=== PATIENT | female | born 1995 | race Caucasian/White ===

== ENCOUNTER 2017-10-02 23:40 | Emergency (ER) | payer MEDICAID, SELFPAY ==
[2017-10-02 23:41] VITALS: PULSE 136
[2017-10-02 23:42] VITALS: BP 158/107; PULSE 137; RESP 26; TEMP 36.8; O2SAT 94; BMI 54.6
--- NOTE | 2017-10-03 00:01 | EKG12_ITS ---
Test Reason : GENERAL ILLNESS Blood Pressure : / mmHG Vent. Rate : 114 BPM Atrial Rate : 114 BPM P-R Int : 144 ms QRS Dur : 086 ms QT Int : 322 ms P-R-T Axes : 035 073 017 degrees QTc Int : 443 ms Sinus tachycardia Otherwise normal ECG Confirmed by JINA SURESH, ÓSCAR ([id number]), scientific publications editor CHRISTINA HUGO ([id number] on 10/06/2017 3:26:05 PM Referred By: KIM Confirmed By:ÓSCAR MURO MD
[2017-10-03] MEDS: 0.9% Normal Saline 1,000 ML 1000 ML IV (00:21)
[2017-10-03 00:34] LABS: Absolute Lymphocyte Count 0.59 X10^3/ul (0.83-4.51); Absolute Neutrophil Count 7.9 X10^3/uL (2.0-7.7); Basophil# 0.02 X10^3/uL; Basophil% 0.2 % (0-1); Eosinophil# 0.15 X10^3/uL; Eosinophils% 1.6 % (0-5); Hemoglobin 14.6 g/dl (12.0-15.0); Lymphocyte # 0.59 X10^3/ul (4.0); Lymphocyte % 6.4 % (19-41); Mean Corpuscular Hgb 32.2 pg (27.0-32.0); Mean Corpuscular Volume 94.9 fL (81-99); Mean Platelet Vol. 9.1 fl (6.2-12.0); Monocyte# 0.61 X10^3/uL; Monocyte% 6.6 % (0-10); Neutrophil # 7.86 X10^3/uL (2.7-7.7); Platelet Count 261 K/mm3 (150-450); RBC Distribution Width SD 43.5 fl (35.1-43.9); Red Blood Count 4.53 M/mm3 (4.2-5.4); White Blood Count 9.3 K/mm3 (4.4-11.0)
[2017-10-03 00:36] LABS: Differential Indicated SCAN CRITERIA MET; POSITIVE COUNT NO; POSITIVE DIFFERENTIAL YES; POSITIVE MORPHOLOGY NO
[2017-10-03 00:42] LABS: Anion Gap 9 (5-15); BUN 10 mg/dL (7-18); BUN/Creat Ratio 11.6 RATIO (10-20); Calcium,Total 8.7 mg/dL (8.5-10.1); Chloride 104 mmol/L (98-107); Creatinine, Serum 0.86 mg/dL (0.55-1.02); EST Glomerular Filtration Rate 87 mL/min (>60); Est Glom Filt Rate - Afr Amer 105 mL/min (>60); Estimated Creatinine Clearance 77.43 ml/min; Glucose 129 mg/dL (70-110); Potassium 3.7 mmol/L (3.5-5.1); Sodium Level 139 mmol/L (136-145)
[2017-10-03 00:52] LABS: Differential Comment SCANNED
[2017-10-03 01:15] LABS: Pregnancy, Serum, hCG Quali. NEGATIVE Negative (0-9 Nonpreg)
[2017-10-03 01:33] VITALS: BP 155/94; PULSE 115; RESP 17; O2SAT 98
--- NOTE | 2017-10-03 01:37 | ED.DEP ---
ED Disposition - Plan for ED Patient: Chief Complaint: General Illness Instructions: ED Diarrhea Viral Referrals: Annamarie Tovar MD [Primary Care Provider] -
--- NOTE | 2017-10-03 01:38 | ED.DCSUM_ITS ---
- ER Visit Summary Date of Service: 10/03/17 Chief Complaint: Flu History of Present Illness: The patient is a 22 F with symptoms that started today. She reports chills, sweats, and diarrhea. She thought she might be developing the flu. She was also concerned because she has been weaning off of her psych meds. She has been taking invega but decreasing the dose under the care of her doctor. She was recently started on Prolixin. Physical Examination: Blood pressure 158/107. Heart rate 137. Respiratory rate 26. Afebrile. Pulse ox 94%. Patient appears uncomfortable but not toxic or in distress. Skin appears normal. Heart regular but tachycardic. Lungs clear. Abdomen soft and nontender. Test Results: EKG showed sinus rhythm at a rate of 114. No signs of ischemia or infarction. CBC normal. BMP normal except for glucose of 129. test negative. Influenza test negative. Emergency Department Course and Treatment: Patient received fluids and nausea medication. Her symptoms improved. Her blood pressure improved. Her symptoms may be from medication changes, or possibly an infectious etiology. She is nontoxic and in no acute distress. I believe she is appropriate for outpatient follow-up. She will continue to stay hydrated. Monitor for new or worsening symptoms. Return if worse. Treatment Plan: As above Disposition: Discharged Impression: 1. Diarrheal illness This note was generated with [employer] dictation software. It may contain incorrect words, spelling, and punctuation that were not noted in review of the chart prior to signing ED Disposition - Plan for ED Patient: Chief Complaint: General Illness Referrals: Annamarie Tovar MD [Primary Care Provider] -
--- NOTE | 2017-10-03 01:46 | ED.RN ---
IV DC'ED, CATHETER INTACT, SMALL GAUZE DRESSING PLACED. DISCHARGE INSTRUCTIONS GIVEN TO AND REVIEWED WITH PATIENT, PATIENT DENIES QUESTIONS OR CONCERNS AND VOICES UNDERSTANDING OF DISCHARGE INSTRUCTIONS. PT AMBULATES OUT OF ROOM WITHOUT DIFFICULTY.
== END 2017-10-03 01:47 | disposition home or self-care (01) ==
PROVIDERS: Emergency Provider Emergency Medicine; Family Provider Internal Medicine; PCP Internal Medicine
DX: R19.7 Diarrhea, unspecified (principal); R05 Cough; R51 Headache; R10.9 Unspecified abdominal pain; R11.0 Nausea; Z72.0 Tobacco use; F20.9 Schizophrenia, unspecified
CPT/HCPCS: 80048; 84703; 85025; 87804; 93005; 99285; J7030; A4216

== ENCOUNTER → 2017-10-06 13:53 | Outpatient (CLI) | payer MEDICARE, SELFPAY ==
[2017-10-06 13:06] VITALS: BP 155/94; BMI 54.6
[2017-10-06 15:49] LABS: Hemoglobin A1c 5.1 % (4.2-6.3)
[2017-10-06 15:56] LABS: T4 Free Direct 0.93 ng/dL (0.76-1.46)
== END ==
PROVIDERS: Family Provider Internal Medicine; PCP Internal Medicine; Visit Provider Internal Medicine
DX: R00.0 Tachycardia, unspecified (principal); R73.09 Other abnormal glucose
CPT/HCPCS: 36415; 83036; 84439; 84443

== ENCOUNTER → 2018-01-16 14:10 | Outpatient (CLI) | payer MEDICARE, SELFPAY ==
[2018-01-16 15:49] LABS: Hematocrit 40.9 % (37-47); Hemoglobin 13.6 g/dl (12.0-15.0); Mean Corp Hgb Conc 33.3 g/gl (32-36); Mean Corpuscular Hgb 32.2 pg (27.0-32.0); Mean Corpuscular Volume 96.7 fL (81-99); Mean Platelet Vol. 9.3 fl (6.2-12.0); Platelet Count 311 K/mm3 (150-450); RBC Distribution Width CV 13.7 % (11.6-14.6); RBC Distribution Width SD 47.2 fl (35.1-43.9); Red Blood Count 4.23 M/mm3 (4.2-5.4); White Blood Count 6.6 K/mm3 (4.4-11.0)
[2018-01-16 16:12] LABS: Hemoglobin A1c 5.3 % (4.2-6.3)
[2018-01-16 16:17] LABS: ALB/GLOB Ratio 1.1 RATIO (0.9-2.4); AST(SGOT) 17 U/L (15-37); Alanine Aminotransfer ALT/SGPT 28 U/L (13-56); Albumin, Serum 3.7 g/dL (3.2-5.0); Alkaline Phosphatase 158 U/L (45-117); Anion Gap 7 (5-15); BUN 11 mg/dL (7-18); BUN/Creat Ratio 12.6 RATIO (10-20); Calcium,Total 8.6 mg/dL (8.5-10.1); Chloride 106 mmol/L (98-107); Creatinine, Serum 0.87 mg/dL (0.55-1.02); EST Glomerular Filtration Rate 86 mL/min (>60); Est Glom Filt Rate - Afr Amer 104 mL/min (>60); Globulin 3.4 g/dL (2.2-4.2); Glucose 85 mg/dL (74-106); Potassium 4.1 mmol/L (3.5-5.1); Prolactin 98.7 ng/mL; Protein, Total 7.1 g/dL (6.4-8.2); Sodium Level 141 mmol/L (136-145); Thyroid Stim Hormone (TSH) 2.55 uIU/mL (0.358-3.74)
[2018-01-16 16:19] LABS: Scan Indicated on CBC? Y/N NO
== END ==
PROVIDERS: Family Provider Internal Medicine; PCP Internal Medicine; Visit Provider Psychiatry & Neurology Psychiatry
DX: Z79.899 Other long term (current) drug therapy (principal)
CPT/HCPCS: 36415; 80053; 83036; 84146; 84443; 85027

== ENCOUNTER 2018-04-23 01:51 | Emergency (ER) | payer MEDICARE, SELFPAY ==
[2018-04-23 01:53] VITALS: BP 171/98; PULSE 113; RESP 18; TEMP 36.6; O2SAT 97; BMI 59.3
[2018-04-23 02:25] LABS: Absolute Lymphocyte Count 1.81 X10^3/ul (0.83-4.51); Absolute Neutrophil Count 5.1 X10^3/uL (2.0-7.7); Basophil# 0.03 X10^3/uL; Basophil% 0.4 % (0-1); Eosinophil# 0.22 X10^3/uL; Eosinophils% 2.9 % (0-5); Hematocrit 45.9 % (37-47); Hemoglobin 15.3 g/dl (12.0-15.0); Lymphocyte # 1.81 X10^3/ul (4.0); Lymphocyte % 23.7 % (19-41); Mean Corp Hgb Conc 33.3 g/gl (32-36); Mean Corpuscular Hgb 31.2 pg (27.0-32.0); Mean Corpuscular Volume 93.7 fL (81-99); Monocyte# 0.45 X10^3/uL; Monocyte% 5.9 % (0-10); Neutrophil # 5.11 X10^3/uL (2.7-7.7); Neutrophil % 66.8 % (47-70); Platelet Count 328 K/mm3 (150-450); RBC Distribution Width CV 13.2 % (11.6-14.6); RBC Distribution Width SD 43.7 fl (35.1-43.9); White Blood Count 7.6 K/mm3 (4.4-11.0)
[2018-04-23 02:27] LABS: POSITIVE COUNT NO; POSITIVE DIFFERENTIAL NO; POSITIVE MORPHOLOGY NO
[2018-04-23 02:37] LABS: Anion Gap 9 (5-15); BUN 9 mg/dL (7-18); BUN/Creat Ratio 8.5 RATIO (10-20); Calcium,Total 8.9 mg/dL (8.5-10.1); Chloride 105 mmol/L (98-107); Creatinine, Serum 1.06 mg/dL (0.55-1.02); EST Glomerular Filtration Rate 68 mL/min (>60); Est Glom Filt Rate - Afr Amer 83 mL/min (>60); Estimated Creatinine Clearance 62.29 ml/min; Glucose 154 mg/dL (74-106); Potassium 3.5 mmol/L (3.5-5.1); Sodium Level 138 mmol/L (136-145)
[2018-04-23 02:51] LABS: Amphetamine Urine VISTA NEGATIVE (<1000 ng/mL); Barbiturate Urine VISTA NEGATIVE (< 200 ng/mL); Benzodiazepine Urine VISTA NEGATIVE (< 200 ng/mL); Cocaine Urine VISTA NEGATIVE (< 300 ng/mL); Ecstacy Urine VISTA NEGATIVE (< 500 ng/mL); Methadone Urine VISTA NEGATIVE (< 300 ng/mL); PCP Urine VISTA NEGATIVE (< 25 ng/mL); THC Urine VISTA NEGATIVE (< 50 ng/mL); Vista UDS pH Range 6
[2018-04-23 02:59] LABS: Pregnancy, Serum, hCG Quali. NEGATIVE Negative (0-9 Nonpreg)
--- NOTE | 2018-04-23 03:05 | ED.RN ---
CALLED [facility]. FORGEMAN HELPER STATED SHE WILL LET MARYAN KNOW PT NEEDS TO BE SEEN.
[2018-04-23 03:31] VITALS: BP 139/88; PULSE 111; RESP 20; O2SAT 96
--- NOTE | 2018-04-23 03:43 | ED.RN ---
[facility] FROM [facility] IS HERE TO SEE PT.
--- NOTE | 2018-04-23 04:59 | ED.VISSUMM ---
- ER Visit Summary Date of Service: 04/23/18 Chief Complaint: [Depression] History of Present Illness: The patient is a 23 F [presents to the emergency department with complaint of feeling depressed over the last 1-2 weeks. Patient states that she is having a hard time getting out of bed and really lacks any type of motivation. Patient feels useless. She has had decreased p.o. intake. Patient crying more. She denies feeling suicidal or homicidal. Patient does have a history of schizoaffective disorder. Patient scheduled to see a new psychiatrist next month. Patient denies any physical complaints. Patient has no intention of causing self-harm.] Physical Examination: [HEENT-PERRLA, EOMI. Cranial nerves II through XII grossly intact. TMs clear. Mucous membranes moist. No adenopathy. Cardiovascular-regular rate and rhythm without murmur or ectopy Lungs-clear to auscultation, chest wall stable without crepitus or subcu emphysema Abdomen-normoactive bowel sounds, soft, nontender, no rebound or rigidity, no peritoneal signs. Extremities-intact ?4, normal range of motion, normal pulses, atraumatic] Test Results: [CBC with differential obtained was normal. Chemistries were normal. HCG was negative. Toxicology screen was negative. Alcohol was negative.] Emergency Department Course and Treatment: [Patient was evaluated by crisis in the emergency department and at this time it is felt that patient can follow-up as an outpatient with intensive outpatient therapy. Patient is agreeable to this as well as her mother. Patient can contract for safety.] Treatment Plan: [Patient follow-up with counseling center and outpatient therapy Disposition: [Discharged home in stable condition] Impression: [Depression] This note was generated with [employer] software. It may contain incorrect words, spelling, and punctuation that were not noted in review of the chart prior to signing ED Disposition - Plan for ED Patient: Chief Complaint: Depression Referrals: Annamarie Tovar MD [Primary Care Provider] -
--- NOTE | 2018-04-23 05:01 | ED.DEP ---
ED Disposition - Plan for ED Patient: Chief Complaint: Depression Instructions: ED Depression Referrals: Annamarie Tovar MD [Primary Care Provider] - Additional Instructions: follow up with intensive outpatient therapy and your psychiatrist
[2018-04-23 05:08] VITALS: BP 157/93; PULSE 125; RESP 20; O2SAT 96
== END 2018-04-23 05:11 | disposition home or self-care (01) ==
PROVIDERS: Emergency Provider Emergency Medicine; Family Provider Internal Medicine; PCP Internal Medicine
DX: F32.9 Major depressive disorder, single episode, unspecified (principal); I10 Essential (primary) hypertension; K21.9 Gastro-esophageal reflux disease without esophagitis; Z72.0 Tobacco use; F25.9 Schizoaffective disorder, unspecified; Z79.899 Other long term (current) drug therapy
CPT/HCPCS: 36415; 80048; 80307; 80320; 84703; 85025; 99282; G0480

== ENCOUNTER 2018-05-19 09:00 | Outpatient (RCR) | payer MEDICARE, SELFPAY ==
--- NOTE | 2018-05-19 10:09 | BH.SGPN.GN ---
Behaviors/Verbalizations/Mental Status: [Client maintained good eye contact, casually dressed - appearance disheveled as client underwear clearly visible and clothing was ill fitting, motor activity restless - jittery, impatient - AEB shaking leg, fidgeting, difficulty remaining still, speech normal rate and tone - at times appearing hurried in speech due to increased anxiety, anxious, inquisitive, affect congruent, thoughts appearing linear and logical, no evidence of delusions or hallucinations.] Client Response/Progress/Benefit: [Client new to IOP treatment and was adjusting to group setting as this was her first day in the program. She did well to become increasingly engaged and talkative as she grew more comfortable. Client indicated connecting with the group topic of healthy boundaries boundaries and benefitted from hearing other participants discuss their own struggles and experiences associated with setting maintaining consistent healthy boundaries in order to best promote mental health wellness. Client did well to take in and understand information covered regarding different types of boundary setting. She indicated that telling others her emotions is really difficult and went on to explain that her biggest road block in maintaining appropriate boundaries is fear of upsetting others. CLient recommended continued IOP to prevent decompensation and further improoove insight regarding distorted thought patterns.] Narrative Note: []
--- NOTE | 2018-05-19 11:20 | BH.SGPN.GN ---
Behaviors/Verbalizations/Mental Status: [Client maintained consistent eye contact, casually dressed - appearance disheveled AEB client underwear showing, clothing ill-fitting, motor activity , speech normal rate and tone, motor activity restless, however more relaxed than previous session - fidgeting, difficulty remaining still, speech normal rate and tone, anxious, hopeful, affect congruent, thoughts appearing linear and logical, no evidence of delusions or hallucinations.] Client Response/Progress/Benefit: [Client again did well to respond to session and remained in the discussion throughout. Client was able to make connections between her own mental health symptoms and experiences and those discussed by other participants in the group, AEB client nodding and saying me too at various points in discussion. CLient described her current boundaries as being as if she is wearing a mask. She went on to explain feeling as though she has to remain rigid in her emotional boundaries and cant let others see how she really feels or what she is going through. Client benefitted from reflecting on how this has negatively impacted her mental health in the past and ways she would like to begin to improve current boundaries. CLient recommended continued IOP treatment to prevent decompensation and begin working on improving communication with healthy supports to improve client emotion regulation and decrease depressive symptoms.] Narrative Note: []
--- NOTE | 2018-05-19 11:30 | BH.MDN ---
Multi-Disciplinary Note - Note 30-min Individual Time Started:: 08:50 Date: 05/19/18 Purpose of session/treatment goals addressed:: Pt was scheduled to start IOP 12 days ago however did not show not return calls. She showed this AM unannounced requesting to start program. Used the session to discuss current symptoms and any changes in the past 12 days. Eye Contact:: Good Motor Activity:: Appropriate Appearance:: Disheveled Speech:: Appropriate Mood:: Anxious, Depressed Affect:: Congruent Thoughts:: Linear, Logical, No evidence of hallucinations/delusions noted Staff Interventions:: Asked appropriate questions to determine current symptoms and updated pre-admission which was completed 12 days prior. Client Response:: Pt showed up this AM to start IOP unannouced. She apologized for not showing up for scheduled start to IOP 12 days ago and for not calling. Reports that she thought she could cope with her depression herself. Reports that her symptoms continue to affect her daily functioning. Reports no energy, no motivation, increased sleep, crying spells, feelings of worthlessness, and decreased appetitie. States that she is sleeping more than 10 hours per day. Hx of self-harming however denies that she has harmed herself. She reports that she talked with her mother and they both decided this AM that she should follow through with IOP. Presented to [facility] ER on 04/23/18 for worsening depression and requested medication changes. After crisis assessment was referred to [facility]. Risks/Concerns:: Denies any active suicidal ideations, plan, or intent. Hx of previous attempts. Hx of self-harming behaviors (cutting/burning self) to cope with emotions. Last self-harm was 14 days ago. Verbally contracts for safety. Progress Toward Goals/Plan:: No progress noted as this is pt's first day in IOP. Plan is to admit to IOP to prevent decompensation, stabilize mood, and improve daily functioning. Time Stopped:: 09:10
--- NOTE | 2018-05-19 11:45 | BH.MDN_ITS ---
Multi-Disciplinary Note - Note 30-min Individual Time Started:: 08:50 Date: 05/19/18 Purpose of session/treatment goals addressed:: Pt was scheduled to start IOP 12 days ago however did not show not return calls. She showed this AM unannounced requesting to start program. Used the session to discuss current symptoms and any changes in the past 12 days. Eye Contact:: Good Motor Activity:: Appropriate Appearance:: Disheveled Speech:: Appropriate Mood:: Anxious, Depressed Affect:: Congruent Thoughts:: Linear, Logical, No evidence of hallucinations/delusions noted Staff Interventions:: Asked appropriate questions to determine current symptoms and updated pre-admission which was completed 12 days prior. Client Response:: Pt showed up this AM to start IOP unannouced. She apologized for not showing up for scheduled start to IOP 12 days ago and for not calling. Reports that she thought she could cope with her depression herself. Reports that her symptoms continue to affect her daily functioning. Reports no energy, no motivation, increased sleep, crying spells, feelings of worthlessness, and decreased appetitie. States that she is sleeping more than 10 hours per day. Hx of self-harming however denies that she has harmed herself. She reports that she talked with her mother and they both decided this AM that she should follow through with IOP. Presented to [facility] ER on 04/23/18 for worsening depression and requested medication changes. After crisis assessment was referred to [facility]. Risks/Concerns:: Denies any active suicidal ideations, plan, or intent. Hx of previous attempts. Hx of self-harming behaviors (cutting/burning self) to cope with emotions. Last self-harm was 14 days ago. Verbally contracts for safety. Progress Toward Goals/Plan:: No progress noted as this is pt's first day in IOP. Plan is to admit to IOP to prevent decompensation, stabilize mood, and improve daily functioning. Time Stopped:: 09:10
--- NOTE | 2018-05-20 10:03 | BH.SGPN.GN ---
Behaviors/Verbalizations/Mental Status: []Client alert and oriented, disheveled appearance. Eye contact good. Motor activity appropriate. Speech within normal limits. Affect flat, mood dysthymic. Thoughts linear, logical, no signs of hallucinations or delusions. Client Response/Progress/Benefit: []Client responded well to session, engaged throughout. Client discussed things in life that keep people stuck from obtaining mental wellness. Client listed things she would like to get rid of in her life that are keeping her stuck. Client identified self-doubt, not wanting change, unhealthy relationships, and ?not admitting I have a problem.? Client shared if she removed these things her anxiety and depression would lessen. Client participated in the activity that promoted emotional release of things holding client back. Client reported the activity gave client a way to express her emotions. Client appeared to benefit from identifying what she would like to remove from her life in order to obtain improved mental wellness.
--- NOTE | 2018-05-20 11:05 | BH.SGPN.GN ---
Behaviors/Verbalizations/Mental Status: []Client alert and oriented, disheveled. Eye contact good. Motor activity appropriate. Speech within normal limits. Affect constricted, mood anxious. Thoughts linear, logical, no signs of hallucinations or delusions. Client Response/Progress/Benefit: []Client responded well to session, active participant. Client created a 30-day plan to help client get rid of one of the stressors holding her back from improved mental wellness. Client?s 30-day plan was ?no more letting people walk all over me.? Client stated she picked this stressor because client feels anger and frustration when she feels taken advantage of and wants to change that. Client appeared to benefit from creating a 30-day action plan. Progress limited as client is new to IOP. Client to continue IOP to promote mood stability and reduce depression.
--- NOTE | 2018-05-22 09:05 | BH.SGPN.GN ---
Behaviors/Verbalizations/Mental Status: [] Pt eye contact fair, casually dressed, motor activity restless, speech normal rate and tone, mood anxious, congruent affect, thoughts linear and logical, no evidence of delusions or hallucinations. Reviewed client?s symptom tracker, no signs of suicidal ideation, plan, or intent as of today. Client Response/Progress/Benefit: [] Patient reported she recently became sick the last few days which has made her have lower energy. Pt shared one positive this week and is she will be celebrating her sister's birthday. Pt shared however 1 of her stressors is not getting along with her sister, however recognizes its good to spend time with her sister. Patient shared another positive is getting to spend time with her other family while at her sister's birthday republican. Patient reported she is a little nervous that she will be able to manage her emotions And she is not feeling well, but able to identify what she can do if starting to get agitated with others. Patient showing progress with increased awareness of her negative thought patterns and being proactive by identifying what she can do to manage her emotions if needed. Patient seemed to benefit from expressing thoughts and emotions as well as receiving support from peers. Patient to continue IOP level of care to stabilize moods, decrease distorted thought patterns, and prevent decompensation. Narrative Note: []
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
--- NOTE | 2018-05-22 12:52 | BH.DR.ITP ---
Initial Treatment Plan - Patient Information Visit Information: ADMISSION DATE: EXPECTED LOS: 4-6 weeks Diagnoses:: 2 affective disorder bipolar type. PTSD - Problems/Symptoms Problem #1:: Mood instability Symptom:: Depression, isolation, decreased motivation, self-harm thoughts Problem #2:: Anxiety Symptom:: Rumination, panic, intrusive traumatic memories
--- NOTE | 2018-05-22 16:27 | BH.MDN ---
Multi-Disciplinary Note - Note 45-min Individual Time Started:: 10:22 Date: 05/22/18 Purpose of session/treatment goals addressed:: The purpose of this session was to establish rapport with client and provide supportive feedback and encouragement as client discussed current stressors and mental health symptoms. Another purpose was to discuss treatment goals and expectations, as well as gather additional psychosocial history relevant to treatment. Eye Contact:: Good Motor Activity:: Appropriate, Restless - at times fidgetting in chair or looking towards door near end of session Appearance:: Casual, Other - client congested and eyes/nose red due to feeling ill Speech:: Appropriate Mood:: Anxious, Depressed Affect:: Congruent Thoughts:: Linear, Logical, No evidence of hallucinations/delusions noted - client denies any current or active auditory hallucinations. Staff Interventions:: Therapist utilized active listening and humor to build rapport and aid in client in easing anxiety regarding IOP program. Therapist asked open-ended questions to gather information regarding current symptoms, stressors, and treatment goals. Applied empathic responses as Client discussed mental health hx and ME techniques to encourage change behaviors and work with Client on establishment of treatment goals. Additionally, assessed for risk regarding self-harming behaviors and discussed healthy alternatives to self-harming. Client Response:: Client receptive of session and willing to meet with this therapist to review current symptoms, stressors, and goals for treatment. Client discussed feeling very accepted and comfortable in the group setting which has aided in her ability to adjust to the new environment. Client went on to share knowing she needed to seek professional help with managing her depression when she began to recognize changes in her mood and her behaviors. She went on to describe experiencing an increase in negative thoughts and feelings, indicating I could tell I was getting more depressed and I was isolating more. Client discussed that her increased anxiety and depressive symptoms ultimately resulted in client presenting to the ER for a crisis assessment and beig referred to the IOP program. Client shared wanting to find new ways of managing her depression and coping with her current stressors. Client disclosed feeling her current living situation is not good as CLient described that she and her mother are currently homeless and have been staying with her step-dad in his one room apartment. CLient discussed that this has been unhelpful for client mental health as her step-dad struggles with addiction and can become irritable or lash out verbally at times. She expressed plans to find alternative housing and is currently on the [facility] waiting list. Client attributes housing and other psychosocial stressors, such as finances and lack or transportation, as contributing factors to recent mental health decline. At time of session client is endorsing sx of: decreased motivation, anhedonia, rumination related to the anniversay of her father's , increased isolation, irritability, increased self-harming, worthlessness, and crying spells. CLient open to discussing related mental health hx and previous means for coping with sx and managing emotions. Client responded well to psychoeducation provided regarding self-harming and indicated a desire to identify and consistently utilize healthy alternatives as well as improve communication with supports when experiencing increased urges to self-harm. Therapist assessed for current risk and client denying any active self-harming thoughts or urges, as well as denied active plans or intent. CLient indicated connecting with the [employer] and reports plans to use such as a healthy reminder of her supports and how self-harming also hurts those who care about her. Risks/Concerns:: Client denies suicidal ideation, plan, and intent as of 05/22/18. Client reports a hx of self-injurious behaviors via cutting and buring with cigarettes; however, denies any active thoughts, plans, or intent. Client indicates plans to use the ?[employer]? as a technique to reduce urges to self-harm. She is future oriented and reports plans to begin going on regular walks with her mother and new puppy. Progress Toward Goals/Plan:: Progress limited as it is client's second day in IOP and is still adjusting to tx environment. Client reports feeling hopeful and excited to be working more actively on better managing her mental health sx. She discussed feeling comfortable and supported in the group environment and believes that being with others who are dealing with similar experiences will be helpful to her tx progress. Client is currently endorsing anxiety, depressed mood with isolative behavior, no motivation, increase self-harming urges, and difficulty concentrating. Client reports a hx of self-harming behaviors via cutting and burning. Last self-harming reported as being earlier this month. Denies current urges, plan, or intent. Client to continue IOP to increase mood stability, improve use of healthy means for coping, and increase client communication with supports. Time Stopped:: 11:11
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
--- NOTE | 2018-05-26 09:46 | BH.MTP_ITS ---
[facility] Treatment Plan - Patient Information Program Physician:: Cee Reid Primary Therapist:: MILLIE Caro - Psychiatric Diagnoses Psychiatric Diagnoses:: Schitzoaffective Disorder-bipolar type, PTSD, Unspecified Anxiety Diagnosis Code(s):: F 25.0 - Estimated LOS Estimated LOS (in weeks):: 6 Problem/Goal #1 - Problem/Goal #1 Stated Goal:: Client will improve mood management and reduce sx of depression, self harm urges, feelings of hopelessness through Intensive Outpatient Program. Description of Barriers: Client has a significant trauma hx and reports intrusive traumatic thoughts causing increased anxiety and rumination. Client additionally struggles in managing her emotions and reports a significant hx of self-harming and unhealthy means for coping which may impact ability to make progress. Client reports auditory and command hallucinations which may further exacerbate Client distorted or negative thinking; however, client indicates maintaining medication compliance and denies current difficulties with managing hallucinations. Client has a small support system that she describes as ?toxic? at times and multiple psychosocial stressors including financial, occupational, and family stress. Functional Impact: Client reports that recent increases in negative thoughts and intrusive thoughts ruminations related to past trauma have led client to experience increased anxiety and isolation that impact her on a daily basis. Client reports that her increased depression has also led to an influx in thoughts of self-harming and last engaged in self-harming behavior at the beginning of the month. Client noted that her depression and anxiety cause increased isolation, lack of appetite, difficulty completing dx tasks, anhedonia, and irritability. Client reports poor concentration and increased rumination impacting her ability to function at baseline. Goal Relevant Strengths/Supports: Client is receptive of receiving mental health treatment and is open to trying new and different strategies for managing mental health symptoms. Client has a positive support through her mother. She is connected to outpatient mental health services via her corrections caseworker and psychiatrist. Client has a healthy coping base and identifies areas in which she would do well to improve. She is positive and motivated to work towards tx goals - Objectives Objective #1 Stated Objective: Client will identify 2-3 warning signs and triggers for increased depression, negative thinking, and self harming urges. Client will additionally identify and implement 2-3 healthy coping skills to replace self- injurious behaviors and better manage emotions during times of increased dysregulation. Interventions: Therapist will help client develop insight into mental health triggers and warning signs for depression and self-harming urges. Therapist will help client find internal solutions to mental health struggles and aid client in connecting triggers with coping strategies that will help stabilize mood. Therapist will also help client be more articulate and expressive so can communicate with family and friends when decompensating. Discharge Criteria: Client will have achieved this objective when able to identify 2-3 warning signs and triggers contributing to depression and self- harming urges, as well as verbalize and utilize at least 2 coping strategies to help stabilize mood. Target Date: 06/30/18 Review Date: 06/16/18 Objective #2 Stated Objective: Work with client to develop a ?self-harming safety plan? to utilize in times of increased urges to self harm. This plan will include which includes emergency telephone numbers, 3-4 thought stopping strategies for negative thinking, 3-4 healthy alternatives to self harming, lists of supports, positive aspects of life, and motivations. Work with client to identify 3-4 sources or triggers to self-harming ideations to increase insight. Interventions: Therapist will provide list of crisis resources and phone numbers. Therapist will work with client to identify common negative thought patterns and triggers causing increased self-harming urges. Provide psychoeducation on cognitive distortions and common effective alternatives to self-harming, as well as assit client in identifying effective coping strategies and steps to take in times of mental health crisis or increased urges to self harm. Discharge Criteria: Client will have achieved this goal once she completes her safety plan, is able to utilize the coping and thought replacement strategies identified, and reports reduced urges to engage in self-harming behavior. Target Date: 06/30/18 Review Date: 06/16/18 Problem/Goal #2 - Problem/Goal #2 Stated Goal:: Client will stabilize anxiety level while increasing ability to function and decreasing ruminative thoughts on a daily basis through Intensive Outpatient Program. Description of Barriers: Client has a significant trauma hx and reports intrusive traumatic thoughts causing increased anxiety and rumination. Client additionally struggles in managing her emotions and reports a significant hx of self-harming and unhealthy means for coping which may impact ability to make progress. Client reports auditory and command hallucinations which may further exacerbate Client distorted or negative thinking; however, client indicates maintaining medication compliance and denies current difficulties with managing hallucinations. Client has a small support system that she describes as ?toxic? at times and multiple psychosocial stressors including financial, occupational, and family stress. Functional Impact: Client reports that recent increases in negative thoughts and intrusive thoughts ruminations related to past trauma have led client to experience increased anxiety and isolation that impact her on a daily basis. Client reports that her increased depression has also led to an influx in thoughts of self-harming and last engaged in self-harming behavior at the beginning of the month. Client noted that her depression and anxiety cause increased isolation, lack of appetite, difficulty completing dx tasks, anhedonia, and irritability. Client reports poor concentration and increased rumination impacting her ability to function at baseline. Goal Relevant Strengths/Supports: Client is receptive of receiving mental health treatment and is open to trying new and different strategies for managing mental health symptoms. Client has a positive support through her mother. She is connected to outpatient mental health services via her corrections caseworker and psychiatrist. Client has a healthy coping base and identifies areas in which she would do well to improve. She is positive and motivated to work towards tx goals - Objectives Objective #1 Stated Objective: Identify at least 2-3 distorted thinking patterns often creating increased rumination and anxiety and learn 2-3 strategies to challenge and replace distorted thought patterns with positive messages. Interventions: Therapist will provide psychoeducation regarding cognitive distortions and aid client in exploring and identifying specific distorted thinking patterns that increase rumination and anxiety. Therapist will implement techniques of DBT and CBT therapies to improve client's ability to identify and reframe unhealthy thoughts and unrealistic expectations of self. Therapist will additionally work with client on improving her ability to remain comfortable when in an unstructured environment by utilizing concepts of CBT and radical acceptance. Discharge Criteria: Client will have achieved this objective when able to successfully identify and challenge or replace at least 2-3 distorted thinking patterns. Target Date: 06/30/18 Review Date: 06/16/18
--- NOTE | 2018-05-26 11:14 | BH.MDN_ITS ---
Multi-Disciplinary Note - Note 45-min Individual Time Started:: 10:22 Date: 05/22/18 Purpose of session/treatment goals addressed:: The purpose of this session was to establish rapport with client and provide supportive feedback and encouragement as client discussed current stressors and mental health symptoms. Another purpose was to discuss treatment goals and expectations, as well as gather additional psychosocial history relevant to treatment. Eye Contact:: Good Motor Activity:: Appropriate, Restless - at times fidgetting in chair or looking towards door near end of session Appearance:: Casual, Other - client congested and eyes/nose red due to feeling ill Speech:: Appropriate Mood:: Anxious, Depressed Affect:: Congruent Thoughts:: Linear, Logical, No evidence of hallucinations/delusions noted - client denies any current or active auditory hallucinations. Staff Interventions:: Therapist utilized active listening and humor to build rapport and aid in client in easing anxiety regarding IOP program. Therapist asked open-ended questions to gather information regarding current symptoms, stressors, and treatment goals. Applied empathic responses as Client discussed mental health hx and MT techniques to encourage change behaviors and work with Client on establishment of treatment goals. Additionally, assessed for risk regarding self-harming behaviors and discussed healthy alternatives to self- harming. Client Response:: Client receptive of session and willing to meet with this therapist to review current symptoms, stressors, and goals for treatment. Client discussed feeling very accepted and comfortable in the group setting which has aided in her ability to adjust to the new environment. Client went on to share knowing she needed to seek professional help with managing her depression when she began to recognize changes in her mood and her behaviors. She went on to describe experiencing an increase in negative thoughts and feelings, indicating I could tell I was getting more depressed and I was isolating more. Client discussed that her increased anxiety and depressive symptoms ultimately resulted in client presenting to the ER for a crisis assessment and beig referred to the IOP program. Client shared wanting to find new ways of managing her depression and coping with her current stressors. Client disclosed feeling her current living situation is not good as CLient described that she and her mother are currently homeless and have been staying with her step-dad in his one room apartment. CLient discussed that this has been unhelpful for client mental health as her step-dad struggles with addiction and can become irritable or lash out verbally at times. She expressed plans to find alternative housing and is currently on the [facility] waiting list. Client attributes housing and other psychosocial stressors, such as finances and lack or transportation, as contributing factors to recent mental health decline. At time of session client is endorsing sx of: decreased motivation, anhedonia, rumination related to the anniversay of her father's , increased isolation, irritability, increased self-harming, worthlessness, and crying spells. CLient open to discussing related mental health hx and previous means for coping with sx and managing emotions. Client responded well to psychoeducation provided regarding self- harming and indicated a desire to identify and consistently utilize healthy alternatives as well as improve communication with supports when experiencing increased urges to self-harm. Therapist assessed for current risk and client denying any active self-harming thoughts or urges, as well as denied active plans or intent. CLient indicated connecting with the [employer] and reports plans to use such as a healthy reminder of her supports and how self- harming also hurts those who care about her. Risks/Concerns:: Client denies suicidal ideation, plan, and intent as of 05/22/18. Client reports a hx of self-injurious behaviors via cutting and buring with cigarettes; however, denies any active thoughts, plans, or intent. Client indicates plans to use the ?[employer]? as a technique to reduce urges to self-harm. She is future oriented and reports plans to begin going on regular walks with her mother and new puppy. Progress Toward Goals/Plan:: Progress limited as it is client's second day in IOP and is still adjusting to tx environment. Client reports feeling hopeful and excited to be working more actively on better managing her mental health sx. She discussed feeling comfortable and supported in the group environment and believes that being with others who are dealing with similar experiences will be helpful to her tx progress. Client is currently endorsing anxiety, depressed m ood with isolative behavior, no motivation, increase self-harming urges, and difficulty concentrating. Client reports a hx of self-harming behaviors via cutting and burning. Last self-harming reported as being earlier this month. Denies current urges, plan, or intent. Client to continue IOP to increase mood stability, improve use of healthy means for coping, and increase client communication with supports. Time Stopped:: 11:11
--- NOTE | 2018-05-27 16:25 | BH.COMM ---
Communication Note - Communication with Client Communication Note: Client canceled group on this date due to being ill and indicated not wanting to get others in the program sick. Client plans to return to group on next scheduled date 05/29/18
--- NOTE | 2018-05-29 10:49 | BH.COMM ---
Communication Note - Communication with Client Communication Note: Client unable to attend scheduled group date as client in the hospital due to illness. CLient will follow-up to schedule for next week when feeling better.
--- NOTE | 2018-06-02 10:54 | BH.COMM_ITS ---
Communication Note - Communication with Client Communication Note: Therapist again attempted to contact Client and schedule next session date however client unavailable. Therapist again left a voicemail encouraging client to follow-up. Therapist contacted client case-med spa manager for coordination of care purposes and to encourage client to reach out should she want to continue in the IOP program.
== END 2018-05-31 23:59 ==
LOC: BHIOP 09:00
PROVIDERS: Family Provider Internal Medicine; PCP Internal Medicine; Visit Provider Psychiatry & Neurology Psychiatry
DX: F25.0 Schizoaffective disorder, bipolar type (principal); F41.9 Anxiety disorder, unspecified; F43.10 Post-traumatic stress disorder, unspecified; F17.210 Nicotine dependence, cigarettes, uncomplicated; F12.90 Cannabis use, unspecified, uncomplicated; J45.909 Unspecified asthma, uncomplicated
CPT/HCPCS: H0035; 90832; 90834; 90853

== ENCOUNTER 2018-05-29 01:52 | Emergency (ER) | payer MEDICARE, SELFPAY ==
[2018-05-29 01:53] VITALS: BP 108/68; PULSE 108; RESP 20; TEMP 36.7; O2SAT 93; BMI 50.7
[2018-05-29 02:44] VITALS: PULSE 110; RESP 20
[2018-05-29] MEDS: Ipratropium/Albuterol Sulfate 3 ML AMPUL.NEB INHALATION (02:44)
--- NOTE | 2018-05-29 02:55 | RAD_ITS ---
STUDY: X-RAY CHEST REASON FOR EXAM: Female, 23 years old. Cough, shortness of breath and wheezing. TECHNIQUE: PA and lateral views of the chest. COMPARISON: June 17, 2014. FINDINGS: The lungs are expanded. There are mild prominence of the bronchovascular markings in the lung bases. There is some peribronchial cuffing. There is no demonstrated pleural abnormality. Normal size heart. Normal mediastinum and james. There is prominence of the pulmonary hilar arteries without peripheral pulmonary vascular congestion. Normal visualized aortic arch and descending thoracic aorta. Normal visualized thoracic spine. Normal visualized ribs, clavicles, and shoulders. There is no demonstrated abnormality of the visualized soft tissue structures of the upper abdomen. RAD/Chest PA and Lateral IMPRESSION: Pulmonary congestion. Differential considerations include acute exacerbation of reactive airway disease, viral infection or mycoplasma pneumonitis. Electronically Signed: Charu Mcgraw MD at 3:09 EDT , Service support ,
--- NOTE | 2018-05-29 03:32 | ED.DCSUM_ITS ---
- ER Visit Summary Date of Service: 05/29/18 Chief Complaint: Cough and congestion History of Present Illness: The patient is a 23 F who presents with cough and congestion. She has been ill for about 1 week. She complains of congestion rhinorrhea posttussive emesis sputum. She was treated with doxycycline prednisone and albuterol. She denies chest pain shortness of breath fevers. She states that she is just not getting better. Physical Examination: Afebrile slightly tachycardic with a heart rate of 108 pulse ox 93% on room air Patient is clinically well-appearing in no distress Heart is regular rhythm slightly tachycardic Respiratory rate is normal at the time of my exam she has some scattered expiratory wheezing but is in no distress able speak in full sentences Abdomen soft Test Results: Chest x-ray shows some pulmonary congestion suggestive of reactive airway disease versus viral infection versus atypical pneumonia Emergency Department Course and Treatment: Patient is clinically well-appearing. Her chest x-ray is suggestive of viral infection versus atypical pneumonia. She was already treated with doxycycline which would cover for atypical pneumonia. I do not believe she needs additional antibiotics at this time. She was advised to continue supportive care. She was discharged. She does understand return for new or worsening symptoms and was instructed on specific signs and symptoms to monitor for. Treatment Plan: [] Disposition: Discharge Impression: Bronchitis This note was generated with [employer] dictation software. It may contain incorrect words, spelling, and punctuation that were not noted in review of the chart prior to signing ED Disposition - Plan for ED Patient: Chief Complaint: Shortness of Breath Referrals: Annamarie Tovar MD [Primary Care Provider] -
--- NOTE | 2018-05-29 03:32 | ED.DEP ---
ED Disposition - Plan for ED Patient: Chief Complaint: Shortness of Breath Instructions: Acute Bronchitis Referrals: Annamarie Tovar MD [Primary Care Provider] -
[2018-05-29 03:38] VITALS: BP 145/82; PULSE 110; RESP 20; O2SAT 94
== END 2018-05-29 03:39 | disposition home or self-care (01) ==
PROVIDERS: Emergency Provider Emergency Medicine; Family Provider Internal Medicine; PCP Internal Medicine
DX: J40 Bronchitis, not specified as acute or chronic (principal); Z72.0 Tobacco use
CPT/HCPCS: 71046; 94640; 99282

== ENCOUNTER 2018-06-03 09:00 | Outpatient (RCR) | payer MEDICARE, SELFPAY ==
--- NOTE | 2018-06-01 09:36 | BH.COMM ---
Communication Note - Communication with Client Communication Note: Client did not sign-up on group schedule for this week and this therapist attempted to contact client to schedule group sessions for the week. CLient unavaialable and therapist left a discrete voicemail encouraging her to call back.
--- NOTE | 2018-06-04 11:00 | BH.COMM ---
Communication Note - Communication with Client Communication Note: Client indicated she would not be able to stay after group for an individual session on this date and would like to meet with this therapist on 06/05/18 for individual therapy. Therapist will follow-up.
--- NOTE | 2018-06-08 09:05 | BH.SGPN.GN ---
Behaviors/Verbalizations/Mental Status: [Client maintained good eye contact and was willing to engage in the discussion - provided supportive feedback throughout. She was casually dressed, appropriate grooming/hygiene. Client speech was a normal rate and tone, Motor activity restless - AEB Client getting up to leave room and come back, shifting in seat, mood appearing anxious but euthymic, affect congruent with mood, thoughts linear and logical, no evidence of delusions or hallucinations.Therapist reviewed client?s symptom tracker to assess for intensity of mental health symptoms and identify risk for suicide. No signs of suicidal ideation, plan, or intent to date.] Client Response/Progress/Benefit: [Client responded well to session and willing to engage in processing portion of session, however left the room at one point while others shared. Client indicated feeling positive but somewhat anxious today as she has experienced several big changes in her life in the last few days. Client discussed adjusting to her new living conditions as she and her mother had recently moved into a hotel in order to remove themselves from the toxic environment they had been in. Client expressed feeling happy about this transition and proud of her mother for being able to set this boundary with her ex-. Client benefitted from the support of the group and suggestions fellow participants provided regarding ways to reduce anxiety as client indicated increased rumination and panic since moving. Client displaying progress in her ability to recognize triggers contributing to increased anxiety and insight regarding use of isolation as a means of coping. Recommended continued IOP tx to prevent decompensation and further improve use of healthy coping mechanisms.] Narrative Note: []
--- NOTE | 2018-06-08 10:30 | BH.SGPN.GN ---
Behaviors/Verbalizations/Mental Status: []Client alert and oriented, casual dress, hygiene fair. Eye contact fair. Motor activity appropriate. Speech within normal limits. Affect constricted, mood anxious, dysthymic. Thoughts linear, logical, no signs of hallucinations or delusions. Client Response/Progress/Benefit: []Client responded well to session, quiet, but participating when prompted. Client reported one can have external conflict and internal conflict. Client identified barriers to resolving conflict such as cognitive distortions, self-doubt, and avoidance. Client helped the group discuss the four different conflict resolution styles including when it is helpful and not helpful to use each style. Client shared she most often uses the avoidant style as client does not like conflict and has often lets others make decisions. Client recognizes her self-esteem is negatively impacted by how client manages conflict as client does not get her needs met. Client appeared to benefit from gaining awareness of how her current conflict resolution style impacts her mental health and relationships. Client to continue IOP as she continues to report mood instability and depression.
--- NOTE | 2018-06-08 11:17 | BH.MDN_ITS ---
Multi-Disciplinary Note - Note 30-min Individual Time Started:: 11:18 Date: 06/08/18 Purpose of session/treatment goals addressed:: Purpose of session is to address treatment goals #1 and #2, as well as assess progress in IOP. Eye Contact:: Good Motor Activity:: Appropriate Appearance:: Casual Speech:: Appropriate Mood:: Depressed Affect:: Congruent Thoughts:: Linear, Logical, No evidence of hallucinations/delusions noted Staff Interventions:: thought challenging, motivational interviewing, CBT techniques, taught coping skills - alternatives to self-harm, positive affirmations Client Response:: Pt receptive of session, actively engaged throughout. Reports ongoing difficulties with management of depressive sx and self-harming urges. Pt shared she has not engaged iin self-harming but continues to have urges to do so when feeling overwhelmed or depressed. Continues to endorse negative self- talk and feelings of hopelessness regarding current living situation. Spoke at length about concerns regarding her step-father's use of substances to cope, noting that this often leaves him numbed or disconnected from reality. Pt receptive of reviewing coping skills she can use as alternative to self-harming, as well as begin identifying positive affirmations and things to focus on when experiencing negative thoughts causing negative self-talk. Pt wrote down several affirmations to refer back to when struggling. Reports plans to begin spending more time drawing and coloring when feeling down as well, which she believes will help with reducing self-harming urges. Risks/Concerns:: Denies active SI, plan, or intent. Reports self-harming urges but denies any plan or intent to engage in self-harm behaviors. Progress Toward Goals/Plan:: Limited progress. Pt continues to struggle with depression and negative self-talk which further escalates feelings of self- deprecation and urges to self-harm. Struggles to complete homework provided or implement healthy skills for improving sx management. Continues to report isolation and limited support. Struggles with insight regarding how current coping behaviors reinforce depressive sx. Recommended continued IOP tx to reduce depression, promote healthy emotion regulation and coping skill use, and well as prevent decompensation. Time Stopped:: 11:45
--- NOTE | 2018-06-15 16:25 | BH.COMM ---
Communication Note - Communication with Client Communication Note: Client called and canceled group for this date with administrative receptionist she indicated not being able to secure a ride to IOP program. This therapist return clients call and discuss with client the importance of attending IOP program on a consistent basis in order to best benefit from materials learned and make most progress towards treatment goals of improving overall mental health and wellness. Client indicated understanding and expressed plans to attend IOP program Friday and Friday of this week. She shared knowing that regular attendance would be most beneficial in improving overall symptoms of anxiety and depression. Client offered transportation services however denied wanting hospital transportation to be set up for her at this time and indicated being able to find her own transportation.
--- NOTE | 2018-06-17 16:28 | BH.COMM_ITS ---
Communication Note - Communication with Client Communication Note: Client called and canceled group for this date with re ceptionist she indicated not being able to secure a ride to IOP program. This therapist return clients call and discuss with client the importance of attending IOP program on a consistent basis in order to best benefit from materials learned and make most progress towards treatment goals of improving overall mental health and wellness. Client indicated understanding and expressed plans to attend IOP program Friday and Friday of this week. She shared knowing that regular attendance would be most beneficial in improving overall symptoms of anxiety and depression. Client offered transportation services however denied wanting hospital transportation to be set up for her at this time and indicated being able to find her own transportation.
--- NOTE | 2018-06-17 16:28 | BH.COMM ---
Communication Note - Communication with Client Communication Note: Client called and left a message canceling group on this date. She indicated she has been feeling down and is dealing with several stressors in her own life causing increased depressive sx. Client further indicated wanting to spend the day resting and plans to attend IOP program on Friday. This therapist attempted to return client call to discuss strategies for improving depressive symptoms and prevent isolation, as well as encourage regular attendance in IOP program in order to best support mental health improvement. Client unavailable at this time and a discrete message was left encouraging client to return therapist phone call as well as encouraging client to attend program for the remainder of the week in order to meet IOP program attendance requirements.
--- NOTE | 2018-06-18 14:31 | BH.COMM ---
Communication Note - Communication with Client Communication Note: Client did not show for group on this date and did not call to cancel. Therapist reached out to client to discuss discharge from IOP program given ongoing attendance issues. However, CLient indicated that she had not been in attendance the past week due to increased depression resulting in isolation and sleeping as avoidance. Client shared she had not checked therapist previous voicemails encouraging client to attend as she has not felt motivated to do do anything besides sleep. CLient indicates i know i need to be there and expressed understanding the potentially harmful effects continuing to isolate and sleep all day may have on exacerbating depressive sx. Client additionally noted understanding that not calling and not showing up for IOP is a safety concern and can prevent client from making progress in tx. CLient apologized for several missed appointments. SHe discussed that her desire not to be discharged from the program is the motivation and accountability she needs to ensure she returns to consistant attendance. CLient and therapist discussed an attendance plan moving forward and client is in agreement that she is to attend IOP group tomorrow as well as three days next week so that she may be able to best work towards improving mood stability and decreasing depressive sx. CLient is agreeable to the plan that if she is not in attendance tomorrow or has another no call/no show appointment she will be discharged from IOP tx program.
--- NOTE | 2018-06-19 15:43 | BH.DS ---
Discharge Summary - Demographics Date of Admission:: 05/19/18 Discharge Date: 06/18/18 Presenting Problems at Admission:: Client is a 23-year-old female with history of anxiety and depression and multiple previous psychiatric hospitalizations. Client reports mental health sx have since increased due to stressors of financial issues, family strife, and housing concerns which have exacerbated mental health symptoms. Client endorses sad mood with anhedonia, difficulty concentrating, decreased energy, ruminating thoughts, panic, lack of motivation, increased isolation, avoidance, and irritability. Discharge Diagnoses:: Schizoaffective disorder bipolar type. Anxiety. PTSD. Nicotine use disorder. Cannabis use disorder. Cluster B traits Reason for Discharge:: Client has failed to consistently continue IOP program and has no call/no showed multiple times during the remaining weeks of treatment. Therapist reached out to client multiple times to encourage client to re-engage in treatment as well as to schedule follow up and discharge planning, but client failed to show each time. Client to be discharge due to inconsistent attendance, lack of follow-through, and low motivation to implement healthy skills identified as helpful with reaching her goals. - Treatment Progress During Treatment & Response: Limited progress noted. Client was successful in increasing some levels of awareness regarding current negative coping strategies and thinking patterns as well as how these impact her mental health. Client is able to identify that she would benefit from continued engagement in IOP program and identifying coping skills that are beneficial for managing anxiety and depression; however struggled significantly with motivation to begin replacing unhealthy behaviors of isolation and avoidance with healthier means for coping. Due to inconsistent attendance and failure to implement healthy strategies discussed or homework provided, Client has made limited progress in regards to increasing levels of awareness of triggers for anxiety and depression and implement coping strategies to managing feelings of being overwhelmed or depressed. Client has failed to attend program consistently and has called of numerous times for various reasons. She reports knowing her isolative behaviors are self-destructive however expressed not having a desire to change her behaviors or make strides towards better mental health sx management. Issues Still to be Addressed:: Client is encouraged to follow-up with outpatient counseling on a regular basis in order to continue working on addressing her ongoing mental health sx as well as promote healthy change behaviors and improve motivation. CLient would benefit from specifically focusing on increasing her ability to implement coping strategies in daily life and identifying triggers/warning signs for anxiety and depression. Client often struggles with negative self-talk and isolation, ultimately leading to decreased self-esteem and reduced motivation to implement self-care behaviors or utilize healthier means for coping. Client would do well to increase awareness of boundaries and implementing them as she often becomes involved in her mother?s personal issues rather than prioratizing her own needs. Client would also benefit from improving distress tolerance and emotion regulation skills. CLient would benefit from abstainance from substance use. Discharge Recommendations/Instructions:: Client failed to attend session to complete discharge or aftercare planning and there for was not able to discuss recommendations for ongoing care. Client connected with outpatient psychiatrist, Dr. Arteaga, and individual rn case manager at [facility]. CLient is recommended to begin receiving individual counseling services at [facility] as well. Discharge Handout: Complete Discharge Handout with client on aftercare options and continuity of care.
--- NOTE | 2018-06-21 15:34 | BH.DS_ITS ---
Discharge Summary - Demographics Date of Admission:: 05/19/18 Discharge Date: 06/18/18 Presenting Problems at Admission:: Client is a 23-year-old female with history of anxiety and depression and multiple previous psychiatric hospitalizations. Client reports mental health sx have since increased due to stressors of financial issues, family strife, and housing concerns which have exacerbated mental health symptoms. Client endorses sad mood with anhedonia, difficulty c oncentrating, decreased energy, ruminating thoughts, panic, lack of motivation, increased isolation, avoidance, and irritability. Discharge Diagnoses:: Schizoaffective disorder bipolar type. Anxiety. PTSD. Nicotine use disorder. Cannabis use disorder. Cluster B traits Reason for Discharge:: Client has failed to consistently continue IOP program and has no call/no showed multiple times during the remaining weeks of treatment. Therapist reached out to client multiple times to encourage client to re-engage in treatment as well as to schedule follow up and discharge planning, but client failed to show each time. Client to be discharge due to inconsistent attendance, lack of follow-through, and low motivation to implement healthy skills identified as helpful with reaching her goals. - Treatment Progress During Treatment & Response: Limited progress noted. Client was successful in increasing some levels of awareness regarding current negative coping strategies and thinking patterns as well as how these impact her mental health. Client is able to identify that she would benefit from continued enga gement in IOP program and identifying coping skills that are beneficial for managing anxiety and depression; however struggled significantly with motivation to begin replacing unhealthy behaviors of isolation and avoidance with healthier means for coping. Due to inconsistent attendance and failure to implement healthy strategies discussed or homework provided, Client has made limited progress in regards to increasing levels of awareness of triggers for anxiety and depression and implement coping strategies to managing feelings of being overwhelmed or depressed. Client has failed to attend program consistently and has called of numerous times for various reasons. She reports knowing her isolative behaviors are self-destructive however expressed not having a desire to change her behaviors or make strides towards better mental health sx management. Issues Still to be Addressed:: Client is encouraged to follow-up with outpatient counseling on a regular basis in order to continue working on addressing her ongoing mental health sx as well as promote healthy change behaviors and improve motivation. CLient would benefit from specifically focusing on increasing her ability to implement coping strategies in daily life and identifying triggers/warning signs for anxiety and depression. Client often struggles with negative self-talk and isolation, ultimately leading to decreased self-esteem and reduced motivation to implement self-care behaviors or utilize healthier means for coping. Client would do well to increase awareness of boundaries and implementing them as she often becomes involved in her mother?s personal issues rather than prioratizing her own needs. Client would also benefit from improving distress tolerance and emotion regulation skills. CLient would benefit from abstainance from substance use. Discharge Recommendations/Instructions:: Client failed to attend session to complete discharge or aftercare planning and there for was not able to discuss recommendations for ongoing care. Client connected with outpatient psychiatrist, Dr. Arteaga, and individual case maker at [facility]. CLient is recommended to begin receiving individual counseling services at [facility] as well. Discharge Handout: Complete Discharge Handout with client on aftercare options and continuity of care.
== END 2018-07-01 23:59 ==
LOC: BHIOP 09:00
PROVIDERS: Family Provider Internal Medicine; PCP Internal Medicine; Visit Provider Psychiatry & Neurology Psychiatry
DX: F25.0 Schizoaffective disorder, bipolar type (principal); F41.9 Anxiety disorder, unspecified; F43.10 Post-traumatic stress disorder, unspecified; Z72.0 Tobacco use; F12.90 Cannabis use, unspecified, uncomplicated
CPT/HCPCS: H0035; 90832; 90853

== ENCOUNTER → 2018-07-30 10:59 | Outpatient (CLI) | payer MEDICARE, SELFPAY ==
[2018-07-28 15:02] VITALS: BMI 54.6
[2018-07-30 12:00] LABS: Absolute Lymphocyte Count 1.97 X10^3/ul (0.83-4.51); Absolute Neutrophil Count 5.2 X10^3/uL (2.0-7.7); Basophil# 0.02 X10^3/uL; Basophil% 0.3 % (0-1); Eosinophil# 0.23 X10^3/uL; Hematocrit 42.8 % (37-47); Hemoglobin 13.9 g/dl (12.0-15.0); Lymphocyte # 1.97 X10^3/ul (4.0); Lymphocyte % 25.3 % (19-41); Mean Corp Hgb Conc 32.5 g/gl (32-36); Mean Corpuscular Hgb 30.9 pg (27.0-32.0); Mean Corpuscular Volume 95.1 fL (81-99); Mean Platelet Vol. 9.5 fl (6.2-12.0); Monocyte# 0.32 X10^3/uL; Monocyte% 4.1 % (0-10); Neutrophil # 5.21 X10^3/uL (2.7-7.7); Neutrophil % 66.9 % (47-70); Platelet Count 335 K/mm3 (150-450); RBC Distribution Width CV 13.7 % (11.6-14.6); RBC Distribution Width SD 46.1 fl (35.1-43.9); White Blood Count 7.8 K/mm3 (4.4-11.0)
[2018-07-30 12:01] LABS: POSITIVE COUNT NO; POSITIVE DIFFERENTIAL NO; POSITIVE MORPHOLOGY NO
[2018-07-30 12:30] LABS: ALB/GLOB Ratio 0.8 RATIO (0.9-2.4); AST(SGOT) 12 U/L (15-37); Alanine Aminotransfer ALT/SGPT 24 U/L (13-56); Albumin, Serum 3.4 g/dL (3.2-5.0); Alkaline Phosphatase 133 U/L (45-117); Anion Gap 7 (5-15); BUN 13 mg/dL (7-18); BUN/Creat Ratio 15.3 RATIO (10-20); Calcium,Total 8.7 mg/dL (8.5-10.1); Chloride 107 mmol/L (98-107); Creatinine, Serum 0.85 mg/dL (0.55-1.02); EST Glomerular Filtration Rate 88 mL/min (>60); Est Glom Filt Rate - Afr Amer 106 mL/min (>60); Glucose 135 mg/dL (74-106); Potassium 3.7 mmol/L (3.5-5.1); Protein, Total 7.4 g/dL (6.4-8.2); Sodium Level 141 mmol/L (136-145)
== END ==
PROVIDERS: Family Provider Internal Medicine; PCP Internal Medicine; Referring Provider Internal Medicine; Visit Provider Internal Medicine
DX: N93.8 Other specified abnormal uterine and vaginal bleeding (principal)
CPT/HCPCS: 36415; 80053; 85025

== ENCOUNTER → 2018-08-12 16:48 | Outpatient (CLI) | payer MEDICARE, SELFPAY ==
[2018-08-12 12:56] VITALS: BMI 54.6
[2018-08-12 22:19] LABS: Chlamydia Trachomatis by PCR Negative (Negative); Neisserai gonorrhoeae by PCR Negative (Negative); Probe Check PASS; Sample Adequacy Control PASS; Specimen Processing Control PASS
--- OUTSIDE RECORDS SUMMARY | 2018-09-28 22:04 | XMS RPT_ITS ---
:1995 Author Organization OHIP Support Name Relationship Address Phone D Unavailable Unavailable Unavailable DESHAWN NATHANIEL Unavailable [address] + [place] [address] D Unavailable Unavailable Unavailable DESHAWN NATHANIEL Unavailable [address] + [place] [address] D Unavailable Unavailable Unavailable HOWHUGO NATHANIEL Unavailable [address] + [place] [address] D Unavailable Unavailable Unavailable DESHAWN NATHANIEL Unavailable [address] + [address] [place] [address] D Unavailable Unavailable Unavailable DESHAWN NATHANIEL Unavailable [address] + [address] [place] [address] D Unavailable Unavailable Unavailable DESHAWN, NATHANIEL Unavailable [address] + [address] [place] [address] D Unavailable Unavailable Unavailable DESHAWN, NATHANIEL Unavailable [address] + [address] [place] [address] D Unavailable Unavailable Unavailable HOWHUGO, NATHANIEL Unavailable [address] + [address] [place] [address] D Unavailable Unavailable Unavailable DESHAWN NATHANIEL Unavailable [address] + [address] [place] [address] D Unavailable Unavailable Unavailable HOWHUGO, NATHANIEL Unavailable [address] + [address] [place] [address] D Unavailable Unavailable Unavailable DESHAWN NATHANIEL Unavailable [address] + [address] [place] [address] D Unavailable Unavailable Unavailable HOWILER, NATHANIEL Unavailable [address] + [address] [place] [address] D Unavailable Unavailable Unavailable HOWILER, NATHANIEL Unavailable [address] + [address] [place] [address] D Unavailable Unavailable Unavailable HOWILER, NATHANIEL Unavailable [address] + [address] [place] [address] D Unavailable Unavailable Unavailable HOWILER, NATHANIEL Unavailable [address] + [address] [place] [address] D Unavailable Unavailable Unavailable HOWILER, NATHANIEL Unavailable [address] + [address] [place] [address] D Unavailable Unavailable Unavailable HOWILER, NATHANIEL Unavailable [address] + [address] [place] [address] D Unavailable Unavailable Unavailable HOWILER, NATHANIEL Unavailable [address] + [address] [place] [address] Care Team Providers Name Role Phone Argneis Plummer Attending Unavailable Oleghe, Efewongbe Referring Unavailable Kavitha, Argenis Attending Unavailable Kavitha Argenis Referring Unavailable Oleghe, Efewongbe Primary Care Unavailable BrusselsMabely Attending Unavailable Brussels, Argenis Referring Unavailable Oleghe, Efewongbe Primary Care Unavailable Brussels Argenis Attending Unavailable Oleghe, Efewongbe Referring Unavailable Kavitha, Argenis Attending Unavailable Kavitha, Argenis Referring Unavailable Oleghe, Efewongbe Primary Care Unavailable Oleghe, Efewongbe Primary Care Unavailable Erick San Attending Unavailable Oleghe, Efewongbe Attending Unavailable Oleghe, Efewongbe Referring Unavailable Oleghe, Efewongbe Primary Care Unavailable Oleghe, Efewongbe Attending Unavailable Oleghe, Efewongbe Referring Unavailable Oleghe, Efewongbe Primary Care Unavailable Oleghe, Efewongbe Attending Unavailable Oleghe, Efewongbe Referring Unavailable Arreola, Norman Attending Unavailable Arreola, Norman Referring Unavailable Oleghe, Efewongbe Primary Care Unavailable Oleghe, Efewongbe Attending Unavailable Oleghe, Efewongbe Referring Unavailable Oleghe, Efewongbe Primary Care Unavailable Oleghe, Efewongbe Primary Care Unavailable Jess aV Attending Unavailable CIANCONE, VALERIE Attending Unavailable Oleghe, Efewongbe Primary Care Unavailable Oleghe, Efewongbe Primary Care Unavailable Ranjeet Bain Attending Unavailable CIANCONE, VALERIE Attending Unavailable Oleghe, Efewongbe Primary Care Unavailable CIANCONE, VALERIE Attending Unavailable Oleghe, Efewongbe Primary Care Unavailable Oleghe, Efewongbe Attending Unavailable Oleghe, Efewongbe Referring Unavailable Oleghe, Efewongbe Attending Unavailable Oleghe, Efewongbe Referring Unavailable Oleghe, Efewongbe Primary Care Unavailable PROBLEMS PROBLEMS DATE TYPE CONDITION / CODE ATTENDING STATUS SOURCE 08/12/2018 Unknown Z11.3 - Encounter Argenis Plummer Active [facility] for screening for Community infections with a Hospital predominantly Repository sexual mode of transmission / Z11.3(ICD-10) 08/12/2018 Unknown N93.8 - Other Argenis Plummer Active [facility] specified abnormal Community uterine and vaginal Hospital bleeding / Repository N93.8(ICD-10) 01/16/2018 Unknown Z79.899 - Other Arreola Norman Active [facility] 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 hypertension / Hospital I10(ICD-10) Repository 10/06/2017 Unknown R73.09 - Other Oleghe, Active [place] abnormal glucose / Efewongbe [facility] R73.09(ICD-10) Hospital Repository 10/06/2017 Unknown Z23 - Encounter for Oleghe, Active [facility] immunization [facility] Z23(ICD-10) Hospital Repository PROCEDURES PROCEDURES No Procedure Records FoundRESULTS RESULTS LEGAL CONTRACTS SPECIALIST OFFICE VISIT Observed: 09/08/2018 Status: F Source: ETOILE REPORT 3:16 PM [facility] REPOSITORY [facility] [address] [place] [address] OFFICE VISIT Date of Service: 09/08/18 MR#: [id number] Acct: [id number] Name: EDGARDO HENRY Rep #: [id number] : 1995 Provider: ARELIS Plummer Age/Sex: 23/F Location[place] [facility] [place] Status: Signed Intake Vital Signs09/08/18 Height 5 ft 1 in 09/08/18 Weight: 304 lb 6 oz 09/08/18 Body Mass Index (BMI) 57.4 09/08/18 Blood Pressure 144/88 H Intake Visit Reasons: Vaginal bleeding per SM Reject Opener And Filler Required: No Is patient in pain?: No Allergies amoxicillin trihydrate [From Augmentin] Allergy (Verified 09/08/18 14:49) Hives Penicillins Allergy (Verified 09/08/18 14:49) Hives potassium clavulanate [From Augmentin] Allergy (Verified 09/08/18 14:49) Hives Sulfa (Sulfonamide Antibiotics) Allergy (Verified 09/08/18 14:49) Hives Medications Lamotrigine [Lamictal] 200 mg PO QHS 09/28/16 [History Confirmed 09/08/18] escitalopram 20 mg tablet 10 mg PO QDAY 03/31/18 [History Confirmed 09/08/18] haloperidol 10 mg tablet 10 mg PO QDAY tab 03/31/18 [History Confirmed 09/08/18] metoprolol tartrate 25 mg tablet 12.5 mg PO BID #60 tab 04/16/18 [Rx Confirmed 09/08/18] Albuterol Sulfate [Ventolin Hfa] 05/29/18 [History Confirmed 09/08/18] Albuterol Sulfate [Ventolin Hfa] 2 puff BID 05/29/18 [History Confirmed 09/08/18] Benzonatate [Tessalon Perle] 200 mg PO TID PRN PRN #20 cap 05/29/18 [Rx Confirmed 09/08/18] megestrol 40 mg tablet 40 mg PO BID 21 Days #42 tab 08/31/18 [Rx Confirmed 09/08/18] Post menopausal: No Patient : No : No PFSH PFSH Medical History Amenorrhea (Acute) Chronic bronchitis (Chronic) Schizoaffective disorder (Chronic) Seasonal allergies (Chronic) GERD (gastroesophageal reflux disease) (Chronic) Surgical History History of cholecystectomy (Acute) History of tonsillectomy (Acute) Family History Grandfather Alcoholism Depression CVA (cerebral vascular accident) Mother Anxiety Father Psychiatric care Grandmother Thyroid disorder Social History Smoking Status: Current every day smoker alcohol intake: never substance use type: does not use what type of physical activity do you participate in: walking frequency: 3-4 times per week HPI Vaginal bleeding per SM: Details: EDGARDO HENRY is a 23 year old who presents for endometrial biopsy. Has had bleeding off and on X 2 months. Failed attempt of control with provera and now with megace. She is not currently sexually active. Current medical history and medications reviewed and up to date Office Procedures Endometrial Biopsy Endometrial Biopsy Test: Yes declined Consent Signed: Yes Time out checklist: patient, procedure, site marked/identified, positioning of patient, supplies available, allergies confirmed, team agrees on procedure Time out time: 15:01 tenaculum used: Yes dilator used: No Details: Cervix prepped with betadine and pipelle with syringe inserted into uterus 7 cm without complication. Specimen obtained and sent to lab for analysis. All instruments removed from vagina without complications. Excellent hemostasis noted. Patient tolerated well Assessment AND Plan Problems 1. Dysfunctional uterine bleeding N93.8 Plan Bleeding is less with megace and will continue this I will call her with EMB results and decide further intervention. Orders Orders: Coding Level of Care Code No Charge Diagnoses Dysfunctional uterine bleeding N93.8 Additional Codes Endometrial Biopsy (18868) 09/08/18 1516 <Electronically signed by Argenis HINOJOSA> Date Argenis Kavitha SHEET IRONWORKER-C Cosigner Signature: Date (if applicable) CC: ENDOMETRIAL BX/CURETTINGS Observed: 09/08/2018 Status: F Source: PHAN 12:00 AM [facility] REPOSITORY Patient: EDGARDO HENRY : 1995 () Acct Num: [id number] Phys: Argenis Plummer NP Unit Num: [id number] Loc: LABSPEC Specimen: [id number] Received: 09/08/181642 Spec Type: ENDOM BX/C TISSUES 1 TISSUES: Endometrium, NOS COMMENT Case has been reviewed in consultation with Dr. Osorio who concurs with the above diagnosis. IDC:BENJIE GROSS DESCRIPTION Received is one container labeled with the patient's name and not further designated. The specimen consists of multiple irregular fragments of pink soft tissue that in aggregate measure 2.5 x 2.5 x 0.2 cm. The specimen is totally submitted in one cassette. / SJ:comfort 09/09/18 TC:5 CPT: 96140 HEADER OPERATION: Endometrial biopsy PRE-OP DIAGNOSIS: Dysfunctional uterine bleeding TISSUE SUBMITTED: Endometrial biopsy MICROSCOPIC DESCRIPTION Slides are reviewed. MICROSCOPIC DIAGNOSIS Endometrium, biopsy: Secretory endometrium with benign stromal hyperplasia consistent with hormonal effect. Focal stromal breakdown. No evidence of malignancy. AM:comfort 09/10/18 Signed Erik Tian, 09/10/18 <signature on file> Performed By: #### PEMB #### [facility] [address] [place], [place], [id number] PELVIC (NON ) Observed: 08/28/2018 Status: F Source: [place] 12:27 PM [facility] REPOSITORY [facility] Imaging Services [address] [place] [address] Pelvic (Non ) MR#: [id number] Acct: [id number] Name: EDGARDO HENRY Rep #: [id number] : 1995 F 23 From: Joe Persaud MD PCP: Annamarie Tovar MD Status: REG CLI Study: Pelvic (Non ) Date of Exam: 08/28/18 Exam# [id number] Ordering Dr: Argenis Plummer STUDY: ULTRASOUND TRANSVAGINAL CLINICAL: Female, 23 years old. Menorrhagia for 2 months TECHNIQUE: Transvaginal COMPARISON: None. FINDINGS: Normal uterine size measuring 8.6 x 5.1 x 3.6 cm in maximal craniocaudal dimension. There are no myometrial masses. The uterus is anteverted. Uterine fundus is incompletely imaged due to positioning. Normal endometrial thickness measuring 16.6 mm. There are no endometrial masses, and there is mild fluid in the endometrial cavity. Normal uterine cervix. Neither ovary identified. There is no free fluid in the pelvis. Polycystic ovary disease: No. US/Pelvic (Non ) IMPRESSION: 1. Mild endometrial thickening with fluid distention. Electronically Signed: Joe Persaud MD at 19:15 EST , Service support , CC: ARELIS Plummer; Annamarie Tovar MD Cna Per Diem: Signed TRANSVAGINAL Observed: 08/28/2018 Status: F Source: PH[place] NON- 12:27 PM [facility] REPOSITORY [facility] Imaging Services [address] [place] [address] Transvaginal Non- MR#: [id number] Acct: [id number] Name: EDGARDO HENRY Rep #: [id number] : 1995 F 23 From: Joe Persaud MD PCP: Annamarie Tovar MD Status: REG CLI Study: Transvaginal Non- Date of Exam: 08/28/18 Exam# [id number] Ordering Dr: Argenis Plummer STUDY: ULTRASOUND TRANSVAGINAL CLINICAL: Female, 23 years old. Menorrhagia for 2 months TECHNIQUE: Transvaginal COMPARISON: None. FINDINGS: Normal uterine size measuring 8.6 x 5.1 x 3.6 cm in maximal craniocaudal dimension. There are no myometrial masses. The uterus is anteverted. Uterine fundus is incompletely imaged due to positioning. Normal endometrial thickness measuring 16.6 mm. There are no endometrial masses, and there is mild fluid in the endometrial cavity. Normal uterine cervix. Neither ovary identified. There is no free fluid in the pelvis. Polycystic ovary disease: No. US/Transvaginal Non- IMPRESSION: 1. Mild endometrial thickening with fluid distention. Electronically Signed: Joe Persaud MD at 19:15 EST , Service support , CC: ARELIS Plummer; Annamarie Tovar MD Cna Per Diem: Signed LEGAL CONTRACTS SPECIALIST OFFICE VISIT Observed: 08/12/2018 Status: F Source: ETOILE REPORT 1:26 PM [facility] REPOSITORY [facility] [address] [place] [address]. [address] [place] [address] OFFICE VISIT Date of Service: 08/12/18 MR#: [id number] Acct: [id number] Name: CARLJAELYNEDGARDO E Rep #: [id number] : 1995 Provider: ARELIS Plummer Age/Sex: 23/F Location: [facility] [place] Status: Signed Intake Vital Signs08/12/18 Body Mass Index (BMI) 54.6 08/12/18 Height 5 ft 1 in 08/12/18 Weight: 307 lb 8 oz 08/12/18 Body Mass Index (BMI) 58.1 08/12/18 Blood Pressure 122/78 H Intake Visit Reasons: Dysfunctional uterine bleeding Reject Opener And Filler Required: No Accompanied by: Mother Is patient in pain?: No Allergies amoxicillin trihydrate [From Augmentin] Allergy (Verified 08/12/18 12:54) Hives Penicillins Allergy (Verified 08/12/18 12:54) Hives potassium clavulanate [From Augmentin] Allergy (Verified 08/12/18 12:54) Hives Sulfa (Sulfonamide Antibiotics) Allergy (Verified 08/12/18 12:54) Hives Medications Lamotrigine [Lamictal] 200 mg PO QHS 09/28/16 [History Confirmed 08/12/18] escitalopram 20 mg tablet 10 mg PO QDAY 03/31/18 [History Confirmed 08/12/18] haloperidol 10 mg tablet 10 mg PO QDAY tab 03/31/18 [History Confirmed 08/12/18] metoprolol tartrate 25 mg tablet 12.5 mg PO BID #60 tab 04/16/18 [Rx Confirmed 08/12/18] Albuterol Sulfate [Ventolin Hfa] 05/29/18 [History Confirmed 08/12/18] Albuterol Sulfate [Ventolin Hfa] 2 puff BID 05/29/18 [History Confirmed 08/12/18] Benzonatate [Tessalon Perle] 200 mg PO TID PRN PRN #20 cap 05/29/18 [Rx Confirmed 08/12/18] medroxyprogesterone 10 mg tablet 10 mg PO .COMPLEX #45 tab 08/12/18 [Rx Confirmed 08/12/18] Is last menstrual period known: Yes Post menopausal: No Patient : No : No Nurse's Note: Pt. states she has been bleeding for a few months. It lightens up, but doesn't stop completely. Pt also states she has a lot of clots [facility] Medical History Amenorrhea (Acute) Chronic bronchitis (Chronic) Schizoaffective disorder (Chronic) Seasonal allergies (Chronic) GERD (gastroesophageal reflux disease) (Chronic) Surgical History History of cholecystectomy (Acute) History of tonsillectomy (Acute) Family History Grandfather Alcoholism Depression CVA (cerebral vascular accident) Mother Anxiety Father Psychiatric care Grandmother Thyroid disorder Social History Smoking Status: Current every day smoker alcohol intake: never substance use type: does not use what type of physical activity do you participate in: walking frequency: 3-4 times per week HPI Dysfunctional uterine bleeding: Details: EDGARDO HENRY is a 23 year old who presents for abnormal uterine bleeding. Was seen by me in May 2017 and given provera. States had normal menses. Saw PCP Dr. Tovar a few months later and repeated provera with success. She then did not have a menses until about 2 months ago and then start bleeding and has light to heavy menses every day since. She has not been sexually active 3-4 months. Has had male and female partners. Female Reproductive History Questions: Metorrhagia: Yes, Sexually active: No, Dyspareunia: No, PCB: No ROS Const Constitutional: Reports system reviewed and no additional complaints, except as docu GI GI: Denies abdominal pain or change in bowel habits Exam Const General: cooperative, no acute distress Nutritional Appearance: obese morbidy General: bladder normal to palpation External Female Exam: normal external appearance, normal appearance of the urethra Urethra: normal appearance of the urethra Speculum Exam - Vagina: normal appearance of the vagina, normal vaginal discharge, nontender, no lesions Speculum Exam - Cervix: normal appearance of the cervix (full menses. GCC collected. Pap deferred), other (smooth, nonfriable) Bimanual Exam- Vagina AND Uterus: bladder normal to palpation, normal bimanual exam, uterine size normal, uterine shape normal, uterine mobility normal, uterus non-tender Bimanual Exam- Adnexa, other: normal adnexae, no adnexal masses, adnexae non-tender Assessment AND Plan Problems 1. Dysfunctional uterine bleeding N93.8 2. Screen for STD (sexually transmitted disease) Z11.3 Plan Call only with positive GCC result Ultrasound-discussed management with OCP vs progesterone. She declines OCP and would be concerning with weight. May consider mirena IUD. Rx provera Call with US results to discuss further care Orders Orders: Medications New: medroxyprogesterone (Provera) 10 mg PO tid until bleeding stops X 24 hour the bid to finis h Rx; 45 tabs 0RF Coding Level of Care Code Off vis,est,level 3 Diagnoses Dysfunctional uterine bleeding N93.8 Screen for STD (sexually transmitted disease) Z11.3 08/12/18 1326 <Electronically signed by Argenis HINOJOSA> Date Argenis HINOJOSA Cosigner Signature: Date (if applicable) CC: CT/NG [facility] BY PCR Collected: 08/12/2018 Status: F Source: ETOILE 12:00 AM [facility] REPOSITORY TYPE CODE TESTS RESULT OUT OF RANGE REFERENCE UNITS LAB L8200.2100 Negative Normal Chlam Negative Trac PCR LAB L8200.2200 Negative Normal NG by Negative PCR Performed By: #### L8200.2000 #### [facility] [address] [place], [address] INTERNAL MEDICINE Observed: 07/30/2018 Status: F Source: PHAN OFFICE VISIT 6:54 PM [facility] REPOSITORY [facility] [address] [place] [address] [place] [address] OFFICE VISIT Date of Service: 07/28/18 MR#: [id number] Acct: [id number] Name: EDGARDO HENRY Rep #: [id number] : 1995 Provider: Annamarie Tovar MD Age/Sex: 23/F Location: [facility] [place] Status: Signed Intake Vital Signs07/28/18 Body Mass Index (BMI) 54.6 07/28/18 Height 5 ft 1 in 07/28/18 Weight: 310 lb Intake Visit Reasons: Prolonged uterine bleeding Chief Complaint: Prolonged uterine bleeding. Accompanied by: Mother Is patient in pain?: No Allergies amoxicillin trihydrate [From Augmentin] Allergy (Verified 07/28/18 15:00) Hives Penicillins Allergy (Verified 07/28/18 15:00) Hives potassium clavulanate [From Augmentin] Allergy (Verified 07/28/18 15:00) Hives Sulfa (Sulfonamide Antibiotics) Allergy (Verified 07/28/18 15:00) Hives Medications Lamotrigine [Lamictal] 200 mg PO QHS 09/28/16 [History Confirmed 05/29/18] escitalopram 20 mg tablet 10 mg PO QDAY 03/31/18 [History Confirmed 05/29/18] haloperidol 10 mg tablet 10 mg PO QDAY tab 03/31/18 [History Confirmed 05/29/18] metoprolol tartrate 25 mg tablet 12.5 mg PO BID #60 tab 04/16/18 [Rx Confirmed 05/29/18] Albuterol Sulfate [Ventolin Hfa] 05/29/18 [History] Albuterol Sulfate [Ventolin Hfa] 2 puff BID 05/29/18 [History Confirmed 05/29/18] Benzonatate [Tessalon Perle] 200 mg PO TID PRN PRN #20 cap 05/29/18 [Rx] Is last menstrual period known: Yes Nurse's Note: Pt presents today for a well women exam. Pt states she has been on her menstrual cycle since 05/19. PFS Medical History Amenorrhea (Acute) Chronic bronchitis (Chronic) Schizoaffective disorder (Chronic) Seasonal allergies (Chronic) GERD (gastroesophageal reflux disease) (Chronic) Surgical History History of cholecystectomy (Acute) History of tonsillectomy (Acute) Family History Grandfather Alcoholism Depression CVA (cerebral vascular accident) Mother Anxiety Father Psychiatric care Grandmother Thyroid disorder Social History Smoking Status: Current every day smoker alcohol intake: never substance use type: does not use what type of physical activity do you participate in: walking frequency: 3-4 times per week HPI HPI Chief Complaint: Prolonged uterine bleeding. Details: EDGARDO HENRY, is a 23 F who presents to the office today with concerns about prolonged bleeding. She states that she has been having vagina bleeds for well over 2 months. Prior to onset of bleeding, she has had no menstrual flow for almost a year. She states that she changes her pads about twice daily and denies chest pain, shortness of breath, easy fatigability or lightheadedness. She feels well otherwise. She has been in several antipsychotic medications and does have a history of hyperprolactinemia. ROS Const Constitutional: No anorexia, body ache, chills, fever(s), decreased energy, malaise, night sweats, weight change, sleep problems, other, snoring, abnormal sleep pattern, change in appetite, weakness, frequent falls, headache(s), excessive sweating or fatigue Eyes Eyes: No blurry vision, change in vision, double vision, discharge, dry eyes, bulging eyes, floaters, eye pain, light sensitivity, spots in vision, tunnel vision, other or visual disturbances ENT ENT: No ear pain, ear discharge, ear pressure, hearing loss, tinnitus, dizziness/vertigo, balance problems, nosebleed/epistaxis, nasal congestion, nasal obstruction, nose pain, sinus pressure, sinus pain, nasal discharge, post nasal drip, facial pain, dental pain, dry mouth, bad breath, hoarseness, mouth lesions, mouth pain, sore throat, difficulty swallowing, neck pain, abnormal hearing, headache(s), other, lip swelling, throat swelling or tongue swelling Resp Respiratory: No cough, change in phlegm color, chest congestion, excessive phlegm production, hemoptysis, pain on inspiration, shortness of breath, pain with cough, snoring, stridor, other or wheezing Cardio Cardiology: No chest pain at rest, chest pain with exertion, leg pain with exertion, shortness of breath, dyspnea on exertion, generalized swelling, irregular heart rhythm, lightheadedness, orthopnea, radiating jaw, neck or arm pain, fast heart rate, slow heart rate, palpitations, other or excessive sweating Gastro GI: No abdominal pain, belching, bloating, change in bowel habits, change in stool character, coffee ground emesis, constipation, cramping, diarrhea, heartburn, difficulty swallowing, feeling full early, excessive flatus, incontinent of stools, Vomiting blood/hematemesis, blood in stool, loose stools, Black,tarry stools, nausea/dyspepsia, pain with swallowing, vomiting or other Genitourinary-Female: No difficulty urinating, burning urination, painful urination, urinary incontinence, urinary frequency, urinary urgency, urinary hesitancy, urinary retention, blood in urine, Frequent nighttime urination/ nocturia, post void dribbling, suprapubic fullness, side pain, sexual problems, genital lesions, genital itching, hot flashes, abnormal periods, abnormal vaginal bleeding, absent period, painful periods, light periods, heavy periods, difficulty getting , painful intercourse, pelvic pain, vaginal dryness, vaginal odor, Vaginal Itching or other Musc Musculoskeletal: No joint pain, back pain, deformity, joint swelling, limited range of motion, loss of height, muscle cramps, decreased muscle mass, body aches, neck pain, radiating pain into limb, stiffness, other, abnormal walking, numbness or tingling Skin Skin: No acne, hair loss, change in hair, nail changes, boil, change in skin color, dry skin, redness, excessive hair growth, yellowing of the skin, lesions, rash, skin pain, skin ulcer, sores, skin swelling, wounds, other or itching Breast Breast: No change in breast shape, breast lump, breast pain, breast skin changes, breast swelling, nipple discharge or other Neuro Neurology: No abnormal walking, abnormal hearing, abnormal movements, abnormal speech, behavioral changes, confusion, unsteady gait/balance, dizziness, weakness, frequent falls, headache(s), lack of coordination, loss of vision, memory loss, numbness, tingling, visual disturbances, restless legs, fainting, tremor(s) or other Psych Psychiatric: No abnormal sleep pattern, No lack of enjoyment, No anxiety, No change in appetite, No depression, No difficulty concentrating, No hopelessness, No irritability, No mood swings, No panic attacks, No paranoia, No Thoughts of harming yourself/Others, No hallucinations, No other, No behavioral changes, No confusion, No memory loss Endo Endocrine: No change in body appearance, cold intolerance, excessive sweating, fatigue, flushing, heat intolerance, increased thirst/drinking, increased hunger, increased urination or other Aller/Imm Allergy/Immunologic: No food intolerance, itchy eyes, lip swelling, seasonal allergy symptoms, throat swelling, tongue swelling, hives, wheezing or other Ty/Lymp Hematologic/Lymphatic: No easy bleeding, easy bruising, enlarged lymph nodes or other Exam Const General: cooperative, no acute distress Nutritional Appearance: obese Orientation: alert, awake, oriented x3 HENMT Head: atraumatic, normocephalic Ears: hearing grossly normal bilaterally Resp Effort AND Inspection: normal respiratory effort, able to speak in complete sentences Auscultation: Bilateral: Clear to Auscultation Cardio Rate: regular rate Rhythm: regular rhythm Heart Sounds: S1 normal, S2 normal GI Inspection: obesity Palpation: soft, no hepatosplenomegaly Skin Other: Left eyelid and lateral proximal leg redness. Circumferential. No tenderness over differential warmth. No discharge appreciated. No redness of her eyes or eye discharge appreciated Neuro General: alert, awake, oriented x3, moves all extremities, CN's II-XI intact bilaterally Extrem General: no pedal edema Psych Appearance: grossly normal Assessment AND Plan 1. Dysfunctional uterine bleeding N93.8 Plan Has had prolonged bleeding after a prolonged period of amenorrhea. This is most likely due to dysfunctional uterine bleed secondary to hyperprolactinemia from use of antipsychotics. Had been seen by Gynecology. Advised to follow-up with gynecology. Also advised to call with any questions or concerns. CBC and CMP ordered. Orders Orders: 2. Hypertension I10 Plan Good control. Continue current medication and lifestyle/dietary modifications. This note was generated with [email or web address] dictation software. It may contain incorrect words, spelling, and punctuation that were not noted in checking the note before signing. Coding Level of Care Code Off vis,est,level 3 Diagnoses Dysfunctional uterine bleeding N93.8 Hypertension I10 07/30/18 6722 <Electronically signed by Annamarie Tovar MD> Date Annamarie Tovar MD Cosigner Signature: Date (if applicable) CC: CBC W/DIFF, AUTOMATED Collected: 07/30/2018 Status: F Source: PHAN 11:15 AM [facility] REPOSITORY TYPE CODE TESTS RESULT OUT OF RANGE REFERENCE UNITS LAB L100.1000 4.4-11.0 K/mm3 Normal WBC 7.8 LAB L100.1200 4.2-5.4 M/mm3 Normal RBC 4.50 LAB L100.1300 12.0-15.0 g/dl Normal HGB 13.9 LAB L100.1400 37-47 % Normal HCT 42.8 LAB L100.1500 81-99 fL Normal MCV 95.1 LAB L100.1600 27.0-32.0 pg Normal MCH 30.9 LAB L100.1700 32-36 g/gl Normal MCHC 32.5 LAB L100.1810 11.6-14.6 % Normal RDW CV 13.7 LAB L100.1820 35.1-43.9 fl High RDW SD 46.1 LAB L100.1900 150-450 K/mm3 Normal PLT 335 LAB L100.2000 6.2-12.0 fl Normal MPV 9.5 LAB L100.2100 47-70 % Normal NEUT% 66.9 LAB L100.2200 19-41 % Normal LY% 25.3 LAB L100.2300 0-10 % Normal MONO% 4.1 LAB L100.2400 0-5 % Normal EO% 3.0 LAB L100.2500 0-1 % Normal BASO% 0.3 LAB L100.2550 0.0-0.9 % Normal IM GRAN % 0.400 Result Comment: IG% - Immature Granulocytes (promyelocytes, myelocytes and metamyelocytes) > 1% indicates that a LEFT SHIFT is Present. LAB L100.2620 2.0-7.7 X10 3/uL Normal Absolute Neut 5.2 LAB L100.2720 0.83-4.51 X10 3/ul Normal Absolute Lymph 1.97 Performed By: #### L100.0100 #### [facility] [address] [place], [place], [address] COMPREHENSIVE METABOLIC Collected: 07/30/2018 Status: F [facility] REPOSITORY TYPE CODE TESTS RESULT OUT OF RANGE REFERENCE UNITS LAB L501.0100 74-106 mg/dL High GLU 135 Result Comment: Fasting Glucose result greater than or equal to 126 mg/dL suggests DIABETES MELLITUS per A.D.A. criteria. Please note revised GLUCOSE reference range effective 2017. LAB L501.1000 7-18 mg/dL Normal BUN 13 LAB L501.1100 0.55-1.02 mg/dL Normal CREAT,SERUM 0.85 Result Comment: The validity of the calculated GFR AND GFRAA in patients over 70 years has not been determined. Clinical correlation is essential. LAB L501.1110 >60 mL/min Normal EST GFR 88 Result Comment: Non- GFR Calc LAB L501.1115 >60 mL/min Normal EST GFR - AA 106 Result Comment: GFR Calc LAB L501.1300 10-20 RATIO Normal BUN/CRE 15.3 LAB L501.1500 6.4-8.2 g/dL T Normal PROT 7.4 LAB L501.1800 3.2-5.0 g/dL Normal ALB 3.4 LAB L501.1950 2.2-4.2 g/dL Normal GLOB 4.0 LAB L501.2000 0.9-2.4 RATIO Low A/G 0.8 LAB L501.2200 8.5-10.1 mg/dL CA Normal 8.7 LAB L501.4100 15-37 U/L Low AST 12 LAB L501.4305 45-117 U/L High ALK P 133 LAB L501.4405 13-56 U/L Normal ALT 24 LAB L501.4600 0.20-1.00 mg/dL T Normal BILI 0.40 LAB L501.5300 136-145 mmol/L NA Normal 141 LAB L501.5600 3.5-5.1 mmol/L K Normal 3.7 LAB L501.5900 98-107 mmol/L CL Normal 107 LAB L501.6100 21.0-32.0 mmol/L Normal CO2 27.0 LAB L501.6200 5-15 Normal GAP 7 Performed By: #### L500.4050 #### [facility] [address] [place], [address] EMERGENCY DEPARTMENT Observed: 05/29/2018 Status: F Source: ETOILE SUMMARY 3:32 AM [facility] REPOSITORY [facility] Medical Records Department [address] [place] [address] Emergency Department Summary 05/29/18 0330 MR#: [id number] Acct: [id number] Name: EDGARDO HENRY Rep #: [id number] : 1995 23 From: Ranjeet Bain MD PCP: Annamarie Tovar MD Status: REG ER - ER Visit Summary Date of Service: 05/29/18 Chief Complaint: Cough and congestion History of Present Illness: The patient is a 23 F who presents with cough and congestion. She has been ill for about 1 week. She complains of congestion rhinorrhea posttussive emesis sputum. She was treated with doxycycline prednisone and albuterol. She denies chest pain shortness of breath fevers. She states that she is just not getting better. Physical Examination: Afebrile slightly tachycardic with a heart rate of 108 pulse ox 93% on room air Patient is clinically well-appearing in no distress Heart is regular rhythm slightly tachycardic Respiratory rate is normal at the time of my exam she has some scattered expiratory wheezing but is in no distress able speak in full sentences Abdomen soft Test Results: Chest x-ray shows some pulmonary congestion suggestive of reactive airway disease versus viral infection versus atypical pneumonia Emergency Department Course and Treatment: Patient is clinically well-appearing. Her chest x-ray is suggestive of viral infection versus atypical pneumonia. She was already treated with doxycycline which would cover for atypical pneumonia. I do not believe she needs additional antibiotics at this time. She was advised to continue supportive care. She was discharged. She does understand return for new or worsening symptoms and was instructed on specific signs and symptoms to monitor for. Treatment Plan: [] Disposition: Discharge Impression: Bronchitis This note was generated with [email or web address] dictation software. It may contain incorrect words, spelling, and punctuation that were not noted in review of the chart prior to signing ED Disposition - Plan for ED Patient: Chief Complaint: Shortness of Breath Referrals: Annamarie Tovar MD [Primary Care Provider] - What to do if you have Problems For any increased pain, shortness of breath, bleeding, nausea or vomiting, chest pain, or any unexpected problems, contact your Primary Care Provider. Call [employer] [facility] ([phone]) or report to the closest Emergency Room. Call 911 if necessary. 05/29/18 0332 <Electronically signed by Ranjeet Bain MD> Date Ranjeet Bain MD Cosigner Signature (If Indicated): Date CC: Annamarie Tovar MD DISCHARGE INSTRUCTION Observed: 05/29/2018 Status: F Source: PHAN 3:32 AM [facility] REPOSITORY [facility] Medical Records Department [address] [place] [address] Discharge Instruction 05/29/18331 MR#: [id number] Acct: [id number] Name: EDGARDO HENRY Rep #: [id number] : 1995 23 From: Ranjeet Bain MD PCP: Annamarie Tovar MD Status: REG ER ED Disposition - Plan for ED Patient: Chief Complaint: Shortness of Breath Instructions: Acute Bronchitis Referrals: Annamarie Tovar MD [Primary Care Provider] - What to do if you have Problems For any increased pain, shortness of breath, bleeding, nausea or vomiting, chest pain, or any unexpected problems, contact your Primary Care Provider. Call [facility] ([phone]) or report to the closest Emergency Room. Call 911 if necessary. 05/29/18331 <Electronically signed by Ranjeet Bain MD> Date Ranjeet Bain MD Cosigner Signature (If Indicated): Date CC: Annamarie Tovar MD CHEST PA AND LATERAL Observed: 05/29/2018 Status: F Source: PHAN 2:38 AM [facility] Imaging Services [address] [place] [address] Chest PA and Lateral MR#: [id number] Acct: [id number] Name: EDGARDO HENRY Rep #: [id number] : 1995 F 23 From: Charu Mcgraw MD PCP: Annamarie Tovar MD Status: REG ER Study: Chest PA and Lateral Date of Exam: 05/29/18 Exam# [id number] Ordering Dr: Ranjeet Bain MD STUDY: X-RAY CHEST REASON FOR EXAM: Female, 23 years old. Cough, shortness of breath and wheezing. TECHNIQUE: PA and lateral views of the chest. COMPARISON: June 17, 2014. FINDINGS: The lungs are expanded. There are mild prominence of the bronchovascular markings in the lung bases. There is some peribronchial cuffing. There is no demonstrated pleural abnormality. Normal size heart. Normal mediastinum and james. There is prominence of the pulmonary hilar arteries without peripheral pulmonary vascular congestion. Normal visualized aortic arch and descending thoracic aorta. Normal visualized thoracic spine. Normal visualized ribs, clavicles, and shoulders. There is no demonstrated abnormality of the visualized soft tissue structures of the upper abdomen. RAD/Chest PA and Lateral IMPRESSION: Pulmonary congestion. Differential considerations include acute exacerbation of reactive airway disease, viral infection or mycoplasma pneumonitis. Electronically Signed: Charu Mcgraw MD at 3:09 EDT , Service support , CC: Annamarie Tovar MD; Ranjeet Bain MD Cna Per Diem: Signed DISCHARGE INSTRUCTION Observed: 04/23/2018 Status: F Source: ETOILE 5:02 AM [facility] REPOSITORY [facility] Medical Records Department [address] [place] [address] Discharge Instruction 04/23/18 0501 MR#: [id number] Acct: [id number] Name: EDGARDO HENRY Rep #: [id number] : 1995 From: Eliazar Mercado DO PCP: Annamarie Tovar MD Status: REG ER ED Disposition - Plan for ED Patient: Chief Complaint: Depression Instructions: ED Depression Referrals: Annamarie Tovar MD [Primary Care Provider] - Additional Instructions: follow up with intensive outpatient therapy and your psychiatrist What to do if you have Problems For any increased pain, shortness of breath, bleeding, nausea or vomiting, chest pain, or any unexpected problems, contact your Primary Care Provider. Call [facility] ([phone]) or report to the closest Emergency Room. Call 911 if necessary. 04/23/18 0502 <Electronically signed by Eliazar Mercado DO> Date Eliazar Mercado DO Cosigner Signature (If Indicated): Date CC: Annamarie Tovar MD EMERGENCY DEPARTMENT Observed: 04/23/2018 Status: F Source: ETOILE SUMMARY 5:01 AM [facility] Medical Records Department [address] [place] [address] Emergency Department Summary 04/23/18 0459 MR#: [id number] Acct: [id number] Name: EDGARDO HENRY Rep #: [id number] : 1995 From: Eliazar Mercado DO PCP: Annamarie Tovar MD Status: REG ER - ER Visit Summary Date of Service: 04/23/18 Chief Complaint: [Depression] History of Present Illness: The patient is a 23 F [presents to the emergency department with complaint of feeling depressed over the last 1-2 weeks. Patient states that she is having a hard time getting out of bed and really lacks any type of motivation. Patient feels useless. She has had decreased p.o. intake. Patient crying more. She denies feeling suicidal or homicidal. Patient does have a history of schizoaffective disorder. Patient scheduled to see a new psychiatrist next month. Patient denies any physical complaints. Patient has no intention of causing self-harm.] Physical Examination: [HEENT-PERRLA, EOMI. Cranial nerves II through XII grossly intact. TMs clear. Mucous membranes moist. No adenopathy. Cardiovascular-regular rate and rhythm without murmur or ectopy Lungs-clear to auscultation, chest wall stable without crepitus or subcu emphysema Abdomen-normoactive bowel sounds, soft, nontender, no rebound or rigidity, no peritoneal signs. Extremities-intact 4, normal range of motion, normal pulses, atraumatic] Test Results: [CBC with differential obtained was normal. Chemistries were normal. HCG was negative. Toxicology screen was negative. Alcohol was negative.] Emergency Department Course and Treatment: [Patient was evaluated by crisis in the emergency department and at this time it is felt that patient can follow- up as an outpatient with intensive outpatient therapy. Patient is agreeable to this as well as her mother. Patient can contract for safety.] Treatment Plan: [Patient follow-up with counseling center and outpatient therapy Disposition: [Discharged home in stable condition] Impression: [Depression] This note was generated with [email or web address] dictation software. It may contain incorrect words, spelling, and punctuation that were not noted in review of the chart prior to signing ED Disposition - Plan for ED Patient: Chief Complaint: Depression Referrals: Annamarie Tovar MD [Primary Care Provider] - What to do if you have Problems For any increased pain, shortness of breath, bleeding, nausea or vomiting, chest pain, or any unexpected problems, contact your Primary Care Provider. Call [facility] ([phone]) or report to the closest Emergency Room. Call 911 if necessary. 04/23/18 0501 <Electronically signed by Eliazar Mercado DO> Date Eliazar Mercado DO Cosigner Signature (If Indicated): Date CC: Annamarie Tovar MD URINE DRUG SCREEN Collected: 04/23/2018 Status: F Source: PHAN (MERCED) 2:23 AM [facility] REPOSITORY TYPE CODE TESTS RESULT OUT OF RANGE REFERENCE UNITS LAB L505.0075 TO BE Normal CONFIRMED Result Comment: CONFIRMATORY TESTING FOR ALL POSITIVE URINE DRUG SCREEN RESULTS WILL ONLY BE SENT OUT UPON PHYSICIAN ORDER. VISTA Urine Drug Screen methods provide only preliminary analytical test results. A more specific alternate chemical method must be used in order to obtain a confirmed analytical result. Gas chromatography/mass spectrometery (GC/MS) is the preferred confirmatory method. Clinical consideration and professional judgement should be applied to any drug of abuse test result, particularly when preliminary positive results are used. URINE TCA TESTING MUST BE ORDERED SEPARATELY. USE TEST MNEMONIC: [facility] LAB L505.5005 VISTA UDS PH 6 Normal LAB L505.5015 <1000 ng/mL AMPHETAMINES Normal NEGATIVE LAB L505.5025 < 200 ng/mL BARBITIURATES Normal NEGATIVE LAB L505.5035 < 200 ng/mL BENZODIAZIPINE Normal NEGATIVE LAB L505.5045 < 300 ng/mL COCAINE Normal NEGATIVE LAB L505.5055 < 500 ng/mL ECSTACY Normal NEGATIVE LAB L505.5065 < 300 ng/mL METHADONE Normal NEGATIVE LAB L505.5075 < 300 ng/mL OPIATES Normal NEGATIVE LAB L505.5085 < 25 ng/mL PCP Normal NEGATIVE LAB L505.5095 < 50 ng/mL THC Normal NEGATIVE Performed By: #### L505.5000 #### [facility] [address] [place], [address] CBC W/DIFF, AUTOMATED Collected: 04/23/2018 Status: F Source: PHAN 2:19 AM [facility] REPOSITORY TYPE CODE TESTS RESULT OUT OF RANGE REFERENCE UNITS LAB L100.1000 4.4-11.0 K/mm3 Normal WBC 7.6 LAB L100.1200 4.2-5.4 M/mm3 Normal RBC 4.90 LAB L100.1300 12.0-15.0 g/dl High HGB 15.3 LAB L100.1400 37-47 % Normal HCT 45.9 LAB L100.1500 81-99 fL Normal MCV 93.7 LAB L100.1600 27.0-32.0 pg Normal MCH 31.2 LAB L100.1700 32-36 g/gl Normal MCHC 33.3 LAB L100.1810 11.6-14.6 % Normal RDW CV 13.2 LAB L100.1820 35.1-43.9 fl Normal RDW SD 43.7 LAB L100.1900 150-450 K/mm3 Normal PLT 328 LAB L100.2000 6.2-12.0 fl Normal MPV 9.0 LAB L100.2100 47-70 % Normal NEUT% 66.8 LAB L100.2200 19-41 % Normal LY% 23.7 LAB L100.2300 0-10 % Normal MONO% 5.9 LAB L100.2400 0-5 % Normal EO% 2.9 LAB L100.2500 0-1 % Normal BASO% 0.4 LAB L100.2550 0.0-0.9 % Normal IM GRAN % 0.300 Result Comment: IG% - Immature Granulocytes (promyelocytes, myelocytes and metamyelocytes) > 1% indicates that a LEFT SHIFT is Present. LAB L100.2620 2.0-7.7 X10 3/uL Normal Absolute Neut 5.1 LAB L100.2720 0.83-4.51 X10 3/ul Normal Absolute Lymph 1.81 Performed By: #### L100.0100 #### [facility] [address] [facility]. [place], [place], [address] BASIC METABOLIC Collected: 04/23/2018 Status: F Source: ETOILE PROFILE (BMP) 2:19 AM [facility] REPOSITORY TYPE CODE TESTS RESULT OUT OF RANGE REFERENCE UNITS LAB L501.0100 74-106 mg/dL High GLU 154 Result Comment: Fasting Glucose result greater than or equal to 126 mg/dL suggests DIABETES MELLITUS per A.D.A. criteria. Please note revised GLUCOSE reference range effective 2017. LAB L501.1000 7-18 mg/dL Normal BUN 9 LAB L501.1100 0.55-1.02 mg/dL High CREAT,SERUM 1.06 Result Comment: The validity of the calculated GFR AND GFRAA in patients over 70 years has not been determined. Clinical correlation is essential. LAB L501.1110 >60 mL/min Normal EST GFR 68 Result Comment: Non- GFR Calc LAB L501.1115 >60 mL/min Normal EST GFR - AA 83 Result Comment: GFR Calc LAB L501.1255 ml/min Normal Estimated CRCL 62.29 LAB L501.1300 10-20 RATIO Low BUN/CRE 8.5 LAB L501.2200 8.5-10 mg/dL Normal .1 CA 8.9 LAB L501.5300 136-14 mmol/L Normal 5 NA 138 LAB L501.5600 3.5-5. mmol/L Normal 1 K 3.5 LAB L501.5900 98-107 mmol/L Normal CL 105 LAB L501.6100 21.0-3 mmol/L Normal 2.0 CO2 24.0 LAB L501.6200 5-15 Normal GAP 9 Performed By: #### L500.2500 #### [facility] [address] [place], [place], [address] ALCOHOL, BLOOD Collected: 04/23/2018 Status: F Source: ETOILE (MEDICAL)-SERUM 2:19 AM [facility] REPOSITORY TYPE CODE TESTS RESULT OUT OF RANGE REFERENCE UNITS LAB L501.9100 mg/dL Normal SERUM 5.0 ETOH Result Comment: The serum:whole blood ethanol ratio is approximately 1.14 and varies slightly with hematocrit. Medical Alcohol reference interval and critical value in non-tolerant individuals; 50 - 100 Impairment 100 Intoxication 100 - 250 Severe Poisoning 250 - 400 Deep/possible fatal coma Performed By: #### L501.9100 #### [facility] [address] [place], [place], [address] ,SERUM,HCG QUALI. Collected: Status: F Source: ETOILE 04/23/2018 2:19 AM [facility] REPOSITORY TYPE CODE TESTS RESULT OUT OF REFERENCE UNITS RANGE LAB L700.7000 0-9 Nonpreg Negative Normal HCGSQUAL NEGATIVE LAB L700.6700 =>Qualitative mIU/mL Normal HCG Qual < 1 triggr Performed By: #### L700.6800 #### [facility] [address] [place], [address] INTERNAL MEDICINE Observed: 2018 Status: F Source: PHAN OFFICE VISIT 1:32 PM [facility] [address] [place] [address] OFFICE VISIT Date of Service: 03/31/18 MR#: [id number] Acct: [id number] Name: EDGARDO HENRY Rep #: [id number] : 1995 Provider: Annamarie Tovar MD Age/Sex: 22/F Location: [facility] Status: Signed Intake Vital Signs03/31/18 Height 5 ft 1 in 03/31/18 Weight: 312 lb 03/31/18 Body Mass Index (BMI) 58.9 03/31/18 Blood Pressure 106/78 Intake Visit Reasons: BEE STING, SWELLING Chief Complaint: Bee Sting on face AND swollen area Left leg Is patient in pain?: No Allergies amoxicillin trihydrate [From Augmentin] Allergy (Verified 03/31/18 10:34) Hives Penicillins Allergy (Verified 03/31/18 10:34) Hives potassium clavulanate [From Augmentin] Allergy (Verified 03/31/18 10:34) Hives Sulfa (Sulfonamide Antibiotics) Allergy (Verified 03/31/18 10:34) Hives Medications Lamotrigine [Lamictal] 200 mg PO QHS 09/28/16 [History Confirmed 03/31/18] metoprolol tartrate 25 mg tablet 12.5 mg PO BID #30 tab 11/07/17 [Rx Confirmed 03/31/18] doxepin 50 mg capsule 50 mg PO QHS PRN 03/31/18 [History Confirmed 03/31/18] escitalopram 20 mg tablet 20 mg PO QDAY 03/31/18 [History Confirmed 03/31/18] haloperidol 10 mg tablet 10 mg PO QDAY tab 03/31/18 [History Confirmed 03/31/18] prednisone 20 mg tablet 40 mg PO QDAY #10 tab 03/31/18 [Rx Confirmed 03/31/18] PFSH Medical History Amenorrhea (Acute) Chronic bronchitis (Chronic) Schizoaffective disorder (Chronic) Seasonal allergies (Chronic) GERD (gastroesophageal reflux disease) (Chronic) Surgical History History of cholecystectomy (Acute) History of tonsillectomy (Acute) Family History Grandfather Alcoholism Depression CVA (cerebral vascular accident) Mother Anxiety Father Psychiatric care Grandmother Thyroid disorder Social History Smoking Status: Current every day smoker alcohol intake: never substance use type: does not use what type of physical activity do you participate in: walking frequency: 3-4 times per week HPI HPI Chief Complaint: Bee Sting on face AND swollen area Left leg Details: EDGARDO HENRY, is a 22yo F who presents to the office today due to concerns about right-sided facial swelling and left leg swelling. Said swelling was said to have occurred after a fall in the [place] area. She believes she was stung. Thinks it to be but did not actually see the insect. She describes this area is itchy. She however denies pain or worsening swelling. She has tried OTC Benadryl with very modest improvement. ROS Const Constitutional: No chills, fatigue, fever(s), frequent falls, malaise, weakness, sleep problems or change in appetite Eyes Eyes: No blurry vision, change in vision, double vision, discharge or visual disturbances ENT ENT: No abnormal hearing, ear pain, ear pressure, tinnitus or dizziness/vertigo Resp Respiratory: No cough, shortness of breath or wheezing Cardio Cardiology: No chest pain at rest, chest pain with exertion, shortness of breath, dyspnea on exertion, generalized swelling, irregular heart rhythm, lightheadedness, orthopnea, fast heart rate or palpitations Gastro GI: No abdominal pain, change in bowel habits, constipation, diarrhea, nausea/dyspepsia or vomiting Genitourinary-Female: No difficulty urinating, burning urination, painful urination, urinary incontinence, urinary frequency, urinary urgency, urinary hesitancy, urinary retention, Frequent nighttime urination/ nocturia, sexual problems, genital lesions, abnormal vaginal bleeding, pelvic pain, vaginal dryness, vaginal odor or Vaginal Itching Musc Musculoskeletal: No joint pain, back pain, joint swelling, limited range of motion, numbness or tingling Skin Skin: Positive for redness (Left leg) and skin swelling (Left eyelid.); no change in skin color, itching, rash or wounds Breast Breast: No breast lump or breast pain Neuro Neurology: No frequent falls, weakness, abnormal hearing, numbness, tingling, unsteady gait/balance, dizziness, loss of vision, memory loss or visual disturbances Psych Psychiatric: No memory loss, No anxiety, No change in appetite, No depression, No Thoughts of harming yourself/Others Endo Endocrine: No fatigue, heat intolerance, increased thirst/drinking, increased hunger or increased urination Aller/Imm Allergy/Immunologic: No wheezing, itchy eyes or seasonal allergy symptoms Ty/Lymp Hematologic/Lymphatic: No easy bleeding, easy bruising or enlarged lymph nodes Exam Const General: cooperative, no acute distress Nutritional Appearance: obese Orientation: alert, awake, oriented x3 HENMT Head: atraumatic, normocephalic Ears: hearing grossly normal bilaterally Resp Effort AND Inspection: normal respiratory effort, able to speak in complete sentences Auscultation: Bilateral: Clear to Auscultation Cardio Rate: tachycardic Rhythm: regular rhythm Heart Sounds: S1 normal, S2 normal GI Palpation: soft, no hepatosplenomegaly Skin Other: Left eyelid and lateral proximal leg redness. Circumferential. No tenderness over differential warmth. No discharge appreciated. No redness of her eyes or eye discharge appreciated Neuro General: alert, awake, oriented x3, moves all extremities, CN's II-XI intact bilaterally Extrem General: no pedal edema Psych Appearance: grossly normal Assessment AND Plan 1. Insect bite W57.XXXA Plan She believes she was stung by an insect however, is not sure of what exactly she was stung by. Mild improvement with Benadryl however, still significantly itchy. No pain, differential warmth or suppuration. No problems with her vision. Prednisone 40 mg daily 5 days. Advised to call with any worsening or signs of Suppuration. 2. Tachycardia R00.0 Plan Improved on beta-dieter. Currently on 12.5 twice daily however has been taking 25 mg at night because it appears to help better with the tachycardia. Advised to monitor BP over the next couple of days with blood pressure holds on that dose will continue 25 mg twice daily. This note was generated with [employer] software. It may contain incorrect words, spelling, and punctuation that were not noted in checking the note before signing. Plan Detail Other Medications New: Discontinued: medroxyprogesterone Please start after a negative ltpearcs73 mg PO QDAY Ruth Damico y test. Discontinued Reason: Pt no longer taking Coding Level of Care Code Off vis,est,level 3 Diagnoses Insect bite W57.XXXA Tachycardia R00.0 04/03/18 1332 <Electronically signed by Annamarie Tovar MD> Date Annamarie Tovar MD Cosigner Signature: Date (if applicable) CC: HEMOGLOBIN A1C Collected: 01/16/2018 Status: F Source: ETOILE 2:15 PM [facility] REPOSITORY TYPE CODE TESTS RESULT OUT OF RANGE REFERENCE UNITS LAB L501.9985 4.2-6.3 % Normal HGB A1C 5.3 Performed By: #### L501.9985 #### [facility] [place], [address] COMPREHENSIVE METABOLIC Collected: 01/16/2018 Status: F Source: [facility] 2:15 PM [facility] REPOSITORY TYPE CODE TESTS RESULT OUT OF RANGE REFERENCE UNITS LAB L501.0100 74-106 mg/dL Normal GLU 85 Result Comment: Please note revised GLUCOSE reference range effective 2017. LAB L501.1000 7-18 mg/dL Normal BUN 11 LAB L501.1100 0.55-1.02 mg/dL Normal CREAT,SERUM 0.87 Result Comment: The validity of the calculated GFR AND GFRAA in patients over 70 years has not been determined. Clinical correlation is essential. LAB L501.1110 >60 mL/min Normal EST GFR 86 Result Comment: Non- GFR Calc LAB L501.1115 >60 mL/min Normal EST GFR - AA 104 Result Comment: GFR Calc LAB L501.1300 10-20 RATIO Normal BUN/CRE 12.6 LAB L501.1500 6.4-8.2 g/dL T Normal PROT 7.1 LAB L501.1800 3.2-5.0 g/dL Normal ALB 3.7 LAB L501.1950 2.2-4.2 g/dL Normal GLOB 3.4 LAB L501.2000 0.9-2.4 RATIO Normal A/G 1.1 LAB L501.2200 8.5-10.1 mg/dL CA Normal 8.6 LAB L501.4100 15-37 U/L Normal AST 17 LAB L501.4305 45-117 U/L High ALK P 158 LAB L501.4405 13-56 U/L Normal ALT 28 LAB L501.4600 0.20-1.00 mg/dL T Normal BILI 0.70 LAB L501.5300 136-145 mmol/L NA Normal 141 LAB L501.5600 3.5-5.1 mmol/L K Normal 4.1 LAB L501.5900 98-107 mmol/L CL Normal 106 LAB L501.6100 21.0-32.0 mmol/L Normal CO2 28.0 LAB L501.6200 5-15 Normal GAP 7 Performed By: #### L500.4050, L501.9520, L3100.5420 #### [facility] [address] [place], [address] THYROID STIM HORMONE Collected: 01/16/2018 Status: F Source: [facility] (TSH) 2:15 PM [facility] REPOSITORY TYPE CODE TESTS RESULT OUT OF RANGE REFERENCE UNITS LAB L501.9520 0.358-3.74 uIU/mL Normal TSH 2.55 Performed By: #### L500.4050, L501.9520, L3100.5420 #### [facility] [address] [place], [address] PROLACTIN Collected: 01/16/2018 Status: F Source: [place] 2:15 PM [facility] REPOSITORY TYPE CODE TESTS RESULT OUT OF RANGE REFERENCE UNITS LAB L3100.5420 ng/mL Normal PROLACTIN 98.7 Result Comment: NORMAL REFERENCE RANGES FEMALE NON- 2.2 - 30.3 ng/mL 8.1 - 347.6 ng/mL POST-MENOPAUSAL 0.7 - 31.5 ng/mL MALE 2.5 - 17.4 ng/mL NEW TEST METHOD AND REFERENCE RANGES JANUARY 20, 2012 Performed By: #### L500.4050, L501.9520, L3100.5420 #### [facility] [address] [place], [address] CBC-COMPLETE BLOOD CNT Collected: 01/16/2018 Status: F Source: [place] NO DIFF 2:15 PM [facility] REPOSITORY TYPE CODE TESTS RESULT OUT OF RANGE REFERENCE UNITS LAB L100.1000 4.4-11.0 K/mm3 Normal WBC 6.6 LAB L100.1200 4.2-5.4 M/mm3 Normal RBC 4.23 LAB L100.1300 12.0-15.0 g/dl Normal HGB 13.6 LAB L100.1400 37-47 % Normal HCT 40.9 LAB L100.1500 81-99 fL Normal MCV 96.7 LAB L100.1600 27.0-32.0 pg High MCH 32.2 LAB L100.1700 32-36 g/gl Normal MCHC 33.3 LAB L100.1810 11.6-14.6 % Normal RDW CV 13.7 LAB L100.1820 35.1-43.9 fl High RDW SD 47.2 LAB L100.1900 150-450 K/mm3 Normal PLT 311 LAB L100.2000 6.2-12.0 fl Normal MPV 9.3 Performed By: #### L100.0500 #### [facility] [address] [place], [address] INTERNAL MEDICINE Observed: 11/21/2017 Status: F Source: E[place] OFFICE VISIT 11:11 AM [facility] REPOSITORY [facility] [address] [place] [address] [place] [address] OFFICE VISIT Date of Service: 11/19/17 MR#: [id number] Acct: [id number] Name: EDGARDO HENRY Rep #: [id number] : 1995 Provider: Annamarie Tovar MD Age/Sex: 22/F Location: [facility] Status: Signed Intake Vital Signs11/19/17 Height 5 ft 1 in 11/19/17 Weight: 300 lb 2 oz 11/19/17 Body Mass Index (BMI) 56.7 11/19/17 Blood Pressure 124/74 Intake Visit Reasons: F/U Chief Complaint: follow-up visit Accompanied by: Sister Is patient in pain?: No Allergies amoxicillin trihydrate [From Augmentin] Allergy (Verified 10/02/17 23:45) Hives Penicillins Allergy (Verified 10/02/17 23:45) Hives potassium clavulanate [From Augmentin] Allergy (Verified 10/02/17 23:45) Hives Sulfa (Sulfonamide Antibiotics) Allergy (Verified 10/02/17 23:45) Hives Medications Lamotrigine [Lamictal] 200 mg PO QHS 09/28/16 [History Confirmed 10/02/17] Doxepin HCl 50 mg PO QHS 10/02/17 [History Confirmed 10/02/17] Escitalopram Oxalate [Lexapro] 10 mg PO DAILY 10/02/17 [History Confirmed 10/02/17] metoprolol tartrate 25 mg tablet 12.5 mg PO BID #30 tab 11/07/17 [Rx] haloperidol 5 mg tablet 5 mg PO BID 11/19/17 [History Confirmed 11/19/17] PFSH Medical History Amenorrhea (Acute) Chronic bronchitis (Chronic) Schizoaffective disorder (Chronic) Seasonal allergies (Chronic) GERD (gastroesophageal reflux disease) (Chronic) Surgical History History of cholecystectomy (Acute) History of tonsillectomy (Acute) Family History Grandfather Alcoholism Depression CVA (cerebral vascular accident) Mother Anxiety Father Psychiatric care Grandmother Thyroid disorder Social History Smoking Status: Current every day smoker alcohol intake: never substance use type: does not use what type of physical activity do you participate in: walking frequency: 3-4 times per week HPI HPI Chief Complaint: follow-up visit Details: EDGARDO HENRY, is a 22yo F who presents to the office today for follow up. Blood pressure is better controlled today. She denies any further episodes of palpitations. She however is concerned about increased burning and regurgitation which has been on going for about 2 weeks. She denies any blood in stool or significant abdominal pain ROS Const Constitutional: No body ache, chills, headache(s), weakness or fever(s) Eyes Eyes: No blurry vision, change in vision, eye pain or discharge ENT ENT: No headache(s), abnormal hearing, ear pain, ear pressure, tinnitus, dizziness/vertigo or balance problems Resp Respiratory: No cough, shortness of breath or wheezing Cardio Cardiology: No chest pain at rest, shortness of breath, dyspnea on exertion or palpitations Gastro GI: Positive for heartburn; no abdominal pain or bloating Neuro Neurology: No headache(s), weakness or abnormal hearing Aller/Imm Allergy/Immunologic: No wheezing Exam Const General: cooperative, no acute distress Nutritional Appearance: obese Orientation: alert, awake, oriented x3 HENMT Head: atraumatic, normocephalic Ears: hearing grossly normal bilaterally Resp Effort AND Inspection: normal respiratory effort, able to speak in complete sentences Auscultation: Bilateral: Clear to Auscultation Cardio Rate: tachycardic Rhythm: regular rhythm Heart Sounds: S1 normal, S2 normal GI Palpation: soft, no hepatosplenomegaly Neuro General: alert, awake, oriented x3, moves all extremities, CN's II-XI intact bilaterally Extrem General: no pedal edema Psych Appearance: grossly normal Assessment AND Plan 1. Tachycardia R00.0 Plan Stable. medication induced. Doing well on metoprolol. Continue current management. 2. GERD (gastroesophageal reflux disease) K21.9 Plan Life style modifications discussed including smoking cessation, weight loss, limiting alcohol use and dietary modifications. Start Omeprazole 20mg daily. Ok to increase to 40mg daily after 2 weeks if no symptom improvement. Follow up in 2 months. 3. Hypertension I10 Plan Better controlled. Continue current medications. Continue life style modifications. This note was generated with [email or web address] dictation software. It may contain incorrect words, spelling, and punctuation that were not noted in checking the note before signing. Plan Detail Follow Up 2 Months Coding Level of Care Code Off vis,est,level 3 Diagnoses Tachycardia R00.0 GERD (gastroesophageal reflux disease) K21.9 Hypertension I10 11/21/17 1111 <Electronically signed by Annamarie Tovar MD> Date Annamarie Tovar MD Cosigner Signature: Date (if applicable) CC: INTERNAL MEDICINE Observed: 10/10/2017 Status: F Source: [facility] OFFICE VISIT 2:14 PM [facility] [address] [place] [address] OFFICE VISIT Date of Service: 10/06/17 MR#: [id number] Acct: [id number] Name: EDGARDO HENRY Rep #: [id number] : 1995 Provider: Annamarie Tovar MD Age/Sex: 22/F Location: [facility] [place] Status: Signed Intake Vital Signs10/06/17 Body Mass Index (BMI) 54.6 10/06/17 Blood Pressure 155/94 10/06/17 Height 5 ft 1 in 10/06/17 Weight: 288 lb 4 oz Intake Visit Reasons: ER FU Reject Opener And Filler Required: No Accompanied by: Mother Is patient in pain?: No Allergies amoxicillin trihydrate [From Augmentin] Allergy (Verified 10/02/17 23:45) Hives Penicillins Allergy (Verified 10/02/17 23:45) Hives potassium clavulanate [From Augmentin] Allergy (Verified 10/02/17 23:45) Hives Sulfa (Sulfonamide Antibiotics) Allergy (Verified 10/02/17 23:45) Hives Medications Lamotrigine [Lamictal] 200 mg PO QHS 09/28/16 [History Confirmed 10/02/17] Doxepin HCl 50 mg PO QHS 10/02/17 [History Confirmed 10/02/17] Escitalopram Oxalate [Lexapro] 10 mg PO DAILY 10/02/17 [History Confirmed 10/02/17] Fluphenazine HCl [Prolixin] 10 mg PO BID 10/02/17 [History Confirmed 10/02/17] metoprolol tartrate 25 mg tablet 12.5 mg PO BID #30 tab 10/06/17 [Rx Confirmed 10/06/17] PFSH Medical History Amenorrhea (Acute) Chronic bronchitis (Chronic) Schizoaffective disorder (Chronic) Seasonal allergies (Chronic) GERD (gastroesophageal reflux disease) (Chronic) Surgical History History of cholecystectomy (Acute) History of tonsillectomy (Acute) Family History Grandfather Alcoholism Depression CVA (cerebral vascular accident) Mother Anxiety Father Psychiatric care Grandmother Thyroid disorder Social History Smoking Status: Current every day smoker alcohol intake: never substance use type: does not use what type of physical activity do you participate in: walking frequency: 3-4 times per week HPI HPI Details: EDGARDO HENRY, is a 22yo F who presents to the office today as an ER follow-up. She was seen in the ER due to worsening tachycardia and feeling of unwell. Symptoms at that visit was thought to be due to recent medications she started. She follows up with psychiatry due to her history of schizophrenia and was recently started on fluphenazine 10 mg twice daily. After visit to the ER of fluphenazine was adjusted to 5 mg twice daily. During her ER visit her blood pressure was significantly elevated at 180/108 mmHg and heart rate said to be in the 130s. Blood pressure in office today is still elevated however, much better compared to her ER visit. Blood pressure is 134/85 and a heart rate of 115. She feels well otherwise, denies any change in her bowel habits. She has not been screened for thyroid disease in the past. She denies chest pain, shortness of breath or leg swelling. ROS Const Constitutional: No body ache, chills, fever(s), frequent falls, headache(s), weight change, sleep problems, change in appetite, snoring, excessive sweating or weakness Eyes Eyes: No blurry vision, change in vision, eye pain or light sensitivity ENT ENT: No headache(s), abnormal hearing, ear pain, tinnitus, sore throat or neck pain Resp Respiratory: No snoring, cough, shortness of breath or wheezing Cardio Cardiology: Positive for palpitations; no excessive sweating, chest pain at rest, chest pain with exertion, shortness of breath, dyspnea on exertion, orthopnea or lightheadedness Gastro GI: No abdominal pain, change in bowel habits, constipation, vomiting, nausea/dyspepsia or cramping Genitourinary-Female: No difficulty urinating, burning urination, painful urination, urinary frequency, urinary urgency, urinary incontinence, blood in urine, urinary retention or urinary hesitancy Musc Musculoskeletal: No neck pain, abnormal walking, joint pain, back pain, limited range of motion, numbness or tingling Skin Skin: No redness, dry skin, lesions, wounds or rash Neuro Neurology: No frequent falls, headache(s), weakness, abnormal hearing, abnormal walking, numbness, tingling, abnormal speech, dizziness or memory loss Psych Psychiatric: No change in appetite, No memory loss, No anxiety, No depression, No Thoughts of harming yourself/Others Endo Endocrine: No excessive sweating, cold intolerance, increased thirst/drinking, heat intolerance, increased hunger or flushing Aller/Imm Allergy/Immunologic: No wheezing, seasonal allergy symptoms or hives Ty/Lymp Hematologic/Lymphatic: No easy bleeding, easy bruising or enlarged lymph nodes Exam Const General: cooperative, no acute distress Nutritional Appearance: obese Orientation: alert, awake, oriented x3 HENNV Head: atraumatic, normocephalic Ears: hearing grossly normal bilaterally Resp Effort AND Inspection: normal respiratory effort, able to speak in complete sentences Auscultation: Bilateral: Clear to Auscultation Cardio Rate: tachycardic Rhythm: regular rhythm Heart Sounds: S1 normal, S2 normal GI Palpation: soft, no hepatosplenomegaly Neuro General: alert, awake, oriented x3, moves all extremities, CN's II-XI intact bilaterally Extrem General: no pedal edema Psych Appearance: grossly normal Assessment AND Plan 1. Tachycardia R00.0 Plan Ongoing since starting fluphenazine. Better controlled since adjusting medication dose. EKG done in the ER without any significant abnormality. No thyroid function done, now ordered. Will start metoprolol 12.5 mg twice daily. Continue monitoring at home and if heart rate still elevated over 130's, increase to 25 mg twice daily. Orders Orders: 2. Elevated blood pressure reading without diagnosis of hypertension R03.0 Plan Blood pressure during ER visit was said to be as high as 180/108 mmHg. Blood pressure in office today is 134/85 mmHg. Possibly medication induced. I did bereavement counselor patient on lifestyle modification including salt restriction, exercise, weight loss and diet rich in fruits and veggies. Follow-up at next visit. 3. Morbid obesity E66.01 Plan Symptoms have worsened since starting antipsychotics. Also history of abnormal blood sugar. We will get an A1c. Possible referral to the [facility] weight program. Follow-up at next visit. This note was generated with [email or web address] dictation software. It may contain incorrect words, spelling, and punctuation that were not noted in checking the note before signing. Plan Detail Other Orders Orders: Other Medications New: Flucel flu vacc qs 2017(4 yr up)(PF)60 mcg(15 mcgx4)/0.5 m60 mcg (0.5 mL) IM ONCE Z23 L IM syringe Follow Up 2 Weeks Coding Level of Care Code Off vis,est,level 3 Diagnoses Tachycardia R00.0 Elevated blood pressure reading without diagnosis of hypertension R03.0 Morbid obesity E66.01 10/10/17 1414 <Electronically signed by Annamarie Tovar MD> Date Annamarie Tovar MD Cosigner Signature: Date (if applicable) CC: 12 LEAD ELECTROCARDIOGRAM Observed: 10/06/2017 Status: F Source: [place] 3:26 PM [facility] REPOSITORY [facility] Cardiovascular Services [address] [place] [id number] 12 Lead EKG 10/03/17 0012 MR#: [id number] Acct: [id number] Name: EDGARDO HENRY Rep #: [id number] : 1995 22 From: Scot Parker MD Attending Dr: Status: DEP ER Ordering Dr: Erick San MD Date: 10/03/17 Location: ED Sex: F C Admitted: Test Reason : GENERAL ILLNESS Blood Pressure : / mmHG Vent. Rate : 114 BPM Atrial Rate : 114 BPM P-R Int : 144 ms QRS Dur : 086 ms QT Int : 322 ms P-R-T Axes : 035 073 017 degrees QTc Int : 443 ms Sinus tachycardia Otherwise normal ECG Confirmed by JINA SURESH, SCOT ([id number]), manuscript editor CHRISTINA MCGRAW ([id number]) on 10/06/2017 3:26:05 PM Referred By: KIM Confirmed By:SCOT PARKER MD 10/06/17 1526 Date Scot Parker MD CC: Annamarie Tovar MD Signed HEMOGLOBIN A1C Collected: 10/06/2017 Status: F Source: [facility] 1:59 PM [facility] REPOSITORY TYPE CODE TESTS RESULT OUT OF RANGE REFERENCE UNITS LAB L501.9985 4.2-6.3 % Normal HGB A1C 5.1 Performed By: #### L501.9985 #### [facility] [place], [address] THYROID STIM HORMONE Collected: 10/06/2017 Status: F Source: [facility] (TSH) 1:59 PM [facility] REPOSITORY TYPE CODE TESTS RESULT OUT OF RANGE REFERENCE UNITS LAB L501.9520 0.358-3.74 uIU/mL Normal TSH 3.50 Performed By: #### L501.9520, L506.0400 #### [facility] [place], [address] T4 FREE DIRECT Collected: 10/06/2017 Status: F Source: [facility] 1:59 PM [facility] REPOSITORY TYPE CODE TESTS RESULT OUT OF RANGE REFERENCE UNITS LAB L506.0400 0.76-1.46 ng/dL Normal T4 FREE 0.93 DIRECT Performed By: #### L501.9520, L506.0400 #### [facility] [place], [address] EMERGENCY DEPARTMENT Observed: 10/03/2017 Status: F Source: [facility] SUMMARY 5:01 AM [facility] REPOSITORY [facility] Medical Records Department [address] [place] [address] [place] [address] Emergency Department Summary 10/03/17 0134 MR#: [id number] Acct: [id number] Name: EDGARDO HENRY Rep #: [id number] : 1995 22 From: Erick San MD PCP: Annamarie Tovar MD Status: DEP ER - ER Visit Summary Date of Service: 10/03/17 Chief Complaint: Flu History of Present Illness: The patient is a 22 F with symptoms that started today. She reports chills, sweats, and diarrhea. She thought she might be developing the flu. She was also concerned because she has been weaning off of her psych meds. She has been taking invega but decreasing the dose under the care of her doctor. She was recently started on Prolixin. Physical Examination: Blood pressure 158/107. Heart rate 137. Respiratory rate 26. Afebrile. Pulse ox 94%. Patient appears uncomfortable but not toxic or in distress. Skin appears normal. Heart regular but tachycardic. Lungs clear. Abdomen soft and nontender. Test Results: EKG showed sinus rhythm at a rate of 114. No signs of ischemia or infarction. CBC normal. BMP normal except for glucose of 129. test negative. Influenza test negative. Emergency Department Course and Treatment: Patient received fluids and nausea medication. Her symptoms improved. Her blood pressure improved. Her symptoms may be from medication changes, or possibly an infectious etiology. She is nontoxic and in no acute distress. I believe she is appropriate for outpatient follow-up. She will continue to stay hydrated. Monitor for new or worsening symptoms. Return if worse. Treatment Plan: As above Disposition: Discharged Impression: 1. Diarrheal illness This note was generated with [email or web address] dictation software. It may contain incorrect words, spelling, and punctuation that were not noted in review of the chart prior to signing ED Disposition - Plan for ED Patient: Chief Complaint: General Illness Referrals: Annamarie Tovar MD [Primary Care Provider] - What to do if you have Problems For any increased pain, shortness of breath, bleeding, nausea or vomiting, chest pain, or any unexpected problems, contact your Primary Care Provider. Call [employer] [facility] ([phone]) or report to the closest Emergency Room. Call 911 if necessary. 10/03/17 050 <Electronically signed by Erick San MD> Date Erick San MD Cosigner Signature (If Indicated): Date CC: Annamarie Tovar MD DISCHARGE INSTRUCTION Observed: 10/03/2017 Status: F Source: [facility] 5:01 AM [facility] REPOSITORY [facility] Medical Records Department [address] [place] [address] Discharge Instruction 10/03/17 0137 MR#: [id number] Acct: [id number] Name: EDGARDO HENRY Rep #: [id number] : 1995 22 From: Erick San MD PCP: Annamarie Tovar MD Status: DEP ER ED Disposition - Plan for ED Patient: Chief Complaint: General Illness Instructions: ED Diarrhea Viral Referrals: Annamarie Tovar MD [Primary Care Provider] - What to do if you have Problems For any increased pain, shortness of breath, bleeding, nausea or vomiting, chest pain, or any unexpected problems, contact your Primary Care Provider. Call [facility] ([phone]) or report to the closest Emergency Room. Call 911 if necessary. 10/03/17 0501 <Electronically signed by Erick San MD> Date Erick San MD Cosigner Signature (If Indicated): Date CC: Annamarie Tovar MD CBC W/DIFF, AUTOMATED Collected: 10/03/2017 Status: F Source: [facility] 12:15 AM [facility] REPOSITORY TYPE CODE TESTS RESULT OUT OF RANGE REFERENCE UNITS LAB L100.1000 4.4-11.0 K/mm3 Normal WBC 9.3 LAB L100.1200 4.2-5.4 M/mm3 Normal RBC 4.53 LAB L100.1300 12.0-15.0 g/dl Normal HGB 14.6 LAB L100.1400 37-47 % Normal HCT 43.0 LAB L100.1500 81-99 fL Normal MCV 94.9 LAB L100.1600 27.0-32.0 pg High MCH 32.2 LAB L100.1700 32-36 g/gl Normal MCHC 34.0 LAB L100.1810 11.6-14.6 % Normal RDW CV 13.0 LAB L100.1820 35.1-43.9 fl Normal RDW SD 43.5 LAB L100.1900 150-450 K/mm3 Normal PLT 261 LAB L100.2000 6.2-12.0 fl Normal MPV 9.1 LAB L100.2100 47-70 % High NEUT% 85.0 LAB L100.2200 19-41 % Low LY% 6.4 LAB L100.2300 0-10 % Normal MONO% 6.6 LAB L100.2400 0-5 % Normal EO% 1.6 LAB L100.2500 0-1 % Normal BASO% 0.2 LAB L100.2550 0.0-0.9 % Normal IM GRAN % 0.200 Result Comment: IG% - Immature Granulocytes (promyelocytes, myelocytes and metamyelocytes) > 1% indicates that a LEFT SHIFT is Present. LAB L100.2620 2.0-7.7 X10 3/uL High Absolute Neut 7.9 LAB L100.2720 0.83-4.51 X10 3/ul Low Absolute Lymph 0.59 LAB L100.4500 Normal SMEAR COMMENT SCANNED Result Comment: LYMPHOPENIA NOTED Performed By: #### L100.0100 #### [facility] [address] [place], [place], [address] BASIC METABOLIC Collected: 10/03/2017 Status: F Source: [facility] PROFILE (BMP) 12:15 AM [facility] REPOSITORY TYPE CODE TESTS RESULT OUT OF RANGE REFERENCE UNITS LAB L501.0100 70-110 mg/dL High GLU 129 Result Comment: Fasting Glucose result greater than or equal to 126 mg/dL suggests DIABETES MELLITUS per A.D.A. criteria. LAB L501.1000 7-18 mg/dL Normal BUN 10 LAB L501.1100 0.55-1.02 mg/dL Normal CREAT,SERUM 0.86 Result Comment: The validity of the calculated GFR AND GFRAA in patients over 70 years has not been determined. Clinical correlation is essential. LAB L501.1110 >60 mL/min Normal EST GFR 87 Result Comment: Non- GFR Calc LAB L501.1115 >60 mL/min Normal EST GFR - AA 105 Result Comment: GFR Calc LAB L501.1255 ml/min Normal Estimated CRCL 77.43 LAB L501.1300 10-20 RATIO Normal BUN/CRE 11.6 LAB L501.2200 8.5-10 mg/dL Normal .1 CA 8.7 LAB L501.5300 136-14 mmol/L Normal 5 NA 139 LAB L501.5600 3.5-5. mmol/L Normal 1 K 3.7 LAB L501.5900 98-107 mmol/L Normal CL 104 LAB L501.6100 21.0-3 mmol/L Normal 2.0 CO2 26.0 LAB L501.6200 5-15 Normal GAP 9 Performed By: #### L500.2500 #### [facility] [address] [facility]. [place], [place], [id number] ,SERUM,HCG QUALI. Collected: Status: F Source: PHAN 10/03/2017 12:15 AM [facility] REPOSITORY TYPE CODE TESTS RESULT OUT OF REFERENCE UNITS RANGE LAB L700.7000 0-9 Nonpreg Negative Normal HCGSQUAL NEGATIVE LAB L700.6700 =>Qualitative mIU/mL Normal HCG Qual < 1 triggr Performed By: #### L700.6800 #### [facility] [address] [facility] [facility] [place], [place], [address] Observed: 10/03/2017 Status: F Source: PHAN INFLUENZA A+B (RAPID 12:05 AM [facility] JEIMY) REPOSITORY Order Date: 10/03/17 FLU A/B Rapid Negative test results should be confirmed by culture. Order Rapid Viral Culture for Influenzae A+B ([id number]) if clinically indicated. Influenza Ag, Direct Presumptive NEGATIVE for Influenza A/B Antigen (See Note) Performed By: #### M101.0101 #### [facility] [place], [address] ALLERGIES ALLERGIES DATE TYPE / CODE NAME / CODE REACTION SEVERITY SOURCE 09/08/2018 Drug amoxicillin Hives Unknown Phan Allergy/416 trihydrate/[id number] Community 790292([facility] 707([facility] ED CT) Repository 09/08/2018 Drug potassium Hives Unknown Phan Allergy/416 clavulanate/A32979 Community 757521([facility] 2809([facility] ED CT) Repository 09/08/2018 Drug Penicillins/E77619 Hives Unknown [place] Allergy/416 0476(RXNORM) [facility] 575480([facility] ED CT) Repository 09/08/2018 Drug Sulfa (Sulfonamide Hives Unknown [place] Allergy/416 Antibiotics)/F0010 [facility] 456326([facility] 21563([facility] ED CT) Repository ENCOUNTERS ENCOUNTERS ADMIT/DISCHARGE ACCOUNT ADMITTING ENCOUNTER LOCATION SOURCE NUMBER CLASS 09/08/2018 [id number] Ambulatory Phan Phan 5 [facility] ing:LABSPEC Repository 09/08/2018/ [id number] Ambulatory BMSBuilding:B [place] 9 8 [facility] Repository 08/28/2018 [id number] Ambulatory Phan [place] 0 [facility] ing:US Repository 08/12/2018 [id number] Ambulatory Phan Phan 6 [facility] ing:LABSPEC Repository 08/12/2018/ [id number] Ambulatory BMSBuilding:B [place] 8 2 [facility] Repository 07/30/2018 [id number] Ambulatory [place] Phan 1 [facility] ing:MTLAB Repository 07/28/2018/ [id number] Ambulatory BMSBuilding:B [place] 8 2 [facility] Repository 07/12/2018 [id number] Ambulatory [place] Phan 4 [facility] ing:BHIOP Repository 06/03/2018/ [id number] Ambulatory Phan Phan 8 0 [facility] ing:BHIOP Repository 05/29/2018/ [id number] Emergency [place] 8 1 [facility] ing:ED Repository 05/19/2018/ [id number] Ambulatory [place] 8 9 [facility] ing:BHIOP Repository 04/23/2018/ [id number] Emergency [place] 8 1 [facility] ing:ED Repository 03/31/2018/ [id number] Ambulatory BMSBuilding:B Phan 8 9 [facility] Repository 01/16/2018 [id number] Ambulatory Phan Phan 7 [facility] ing:MTLAB Repository 11/19/2017/ [id number] Ambulatory BMSBuilding:B [place] 8 6 [facility] Repository 10/06/2017 [id number] Ambulatory Phan [place] 0 [facility] ing:MTLAB Repository 10/06/2017/ [id number] Ambulatory BMSBuilding:B [place] 8 2 [facility] Repository 10/02/2017/ [id number] Emergency [place] Phan 8 9 [facility] ing:ED Repository PAYERS PAYERS ENCOUNTER GUARANTOR PAYER SUBSCRIBER SOURCE 09/08/2018 EDGARDO Vides Primary EDGARDO E Phan [id number] POINT Insurance:MYCARE CRSC DAVISDOB: Community [address] *IN [facility] [id number] Repository [id number]: [phone] [id number] [phone] () Date:8984-80-14TGNM CLAIMS [address] [place] [address]HU: 09/08/2018 Secondary NOT GIVENUNK Phan Insurance:SELF PAY [facility] Number: Effective Repository Date:2018-09-08 09/08/2018 EDGARDO E Primary EDGARDO E [place] [id number] POINT Insurance:MYCARE CRSC DAVISDOB: Community [address] *IN [facility] [id number] Number: Repository [id number]: 330 [id number] [phone] (HP) Date:1718-72-61TBOA CLAIMS [address]PTPO [address] [place] [address]TM: 09/08/2018 Secondary NOT GIVENUNK [place] Insurance:SELF PAY [facility] Number: Effective Repository Date:2018-09-08 08/28/2018 EDGARDO E Primary EDGARDO E [place] [id number] POINT Insurance:MYCARE CRSC DAVISDOB: Community [address] *IN [facility] [id number] Number: Repository [address]Mqd: 330 [id number] [phone] (HP) Date:2005-00-32SNDE CLAIMS [address]PO [address] [place] [address]II: 08/28/2018 Secondary NOT GIVENUNK Phan Insurance:SELF PAY [facility] Number: Effective Repository Date:2018-08-12 08/12/2018 EDGARDO E Primary EDGARDO E Phan [id number] Insurance:MYCARE CRSC DAVISDOB: Community [address] *IN [facility] [id number] Number: Repository [id number]: 330 [id number] [phone] (HP) Date:9481-46-29RMZZ CLAIMS [address]PTPO [address] [place] [address]AQ: 08/12/2018 Secondary NOT GIVENUNK [place] Insurance:SELF PAY [facility] Number: Effective Repository Date:2018-08-12 08/12/2018 EDGARDO E Primary EDGARDO E [place] [id number] Insurance:MYCARE CRSC DAVISDOB: Community [address] *IN [facility] [id number] Number: Repository 24[address]Rju: 330 [id number] [phone] (HP) Date:9003-22-81DZFM CLAIMS [address]PTPO [address] [place] [address]IC: 08/12/2018 Secondary NOT GIVENUNK [place] Insurance:SELF PAY [facility] Number: Effective Repository Date:2018-08-12 07/30/2018 EDGARDO E Primary EDGARDO E [place] [id number] Insurance:MYCARE CRSC DAVISDOB: Community [address] *IN [facility] [id number] Number: Repository [id number]: [phone] [id number] [phone] () Date:5473-91-81HUKP CLAIMS DEPTPO [address] [place] [address]QS: 07/30/2018 Secondary NOT GIVENUNK [place] Insurance:SELF PAY [facility] Number: Effective Repository Date:2018-07-30 07/28/2018 EDGARDO E Primary EDGARDO E Phan [id number] Insurance:MYCARE CRSC DAVISDOB: Community [address] *IN [facility] [id number] Number: Repository [address]Ctr: [phone] [id number] [phone] () Date:3047-91-97HSEJ CLAIMS [address]PTPO [address] [place] [address]LC: 07/28/2018 Secondary NOT GIVENUNK [place] Insurance:SELF PAY [facility] Number: Effective Repository Date:2018-07-20 07/12/2018 EDGARDO E Primary EDGARDO E Phan [id number] Insurance:MYCARE CRSC DAVISDOB: Community [address] *IN [facility] [id number] Number: Repository [address]Qbr: [phone] [id number] [phone] () Date:7729-16-74VBQT CLAIMS [address]PTPO [address] [place] [address]AN: 07/12/2018 Secondary NOT GIVENUNK [place] Insurance:SELF PAY [facility] Number: Effective Repository Date:2018-07-02 06/03/2018 EDGARDO E Primary EDGARDO E Phan [id number] Insurance:MYCARE CRSC DAVISDOB: Community [address] *IN [facility] [id number] Number: Repository [address]Dne: [phone] [id number] [phone] (HP) Date:6710-65-87KMTW CLAIMS DEPTPO [address] [place] [address]GB: 06/03/2018 Secondary NOT GIVENUNK [place] Insurance:SELF PAY [facility] Number: Effective Repository Date:2018-06-01 05/29/2018 EDGARDO E Primary EDGARDO E Phan [id number] Insurance:MYCARE CRSC DAVISDOB: Community [address] *IN [facility] [id number] Number: Repository [id number]: [phone] [id number] [phone]) Date:0509-09-04JOTD [facility]S [facility] [address] [place] [address]KR: 05/29/2018 Secondary NOT GIVENUNK [place] Insurance:SELF PAY [facility] Number: Effective Repository Date:2018-05-29 05/19/2018 EDGARDO E Primary EDGARDO E [place] [id number] Insurance:MYCARE CRSC DAVISDOB: Community [address] *IN [facility] [id number] Number: Repository 67[address]Kxi: [phone] [id number] [phone] (HP) Date:0085-64-93HBMK CLAIMS DEPTPO [address] [place] [address]SC: 05/19/2018 Secondary NOT GIVENUNK Phan Insurance:SELF PAY [facility] Number: Effective Repository Date:2018-05-07 04/23/2018 EDGARDO E Primary EDGARDO E [place] [id number] Insurance:MYCARE CRSC DAVISDOB: Community [address] *IN [facility] [id number] Number: Repository [address]Egc: [phone] [id number] [phone] (HP) Date:3061-21-09ZBII [place]S [address] [address]SX: 04/23/2018 Secondary NOT GIVENUNK Phan Insurance:SELF PAY [facility] Number: Effective Repository Date:2018-04-23 03/31/2018 EDGARDO E Primary EDGARDO E Phan [id number] Insurance:MYCARE CRSC DAVISDOB: Community [address] *IN [facility] [id number] Number: Repository [address]Dpx: [phone] [id number] [phone] (HP) Date:4874-25-60LRWG CLAIMS [address], [place] [address]PZ: 03/31/2018 Secondary NOT GIVENUNK [place] Insurance:SELF PAY [facility] Number: Effective Repository Date:2018-03-31 01/16/2018 EDGARDO E Primary EDGARDO E [place] [id number] Insurance:MYCARE CRSC DAVISDOB: Community [address] *IN [facility] [id number] Number: Repository [id number]: [phone] [id number] [phone] (HP) Date:2762-53-05GPNA CLAIMS [address], [place] [address]ZR: 01/16/2018 Secondary NOT GIVENUNK Phan Insurance:SELF PAY [facility] Number: Effective Repository Date:2018-01-16 11/19/2017 EDGARDO E Primary EDGARDO E Phan [id number] Insurance:MYCARE CRSC DAVISDOB: Community [address] *IN [facility] [id number] Number: Repository [address]Zxf: [phone] [id number] [phone] (HP) Date:3203-40-08YMKJ [place]S [address] [address]UE: 11/19/2017 Secondary NOT GIVENUNK Phan Insurance:SELF PAY [facility] Number: Effective Repository Date:2017-11-19 10/06/2017 EDGARDO E Primary EDGARDO E Phan [id number] Insurance:MYCARE CRSC DAVISDOB: Community [address] *IN [employer] [id number] Number: Repository [address]Bzf: [phone] [id number] [phone] (HP) Date:3366-69-03UWTW CLAIMS [address], [place] [address]FB: 10/06/2017 Secondary NOT GIVENUNK Phan Insurance:SELF PAY [facility] Number: Effective Repository Date:2017-10-06 10/06/2017 EDGARDO E Primary EDGARDO E Phan [id number] Insurance:CARESOURCEP DAVISDOB: Community FARHAT KLEIN olicy Number: [id number] [id number] Repository [address]Vty: (234) Date:2017-10-03P O [phone] (HP) [address]ATTN: [place] [address]ZI: 10/06/2017 Secondary NOT GIVENUNK [place] Insurance:SELF PAY [facility] Number: Effective Repository Date:2017-10-03 10/02/2017 EDGARDO E Primary EDGARDO E [place] [id number] Insurance:CARESOURCEP DAVISDOB: Community FARHAT KLEIN olicy Number: [id number] [id number] Repository [address]Yly: ([phone]) Date:2017-10-02P O [phone] () [address]: [place] [address]AY: 10/02/2017 Secondary NOT GIVENUNK Phan Insurance:SELF PAY [facility] Number: Effective Repository Date:2017-10-02
== END ==
PROVIDERS: Family Provider Internal Medicine; PCP Internal Medicine; Referring Provider Nurse Practitioner Women's Health; Visit Provider Nurse Practitioner Women's Health
DX: Z11.3 Encounter for screening for infections with a predominantly sexual mode of transmission (principal)
CPT/HCPCS: 87491; 87591

== ENCOUNTER → 2018-08-28 12:26 | Outpatient (CLI) | payer MEDICARE, SELFPAY ==
[2018-08-12 12:56] VITALS: BMI 54.6
--- NOTE | 2018-08-28 12:27 | US_ITS ---
STUDY: ULTRASOUND TRANSVAGINAL CLINICAL: Female, 23 years old. Menorrhagia for 2 months TECHNIQUE: Transvaginal COMPARISON: None. FINDINGS: Normal uterine size measuring 8.6 x 5.1 x 3.6 cm in maximal craniocaudal dimension. There are no myometrial masses. The uterus is anteverted. Uterine fundus is incompletely imaged due to positioning. Normal endometrial thickness measuring 16.6 mm. There are no endometrial masses, and there is mild fluid in the endometrial cavity. Normal uterine cervix. Neither ovary identified. There is no free fluid in the pelvis. Polycystic ovary disease: No. US/Transvaginal Non- IMPRESSION: 1. Mild endometrial thickening with fluid distention. Electronically Signed: Joe Persaud MD at 19:15 EST , Service support ,
--- NOTE | 2018-08-28 12:27 | US_ITS ---
STUDY: ULTRASOUND TRANSVAGINAL CLINICAL: Female, 23 years old. Menorrhagia for 2 months TECHNIQUE: Transvaginal COMPARISON: None. FINDINGS: Normal uterine size measuring 8.6 x 5.1 x 3.6 cm in maximal craniocaudal dimension. There are no myometrial masses. The uterus is anteverted. Uterine fundus is incompletely imaged due to positioning. Normal endometrial thickness measuring 16.6 mm. There are no endometrial masses, and there is mild fluid in the endometrial cavity. Normal uterine cervix. Neither ovary identified. There is no free fluid in the pelvis. Polycystic ovary disease: No. US/Pelvic (Non ) IMPRESSION: 1. Mild endometrial thickening with fluid distention. Electronically Signed: Joe Persaud MD at 19:15 EST , Service support ,
== END ==
PROVIDERS: Family Provider Internal Medicine; PCP Internal Medicine; Referring Provider Nurse Practitioner Women's Health; Visit Provider Nurse Practitioner Women's Health
DX: N93.8 Other specified abnormal uterine and vaginal bleeding (principal)
CPT/HCPCS: 76830; 76856

== ENCOUNTER → 2018-09-08 16:43 | Outpatient (CLI) | payer MEDICARE, SELFPAY ==
--- NOTE | 2018-09-08 | EMB_PTH ---
PATIENT: EDGARDO HENRY LOC: [facility] U#:[id number] AGE/SX: 30/F ROOM: RE09/08/[address]: MICAELA Espinoza : 1995 BED: DIS: SPEC #: [id number] RECD: 09/08/18 16:43 STATUS: FEMI MEGA #: [id number] LILLIANA: 09/08/18 00:[address]: Argenis Plummer NP DEPT: SURGICAL PATHOLOGY RECD BY: Timmy Ball ENTERED: 09/09/18 10:04 SP TYPE: ENDOM BX/C CANDI DR: Dr. Annamarie Tovar MD Tissues: Endometrium, NOS Procedures: Surgery Specimen Level IV HEADER OPERATION: Endometrial biopsy PRE-OP DIAGNOSIS: Dysfunctional uterine bleeding TISSUE SUBMITTED: Endometrial biopsy MICROSCOPIC DIAGNOSIS Endometrium, biopsy: Secretory endometrium with benign stromal hyperplasia consistent with hormonal effect. Focal stromal breakdown. No evidence of malignancy. AM:comfort 09/10/18 COMMENT Case has been reviewed in consultation with Dr. Osorio who concurs with the above diagnosis. IDC:BENJIE MICROSCOPIC DESCRIPTION Slides are reviewed. GROSS DESCRIPTION Received is one container labeled with the patient's name and not further designated. The specimen consists of multiple irregular fragments of pink soft tissue that in aggregate measure 2.5 x 2.5 x 0.2 cm. The specimen is totally submitted in one cassette. / BENJIE:comfort 09/09/18 TC:5 CPT: 54112
[2018-09-08 14:49] VITALS: BMI 57.4
== END ==
PROVIDERS: Family Provider Internal Medicine; PCP Internal Medicine; Referring Provider Nurse Practitioner Women's Health; Visit Provider Nurse Practitioner Women's Health
DX: N93.8 Other specified abnormal uterine and vaginal bleeding (principal)
CPT/HCPCS: 88305

== ENCOUNTER 2018-10-22 13:22 | Day surgery (SDC) | payer MEDICARE, SELFPAY ==
[2018-09-08 14:49] VITALS: BMI 57.4
[2018-10-16 12:34] VITALS: BMI 57.4
--- NOTE | 2018-10-22 00:19 | HP.PCM_ITS ---
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 Is patient in pain?: No Allergies amoxicillin trihydrate [From Augmentin] Allergy (Verified 10/16/18 13:23) Hives Penicillins Allergy (Verified 10/16/18 13:23) Hives potassium clavulanate [From Augmentin] Allergy (Verified 10/16/18 13:23) Hives Sulfa (Sulfonamide Antibiotics) Allergy (Verified 10/16/18 13:23) Hives Medications Lamotrigine [Lamictal] 200 mg PO QHS 09/28/16 [History Confirmed 10/16/18] escitalopram 20 mg tablet 10 mg PO QHS 03/31/18 [History Confirmed 10/16/18] haloperidol 10 mg tablet 10 mg PO QHS tab 03/31/18 [History Confirmed 10/16/18] Metoprolol Tartrate 25 mg PO QHS 10/16/18 [History Confirmed 10/16/18] Is last menstrual period known: No Post menopausal: No Patient : No : No [facility] Medical History Amenorrhea (Acute) Chronic bronchitis (Chronic) Schizoaffective disorder (Chronic) Seasonal allergies (Chronic) GERD (gastroesophageal reflux disease) (Chronic) Surgical History History of cholecystectomy (Acute) History of tonsillectomy (Acute) Family History Grandfather Alcoholism Depression CVA (cerebral vascular accident) Mother Anxiety Father Psychiatric care Grandmother Thyroid disorder Social History Smoking Status: Current every day smoker alcohol intake: never substance use type: does not use what type of physical activity do you participate in: walking frequency: 3-4 times per week HPI pre op D&C: Details: EDGARDO HENRY is a 23 year old who presents for preop appointment. she has had severe irregular persistent heavy bleeding not controlled with hormones. Female Reproductive History Questions: Metorrhagia: Yes, Sexually active: Yes (homosexual) Menopausal Symptoms: No night sweats ROS Const Constitutional: Denies fatigue, night sweats, weight gain or weight loss ENT ENT: Reports system reviewed and no additional complaints, except as docu Cardio Card: Denies chest pain Resp Resp: Denies cough or dyspnea GI GI: Reports as per HPI; denies abdominal pain, constipation, nausea or vomiting : Denies nipple discharge, urinary frequency, urinary incontinence, urinary hesitancy, urinary urgency, vaginal discharge, vaginal dryness, vaginal odor or vaginal itching Musc Musc: Denies joint pain, back pain or muscle weakness Skin Skin/Breast: Denies hair loss, change in hair, dry skin, breast lump, breast pain, breast skin changes or nipple discharge Neuro Neuro: Reports system reviewed and no additional complaints, except as docu Psych Psych: Reports system reviewed and no additional complaints, except as docu Endo Endo: Denies cold intolerance, excessive sweating, heat intolerance or increased thirst Ty/Lymph Hematologic/Lymphatic: Denies easy bleeding, Denies easy bruising, Denies enlarged lymph nodes Exam Const General: cooperative, healthy appearing, comfortable, no acute distress, well developed Orientation: alert [facility] Head: normal to inspection, normocephalic Ears: hearing grossly normal bilaterally, external ears normal Nose: external nose normal, nares normal Face and sinus: normal facial exam Neck Neck: normal visual inspection, no lymphadenopathy Thyroid: thyroid normal Chest Chest palpation & inspection: normal inspection of the chest Resp Effort & Inspection: normal respiratory effort Auscultation: clear to auscultation bilaterally Cardio Rate: regular rate Rhythm: regular rhythm Heart Sounds: S1 normal, S2 normal GI Inspection: normal to inspection, non-distended Palpation: soft, no hepatosplenomegaly Musc Other: gross motor intact no deficits, full bilateral strength Skin General: no rashes or lesions noted Neuro General: alert, awake, moves all extremities, no focal motor deficits Motor: muscle tone normal throughout Extrem General: normal to inspection, no pedal edema Psych Appearance: grossly normal Mental Status: mental status grossly normal Affect: normal affect Speech and Movement: speech and movement normal Assessment & Plan Problems 1. Dysfunctional uterine bleeding N93.8 d and c and then iud insertion Plan discussed surgery plan d and c hysteroscopy and iud insertion. discussed surgical risks including risks of anesthesia, infection, bleeding, injury to bowel, bladder or blood vessels, and patient wishes to proceed with surgery. Medications Discontinued: metoprolol tartrate Discontinued Reason: Order edited - Discontinuing original order 12.5 mg (1/2 x 25 mg) PO BID 60 tabs 3RF UPDATE- I have seen the patient and performed any clinically relevant updates to the history and physical exam. Violet Davison MD
[2018-10-22 13:41] VITALS: BP 150/76; PULSE 100; RESP 20; TEMP 36.8; O2SAT 99; BMI 58.0
[2018-10-22 13:48] LABS: Internal QC Validated? YES +Cl - CLEAR BKGD; Pregnancy, Urine Negative Negative
[2018-10-22 14:07] LABS: Hematocrit 41.3 % (37-47); Hemoglobin 13.1 g/dl (12.0-15.0); Mean Corp Hgb Conc 31.7 g/gl (32-36); Mean Corpuscular Hgb 29.8 pg (27.0-32.0); Mean Corpuscular Volume 93.9 fL (81-99); Mean Platelet Vol. 9.2 fl (6.2-12.0); Platelet Count 348 K/mm3 (150-450); RBC Distribution Width CV 14.2 % (11.6-14.6); RBC Distribution Width SD 46.3 fl (35.1-43.9)
[2018-10-22 14:10] LABS: Scan Indicated on CBC? Y/N NO
--- NOTE | 2018-10-22 14:55 | EMB_PTH ---
PATIENT: EDGARDO HENRY LOC: [facility] U#:[id number] AGE/SX: 23/F ROOM: RE10/22/[address]: Dr. Violet Davison MD : 1995 BED: DIS: 10/22/2018 SPEC #: [id number] RECD: 10/23/18 07:04 STATUS: FEMI MEGA #: [id number] LILLIANA: 10/22/18 14:[address]: Violet Davison DEPT: SURGICAL PATHOLOGY RECD BY: Gin Joseph ENTERED: 10/23/18 09:30 SP TYPE: ENDOM BX/C CANDI DR: Dr. Annamarie Tovar MD Tissues: Endometrium, NOS Procedures: Surgery Specimen Level IV HEADER OPERATION: Hysteroscopy, dilation and curettage PRE-OP DIAGNOSIS: Dysfunctional uterine bleeding TISSUE SUBMITTED: Endometrial curettings MICROSCOPIC DIAGNOSIS Endometrial curettings: Fragments of inactive and weakly secretory endometrium with focal glandular and stromal breakdown. Fragments of benign endocervical epithelium. Fragments of myometrium. BENJIE:comfort 10/26/18 COMMENT Please make reference to previous specimen ([id number]) endometrium, biopsy with diagnosis of secretory endometrium with benign stromal hyperplasia consistent with hormonal effect. MICROSCOPIC DESCRIPTION Slides are reviewed. GROSS DESCRIPTION Received in fixative is one container labeled with the patient's name and designated endometrial curettings. The specimen consists of multiple irregular fragments of dark torres soft tissue that in aggregate measure 2.5 x 1.5 x 0.1 cm. The specimen is totally submitted in one cassette. / AM:comfort 10/23/18 TC:5 CPT: 64758
[2018-10-22 15:25] VITALS: BP 128/81; BP 150/76; PULSE 83; RESP 16; TEMP 36.2; O2SAT 95
[2018-10-22 15:30] VITALS: BP 125/80; BP 150/76; PULSE 82; RESP 16; O2SAT 100
[2018-10-22 15:35] VITALS: BP 128/89; BP 150/76; PULSE 79; RESP 16; O2SAT 100
[2018-10-22 15:40] VITALS: BP 122/76; BP 150/76; PULSE 84; RESP 16; TEMP 36.1; O2SAT 98
--- NOTE | 2018-10-22 16:19 | DCINST_ITS ---
Discharge Diet: No Restrictions Discharge Activity: Return to Normal Activity, May Shower, May Take a Tub Bath Allergies/Adverse Reactions: Allergies amoxicillin trihydrate [From Augmentin] Allergy (Verified 10/16/18 13:23) Hives Penicillins Allergy (Verified 10/16/18 13:23) Hives potassium clavulanate [From Augmentin] Allergy (Verified 10/16/18 13:23) Hives Sulfa (Sulfonamide Antibiotics) Allergy (Verified 10/16/18 13:23) Hives Medications to take at Discharge Lamotrigine [Lamictal] 200 mg PO QHS 09/28/16 escitalopram 20 mg tablet 10 mg PO QHS 03/31/18 haloperidol 10 mg tablet 10 mg PO QHS tab 03/31/18 Metoprolol Tartrate 25 mg PO QHS 10/16/18 Primary Care Physician: Annamarie Tovar MD [Primary Care Provider] - Test Results: Test results from this visit will be discussed in further detail at your follow- up appointment, if applicable. Please Follow Up With: Violet Davison MD - [phone]
--- NOTE | 2018-10-22 16:19 | PCM.OPRPT ---
Problem List (1) GERD (gastroesophageal reflux disease) Status: Acute (2) Dysfunctional uterine bleeding Status: Chronic Comment: d and c and then iud insertion (3) Schizoaffective disorder Status: Chronic (4) Seasonal allergies Status: Chronic (5) Tachycardia Status: Chronic Report of Operation Date of Procedure: 10/22/18 Pre-Operative Diagnosis: aub Post-Operative Diagnosis: same Surgery/Procedure Performed:: d and c hysteroscopy Description of Surgical Findings:: normal lining Type of Anesthesia:: Local MAC Specimen's removed: emc Estimated Blood Loss (mL): 50 Fluids Replaced: crystalloid Description of Procedure: Patient was prepped and draped in a normal sterile fashion under MAC anesthesia. A weighted speculum was placed in the vagina and the anterior lip of the cervix was grasped with a single-tooth tenaculum. A paracervical block was placed with 1% lidocaine. Cervix was progressively dilated to allow passage of a 5 mm hysteroscope. The lining was fully visualized and noted to have no significant abnormalities. Uterine sounded to 8 cm. Curettage was performed and moderate amount obtained , sent to pathology. All instruments were removed from the vagina and excellent hemostasis was noted. Patient was awoken and taken to recovery in stable condition. - Complications none
[2018-10-22 16:26] VITALS: BP 150/76
== END 2018-10-22 16:27 | disposition home or self-care (01) ==
LOC: SDC 13:23 → AC 13:24
PROVIDERS: Family Provider Internal Medicine; PCP Internal Medicine; Referring Provider Obstetrics & Gynecology; Visit Provider Obstetrics & Gynecology
PROC: 0UDB8ZZ Extraction of Endometrium, Via Natural or Artificial Opening Endoscopic (ICD-10-PCS; CPT 58558; principal; 2018-10-22 14:45)
DX: N93.8 Other specified abnormal uterine and vaginal bleeding (principal); K21.9 Gastro-esophageal reflux disease without esophagitis; F25.9 Schizoaffective disorder, unspecified; J42 Unspecified chronic bronchitis; Z90.49 Acquired absence of other specified parts of digestive tract; F17.200 Nicotine dependence, unspecified, uncomplicated
CPT/HCPCS: 58558; 81025; 85027; 86850; 86900; 88305; J7120

== ENCOUNTER 2019-01-05 04:31 | Emergency (ER) | payer MEDICARE, SELFPAY ==
[2018-11-05 14:51] VITALS: BMI 58.0
[2019-01-05 04:31] VITALS: BP 152/78; PULSE 90; RESP 18; TEMP 36.4; O2SAT 96; BMI 59.9
--- NOTE | 2019-01-05 04:51 | ED.VISSUMM ---
- ER Visit Summary Date of Service: 01/05/19 Chief Complaint: Left ear pain History of Present Illness: The patient is a 23 F who presents with left ear pain. This is been present for 2 days. She was seen at an urgent care diagnosed with an ear infection and started on Ceftin. She is not getting better and complains of worsening pain despite ibuprofen. Physical Examination: Afebrile vitals unremarkable Patient has obvious left otitis externa with erythema and swelling of the left external auditory canal. The visualized portion of the tympanic membrane appears normal Heart regular rate and rhythm Lungs clear Test Results: Not indicated Emergency Department Course and Treatment: Patient has otitis externa without clear evidence of otitis media. Estrella ear wick was placed and patient was given Cortisporin. She was instructed on its use. She understands to return for new or worsening symptoms and was discharged. Treatment Plan: [] Disposition: Discharge Impression: Otitis externa This note was generated with [employer] dictation software. It may contain incorrect words, spelling, and punctuation that were not noted in review of the chart prior to signing ED Disposition - Plan for ED Patient: Referrals: Annamarie Tovar MD [Primary Care Provider] -
--- NOTE | 2019-01-05 04:52 | ED.DEP ---
ED Disposition - Plan for ED Patient: Instructions: ED Otitis Externa Referrals: Annamarie Tovar MD [Primary Care Provider] -
[2019-01-05] MEDS: Ibuprofen 200 MG Tablet 400 MG PO (04:56)
[2019-01-05] MEDS: Neomycin Sulfate/Polymyxin/Hc Susp 10 ML Bottle 4 DRP OTIC (04:56)
== END 2019-01-05 04:57 | disposition home or self-care (01) ==
PROVIDERS: Emergency Provider Emergency Medicine; Family Provider Internal Medicine; PCP Internal Medicine
DX: H60.92 Unspecified otitis externa, left ear (principal); F25.9 Schizoaffective disorder, unspecified; Z72.0 Tobacco use
CPT/HCPCS: 99283

== ENCOUNTER → 2019-05-10 08:25 | Outpatient (CLI) | payer MEDICARE, SELFPAY ==
[2019-05-10 08:09] VITALS: BMI 58.6
[2019-05-10 12:27] LABS: Absolute Lymphocyte Count 2.72 X10^3/uL (0.83-4.51); Absolute Neutrophil Count 5.3 X10^3/uL (2.0-7.7); Basophil# 0.04 X10^3/uL; Basophil% 0.4 % (0-1); Eosinophil# 0.35 X10^3/uL; Eosinophils% 3.9 % (0-5); Hematocrit 44.4 % (37-47); Hemoglobin 13.8 g/dL (12.0-15.0); Lymphocyte # 2.72 X10^3/ul (4.0); Mean Corp Hgb Conc 31.1 g/dL (32-36); Mean Corpuscular Hgb 29.6 pg (27.0-32.0); Mean Corpuscular Volume 95.1 fL (81-99); Mean Platelet Vol. 9.8 fl (6.2-12.0); Monocyte# 0.57 X10^3/uL; Monocyte% 6.3 % (0-10); NRBC Flagged by Analyzer 0 % (0-5); Neutrophil # 5.34 X10^3/uL (2.7-7.7); Platelet Count 322 K/mm3 (150-450); RBC Distribution Width CV 14.7 % (11.6-14.6); RBC Distribution Width SD 51.5 fl (35.1-43.9); Red Blood Count 4.67 M/mm3 (4.2-5.4); White Blood Count 9.1 K/mm3 (4.4-11.0)
[2019-05-10 13:04] LABS: ALB/GLOB Ratio 0.8 RATIO (0.9-2.4); AST(SGOT) 22 U/L (15-37); Alanine Aminotransfer ALT/SGPT 43 U/L (13-56); Albumin, Serum 3.3 g/dL (3.2-5.0); Alkaline Phosphatase 139 U/L (45-117); Anion Gap 8 (5-15); BUN 7 mg/dL (7-18); BUN/Creat Ratio 7.9 RATIO (10-20); Calcium,Total 8.5 mg/dL (8.5-10.1); Chloride 107 mmol/L (98-107); Cholesterol 182 mg/dL (200); Creatinine, Serum 0.89 mg/dL (0.55-1.02); EST Glomerular Filtration Rate 83 mL/min (>60); Est Glom Filt Rate - Afr Amer 100 mL/min (>60); Globulin 4.1 g/dL (2.2-4.2); Glucose 92 mg/dL (74-106); High Density Lipoprotein 32 mg/dL; Protein, Total 7.4 g/dL (6.4-8.2); Sodium Level 140 mmol/L (136-145); Triglycerides 117 mg/dL; Very Low Density Lipoprotein 23 mg/dL (5-40)
== END ==
PROVIDERS: Family Provider Internal Medicine; PCP Internal Medicine; Visit Provider Internal Medicine
DX: I10 Essential (primary) hypertension (principal)
CPT/HCPCS: 36415; 80053; 80061; 85025

== ENCOUNTER → 2019-05-14 13:20 | Outpatient (CLI) | payer MEDICARE, SELFPAY ==
[2019-05-10 08:09] VITALS: BMI 58.6
--- NOTE | 2019-05-14 13:24 | EKG12_ITS ---
Test Reason : HTN Blood Pressure : / mmHG Vent. Rate : 085 BPM Atrial Rate : 085 BPM P-R Int : 160 ms QRS Dur : 082 ms QT Int : 376 ms P-R-T Axes : 039 058 025 degrees QTc Int : 447 ms Normal sinus rhythm Normal ECG Confirmed by PATRICIA SURESH, LUANA ([id number]), editorial cartoonist CHRISTINA HUGO ([id number]) on 05/17/2019 3:42:29 PM Referred By: Annamarie Tovar Confirmed By:KATHI GOMEZ MD
== END ==
PROVIDERS: Family Provider Internal Medicine; PCP Internal Medicine; Referring Provider Internal Medicine; Visit Provider Internal Medicine
DX: I10 Essential (primary) hypertension (principal)
CPT/HCPCS: 93005

== ENCOUNTER 2020-02-05 20:23 | Emergency (ER) | payer MEDICARE, MEDICAID, SELFPAY ==
[2020-01-31 13:58] VITALS: BMI 58.6
[2020-02-05 20:25] VITALS: BP 152/50; PULSE 96; RESP 16; TEMP 37; O2SAT 97; BMI 56.7
--- NOTE | 2020-02-05 20:52 | ED.RN ---
REPORTS N/T STARTED 3D AGO HOURS AFTER SHE STARTED TAKING AN INCREASE DOSE OF HALDOL. N/T HAS NOT CHANGED SINCE INITIATED.
--- NOTE | 2020-02-05 20:52 | ED.VIS.GEN ---
History of Present Illness Chief Complaint: Numb/Ting Informant: Patient, Family Onset: Days Current Severity: Mild Maximum Severity: Mild Narrative: The patient presents with the mother they both complain that she is having a circular numbness sensation to the lateral right thigh that began a few days ago. Indicates that she was on 25 mg of Haldol at bedtime she had persistent audiovisual hallucinations with people touching her so her psychiatrist increased the Haldol to 30 mg a day, since that time she has had this numbness sensation restricted to the right lateral thigh the increase in the Haldol did not help the hallucinations she has been unable to sleep Due to COVID-19 issues at the counseling center they are unable to see a physician except during scheduled visits they report She has no fever no cough no trauma no numbness weakness paresthesias it is unclear why the numbness sensation we restricted to the right lateral thigh in a circular pattern she has no back pain no abdominal pain no trauma she is had no injections to that leg Past Medical History - Allergies and Home Meds Allergies/Adverse Reactions: Allergies amoxicillin trihydrate [From Augmentin] Allergy (Verified 02/05/20 20:25) Hives Penicillins Allergy (Verified 02/05/20 20:25) Hives potassium clavulanate [From Augmentin] Allergy (Verified 02/05/20 20:25) Hives Sulfa (Sulfonamide Antibiotics) Allergy (Verified 02/05/20 20:25) Hives Primary Care Physician: Annamarie Tovar MD [Primary Care Provider] - Past Medical History: - Smoking Status: Current every day smoker Review of Systems ROS: - Gets of hernia General: Denies: Chills, Fever, Sweats Eyes: Denies: Visual changes - bilaterally, Diplopia ENT: Denies: Rhinorrhea, Sore throat Cardiovascular: Denies: Chest pain, Palpitations Respiratory: Denies: Dyspnea, Cough, Dyspnea on exertion Gastrointestinal: Denies: Abdominal pain, Nausea, Vomiting, Diarrhea, Melena, Hematochezia Genitourinary: Denies: Dysuria, Hematuria, Frequency Musculoskeletal: Reports: - - Is having no leg pain she takes her hand to the right lateral thigh more proximal she draws a quechan 4 cm complaining of numbness to this area this area is completely unremarkable on exam. Denies: Back pain, Extremity Pain Skin: Denies: Rash, Wounds Neurological: Denies: Headache, Weakness, Numbness Physical Exam Vital Signs/Narrative: Vital Signs Temp Pulse Resp BP Pulse Ox 02/05/20 20:25 98.6 F 96 16 152/50 H 97 General: Well nourished, Well developed, No Acute Distress Head: Normocephalic, Atraumatic Eyes: Perrl, EOMI ENT: Moist mucous membranes, No rhinorrhea Neck: Supple, Nontender Cardiovascular: Regular rate, Regular rhythm, No murmurs Respiratory: No distress, CTA bilaterally, Chest nontender Abdomen: Soft, Nontender, Nondistended, Normal bowel sounds Back: Nontender, Normal Inspection Extremities: Nontender, No edema, - - General medical exam is unremarkable the extremity exam is unremarkable this area as above to the right thigh is unremarkable the thigh is soft there is no warmth swelling or redness there is no areas of pain I cannot reproduce any symptomatology she has full range of motion of the right hip knee ankle and foot she is able to stand and walk the backs unremarkable the skin is unremarkable the rest of the exam upper lower extremities torso abdominal exam everything is unremarkable her psychiatric status is stable per the mother Skin: Normal color, No rash Neurological: Alert, Oriented x3, Cranial nerves II-XII grossly intact, Normal Strength, Normal Sensation Psychological: Normal affect, Normal Mood Diagnostic/Tx/Re-eval - Medical Decision Making I had a long conversation with the patient and the mother they both believe the increase in the Haldol dose is causing the numbness there is no signs of myositis infection trauma this is to the lateral thigh, I explained that if the Haldol increased dose did not improve the hallucinations they should go back to using 25 mg a day the patient is also complaining of trouble sleeping she will be given Ativan 1 mg tablets #2 at bedtime x2 days and they will follow-up with the counseling center on Friday they are comfortable with this plan there is no history or concern related to harm to self or others Home stable Impression is nonspecific sense of numbness to the right lateral thigh etiology unclear history of schizophrenia ED Disposition - Plan for ED Patient: Diagnosis: Schizophrenia Prescriptions: Lorazepam [Ativan] 1 mg PO QHS #2 tab Prescription Printed Referrals: Annamarie Tovar MD [Primary Care Provider] -
--- NOTE | 2020-02-05 21:12 | ED.RN ---
PT'S MOTHER EXPRESSES CONCERN THAT MEDICATION INCREASE COULD BE CAUSING TOXICITY. ASKS THIS RN TO DISCUSS W/MD. MD STATES TAT RISK OF TOXICITY IS LOW. RELAYED INFORMATION TO MOTHER WHO EXPRESSES NO ADDITIONAL QUESTIONS OR CONCERNS.
--- OUTSIDE RECORDS SUMMARY | 2020-06-18 09:08 | XMS RPT_ITS | CCD ---
:1995 External Reference #:[id number] Author Organization [facility] Team Providers Name Role Phone Farooq Tovar MD Unavailable Kavitha APPAREL MANAGER, S Unavailable Farooq Tovar MD Unavailable Elliot Clifford Unavailable Unavailable Elliot Clifford Unavailable Unavailable Farooq Tovar MD Unavailable Tiny Rios Unavailable Unavailable Kavitha APPAREL MANAGER, S Unavailable Allergies Reported Allergen Reaction(s) Severity Date of Onset Location amoxicillin / hives Critical, 03-18-2017 - [place] In ternal clavulanate Critical Medicine (96549 ) penicillin Hives Critical, 03-18-2017 - [place] Int ernal Critical Medicine (96892 ) Sulfonamides Hives Moderate, 03-18-2017 - [place] Int ernal (Antibiotic) Moderate Medicine (73000 ) Medications Medication Name Sig Date Prescriber Location clonazePAM CLONAZEPAM 0.5 MG TABS One 05-12-2017 [facility] tablet by mouth twice (05896 ) daily as needed CLONAZEPAM [id number] Roma Clifford diphenhydrAMINE BENADRYL ALLERGY CAPS 1 hs 03-18-2017 [place] Internal DIPHENHYDRAMINE M edicine (32800) HCL CAPS [id number] Annamarie Tovar MD BENADRYL ALLERGY CAPS 1 hs 03-18-2017 [place] [facility] DIPHENHYDRAMINE HCL CAPS [id number] ([id number]) Annamarie Tovar MD BENADRYL ALLERGY CAPS 1 hs 03-18-2017 [place] [facility] DIPHENHYDRAMINE HCL CAPS [id number] (54173) Annamarie Tovar MD BENADRYL ALLERGY CAPS 1 hs 03-18-2017 [place] [facility] DIPHENHYDRAMINE HCL CAPS [id number] (02083) Annamarie Tovar MD BENADRYL ALLERGY CAPS 1 hs 03-18-2017 [place] [facility] DIPHENHYDRAMINE HCL CAPS [id number] (05539) Annamarie Tovar MD BENADRYL ALLERGY CAPS 1 hs 03-18-2017 [place] [facility] DIPHENHYDRAMINE HCL CAPS [id number] (82132) Annamarie Tovar MD BENADRYL ALLERGY CAPS 1 hs 03-18-2017 [place] [facility] DIPHENHYDRAMINE HCL CAPS [id number] (82892) Annamarie Tovar MD BENADRYL ALLERGY CAPS 1 hs 03-18-2017 [place] [facility] DIPHENHYDRAMINE HCL CAPS [id number] ([id number]) Annamarie Tovar MD BENADRYL ALLERGY CAPS 1 hs 03-18-2017 [place] [facility] DIPHENHYDRAMINE HCL CAPS [id number] (52670) Annamarie Tovar MD BENADRYL ALLERGY CAPS 1 hs 03-18-2017 [place] [facility] DIPHENHYDRAMINE HCL CAPS [id number] (59384) Annamarie Tovar MD BENADRYL ALLERGY CAPS 1 hs 03-18-2017 [place] [facility] DIPHENHYDRAMINE HCL CAPS [id number] (46176) Annamarie Tovar MD FLUoxetine PROZAC 20 MG CAPS 1 hs 03-18-2017 [facility] Internal Medicine FLUOXETINE HCL (4 4691) [id number] Annamarie Tovar MD PROZAC 20 MG CAPS 1 hs 03-18-2017 [place] [facility] Medicine FLUOXETINE HCL [id number] Annamarie (79553) Farooq Tovar MD fluticasone FLOVENT DISKUS 250 03-18-2017 Annamarie [place] Internal MCG/BLIST AEPB 1 puff MD Medici ne (30714) BID FLUTICASONE PROPIONATE (INHAL) [id number] Annamarie Tovar MD FLOVENT DISKUS 250 03-18-2017 Annamarie [place] Internal MCG/BLIST AEPB 1 puff BID Medici ne (59065) FLUTICASONE PROPIONATE (INHAL) [id number] Annamarie Tovar MD FLOVENT DISKUS 250 03-18-2017 Annamarie Tovar [place] Internal MCG/BLIST AEPB 1 puff BID Medici ne (73965) FLUTICASONE PROPIONATE (INHAL) [id number] Annamarie Tovar MD FLOVENT DISKUS 250 03-18-2017 Annamarie [place] Internal MCG/BLIST AEPB 1 puff BID Medici ne (80147) FLUTICASONE PROPIONATE (INHAL) [id number] Annamarie Tovar MD FLOVENT DISKUS 250 03-18-2017 Annamarie [place] Internal MCG/BLIST AEPB 1 puff BID Medici ne (22738) FLUTICASONE PROPIONATE (INHAL) [id number] Annamarie Tovar MD FLOVENT DISKUS 250 03-18-2017 Annamarie [place] Internal MCG/BLIST AEPB 1 puff BID Medici ne (17948) FLUTICASONE PROPIONATE (INHAL) [id number] Annamarie Tovar MD FLOVENT DISKUS 250 03-18-2017 Annamarie [place] Internal MCG/BLIST AEPB 1 puff BID Medici ne (33146) FLUTICASONE PROPIONATE (INHAL) [id number] Annamarie Tovar MD FLOVENT DISKUS 250 03-18-2017 Annamarie [place] Internal MCG/BLIST AEPB 1 puff BID Medici ne (58589) FLUTICASONE PROPIONATE (INHAL) [id number] Annamarie Tovar MD FLOVENT DISKUS 250 03-18-2017 Annam[place] Internal MCG/BLIST AEPB 1 puff BID Medici ne (66712) FLUTICASONE PROPIONATE (INHAL) [id number] Annamarie Tovar MD FLOVENT DISKUS 250 03-18-2017 Annamarie [place] Internal MCG/BLIST AEPB 1 puff BID Medici ne (21542) FLUTICASONE PROPIONATE (INHAL) [id number] Annamarie Tovar MD lamoTRIgine LAMICTAL 200 MG TABS 1 03-18-2017 [place] [facility] Internal LAMOTRIGINE [id number] Medi cine Annamarie Tovar MD (37891 ) medroxyPROGESTERone MEDROXYPROGESTERONE 05-27-2017 [place] ACETATE 10 MG TABS One Kavitha APPAREL MANAGER [facility] tablet by mouth daily (14583 ) MEDROXYPROGESTERONE ACETATE [id number] Argenis Plummer APPAREL MANAGER methylPREDNISolone MEDROL 4 MG TBPK As 03-18-2017 - [place] directed 05-12-2017 Internal Medicine METHYLPREDNISOLONE (00970) [id number] Roma Clifford MEDROL 4 MG TBPK As directed 03-18-2017 Annamarie Tovar [place] Internal Medicine (38969) METHYLPREDNISOLONE [id number] Annamarie Tovar MD MEDROL 4 MG TBPK As directed 03-18-2017 Annamarie Tovar [place] [facility] Medicine (49246) METHYLPREDNISOLONE [id number] Annamarie Tovar MD MEDROL 4 MG TBPK As directed 03-18-2017 - [facility] Internal 05-12-2017 Medicine ( 47249) METHYLPREDNISOLONE [id number] Roma J Marthey MEDROL 4 MG TBPK As directed 03-18-2017 Annamarie Tovar [place] Internal MD Medicine (16564) METHYLPREDNISOLONE [id number] Annamarie Tovar MD MEDROL 4 MG TBPK As directed 03-18-2017 - [facility] Internal 2016 05-12-2017 Medicine ( 92423) METHYLPREDNISOLONE [id number] Roma J Marthey MEDROL 4 MG TBPK As directed 03-18-2017 Annamarie Tovar [place] Internal Medicine (68815) METHYLPREDNISOLONE [id number] Annamarie Tovar MD MEDROL 4 MG TBPK As directed 03-18-2017 - [facility] Internal 05-12-2017 Medicine ( 56831) METHYLPREDNISOLONE [id number] Roma J Marthey MEDROL 4 MG TBPK As directed 03-18-2017 - [facility] Internal 05-12-2017 Medicine ( 26350) METHYLPREDNISOLONE [id number] Roma J Marthey MEDROL 4 MG TBPK As directed 03-18-2017 Annamarie Tovar [place] Internal Medicine (96215) METHYLPREDNISOLONE [id number] Annamarie Tovar MD MEDROL 4 MG TBPK As directed 03-18-2017 - [facility] Internal 05-12-2017 Medicine ( 86094) METHYLPREDNISOLONE [id number] Roma J Marthey MEDROL 4 MG TBPK As directed 03-18-2017 Annamarie Tovar [place] Internal Medicine (12544) METHYLPREDNISOLONE [id number] Annamarie Tovar MD MEDROL 4 MG TBPK As directed 03-18-2017 - Annamarie Tovar [place] Internal 05-12-2017 MD Medicine (72268) METHYLPREDNISOLONE [id number] Annamarie Tovar MD MEDROL 4 MG TBPK As directed 03-18-2017 Annamarie Tovar [place] [facility] Medicine (82378) METHYLPREDNISOLONE [id number] Annamarie Tovar MD MEDROL 4 MG TBPK As directed 03-18-2017 Annamarie Tovar [place] [facility] Medicine (62508) METHYLPREDNISOLONE [id number] Annamarie Tovar MD paliperidone INVEGA SUSTENNA 234 MG/1.5ML 03-18-2017 [place] [facility] Medicine SUSP 1x every 3 weeks (97822 ) PALIPERIDONE PALMITATE [id number] Annamarie Tovar MD INVEGA SUSTENNA 234 MG/1.5ML SUSP 1x 03-18-2017 [place] [facility] Medicine every 3 weeks PALIPERIDONE (28966) PALMITATE [id number] Annamarie Tovar MD INVEGA SUSTENNA 234 MG/1.5ML SUSP 1x 03-18-2017 [place] Internal Medicine every 3 weeks PALIPERIDONE (22645) PALMITATE [id number] Annamarie Tovar MD INVEGA SUSTENNA 234 MG/1.5ML SUSP 1x 03-18-2017 [place] [facility] Medicine every 3 weeks PALIPERIDONE (01870) PALMITATE [id number] Annamarie Tovar MD INVEGA SUSTENNA 234 MG/1.5ML SUSP 1x 03-18-2017 [place] [facility] Medicine every 3 weeks PALIPERIDONE (31758) PALMITATE [id number] Annamarie Tovar MD INVEGA SUSTENNA 234 MG/1.5ML SUSP 1x 03-18-2017 [place] [facility] Medicine every 3 weeks PALIPERIDONE (31976) PALMITATE [id number] Annamarie Tovar MD INVEGA SUSTENNA 234 MG/1.5ML SUSP 1x 03-18-2017 [place] [facility] Medicine every 3 weeks PALIPERIDONE (99278) PALMITATE [id number] Annamarie Tovar MD INVEGA SUSTENNA 234 MG/1.5ML SUSP 1x 03-18-2017 [place] [facility] Medicine every 3 weeks PALIPERIDONE (92538) PALMITATE [id number] Annamarie Tovar MD INVEGA SUSTENNA 234 MG/1.5ML SUSP 1x 03-18-2017 [place] [facility] Medicine every 3 weeks PALIPERIDONE (95021) PALMITATE [id number] Annamarie Tovar MD INVEGA SUSTENNA 234 MG/1.5ML SUSP 1x 03-18-2017 [place] [facility] Medicine every 3 weeks PALIPERIDONE (48086) PALMITATE [id number] Annamarie Tovar MD pantoprazole PANTOPRAZOLE SODIUM 40 05-12-2017 Annamarie Tovar [facility] TBEC 1 tablet daily MD Group (48200) 30 minutes before breakfast PANTOPRAZOLE SODIUM [id number] Annamarie Tovar MD Problems Active Problems Category Problem Name Status Date Location Allergic reactions Atopic dermatitis Active 03-18-2017 - [facility] Internal Medic[place] (95838) Asthma Asthma Active 03-18-2017 - [place] Internal Medici [place] (51031) Esophageal disorders Gastroesophageal reflux Active - [facility] disease (49273) Gastroduodenal ulcer Gastric ulcer Active 05-12-2017 - [facility] (70138) Menstrual disorders Secondary physiologic Active 05-12-2017 - [facility] amenorrhea (23008) Other nutritional; Body mass index (BMI) Active 03-18-2017 - [place] endocrine; and 45.0-49.9, adult Internal Medicine metabolic disorders (37180) Other nutritional; [facility] Medi cine metabolic disorders (04144) Schizophrenia and other Schizoaffective disorder Active 03-18 - [place] psychotic disorders Internal Medicine (58520) Unclassified Venereal disease Active 05-27-2017 - [place] Women[facility] screening Care (06034) Unclassified Long-term drug therapy Active 03-18-2017 - [facility] Internal Medici ne (65445) Past or Other Problems Category Problem Name Status Date Location Conduction disorders Prolonged QT interval Completed 03-18-2017 - [place] Internal Medicine (82647 ) Nonmalignant breast Galactorrhea not Completed 05-27-2017 - [facility] Women's conditions associated with Care (87235) childbirth Other aftercare 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 Completed 03-18-2017 - [place] Internal (current) drug Medicine (586 97) therapy Residual codes; Family history of Completed [place] Internal unclassified alcoholism Medicine (61866 ) Urinary tract Urinary tract Completed 05-12-2017 - [facility] infections infectious disease - 05-27-2017 (25141) - Results Result Name Value Range Unit Interpretation Flag Date Location lab report: rapid plasmin reagin (rpr) on 2017-06-06 Reagin Ab NONREACTIVE NONREACTIVE Invalid 06-06-2017 - [facility] VDRL Qn (S) Interpretation Code 06-06-20 17 [facility] (32278) replaced document: (p) hsv 1 and 2 igg on 2017-06-04 HSV 2 IgG 3.55 index 0.00-0.90 High 06-04-2017 - 2016 [facility] (41684) replaced document: (p) hepatitis c antib odies on 2017-06-04 HCV Ab IB <0.1 0.0-0.9 Invalid Interpretation 017 - [place] Women's Ql (S) Code 06-04-2017 Care (441 69) lab report: ct/ng wch by pcr on 2017-06-02 C. trachomatis DNA Negative Negative Invalid 06-02-2017 - [place] RISHAHB+probe Ql (U) Interpretation 06-02-20 17 [facility] Code (15155) Chlamydia Negative Negative Invalid [facility]-02[facility] Interpretation [facility] [Presence] in Code (54384 ) Urine by Probe and target amplification method Neisseria Negative Negative Invalid 06-02-2017 [facility] gonorrhoeae Interpretation 06-02-2017 [facility] presence Code (70172) microbiology: culture, genital comprehen sive on 2017-05-31 CUV Neisseria or Invalid 05-31-2017 - [place] beta-hemolytic Interpretation Code 05-31 [facility] Streptococcus (74157 ) isolated. microbiology: (p) culture, genital compr ehensive on 2017-05-28 CUV . 05-28-2016 - 05-28-2 017 [facility] (07330) lab report: ct/ng wch by pcr on 2017-05-28 C. trachomatis DNA Negative Negative 05-28-2017 - [place] RISHABH+probe Ql (U) 05-28-2017 [facility] (37018) Chlamydia Negative Negative Invalid 05-28-2017 - [place] trachomatis DNA Interpretation 7 Women's Care [Presence] in Code (31370 ) Urine by Probe and target amplification method Neisseria Negative Negative Invalid 05-28-2017 - [place] gonorrhoeae Interpretation 05-28-2017 [facility] presence Code (29345) office visit on 03-09-26 Dietary yes Invalid 05-27-2017 - [place] management Interpretation Code 7 Women's Care education, (24704) guidance, and counseling (procedure) Tobacco smoking Never smoker Invalid 05-27-2017 - [place] status NMIS Interpretation Code 05-27-20 17 [facility] (74000) Tobacco smoking Never Invalid 05-27-2017 - [facility] status NMIS Interpretation Code 05-27-20 17 Women's Care (13682) Tobacco use CP Never smoker Invalid 05-27-2017 - [place] Interpretation Code 05-27-2017 Women's Care (48155) replaced document: (p) urinalysis, compl ete on 2017-05-12 Mucus Ql (Urine 0 SEEN <or=2+ 05-12-2017 - [place] sed) 05-12-2017 Women's C are (02385) Urine, bacteria 0 SEEN None Seen Invalid 05-12-2017 - [facility] sediment /hpf Interpretation 05-12-2017 Gr oup (75053) Code Urine, epithelial 0 SEEN 5-10 Invalid 05-12-2017 - [facility] cells in sediment Interpretation 017 Group (36624) Code Urine, 0 SEEN 0-5 Invalid 05-12-2017 - [facility] erythrocytes in Interpretation 7 Group (51754) sediment by Code volume Urine, mucus 0 SEEN <or=2+ Invalid 05-12-2017 [facility] presence in Interpretation 05-12-2017 Gr oup (47522) sediment Code WBC 0 SEEN 0-5 Invalid 05-12-2017 - [place] Interpretation 05-12-2017 [facility] Care Code (07505) WBC #/vol (Bld) 0 SEEN 0-5 05-12-2017 - [place] 05-12-2017 Women's C are (07837) WBC (Leukocytes) 0 SEEN 0-5 Invalid 05-12-2017 - [facility] Interpretation 05-12-2017 Grou p (97148) Code replaced document: (p) ,urine on 2017-05-12 HCG.beta subunit Negative Invalid 05-12-2017 - [place] ( test) Interpretation Code Women's Care Ql (U) (69964) Urine, Negative Invalid 05-12-2017 - [place] test Interpretation Code 05-12-2017 Internal Medicine (choriogonadotrop (4 1491) in presence) office visit: follow up on 2017-05-12 Documentation of Done Invalid 05-12-2017 - [place] current medications Interpretation Code 05-12-2017 Internal (procedure) Medicine (41476) Fall risk No Invalid 05-12-2017 - [facility] g[place] assessment Interpretation Code 7 Internal Medicine ( 49397) Protein mass conc Done Invalid 05-12-2017 - [place] Interpretation Code 05-12-2017 Women's Care (87899) Protein mass conc yes Invalid 05-12-2017 - [place] Interpretation Code 05-12-2017 Women's Care (62264) Smoking cessation yes Invalid 05-12-2017 - [place] education Interpretation Code 05-12-2017 Internal (procedure) Medicine (00893) Tobacco use CPHS Current Invalid 05-12-2017 - [place] every day Interpretation Code 05-12-2017 Internal smoker Medicine ( 37379) lab report: urinalysis, complete on 2017-05-12 Albumin Ql (U) Negative Negative Invalid 05-12-2017 - [place] Interpretation 05-12-2017 W[facility]'s [facility] Code (41568) Bilirubin Ql (U) Negative Negative Invalid 05-12-2017 - [place] Interpretation 05-12-2017 [facility] Code (37622) Ketones mass Negative Negative Invalid 05-12-2017 - [place] conc (U) Interpretation 05-12-2017 [facility] Code (11767) NITRITE UR Negative Negative Invalid 05-12-2017 - [place] Interpretation 05-12-2017 [facility] Code (77256) Nitrite Urine Negative Negative Invalid 05-12-2017 - [facility] Interpretation 05-12-2017 Grou p (47344) Code Occult Blood, Negative Negative Invalid 05-12-2017 - [facility] urine Interpretation 05-12-2017 Grou p (13171) Code OCCULT BLOOD-UR Negative Negative Invalid 05-12-2017 - [place] Interpretation 05-12-2017 [facility]'s Care Code (99413) pH (U) 6.0 5.0 - 8.0 [pH 05-12-2017 - [facility] ] 05-12-2017 Women's C are (37587) Specific gravity 1.010 1.002-1.030 Invalid 05-12-2017 - [place] Refractometry Interpretation 05-12-2017 Women's Care Relative Density Code (44 691) (U) specific 1.010 1.002-1.030 Invalid 05-12-2017 - [facility] gravity, urine Interpretation 05-12-2017 Group (17857) Code Urine, bilirubin Negative Negative Invalid 05-12-2017 - [facility] presence Interpretation 05-12-2017 Grou p (86312) Code Urine, clarity Sl. Cloudy Clear Invalid 05-12-2017 - [facility] Interpretation 05-12-2017 Grou p (76271) Code Urine, color Yellow Yellow Invalid 05-12-[address] [facility] Interpretation 05-12-2017 Grou p (55658) Code Urine, glucose Normal Normal Invalid 05-12-2017 - [facility] presence mg/dl Interpretation 05-12-2017 Grou p (83267) Code Urine, ketones Negative Negative Invalid 05-12-2017 - [facility] presence Interpretation 05-12-2017 Grou p (45913) Code Urine, leukocyte Negative Negative Invalid 05-12-2017 - [facility] esterase Interpretation 05-12-2017 Grou p (47348) presence Code Urine, pH 6.0 5.0 - 8.0 [pH Invalid 05-12-2017 - [facility] ] Interpretation 05-12-2017 Grou p (32822) Code Urine, protein Negative Negative mg/ Invalid 05-12-2017 - [facility] dL Interpretation 05-12-2017 Grou p (10472) Code UROBILI Normal Normal Invalid 05-12-2017 - [place] mg/dl Interpretation 05-12-2017 [facility] Code (64465) urobilinogen, Normal Normal Invalid 05-12-2017 - [facility] urine, by mg/dl Interpretation 05-12-2017 Grou p (12136) dipstick Code lab report: thyroid stim hormone (tsh) on 2017-04-15 Thyroid 1.36 0.358-3.74 u[iU]/mL Invalid [facility]-15-2017 [facility] stimulating Interpretation 04-15-2017 In ternal hormone (TSH) [place] (28318) lab report: t4 free direct on 2017-04-15 Thyroxine (T4) 0.91 0.76-1.46 ng/dL Invalid 04-15-2017 - [place] free Interpretation Code 04-15-2017 Internal Medicine ( 58976) lab report: lipid profile on 2017-04-15 Cholesterol 201 200 mg/dL High 04-15-2017 - [place] 04-15-2017 Internal Medicine ( 71553) HDL Cholesterol 42 mg/dL Invalid 04-15-2017 - [place] Interpretation Code 04-15-2017 Internal Medicine ( 43643) LDL Cholesterol 135 0-130 mg/dL High [facility]-15-2017 [facility] ( 35273) Lipoprotein.pre-be 24 5-40 mg/dL Invalid 04-15-2017 - [place] ta mass conc Interpretation Code 017 Women's Care (20251) Triglyceride 120 mg/dL Invalid 04-15-2017 - [place] Interpretation Code 04-15-2017 Internal Medicine ( 70793) very low density 24 5-40 mg/dL Invalid 04-15-2017 - [place] lipoproteins Interpretation Code 017 Internal Medicine ( 76400) lab report: hemoglobin a1c on 2017-04-15 HbA1c 5.1 4.2-6.3 % Invalid Interpretation 017 - [place] Internal Code 04-15-2017 Medicine (14623) lab report: comprehensive metabolic prof il on 2017-04-15 Alanine 21 12-78 U/L Invalid [facility]-15-2017 [facility] aminotransferase Interpretation 04-15-20 17 Internal (ALT) Code Medicine (12693) Albumin 3.9 3.4-5.0 g/dL Invalid 04-15-2017 - [place] Interpretation 04-15-2017 Inte rnal Code Medicine (75927) Albumin/Globulin 1.0 0.9-2.4 {ratio Invalid 04-15-2017 - [place] Ratio RATIO } Interpretation 04-15-2017 Inte rnal Code Medicine (83243) Alkaline 118 45-117 U/L High 04-15-2017 - [place] phosphatase (ALP) 04-15-2017 I nternal Medicine (75625) ALP enzyme act/vol 118 45-117 U/L High 04-15-2017 - [place] (Bld) 04-15-2017 Women's C are (06867) Anion gap 5 5-15 mmol/L Invalid 04-15-2017 - [place] Interpretation 04-15-2017 Inte rnal Code Medicine (43182) Anion gap 4 molar 5 5-15 Invalid 04-15-2017 - [place] conc Interpretation 04-15-2017 Wome [facility]'s Care Code (53871) Anion gap molar 5 5-15 mmol/L 04-15-2017 - [place] conc 04-15-2017 Women's C are (87071) Aspartate 9 15-37 U/L Low 04-15-2017 - [place] aminotransferase 04-15-2017 In ternal (AST) Medicine (94829) Bilirubin (total) 0.60 0.20-1.0 mg/dL Invalid 04-15-2017 - [place] 0 Interpretation 04-15-2017 Inte rnal Code Medicine (09171) BUN/Creatinine 14.6 10-20 Invalid 04-15-2017 - [place] Ratio RATIO Interpretation 04-15-2017 Inte rnal Code Medicine (24556) Calcium 8.6 8.5-10.1 mg/dL Invalid 04-15-2017 - [place] Interpretation 04-15-2017 Inte rnal Code Medicine (13128) Chloride 104 98-107 mmol/L Invalid 04-15-2017 - [place] Interpretation 04-15-2017 Inte rnal Code Medicine (62581) CO2 26.0 21.0-32. mmol/L Invalid 04-15-2017 - [place] 0 Interpretation 04-15-2017 Inte rnal Code Medicine (11408) CO2 ppres (BldV) 26.0 21.0-32. mmol/L Invalid 04-15-2017 - [place] 0 Interpretation 04-15-2017 [facility] Care Code (36420) Creatinine 0.82 0.55-1.0 mg/dL Invalid 04-15-2017 - [place] 2 Interpretation 04-15-2017 Inte rnal Code Medicine (13694) eGFR (non-black) 112 >60 mL/min Invalid 04-15-2017 - [place] Interpretation 04-15-2017 Inte rnal Code Medicine (94055) eGFR (non-black) 92 >60 mL/min Invalid 04-15-2017 - [place] Interpretation 04-15-2017 Inte rnal Code Medicine (22822) EST GFR - AA 112 >60 mL/min Invalid 04-15-2017 - [place] Interpretation 04-15-2017 [facility]'s Care Code (46093) Globulin 4.1 2.3-3.5 g/dL High 04-15-2017 - [place] 04-15-2017 Internal Medicine (17378) Globulin mass conc 4.1 2.3-3.5 g/dL High 04-15-2017 - [place] (S) 04-15-2017 Women's C are (50508) Glucose 77 70-110 mg/dL Invalid 04-15-2017 - [place] Interpretation 04-15-2017 Inte rnal Code Medicine (58041) Glucose mass conc 77 70-110 mg/dL Invalid 04-15-2017 - [place] Interpretation 04-15-2017 W[facility]'s Care Code (27846) Potassium 3.9 3.5-5.1 mmol/L Invalid 04-15-2017 - [place] Interpretation 04-15-2017 Inte rnal Code Medicine (09358) Protein 8.0 6.4-8.2 g/dL Invalid 04-15-2017 - [place] Interpretation 04-15-2017 Inte rnal Code Medicine (53722) Sodium 135 136-145 mmol/L Low 04-15-2017 - [place] 04-15-2017 Internal Medicine (26638) Urea nitrogen 12 7-18 mg/dL Invalid 04-15-2017 - [place] Interpretation 04-15-2017 Inte rnal Code Medicine (29972) office visit: new pt. visit on 2017-03-18 Documentation of Done Invalid 03-18-2017 - [place] current medications Interpretation Code 03-18-2017 Internal (procedure) Medicine (79351) Fall risk No Invalid 03-18-2017 [facility] Interpretation Code 7 Internal Medicine ( 65919) Protein mass conc Done 03-18-2017 - [place] 03-18-2017 Internal Medicine ( 59960) Protein mass conc yes 03-18-2017 - [place] 03-18-2017 Internal Medicine ( 27878) Smoking cessation yes Invalid 03-18-2017 [facility] education Interpretation Code 03-18-2017 Internal (procedure) Medicine (72456) Tobacco smoking Current 03-18-2017 - [facility] status NHIS every day 03-18-2017 Interna l smoker Medicine ( 20171) Tobacco use CPHS Current Invalid 03-18-2017 - [place] every day Interpretation Code 03-18-2017 Internal smoker Medicine ( 54944) Vital Signs Vital Sign Description Value / Unit Date Location The following section is limited to 5 en tries per type and includes entries from the following time range: [id number] - [id number] 6. BMI (Body Mass Index) 42.9 kg/m2 05-27-2017 - 05-27-2017 [facility]'s Care (69494) BMI (Body Mass Index) 48.44 kg/m2 05-12-2017 - 05-12-[address] [facility] [place] [facility] ([id number]) BMI (Body Mass Index) 46.48 kg/m2 03-18-2017 - 03-18-[address] [facility] [facility] ([id number]) Body Temperature 96 [degF] 05-27-2017 - 05-27-2017 [facility] ([id number]) Body Temperature 97.5 [degF] 05-12-2017 - 05-12-2017 [facility] ([id number]) BP Diastolic 81 mm[Hg] 05-27-2017 - 05-27-2017 [facility] ([id number]) BP Diastolic 81 mm[Hg] 05-12-2017 - 05-12-2017 [facility] ([id number]) BP Diastolic 72 mm[Hg] 03-18-2017 - 03-18-2017 [facility] ([id number]) BP Systolic 123 mm[Hg] 05-27-2017 - 05-27-2017 [facility] ([id number]) BP Systolic 124 mm[Hg] 05-12-2017 - 05-12-2017 [facility] ([id number]) BP Systolic 122 mm[Hg] 03-18-2017 - 03-18-2017 [facility] ([id number]) Height 165.1 cm 05-27-2017 - 05-27-2017 [facility] ([id number]) Height 154.94 cm 05-12-2017 - 05-12-2017 [facility] ([id number]) Height 154.94 cm 03-18-2017 - 03-18-2017 [facility] ([id number]) Pulse (Heart Rate) 106 /min 05-27-2017 - 05-27-2017 [facility] ([id number]) Pulse (Heart Rate) 102 /min 05-12-2017 - 05-12-2017 [facility] ([id number]) Pulse (Heart Rate) 70 /min 03-18-2017 - 03-18-2017 [facility] ([id number]) Respiratory Rate 20 /min 05-12-2017 - 05-12-2017 [facility] ([id number]) Weight 116.94 kg 05-27-2017 - 05-27-2017 [facility] ([id number]) Weight 116.3 kg 05-12-2017 - 05-12-2017 [facility] ([id number]) Weight 111.59 kg 03-18-2017 - 03-18-2017 [facility] ([id number]) Procedures Procedure Name Date Provider Location Dietary management 05-27-2017 - [place] [facility]ila's education, guidance, and 05-27-2017 Care ([phone]) counseling *HECAB Hepatitis C Antibody 05-27-2017 - Argenis Plummer NP [facility] 06-05-2017 Care ([id number]) *HIV antibody 05-27-2017 - Argenis Plummer NP [facility] 06-05-2017 Care ([id number]) Herpes simplex virus 1+2 IgG 05-27-2017 - Argenis S Ravenna [employer] [place] [facility] [Units/volume] in Serum 06-05-2017 Care ([id number]) Reagin Ab [Presence] in 05-27-2017 - Argenis S Kavitha [employer] [facility] Serum by [facility] 06-10-2017 Care ([id number]) Us pelvic nonobstetric 05-27-2017 - Argenis S Kavitha [employer] [facility] Women's real-time image complete 05-28-2017 Care ([phone]) Us transvaginal 05-27-2017 - Argenis S Kavitha [employer] [facility] [place] 05-28-2017 Care ([id number]) Venereal disease screening 05-27-2017 [facility] Care ([id number]) *HECAB Hepatitis C Antibody 05-27-2017 - Argenis S Ravenna [employer] [place] [facility] 05-28-2017 Care ([id number]) *HIV antibody 05-27-2017 - Argenis S Kavitha [employer] [place] [facility] 05-28-2017 Care ([id number]) Herpes simplex virus 1+2 IgG 05-27-2017 - Argenis S Kavitha [employer] [place] [facility] [Units/volume] in Serum 05-28-2017 Care ([id number]) Reagin antibody presence 05-27-2017 - Argenis S Ravenna [employer] MA[employer] [facility] 05-28-2017 Care ([id number]) Transvaginal us, non-ob 05-27-2017 - Argenis S Kavitha [employer] [facility] [facility] 05-28-2017 Care ([id number]) Us exam, pelvic, complete 05-27-2017 - Argenis S Ravenna [employer] [place] [facility] 05-28-2017 Care ([id number]) Venereal disease screening 05-27-2017 [facility] Care ([id number]) Urinalysis 05-12-2017 - [place] [facility] 05-12-2017 Care ([id number]) Follow Up Appt 6 weeks 05-12-2017 - Annamarie Denney [facility] 05-14-2017 Care ([id number]) Gonadotropin chorionic 05-12-2017 - Annamarie Ivymj [place] [facility] quantitative 05-14-2017 Care ([id number]) Hemoglobin.gastrointestinal 05-12-2017 - Chayjoann Trivedi Bij[facility] [Presence] in Stool by 05-14-2017 Care ([id number]) Immunologic method Urinalysis complete panel - 05-12-2017 - Annamarie Ivymj [facility] Urine 05-13-2017 Care ([id number]) Chorionic gonadotropin test 05-12-2017 - Annamarie Ivyyulychase Farooq [facility] Internal 05-14-2017 Medicine ([id number]) Follow Up Appt 6 weeks 05-12-2017 - Annamarie Baireschase [place] Internal 05-14-2017 Medicine ([id number]) Hemoglobin by Imm presence 05-12-2017 - Annamarie Tovar [facility] in stool 05-14-2017 Medicine ([id number]) Urinalysis complete panel - 05-12-2017 - Annamarie [facility] Urine 05-13-2017 ([id number]) *CMP Complete Metabolic 03-18-2017 - Annamarie Ivymj [place] [facility] Panel 04-15-2017 MD Castillo ([id number]) Electrocardiogram 03-18-2017 - Annamarie Tovar [place] [facility] 05-14-2017 MD Castillo ([id number]) Follow Up Appt 3 months 03-18-2017 - Annamarie Tovar Luz[place] [facility] Women[facility] 03-18-2017 Care ([id number]) Hemoglobin 03-18-2017 - Annamarie Tovar [place] [facility] A1c/Hemoglobin.total in 04-15-2017 Care ([id number]) Blood Lipid 1996 panel - Serum or 03-18-2017 - Annamarie Tovar Farooq [facility] Women[facility] Plasma 04-15-2017 Care ([id number]) Thyrotropin [Units/volume] 03-18-2017 - Annamarie Marcelino [place] Women[facility] in Serum or Plasma 04-15-2017 Care ([id number]) Thyroxine (T4) free 03-18-2017 - Annamarie Nevarez on Women's [Mass/volume] in Serum or 04-15-2017 MD Care ( [id number]) Plasma *CMP Complete Metabolic 03-18-2017 - Annamarie Segal [facility] Internal Panel 04-15-2017 MD Medicine ([id number]) Electrocardiogram 03-18-2017 - Annamarie Trivedi Bijumj [place] [facility] 05-14-2017 MD Medicine ([id number]) Follow Up Appt 3 months 03-18-2017 - Annamarie Segal [facility] Internal 03-18-2017 MD Medicine ([id number]) HbA1c 03-18-2017 - Chayzainabbashirhal Trivedi Bijumj [place] I nternal 04-15-2017 MD Medicine ([id number]) Lipid panel [AGGREGATE] 03-18-2017 - Chayjoann Trivedi Bijumj Segal [facility] Internal 04-15-2017 MD Medicine ([id number]) Thyroid stimulating hormone 03-18-2017 - Khoahal Trivedi Bijumj Trivedi [facility] Internal (TSH) 04-15-2017 MD Medicine ([id number]) Thyroxine (T4) free 03-18-2017 - Annamarie Nevarez on Internal 04-15-2017 MD Medicine ([id number]) Plan of Treatment Plan Description Date Location Appointment Appointment 06-23-2017 - [facility] 06-23-2017 ([id number]) Appointment Appointment 06-17-2017 - [place] [facility] 06-17-2017 Medicine ([id number]) Appointment Appointment 05-27-2017 - [facility] 05-27-2017 Care ([id number]) *GC/Chlamydia *GC/Chlamydia 05-27-2017 - [place] [facility] 05-28-2017 Care ([id number]) *HECAB Hepatitis C *HECAB Hepatitis C 05-27-2017 - [facility] Women[facility] Antibody Antibody 05-28-2017 Care ([id number]) *HIV antibody *HIV antibody 05-27-2017 - [facility] 05-28-2017 Care ([id number]) *CUV - Culture, VAG/CX *CUV - Culture, VAG/CX 05-27-2017 - [facility] Comprehensive 05-28-2017 Care ([id number]) *HS12G Herpes Simplex *HS12G Herpes Simplex 05-27-2017 - [place] [facility] Antibody Antibody 05-28-2017 Care ([id number]) *RPR *RPR 05-27-2017 - [place] [facility] 05-28-2017 Care ([id number]) US Pelvis US Pelvis 05-27-2017 - [place] [facility] 05-28-2017 Care ([id number]) US Transvaginal US Transvaginal 05-27-2017 - [place] [facility] 05-28-2017 Care ([id number]) *GC/Chlamydia *GC/Chlamydia 05-27-2017 - [place] [facility] 05-28-2017 Care ([id number]) *HECAB Hepatitis C *HECAB Hepatitis C 05-27-2017 - [facility] Women[facility] Antibody Antibody 05-28-2017 Care ([id number]) *HIV antibody *HIV antibody 05-27-2017 - [place] [facility] 05-28-2017 Care ([id number]) *CUV - Culture, VAG/CX *CUV - Culture, VAG/CX 05-27-2017 [place] [facility] [place] [facility] 05-28-2017 Care ([id number]) *HS12G Herpes Simplex *HS12G Herpes Simplex 05-27-2017 - [place] [facility] Antibody Antibody 05-28-2017 Care ([id number]) *RPR *RPR 05-27-2017 - [place] [facility] 05-28-2017 Care ([id number]) US Transvaginal US Transvaginal 05-27-2017 - [place] [facility] 05-28-2017 Care ([id number]) US Pelvis US Pelvis 05-27-2017 - [place] [facility] 05-28-2017 Care ([id number]) Appointment Appointment 05-23-2017 - [place] [facility] 05-23-2017 Medicine ([id number]) Gynecology & Obstetrics Gynecology & Obstetrics 05-13-2017 - [facility] Violet Gauthier, 05-14-2017 Care ([phone]) [facility], [address], Care, [address], [address], [place], [place], [address], [place], [id number] Gynecology & Obstetrics Gynecology & Obstetrics 05-13-2017 - [place] [facility] Violet Davison, Violet Davison, 05-14-2017 Medicine ([id number]) [facility], [address], Care, [address], [address], [place], [place], [address], [place], [id number] Follow Up Appt 6 weeks Follow Up Appt 6 weeks 05-12-2017 - [facility] 05-14-[facility] ([id number]) BhCG; quantitative BhCG; quantitative 05-12-2017 - [place] [facility] 05-14-2017 Care ([id number]) *Occult Blood, Stool *Occult Blood, Stool 05-12-2017 - [facility]ens 05-14-2017 Care ([id number]) *UAC- Urinalysis, *UAC- Urinalysis, 05-12-2017 - [facility] Complete w/ Micro Complete w/ Micro 05-13-2017 Care ([id number]) BhCG; quantitative BhCG; quantitative 05-12-2017 - [facility] 05-14-2017 ([id number]) Follow Up Appt 6 weeks Follow Up Appt 6 weeks 05-12-2017 - [facility] 05-14-2017 ([id number]) *Occult Blood, Stool *Occult Blood, Stool 05-12-2017 - [facility] 05-14-2017 ([id number]) *UAC- Urinalysis, *UAC- Urinalysis, 05-12-2017 - [place] [facility] Complete w/ Micro Complete w/ Micro 05-13-2017 ([id number]) *CMP Complete Metabolic *CMP Complete Metabolic 03-18-2017 - [place] [facility] Panel Panel 04-15-2017 Care ([id number]) *EKG (Done in Hospital) *EKG (Done in Hospital) 03-18-2017 - [facility] 05-14-2017 Care ([id number]) Appointment Appointment 03-18-2017 - [place] [facility] 03-18-2017 Medicine ([id number]) Follow Up Appt 3 months Follow Up Appt 3 months 03-18-2017 - [place] [facility] 03-18-2017 Care ([id number]) *HgA1C *HgA1C 03-18-2017 - [place] [facility] 04-15-2017 Care ([id number]) *Lipid Profile *Lipid Profile 03-18-2017 - [place] [facility] 04-15-2017 Care ([id number]) *TSH *TSH 03-18-2017 - [place] [facility] 04-15-2017 Care ([id number]) *T4 free *T4 free 03-18-2017 - [place] [facility] 04-15-2017 Care ([id number]) *CMP Complete Metabolic *CMP Complete Metabolic 03-18-2017 - [place] [facility] Panel Panel 04-15-2017 Medicine ([id number]) *EKG (Done in Hospital) *EKG (Done in Hospital) 03-18-2017 - [place] [facility] 05-14-2017 Medicine ([id number]) Follow Up Appt 3 months Follow Up Appt 3 months 03-18-2017 - [place] [facility] 03-18-2017 Medicine ([id number]) *HgA1C *HgA1C 03-18-2017 - [place] [facility] 04-15-2017 Medicine ([id number]) *Lipid Profile *Lipid Profile 03-18-2017 - [place] [facility] 04-15-2017 Medicine ([id number]) *TSH *TSH 03-18-2017 - [place] [facility] 04-15-2017 Medicine ([id number]) *T4 free *T4 free 03-18-2017 - [place] [facility] 04-15-2017 Medicine ([id number]) Additional Source Comments FOR RECORDS PERTAINING TO PATIENTS WHO ARE OR HAVE BEEN ENROLLED IN A CHEMICAL DEPENDENCY/SUBSTANCE ABUSE PROGRAM, SOME INFORMATION MAY BE OMITTED. This clinical summary was aggregated from multiple sources. Caution should be exercised in using it in the provision of clinical care. This summary normalizes information from multiple sources, and as a consequence, information in this document may materially changethe coding, format and clinical context of patient data. In addition, data may be omittedin some cases. CLINICAL DECISIONS SHOULD BE BASED ON THE PRIMARY CLINICAL RECORDS. [facility] provides no warranty or guarantee of the accuracy or completeness of information in this document.
--- OUTSIDE RECORDS SUMMARY | 2020-06-18 09:09 | XMS RPT_ITS | CCD ---
:1995 External Reference #:[id number] Author Organization [facility] Care Team Providers Name Role Phone Farooq Tovar MD Unavailable Kavitha AREA SECRETARY, S Unavailable Farooq Tovar MD Unavailable Elliot Clifford Unavailable Unavailable Elliot Clifford Unavailable Unavailable Farooq Tovar MD Unavailable Tiny Rios Unavailable Unavailable Kavitha AREA SECRETARY, S Unavailable Allergies Reported Allergen Reaction(s) Severity Date of Onset Location amoxicillin / hives Critical, 03-18-2017 - [place] In ternal clavulanate Critical Medicine (88160 ) penicillin Hives Critical, 03-18-2017 - [place] Int ernal Critical Medicine (75242 ) Sulfonamides Hives Moderate, 03-18-2017 - [place] Int ernal (Antibiotic) Moderate Medicine (60701 ) Medications Medication Name Sig Date Prescriber Location clonazePAM CLONAZEPAM 0.5 MG TABS One 05-12-2017 [facility] tablet by mouth twice (65161 ) daily as needed CLONAZEPAM [id number] Roma Clifford diphenhydrAMINE BENADRYL ALLERGY CAPS 1 hs 03-18-2017 [place] Internal DIPHENHYDRAMINE M edicine (02782) HCL CAPS [id number] Annamarie Tovar MD BENADRYL ALLERGY CAPS 1 hs 03-18-2017 [place] [facility] DIPHENHYDRAMINE HCL CAPS [phone] ([id number]) Annamarie Tovar MD BENADRYL ALLERGY CAPS 1 hs 03-18-2017 [place] [facility] DIPHENHYDRAMINE HCL CAPS [phone] ([id number]) Annamarie Tovar MD BENADRYL ALLERGY CAPS 1 hs 03-18-2017 [place] [facility] DIPHENHYDRAMINE HCL CAPS [id number] ([id number]) Annamarie Tovar MD BENADRYL ALLERGY CAPS 1 hs 03-18-2017 [place] [facility] DIPHENHYDRAMINE HCL CAPS [id number] ([id number]) Annamarie Tovar MD BENADRYL ALLERGY CAPS 1 hs 03-18-2017 [place] [facility] DIPHENHYDRAMINE HCL CAPS [phone] ([id number]) Annamarie Tovar MD BENADRYL ALLERGY CAPS 1 hs 03-18-2017 [place] [facility] DIPHENHYDRAMINE HCL CAPS [phone] ([id number]) Annamarie Tovar MD BENADRYL ALLERGY CAPS 1 hs 03-18-2017 [place] [facility] DIPHENHYDRAMINE HCL CAPS [phone] ([id number]) Annamarie Tovar MD BENADRYL ALLERGY CAPS 1 hs 03-18-2017 [place] [facility] DIPHENHYDRAMINE HCL CAPS [phone] ([id number]) Annamarie Tovar MD BENADRYL ALLERGY CAPS 1 hs 03-18-2017 [place] [facility] DIPHENHYDRAMINE HCL CAPS [id number] ([id number]) Annamarie Tovar MD BENADRYL ALLERGY CAPS 1 hs 03-18-2017 [place] [facility] DIPHENHYDRAMINE HCL CAPS [phone] ([id number]) Annamarie Tovar MD FLUoxetine PROZAC 20 MG CAPS 1 hs 03-18-2017 [facility] Internal Medicine FLUOXETINE HCL (4 [id number]) [id number] Annamarie Tovar MD PROZAC 20 MG CAPS 1 hs 03-18-2017 [place] [facility] FLUOXETINE HCL [id number] Annamarie ([id number]) Farooq Tovar MD fluticasone FLOVENT DISKUS 250 03-18-2017 Annamarie [place] Internal MCG/BLIST AEPB 1 [place] (30047) BID FLUTICASONE PROPIONATE (INHAL) [id number] Annamarie Tovar MD FLOVENT DISKUS 250 03-18-2017 Annamarie [place] Internal MCG/BLIST AEPB 1 puff BID Medici ne (54110) FLUTICASONE PROPIONATE (INHAL) [id number] Annamarie Tovar MD FLOVENT DISKUS 250 03-18-2017 Annamarie Tovar [place] Internal MCG/BLIST AEPB 1 puff BID Medici ne (30695) FLUTICASONE PROPIONATE (INHAL) [id number] Annamarie Tovar MD FLOVENT DISKUS 250 03-18-2017 Annamarie [place] Internal MCG/BLIST AEPB 1 puff BID Medici ne (21759) FLUTICASONE PROPIONATE (INHAL) [id number] Annamarie Tovar MD FLOVENT DISKUS 250 03-18-2017 Annamarie [place] Internal MCG/BLIST AEPB 1 puff BID Medici ne (38505) FLUTICASONE PROPIONATE (INHAL) [id number] Annamarie Tovar MD FLOVENT DISKUS 250 03-18-2017 Annamarie [place] Internal MCG/BLIST AEPB 1 puff BID Medici ne (84576) FLUTICASONE PROPIONATE (INHAL) [id number] Annamarie Tovar MD FLOVENT DISKUS 250 03-18-2017 Annamarie [place] Internal MCG/BLIST AEPB 1 puff BID Medici ne (13459) FLUTICASONE PROPIONATE (INHAL) [id number] Annamarie Tovar MD FLOVENT DISKUS 250 03-18-2017 Annamarie [place] Internal MCG/BLIST AEPB 1 puff BID Medici ne (31406) FLUTICASONE PROPIONATE (INHAL) [id number] Annamarie Tovar MD FLOVENT DISKUS 250 03-18-2017 Annam[place] Internal MCG/BLIST AEPB 1 puff BID Medici ne (60801) FLUTICASONE PROPIONATE (INHAL) [id number] Annamarie Tovar MD FLOVENT DISKUS 250 03-18-2017 Annamarie [place] Internal MCG/BLIST AEPB 1 puff BID Medici ne (41142) FLUTICASONE PROPIONATE (INHAL) [id number] Annamarie Tovar MD lamoTRIgine LAMICTAL 200 MG TABS 1 03-18-2017 [place] [facility] Internal LAMOTRIGINE [id number] Medi cine Annamarie Tovar MD ([id number] ) medroxyPROGESTERone MEDROXYPROGESTERONE 05-27-2017 [place] ACETATE 10 MG TABS One Kavitha AREA SECRETARY [facility] tablet by mouth daily (23203 ) MEDROXYPROGESTERONE ACETATE [id number] Argenis Plummer AREA SECRETARY methylPREDNISolone MEDROL 4 MG TBPK As 03-18-2017 - [place] directed 05-12-2017 Internal Medicine METHYLPREDNISOLONE (85828) [id number] Roma Clifford MEDROL 4 MG TBPK As directed 03-18-2017 Annamarie Tovar [place] [facility] Medicine (25781) METHYLPREDNISOLONE [id number] Annamarie Tovar MD MEDROL 4 MG TBPK As directed 03-18-2017 Annamarie Tovar [place] [facility] Medicine (69955) METHYLPREDNISOLONE [id number] Annamarie Tovar MD MEDROL 4 MG TBPK As directed 03-18-2017 - [facility] Internal 05-12-2017 Medicine ( 56504) METHYLPREDNISOLONE [id number] Roma J Marthey MEDROL 4 MG TBPK As directed 03-18-2017 Annamarie Tovar [place] [facility] MD Medicine (45029) METHYLPREDNISOLONE [id number] Annamarie Tovar MD MEDROL 4 MG TBPK As directed 03-18-2017 - [facility] Internal 2016 05-12-2017 Medicine ( 95662) METHYLPREDNISOLONE [id number] Roma J Marthey MEDROL 4 MG TBPK As directed 03-18-2017 Annamarie Tovar [place] [facility] Medicine (15898) METHYLPREDNISOLONE [id number] Annamarie Tovar MD MEDROL 4 MG TBPK As directed 03-18-2017 - [facility] Internal 05-12-2017 Medicine ( 33833) METHYLPREDNISOLONE [id number] Roma J Marthey MEDROL 4 MG TBPK As directed 03-18-2017 - [facility] Internal 05-12-2017 Medicine ( 93802) METHYLPREDNISOLONE [id number] Roma J Marthey MEDROL 4 MG TBPK As directed 03-18-2017 Annamarie Tovar [place] [facility] Medicine (66132) METHYLPREDNISOLONE [id number] Annamarie Tovar MD MEDROL 4 MG TBPK As directed 03-18-2017 - [facility] Internal 05-12-2017 Medicine ( 43695) METHYLPREDNISOLONE [id number] Roma J Marthey MEDROL 4 MG TBPK As directed 03-18-2017 Annamarie Tovar [place] [facility] Medicine (03923) METHYLPREDNISOLONE [id number] Annamarie Tovar MD MEDROL 4 MG TBPK As directed 03-18-2017 - Annamarie Tovar [place] Internal 05-12-2017 MD Medicine (20760) METHYLPREDNISOLONE [id number] Annamarie Tovar MD MEDROL 4 MG TBPK As directed 03-18-2017 Annamarie Tovar [place] [facility] Medicine (57433) METHYLPREDNISOLONE [id number] Annamarie Tovar MD MEDROL 4 MG TBPK As directed 03-18-2017 Annamarie Tovar [place] [facility] Medicine (87529) METHYLPREDNISOLONE [id number] Annamarie Tovar MD paliperidone INVEGA SUSTENNA 234 MG/1.5ML 03-18-2017 [place] [facility] SUSP 1x every 3 weeks (23141 ) PALIPERIDONE PALMITATE [id number] Annamarie Tovar MD INVEGA SUSTENNA 234 MG/1.5ML SUSP 1x 03-18-2017 [place] [facility] every 3 weeks PALIPERIDONE (52370) PALMITATE [id number] Annamarie Tovar MD INVEGA SUSTENNA 234 MG/1.5ML SUSP 1x 03-18-2017 [place] [facility] every 3 weeks PALIPERIDONE (76096) PALMITATE [id number] Annamarie Tovar MD INVEGA SUSTENNA 234 MG/1.5ML SUSP 1x 03-18-2017 [place] [facility] every 3 weeks PALIPERIDONE (59110) PALMITATE [id number] Annamarie Tovar MD INVEGA SUSTENNA 234 MG/1.5ML SUSP 1x 03-18-2017 [place] [facility] every 3 weeks PALIPERIDONE (54611) PALMITATE [id number] Annamarie Tovar MD INVEGA SUSTENNA 234 MG/1.5ML SUSP 1x 03-18-2017 [place] [facility] every 3 weeks PALIPERIDONE (59882) PALMITATE [id number] Annamarie Tovar MD INVEGA SUSTENNA 234 MG/1.5ML SUSP 1x 03-18-2017 [place] [facility] every 3 weeks PALIPERIDONE (60634) PALMITATE [id number] Annamarie Tovar MD INVEGA SUSTENNA 234 MG/1.5ML SUSP 1x 03-18-2017 [place] [facility] every 3 weeks PALIPERIDONE (98790) PALMITATE [id number] Annamarie Tovar MD INVEGA SUSTENNA 234 MG/1.5ML SUSP 1x 03-18-2017 [place] [facility] every 3 weeks PALIPERIDONE (31317) PALMITATE [id number] Annamarie Tovar MD INVEGA SUSTENNA 234 MG/1.5ML SUSP 1x 03-18-2017 [place] [facility] every 3 weeks PALIPERIDONE (08261) PALMITATE [id number] Annamarie Tovar MD pantoprazole PANTOPRAZOLE SODIUM 40 05-12-2017 Annamarie Tovar [facility] TBEC 1 tablet daily MD Group (92680) 30 minutes before breakfast PANTOPRAZOLE SODIUM [id number] Annamarie Tovar MD Problems Active Problems Category Problem Name Status Date Location Allergic reactions Atopic dermatitis Active 03-18-2017 - [facility] [place] (09052) Asthma Asthma Active 03-18-2017 - [place] [facility] [place] (03760) Esophageal disorders Gastroesophageal reflux Active - [facility] disease (57803) Gastroduodenal ulcer Gastric ulcer Active 05-12-2017 - [facility] (59884) Menstrual disorders Secondary physiologic Active 05-12-2017 - [facility] amenorrhea (72839) Other nutritional; Body mass index (BMI) Active 03-18-2017 - [place] endocrine; and 45.0-49.9, adult Internal Medicine metabolic disorders (22809) Other nutritional; [facility] Medi cine metabolic disorders (58063) Schizophrenia and other Schizoaffective disorder Active 03-18 - [place] psychotic disorders Internal Medicine (05504) Unclassified Venereal disease Active 05-27-2017 - [place] [facility] (93215) Unclassified Long-term drug therapy Active 03-18-2017 - [facility] Internal Medici ne (93284) Past or Other Problems Category Problem Name Status Date Location Conduction disorders Prolonged QT interval Completed 03-18-2017 - [place] Internal Medicine (47615 ) Nonmalignant breast Galactorrhea not Completed 05-27-2017 - [facility] Women's conditions associated with Care (89131) childbirth Other aftercare 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 Completed 03-18-2017 - [place] [facility] Internal (current) drug Medicine (256 19) therapy Residual codes; Family history of Completed [place] Internal unclassified alcoholism Medicine (13232 ) Urinary tract Urinary tract Completed 05-12-2017 - [facility] infections infectious disease - 05-27-2017 (36820) - Results Result Name Value Range Unit Interpretation Flag Date Location lab report: rapid plasmin reagin (rpr) on 2017-06-06 Reagin Ab NONREACTIVE NONREACTIVE Invalid 06-06-2017 - [facility] VDRL Qn (S) Interpretation Code 06-06-20 17 [facility] (61040) replaced document: (p) hsv 1 and 2 igg on 2017-06-04 HSV 2 IgG 3.55 index 0.00-0.90 High 06-04-2017 - [facility] (01785) replaced document: (p) hepatitis c antib odies on 2017-06-04 HCV Ab IB <0.1 0.0-0.9 Invalid Interpretation 017 - [place] Women's Ql (S) Code 06-04-2017 Care (449 83) lab report: ct/ng wch by pcr on 2017-06-02 C. trachomatis DNA Negative Negative Invalid 06-02-2017 - [place] RISHABH+probe Ql (U) Interpretation 06-02-20 17 [facility] Code (64242) Chlamydia Negative Negative [facility] [Presence] in Code (92232 ) Urine by Probe and target amplification method Neisseria Negative Negative Invalid [facility]-02-[facility] gon[facility]ae Interpretation 06-02-2017 men's [facility] presence Code (28464) microbiology: culture, genital comprehen sive on 2017-05-31 CUV Neisseria or Invalid 05-31-2017 - [place] beta-hemolytic Interpretation Code 05-31 [facility] Streptococcus (45156 ) isolated. microbiology: (p) culture, genital compr ehensive on 2017-05-28 CUV . 05-28-2016 - 05-28-2 017 [facility] (31412) lab report: ct/ng wch by pcr on 2017-05-28 C. trachomatis DNA Negative Negative 05-28-2017 - [place] RISHABH+probe Ql (U) 05-28-2017 [facility] (46659) Chlamydia Negative Negative Invalid 05-28-2017 - [place] trachomatis DNA Interpretation 7 [facility] [Presence] in Code (88969 ) Urine by Probe and target amplification method Neisseria Negative Negative Invalid 05-28-2017 - [place] gonorrhoeae Interpretation 05-28-2017 [facility] presence Code (91669) office visit on 03-09-26 Dietary yes Invalid 05-27-2017 - [place] management Interpretation Code 7 [facility] education, (73774) guidance, and counseling (procedure) Tobacco smoking Never smoker Invalid 05-27-2017 - [place] status ALIS Interpretation Code 05-27-20 17 [facility] (16465) Tobacco smoking Never Invalid 05-27-2017 - [facility] status ALIS Interpretation Code 05-27-20 17 [facility] (56538) Tobacco use CP Never smoker Invalid 05-27-2017 - [place] Interpretation Code 05-27-2017 [facility] (49001) replaced document: (p) urinalysis, compl ete on 2017-05-12 Mucus Ql (Urine 0 SEEN <or=2+ 05-12-2017 - [place] sed) 05-12-2017 Women[facility] C are (18407) Urine, bacteria 0 SEEN None Seen Invalid 05-12-2017 - [facility] sediment /hpf Interpretation 05-12-2017 Gr oup (19828) Code Urine, epithelial 0 SEEN 5-10 Invalid 05-12-2017 - [facility] cells in sediment Interpretation 017 Group (56075) Code Urine, 0 SEEN 0-5 Invalid 05-12-2017 - [facility] erythrocytes in Interpretation 7 Group (68735) sediment by Code volume Urine, mucus 0 SEEN <or=2+ Invalid 05-12-2017 - [facility] presence in Interpretation 05-12-2017 Gr oup (92853) sediment Code WBC 0 SEEN 0-5 Invalid 05-12-2017 - [place] Interpretation 05-12-2017 [facility] Code (20012) WBC #/vol (Bld) 0 SEEN 0-5 05-12-2017 - [place] 05-12-2017 Women[facility] C are (27851) WBC (Leukocytes) 0 SEEN 0-5 Invalid 05-12-2017 - [facility] Interpretation 05-12-2017 Grou p (72683) Code replaced document: (p) ,urine on 2017-05-12 HCG.beta subunit Negative Invalid 05-12-2017 - [place] ( test) Interpretation Code [facility] Ql (U) (91718) Urine, Negative Invalid 05-12-2017 - [place] test Interpretation Code 05-12-2017 Internal Medicine (choriogonadotrop (4 3291) in presence) office visit: follow up on 2017-05-12 Documentation of Done Invalid 05-12-2017 - [place] current medications Interpretation Code 05-12-2017 Internal (procedure) Medicine (01093) Fall risk No Invalid 05-12-2017 - [facility] assessment Interpretation Code 7 Internal Medicine ( 71801) Protein mass conc Done Invalid 05-12-2017 - [place] Interpretation Code 05-12-2017 Women[facility] Care (90800) Protein mass conc yes Invalid 05-12-2017 - [place] Interpretation Code 05-12-2017 Women[facility] Care (80807) Smoking cessation yes Invalid 05-12-2017 - [place] education Interpretation Code 05-12-2017 Internal (procedure) Medicine (86182) Tobacco use CPHS Current Invalid 05-12-2017 - [place] every day Interpretation Code 05-12-2017 Internal smoker Medicine ( 55204) lab report: urinalysis, complete on 2017-05-12 Albumin Ql (U) Negative Negative Invalid 05-12-2017 - [place] Interpretation 05-12-2017 [facility] Code (03233) Bilirubin Ql (U) Negative Negative Invalid 05-12-2017 - [place] Interpretation 05-12-2017 [facility] Code (09419) Ketones mass Negative Negative Invalid 05-12-2017 - [place] conc (U) Interpretation 05-12-2017 [facility] Code (14872) NITRITE UR Negative Negative Invalid 05-12-2017 - [place] Interpretation 05-12-2017 [facility] Code (78563) Nitrite Urine Negative Negative Invalid 05-12-2017 - [facility] Interpretation 05-12-2017 Grou p (90831) Code Occult Blood, Negative Negative Invalid 05-12-2017 - [facility] urine Interpretation 05-12-2017 Grou p (44342) Code OCCULT BLOOD-UR Negative Negative Invalid 05-12-2017 - [place] Interpretation 05-12-2017 [facility] Code (96687) pH (U) 6.0 5.0 - 8.0 [pH 05-12-2017 - [facility] ] 05-12-2017 Women's C are (24968) Specific gravity 1.010 1.002-1.030 Invalid 05-12-2017 - [place] Refractometry Interpretation 05-12-2017 [facility] Relative Density Code (44 691) (U) specific 1.010 1.002-1.030 Invalid 05-12-2017 - [facility] gravity, urine Interpretation 05-12-2017 Group (47506) Code Urine, bilirubin Negative Negative Invalid 05-12-2017 - [facility] presence Interpretation 05-12-2017 Grou p (56224) Code Urine, clarity Sl. Cloudy Clear Invalid 05-12-2017 - [facility] Interpretation 05-12-2017 Grou p (06806) Code Urine, color Yellow Yellow Invalid 05-12-[address] [facility] Interpretation 05-12-2017 Grou p (21362) Code Urine, glucose Normal Normal Invalid 05-12-2017 - [facility] presence mg/dl Interpretation 05-12-2017 Grou p (28344) Code Urine, ketones Negative Negative Invalid 05-12-2017 - [facility] presence Interpretation 05-12-2017 Grou p (42409) Code Urine, leukocyte Negative Negative Invalid 05-12-2017 - [facility] esterase Interpretation 05-12-2017 Grou p (27803) presence Code Urine, pH 6.0 5.0 - 8.0 [pH Invalid 05-12-2017 - [facility] ] Interpretation 05-12-2017 Grou p (31185) Code Urine, protein Negative Negative mg/ Invalid 05-12-2017 - [facility] dL Interpretation 05-12-2017 Grou p (47080) Code UROBILI Normal Normal Invalid 05-12-2017 - [place] mg/dl Interpretation 05-12-2017 [facility] Code (72451) urobilinogen, Normal Normal Invalid 05-12-2017 - [facility] urine, by mg/dl Interpretation 05-12-2017 Grou p (09328) dipstick Code lab report: thyroid stim hormone (tsh) on 2017-04-15 Thyroid 1.36 0.358-3.74 u[iU]/mL Invalid [facility]-15-[facility] stimulating Interpretation 04-15-2017 In ternal hormone (TSH) [place] Medici ne (40655) lab report: t4 free direct on 2017-04-15 Thyroxine (T4) 0.91 0.76-1.46 ng/dL Invalid 04-15-2017 - [place] free Interpretation Code 04-15-2017 Internal Medicine ( 89502) lab report: lipid profile on 2017-04-15 Cholesterol 201 200 mg/dL High 04-15-2017 - [place] 04-15-2017 Internal Medicine ( 12865) HDL Cholesterol 42 mg/dL Invalid 04-15-2017 - [place] Interpretation Code 04-15-2017 Internal Medicine ( 39785) LDL Cholesterol 135 0-130 mg/dL High [facility] ( 46325) Lipoprotein.pre-be 24 5-40 mg/dL Invalid 04-15-2017 - [place] ta mass conc Interpretation Code 017 Women[facility] Care (05575) Triglyceride 120 mg/dL Invalid 04-15-2017 - [place] Interpretation Code 04-15-2017 Internal Medicine ( 88706) very low density 24 5-40 mg/dL Invalid 04-15-2017 - [place] lipoproteins Interpretation Code 017 Internal Medicine ( 11712) lab report: hemoglobin a1c on 2017-04-15 HbA1c 5.1 4.2-6.3 % Invalid Interpretation 017 - [place] Internal Code 04-15-2017 Medicine (52581) lab report: comprehensive metabolic prof il on 2017-04-15 Alanine 21 12-78 U/L Invalid [facility] aminotransferase Interpretation 04-15-20 17 Internal (ALT) Code Medicine (07820) Albumin 3.9 3.4-5.0 g/dL Invalid 04-15-2017 - [place] Interpretation 04-15-2017 Inte rnal Code Medicine (59160) Albumin/Globulin 1.0 0.9-2.4 {ratio Invalid 04-15-2017 - [place] Ratio RATIO } Interpretation 04-15-2017 Inte rnal Code Medicine (79188) Alkaline 118 45-117 U/L High 04-15-2017 - [place] phosphatase (ALP) 04-15-2017 I nternal Medicine (27474) ALP enzyme act/vol 118 45-117 U/L High 04-15-2017 - [place] (Bld) 04-15-2017 Women's C are (24823) Anion gap 5 5-15 mmol/L Invalid 04-15-2017 - [place] Interpretation 04-15-2017 Inte rnal Code Medicine (85321) Anion gap 4 molar 5 5-15 Invalid 04-15-2017 - [place] conc Interpretation 04-15-2017 [facility]'s Care Code (97129) Anion gap molar 5 5-15 mmol/L 04-15-2017 - [place] conc 04-15-2017 Women's C are (48506) Aspartate 9 15-37 U/L Low 04-15-2017 - [place] aminotransferase 04-15-2017 In ternal (AST) Medicine (64372) Bilirubin (total) 0.60 0.20-1.0 mg/dL Invalid 04-15-2017 - [place] 0 Interpretation 04-15-2017 Inte rnal Code Medicine (31385) BUN/Creatinine 14.6 10-20 Invalid 04-15-2017 - [place] Ratio RATIO Interpretation 04-15-2017 Inte rnal Code Medicine (67170) Calcium 8.6 8.5-10.1 mg/dL Invalid 04-15-2017 - [place] Interpretation 04-15-2017 Inte rnal Code Medicine (30826) Chloride 104 98-107 mmol/L Invalid 04-15-2017 - [place] Interpretation 04-15-2017 Inte rnal Code Medicine (86243) CO2 26.0 21.0-32. mmol/L Invalid 04-15-2017 - [place] 0 Interpretation 04-15-2017 Inte rnal Code Medicine (80256) CO2 ppres (BldV) 26.0 21.0-32. mmol/L Invalid 04-15-2017 - [place] 0 Interpretation 04-15-2017 [facility] Care Code (48357) Creatinine 0.82 0.55-1.0 mg/dL Invalid 04-15-2017 - [place] 2 Interpretation 04-15-2017 Inte rnal Code Medicine (96592) eGFR (non-black) 112 >60 mL/min Invalid 04-15-2017 - [place] Interpretation 04-15-2017 Inte rnal Code Medicine (65971) eGFR (non-black) 92 >60 mL/min Invalid 04-15-2017 - [place] Interpretation 04-15-2017 Inte rnal Code Medicine (08619) EST GFR - AA 112 >60 mL/min Invalid 04-15-2017 - [place] Interpretation 04-15-2017 [facility] Code (36161) Globulin 4.1 2.3-3.5 g/dL High 04-15-2017 - [place] 04-15-2017 Internal Medicine (05588) Globulin mass conc 4.1 2.3-3.5 g/dL High 04-15-2017 - [place] (S) 04-15-2017 Women's C are (46929) Glucose 77 70-110 mg/dL Invalid 04-15-2017 - [place] Interpretation 04-15-2017 Inte rnal Code Medicine (58607) Glucose mass conc 77 70-110 mg/dL Invalid 04-15-2017 - [place] Interpretation 04-15-2017 [facility] Care Code (60615) Potassium 3.9 3.5-5.1 mmol/L Invalid 04-15-2017 - [place] Interpretation 04-15-2017 Inte rnal Code Medicine (15340) Protein 8.0 6.4-8.2 g/dL Invalid 04-15-2017 - [place] Interpretation 04-15-2017 Inte rnal Code Medicine (08863) Sodium 135 136-145 mmol/L Low 04-15-2017 - [place] 04-15-2017 Internal Medicine (95196) Urea nitrogen 12 7-18 mg/dL Invalid 04-15-2017 - [place] Interpretation 04-15-2017 Inte rnal Code Medicine (57781) office visit: new pt. visit on 2017-03-18 Documentation of Done Invalid 03-18-2017 - [place] current medications Interpretation Code 03-18-2017 Internal (procedure) Medicine (19177) Fall risk No Invalid [facility]-18-[facility] Interpretation Code 7 Internal Medicine ( 57403) Protein mass conc Done 03-18-2017 - [place] 03-18-2017 Internal Medicine ( 88087) Protein mass conc yes 03-18-2017 - [place] 03-18-2017 Internal Medicine ( 53629) Smoking cessation yes Invalid 03-18-2017 [facility] education Interpretation Code 03-18-2017 Internal (procedure) Medicine (67581) Tobacco smoking Current 03-18-2017 - [facility] status NHIS every day 03-18-2017 Interna l smoker Medicine ( 93986) Tobacco use CPHS Current Invalid 03-18-2017 - [place] every day Interpretation Code 03-18-2017 Internal smoker Medicine ( 45192) Vital Signs Vital Sign Description Value / Unit Date Location The following section is limited to 5 en tries per type and includes entries from the following time range: [id number] - [id number] 6. BMI (Body Mass Index) 42.9 kg/m2 05-27-2017 - 05-27-2017 [facility]'s Care (24921) BMI (Body Mass Index) 48.44 kg/m2 05-12-2017 - 05-12-2017 [facility] Internal Medicine (10889) BMI (Body Mass Index) 46.48 kg/m2 03-18-2017 - 03-18-2017 [facility] Internal Medicine ([id number]) Body Temperature 96 [degF] 05-27-2017 - 05-27-2017 [facility] ([id number]) Body Temperature 97.5 [degF] 05-12-2017 - 05-12-2017 [facility] ([id number]) BP Diastolic 81 mm[Hg] 05-27-2017 - 05-27-2017 [facility] ([id number]) BP Diastolic 81 mm[Hg] 05-12-2017 - 05-12-2017 [facility] Internal Medicine ([id number]) BP Diastolic 72 mm[Hg] 03-18-2017 - 03-18-2017 [facility] Internal Medicine ([id number]) BP Systolic 123 mm[Hg] 05-27-2017 - 05-27-2017 [facility] ([id number]) BP Systolic 124 mm[Hg] 05-12-2017 - 05-12-2017 [facility] Internal Medicine ([id number]) BP Systolic 122 mm[Hg] 03-18-2017 - 03-18-2017 [facility] Internal Medicine ([id number]) Height 165.1 cm 05-27-2017 - 05-27-2017 [facility] ([id number]) Height 154.94 cm 05-12-2017 - 05-12-2017 [facility] Internal Medicine ([id number]) Height 154.94 cm 03-18-2017 - 03-18-2017 [facility] Internal Medicine ([id number]) Pulse (Heart Rate) 106 /min 05-27-2017 - 05-27-2017 [facility] ([id number]) Pulse (Heart Rate) 102 /min 05-12-2017 - 05-12-2017 [facility] ([id number]) Pulse (Heart Rate) 70 /min 03-18-2017 - 03-18-2017 [facility] ([id number]) Respiratory Rate 20 /min 05-12-2017 - 05-12-2017 [facility] ([id number]) Weight 116.94 kg 05-27-2017 - 05-27-2017 [facility] ([id number]) Weight 116.3 kg 05-12-2017 - 05-12-2017 [facility] Internal Medicine ([id number]) Weight 111.59 kg 03-18-2017 - 03-18-2017 [facility] Internal [facility] ([id number]) Procedures Procedure Name Date Provider Location Dietary management 05-27-2017 - [place] [facility] education, guidance, and 05-27-2017 Care ([id number]) counseling *HECAB Hepatitis C Antibody 05-27-2017 - Argenis Plummer NP [facility] 06-05-2017 Care ([id number]) *HIV antibody 05-27-2017 - Argenis Plummer NP [facility] 06-05-2017 Care ([id number]) Herpes simplex virus 1+2 IgG 05-27-2017 - Argenis S [place] AREA SECRETARY [place] [facility] [Units/volume] in Serum 06-05-2017 Care ([id number]) Reagin Ab [Presence] in 05-27-2017 - Argenis S [place] AREA SECRETARY [facility] Serum by RPR 06-10-2017 Care ([id number]) Us pelvic nonobstetric 05-27-2017 - Argenis S [place] AREA SECRETARY [facility] Women's real-time image complete 05-28-2017 Care ([id number]) Us transvaginal 05-27-2017 - Argenis S [place] AREA SECRETARY [facility]'s 05-28-2017 Care ([id number]) Venereal disease screening 05-27-2017 [facility] Care ([id number]) *HECAB Hepatitis C Antibody 05-27-2017 - Argenis S [place] AREA SECRETARY [place] [facility] 05-28-2017 Care ([id number]) *HIV antibody 05-27-2017 - Argenis S [place] AREA SECRETARY [place] [facility] 05-28-2017 Care ([id number]) Herpes simplex virus 1+2 IgG 05-27-2017 - Argenis S [place] AREA SECRETARY [place] [facility] [Units/volume] in Serum 05-28-2017 Care ([id number]) Reagin antibody presence 05-27-2017 - Argenis S [place] AREA SECRETARY [facility] 05-28-2017 Care ([id number]) Transvaginal us, non-ob 05-27-2017 - Argenis S [place] AREA SECRETARY [facility] 05-28-2017 Care ([id number]) Us exam, pelvic, complete 05-27-2017 - Argenis S [place] AREA SECRETARY [facility] 05-28-2017 Care ([id number]) Venereal disease screening 05-27-2017 [facility] Care ([id number]) Urinalysis 05-12-2017 - [place] [facility] 05-12-2017 Care ([id number]) Follow Up Appt 6 weeks 05-12-2017 - Annamarie Denney [facility] Women's 05-14-2017 Care ([id number]) Gonadotropin chorionic 05-12-2017 - Annamarie Ivymj [place] Women[facility] quantitative 05-14-2017 Care ([id number]) Hemoglobin.gastrointestinal 05-12-2017 - Chayjoann Trivedi [facility] [Presence] in Stool by 05-14-2017 Care ([id number]) Immunologic method Urinalysis complete panel - 05-12-2017 - Annamarie Ivymj [facility] Urine 05-13-2017 Care ([id number]) Chorionic gonadotropin test 05-12-2017 - Annamarie Ivyyulychase [facility] Internal 05-14-2017 Medicine ([id number]) Follow Up Appt 6 weeks 05-12-2017 - Annamarie Baireschase [place] Internal 05-14-2017 Medicine ([id number]) Hemoglobin by Imm presence 05-12-2017 - Annamarie Tovar [facility] in stool 05-14-2017 Medicine ([id number]) Urinalysis complete panel - 05-12-2017 - Annamarie [facility] Urine 05-13-2017 ([id number]) *CMP Complete Metabolic 03-18-2017 - Annamarie Ivymj [place] [facility] Panel 04-15-2017 MD Castillo ([id number]) Electrocardiogram 03-18-2017 - Annamarie Tovar [place] [facility] 05-14-2017 MD Castillo ([id number]) Follow Up Appt 3 months 03-18-2017 - Annamarie Tovar [place] [facility] 03-18-2017 Care ([id number]) Hemoglobin 03-18-2017 - Annamarie Tovar [place] [facility] A1c/Hemoglobin.total in 04-15-2017 Care ([id number]) Blood Lipid 1996 panel - Serum or 03-18-2017 - Annamarie Tovar [facility] Plasma 04-15-2017 Care ([id number]) Thyrotropin [Units/volume] 03-18-2017 - Annamarie Marcelino [facility] Women[facility] in Serum or Plasma 04-15-2017 Care ([id number]) Thyroxine (T4) free 03-18-2017 - Annamarie Nevarez on Women's [Mass/volume] in Serum or 04-15-2017 MD Care ( [id number]) Plasma *CMP Complete Metabolic 03-18-2017 - Annamarie Segal [facility] Internal Panel 04-15-2017 MD Medicine ([id number]) Electrocardiogram 03-18-2017 - Annamarie Trivedi Bijumj [place] [facility] 05-14-2017 MD Medicine ([id number]) Follow Up Appt 3 months 03-18-2017 - Annamarie Segal [facility] Internal 03-18-2017 MD Medicine ([id number]) HbA1c 03-18-2017 - Chayzainabbashirhal Trivedi Bijumj [place] I nternal 04-15-2017 MD Medicine ([id number]) Lipid panel [AGGREGATE] 03-18-2017 - Chayjoann Trivedi Bijumj Segal [facility] Internal 04-15-2017 MD Medicine ([id number]) Thyroid stimulating hormone 03-18-2017 - Khoahal Trivedi Bijumj Trivedi [facility] Internal (TSH) 04-15-2017 MD Medicine ([id number]) Thyroxine (T4) free 03-18-2017 - Annamarie Nevarez on Internal 04-15-2017 MD Medicine ([id number]) Plan of Treatment Plan Description Date Location Appointment Appointment 06-23-2017 - [facility] 06-23-2017 ([id number]) Appointment Appointment 06-17-2017 - [place] [facility] 06-17-2017 Medicine ([id number]) Appointment Appointment 05-27-2017 - [facility] n's 05-27-2017 Care ([id number]) *GC/Chlamydia *GC/Chlamydia 05-27-2017 - [place] [facility] 05-28-2017 Care ([id number]) *HECAB Hepatitis C *HECAB Hepatitis C 05-27-2017 - [facility] Women[facility] Antibody Antibody 05-28-2017 Care ([id number]) *HIV antibody *HIV antibody 05-27-2017 - [facility] n's 05-28-2017 Care ([id number]) *CUV - Culture, VAG/CX *CUV - Culture, VAG/CX 05-27-2017 - [facility] Comprehensive 05-28-2017 Care ([id number]) *HS12G Herpes Simplex *HS12G Herpes Simplex 05-27-2017 - [facility] Antibody Antibody 05-28-2017 Care ([id number]) *RPR *RPR 05-27-2017 - [place] [facility] 05-28-2017 Care ([id number]) US Pelvis US Pelvis 05-27-2017 - [place] [facility] 05-28-2017 Care ([id number]) US Transvaginal US Transvaginal 05-27-2017 - [place] [facility] 05-28-2017 Care ([id number]) *GC/Chlamydia *GC/Chlamydia 05-27-2017 - [place] [facility] 05-28-2017 Care ([id number]) *HECAB Hepatitis C *HECAB Hepatitis C 05-27-2017 - [facility] Women[facility] Antibody Antibody 05-28-2017 Care ([id number]) *HIV antibody *HIV antibody 05-27-2017 - [place] [facility] 05-28-2017 Care ([id number]) *CUV - Culture, VAG/CX *CUV - Culture, VAG/CX 05-27-2017 - [facility] Women's [facility] Comprehensive 05-28-2017 Care ([id number]) *HS12G Herpes Simplex *HS12G Herpes Simplex 05-27-2017 - [place] [facility] Antibody Antibody 05-28-2017 Care ([id number]) *RPR *RPR 05-27-2017 - [place] [facility] 05-28-2017 Care ([id number]) US Transvaginal US Transvaginal 05-27-2017 - [place] [facility] 05-28-2017 Care ([id number]) US Pelvis US Pelvis 05-27-2017 - [place] [facility] 05-28-2017 Care ([id number]) Appointment Appointment 05-23-2017 - [place] [facility] 05-23-2017 Medicine ([id number]) Gynecology & Obstetrics Gynecology & Obstetrics 05-13-2017 - [facility] Violet Gauthier, 05-14-2017 Care ([id number]) [facility], [address], Care, [address], [address], [place], [place], [address], [place], [id number] Gynecology & Obstetrics Gynecology & Obstetrics 05-13-2017 - [place] [facility] Violet Davison, Violet Davison, 05-14-2017 Medicine ([id number]) [facility], [address], Care, [address], [address], [place], [place], [address], [place], [address] Follow Up Appt 6 weeks Follow Up Appt 6 weeks 05-12-2017 - [facility] 05-14-[facility] Care ([id number]) BhCG; quantitative BhCG; quantitative 05-12-2017 - [place] [facility] 05-14-2017 Care ([id number]) *Occult Blood, Stool *Occult Blood, Stool 05-12-2017 - Jumana [facility] Womens 05-14-2017 Care ([id number]) *UAC- Urinalysis, *UAC- Urinalysis, 05-12-2017 - [facility] Complete w/ Micro Complete w/ Micro 05-13-2017 Care ([id number]) BhCG; quantitative BhCG; quantitative 05-12-2017 - [facility] 05-14-2017 ([id number]) Follow Up Appt 6 weeks Follow Up Appt 6 weeks 05-12-2017 - [facility] 05-14-2017 ([id number]) *Occult Blood, Stool *Occult Blood, Stool 05-12-2017 - [facility] 05-14-2017 ([id number]) *UAC- Urinalysis, *UAC- Urinalysis, 05-12-2017 - [place] [facility] Complete w/ Micro Complete w/ Micro 05-13-2017 ([id number]) *CMP Complete Metabolic *CMP Complete Metabolic 03-18-2017 - [place] [facility] Panel Panel 04-15-2017 Care ([id number]) *EKG (Done in Hospital) *EKG (Done in Hospital) 03-18-2017 - [facility] 05-14-2017 Care ([id number]) Appointment Appointment 03-18-2017 - [place] [facility] 03-18-2017 Medicine ([id number]) Follow Up Appt 3 months Follow Up Appt 3 months 03-18-2017 - [place] [facility] 03-18-2017 Care ([id number]) *HgA1C *HgA1C 03-18-2017 - [place] [facility] 04-15-2017 Care ([id number]) *Lipid Profile *Lipid Profile 03-18-2017 - [place] [facility] 04-15-2017 Care ([id number]) *TSH *TSH 03-18-2017 - [place] [facility] 04-15-2017 Care ([id number]) *T4 free *T4 free 03-18-2017 - [place] [facility] 04-15-2017 Care ([id number]) *CMP Complete Metabolic *CMP Complete Metabolic 03-18-2017 - [place] [facility] Panel Panel 04-15-2017 Medicine ([id number]) *EKG (Done in Hospital) *EKG (Done in Hospital) 03-18-2017 - [place] [facility] 05-14-2017 Medicine ([id number]) Follow Up Appt 3 months Follow Up Appt 3 months 03-18-2017 - [place] [facility] 03-18-2017 Medicine ([id number]) *HgA1C *HgA1C 03-18-2017 - [place] [facility] 04-15-2017 Medicine ([id number]) *Lipid Profile *Lipid Profile 03-18-2017 - [place] [facility] 04-15-2017 Medicine ([id number]) *TSH *TSH 03-18-2017 - [place] [facility] 04-15-2017 Medicine ([id number]) *T4 free *T4 free 03-18-2017 - [place] [facility] 04-15-2017 Medicine ([id number]) Additional Source Comments FOR RECORDS PERTAINING TO [...] BE BASED ON THE PRIMARY CLINICAL RECORDS. [facility] provides no warranty or guarantee of the accuracy or completeness of information in this document.
== END 2020-02-05 21:26 | disposition home or self-care (01) ==
LOC: ED 21:15
PROVIDERS: Emergency Provider Emergency Medicine; PCP Internal Medicine
DX: F20.9 Schizophrenia, unspecified (principal); R20.0 Anesthesia of skin; F17.200 Nicotine dependence, unspecified, uncomplicated; Z79.899 Other long term (current) drug therapy
CPT/HCPCS: 99281; 99282

== ENCOUNTER 2020-02-18 23:39 | Emergency (ER) | payer MEDICARE, MEDICAID, SELFPAY ==
[2020-02-18 15:04] VITALS: BMI 56.7
[2020-02-18 23:41] VITALS: BP 158/87; PULSE 150; RESP 16; TEMP 37.1; O2SAT 100; BMI 58.3
--- NOTE | 2020-02-19 00:19 | ED.VIS.GEN ---
History of Present Illness Chief Complaint: Abscess Informant: Patient Onset: Days Context: Gradual Onset Current Severity: Moderate Maximum Severity: Moderate Narrative: Patient presents with a painful swollen area to the right proximal thigh. She states is been growing in size for the last several days. She was seen by her PCP yesterday morning. There was concern for possible abscess so she was started on clindamycin. She was also ordered an outpatient ultrasound of her leg which has not yet been performed. Patient presents tonight stating that the area is getting larger and radiating down her leg. She has not had fever or chills. She does not otherwise feel ill. She denies any injury to the area. - Past Medical History (1) GERD (gastroesophageal reflux disease) Status: Chronic (2) Schizoaffective disorder Status: Chronic Past Medical History - Allergies and Home Meds Allergies/Adverse Reactions: Allergies amoxicillin trihydrate [From Augmentin] Allergy (Verified 02/18/20 23:41) Hives Penicillins Allergy (Verified 02/18/20 23:41) Hives potassium clavulanate [From Augmentin] Allergy (Verified 02/18/20 23:41) Hives Sulfa (Sulfonamide Antibiotics) Allergy (Verified 02/18/20 23:41) Hives Primary Care Physician: Annamarie Tovar MD [Primary Care Provider] - Prior records reviewed: Yes Smoking Status: Current every day smoker Review of Systems General: Denies: Chills, Fever Eyes: Denies: Visual changes - bilaterally ENT: Denies: Bilateral ear pain Cardiovascular: Denies: Chest pain Respiratory: Denies: Dyspnea, Cough Gastrointestinal: Denies: Abdominal pain, Nausea, Vomiting, Diarrhea Genitourinary: Denies: Dysuria Musculoskeletal: Reports: Swelling, Extremity Pain Skin: Denies: Rash Neurological: Denies: Headache Hematologic: Denies: Easy bruising, Easy bleeding Allergy: Denies: Uticaria Physical Exam Vital Signs/Narrative: Vital Signs Temp Pulse Resp BP Pulse Ox 02/18/20 23:41 98.7 F 150 H 16 158/87 H 100 Inital Vital Signs reviewed: Yes General: Well nourished, Well developed Head: Normocephalic ENT: Moist mucous membranes Neck: Supple Cardiovascular: Regular rate, Tachycardia - Heart rate equals 113 in the time of my exam. Respiratory: No distress, CTA bilaterally Abdomen: Soft, Nontender Extremities: - - Proximally 6 x 8 cm area of mild edema to the right proximal anterolateral thigh. No overlying skin changes. Skin: Normal color Neurological: Alert, Oriented x3, Normal Strength, Normal Sensation Psychological: Normal affect Diagnostic/Tx/Re-eval Impressions Lower Extremity CT 02/19/20 23:56 IMPRESSION: No acute findings. Individualized dose optimization techniques were used for this CT. at 0129 Reported and signed by: Perri Hernández MD Electronically Signed: Perri Hernández MD at 1:29 EDT Tel , Service support , 02/19/20 23:56 Extremity Lower WITH Contrast [CT] Stat Laboratory Results 02/19/20 02/19/20 02/19/20 00:10 00:10 00:10 WBC 10.9 RBC 4.51 Hgb 13.6 Hct 41.9 MCV 92.9 MCH 30.2 MCHC 32.5 RDW Std Deviation 47.9 H RDW Coeff of Gonzalo 14.1 Plt Count 347 MPV 9.4 Immature Gran % (Auto) 0.300 Neut % (Auto) 64.1 Lymph % (Auto) 25.2 [place] % (Auto) 5.9 Eos % (Auto) 4.1 Baso % (Auto) 0.4 Absolute Neuts (auto) 7.0 Absolute Lymphs (auto) 2.74 Nucleated RBC % 0 Sodium 139 Potassium 3.6 Chloride 111 H Carbon Dioxide 24.0 Anion Gap 4 L BUN 11 Creatinine 0.92 Estim Creat Clear Calc 71.15 Est GFR (MDRD) Af Amer 96 Est GFR (MDRD) Non-Af 79 BUN/Creatinine Ratio 12.0 Glucose 143 H Calcium 8.6 Serum , Qual NEGATIVE - Medical Decision Making Test results are discussed with patient and family at bedside. At this time there is no evidence of a mass or abscess. I advised her she did not need to take the clindamycin. [place] wrap is applied to the area. I educated her on feet elevation tonight to help with any swelling. ED Disposition - Plan for ED Patient: Disposition: Home or Assisted Living Diagnosis: Edema Instructions: ED Peripheral Edema, Unilateral Referrals: Annamarie Tovar MD [Primary Care Provider] - 1 Week if not improving
[2020-02-19 00:30] LABS: Absolute Lymphocyte Count 2.74 X10^3/uL (0.83-4.51); Basophil# 0.04 X10^3/uL; Basophil% 0.4 % (0-1); Eosinophil# 0.44 X10^3/uL; Eosinophils% 4.1 % (0-5); Hematocrit 41.9 % (37-47); Hemoglobin 13.6 g/dL (12.0-15.0); Lymphocyte # 2.74 X10^3/ul (4.0); Lymphocyte % 25.2 % (19-41); Mean Corp Hgb Conc 32.5 g/dL (32-36); Mean Corpuscular Hgb 30.2 pg (27.0-32.0); Mean Corpuscular Volume 92.9 fL (81-99); Mean Platelet Vol. 9.4 fl (6.2-12.0); Monocyte# 0.64 X10^3/uL; Monocyte% 5.9 % (0-10); NRBC Flagged by Analyzer 0 % (0-5); Neutrophil # 6.97 X10^3/uL (2.7-7.7); Neutrophil % 64.1 % (47-70); Platelet Count 347 K/mm3 (150-450); RBC Distribution Width CV 14.1 % (11.6-14.6); RBC Distribution Width SD 47.9 fl (35.1-43.9); Red Blood Count 4.51 M/mm3 (4.2-5.4); White Blood Count 10.9 K/mm3 (4.4-11.0)
[2020-02-19 00:31] LABS: Internal QC Validated? YES +Cl - CLEAR BKGD; Pregnancy, Serum, hCG Quali. NEGATIVE Negative
[2020-02-19 00:36] LABS: Anion Gap 4 (5-15); BUN 11 mg/dL (7-18); Calcium,Total 8.6 mg/dL (8.5-10.1); Chloride 111 mmol/L (98-107); Creatinine, Serum 0.92 mg/dL (0.55-1.02); EST Glomerular Filtration Rate 79 mL/min (>60); Est Glom Filt Rate - Afr Amer 96 mL/min (>60); Estimated Creatinine Clearance 71.15 ml/min; Glucose 143 mg/dL (74-106); Potassium 3.6 mmol/L (3.5-5.1); Sodium Level 139 mmol/L (136-145)
[2020-02-19 01:48] VITALS: RESP 14
--- NOTE | 2020-02-19 23:56 | CT_ITS ---
HISTORY: MASS RIGHT THIGH THAT IS PAINFUL, STARTED ATB TODAY FROM PCP, AREA OF CONCERN PER PATIENT IS PROXIMAL LATERAL THIGH RIGHT SIDE, I DO NOT VISUALIZE ANYTHING TECHNIQUE: CT of the right lower extremity was performed with 100 mL Isovue-370 contrast, imaging from above the crest through the distal femoral diaphysis. 2D reformats were performed by the technologist. Number of images including paperwork: [id number]. A radiation dose optimization technique was used for this scan. COMPARISON: None FINDINGS: BONES: No acute fracture. JOINTS: No subluxation. SOFT TISSUES: Unremarkable. No distinct mass detected. FOREIGN BODY: No radiopaque foreign body. CT/Extremity Lower WITH Contrast IMPRESSION: No acute findings. Individualized dose optimization techniques were used for this CT. at 0129 Reported and signed by: Perri Hernández MD Electronically Signed: Perri Hernández MD at 1:29 EDT Tel , Service support ,
== END 2020-02-19 01:49 | disposition home or self-care (01) ==
PROVIDERS: Emergency Provider Emergency Medicine; PCP Internal Medicine
DX: R60.0 Localized edema (principal); K21.9 Gastro-esophageal reflux disease without esophagitis; F25.9 Schizoaffective disorder, unspecified; F17.200 Nicotine dependence, unspecified, uncomplicated; Z79.2 Long term (current) use of antibiotics; Z79.899 Other long term (current) drug therapy; R94.31 Abnormal electrocardiogram [ECG] [EKG]
CPT/HCPCS: 73701; 80048; 84703; 85025; 93005; 99283; Q9967; A4216

== ENCOUNTER → 2020-02-18 | Outpatient (CLI) | payer MEDICARE, MEDICAID, SELFPAY ==
[2020-02-05 20:25] VITALS: BMI 56.7
--- NOTE | 2020-02-18 14:21 | EKG12_ITS ---
Test Reason : MED EVALUATION Blood Pressure : / mmHG Vent. Rate : 088 BPM Atrial Rate : 088 BPM P-R Int : 164 ms QRS Dur : 082 ms QT Int : 368 ms P-R-T Axes : 043 065 042 degrees QTc Int : 445 ms Normal sinus rhythm Normal ECG Confirmed by PATRICIA SURESH, LUANA ([id number]), supervising editor trailer TORIE HARTLEY ([id number]) on 02/21/2020 9:50:55 AM Referred By: Annamarie Tovar Confirmed By:KATHI GOMEZ MD
== END | disposition home or self-care (01) ==
LOC: CVS 14:21
PROVIDERS: PCP Internal Medicine; Referring Provider Internal Medicine; Visit Provider Internal Medicine
DX: R94.31 Abnormal electrocardiogram [ECG] [EKG] (principal)
CPT/HCPCS: 93005

== ENCOUNTER → 2020-03-06 | Outpatient (CLI) | payer MEDICARE, MEDICAID, SELFPAY ==
[2020-02-18 23:41] VITALS: BMI 58.3
[2020-03-06 16:06] LABS: Hemoglobin 13.8 g/dL (12.0-15.0); Mean Corp Hgb Conc 31.4 g/dL (32-36); Mean Corpuscular Hgb 29.9 pg (27.0-32.0); Mean Corpuscular Volume 95.2 fL (81-99); Mean Platelet Vol. 9.5 fl (6.2-12.0); Platelet Count 352 K/mm3 (150-450); RBC Distribution Width CV 14.6 % (11.6-14.6); RBC Distribution Width SD 50.5 fl (35.1-43.9); Red Blood Count 4.62 M/mm3 (4.2-5.4); White Blood Count 9.2 K/mm3 (4.4-11.0)
[2020-03-06 16:19] LABS: Vitamin B12 430 pg/mL (211-911)
[2020-03-06 16:22] LABS: Hemoglobin A1c 5.6 % (3.8-5.6)
[2020-03-06 16:27] LABS: ALB/GLOB Ratio 0.8 RATIO (0.9-2.4); AST(SGOT) 13 U/L (15-37); Alanine Aminotransfer ALT/SGPT 26 U/L (13-56); Albumin, Serum 3.4 g/dL (3.2-5.0); Alkaline Phosphatase 119 U/L (45-117); Anion Gap 5 (5-15); BUN 15 mg/dL (7-18); BUN/Creat Ratio 17.9 RATIO (10-20); Calcium,Total 8.3 mg/dL (8.5-10.1); Chloride 109 mmol/L (98-107); Cholesterol 196 mg/dL (200); Creatinine, Serum 0.84 mg/dL (0.55-1.02); EST Glomerular Filtration Rate 88 mL/min (>60); Est Glom Filt Rate - Afr Amer 107 mL/min (>60); Glucose 93 mg/dL (74-106); High Density Lipoprotein 30 mg/dL; Potassium 4.3 mmol/L (3.5-5.1); Prolactin 21.2 ng/mL; Protein, Total 7.4 g/dL (6.4-8.2); Sodium Level 139 mmol/L (136-145); Thyroid Stim Hormone (TSH) 4.87 uIU/mL (0.358-3.74); Triglycerides 152 mg/dL; Very Low Density Lipoprotein 30 mg/dL (5-40)
== END | disposition home or self-care (01) ==
PROVIDERS: PCP Internal Medicine; Referring Provider Psychiatry & Neurology Psychiatry; Visit Provider Psychiatry & Neurology Psychiatry
DX: F19.10 Other psychoactive substance abuse, uncomplicated (principal); R53.83 Other fatigue; Z79.899 Other long term (current) drug therapy; Z87.898 Personal history of other specified conditions
CPT/HCPCS: 36415; 80053; 80061; 82140; 82306; 82607; 83036; 84146; 84443; 85027

== ENCOUNTER → 2020-08-07 14:35 | Outpatient (CLI) | payer MEDICARE, MEDICAID, SELFPAY ==
[2020-07-31 10:32] VITALS: BMI 58.3
[2020-08-07 15:06] LABS: Absolute Lymphocyte Count 1.87 X10^3/uL (0.83-4.51); Absolute Neutrophil Count 5.6 X10^3/uL (2.0-7.7); Basophil# 0.04 X10^3/uL; Basophil% 0.5 % (0-1); Eosinophil# 0.27 X10^3/uL; Eosinophils% 3.3 % (0-5); Hematocrit 35.9 % (37-47); Hemoglobin 11.4 g/dL (12.0-15.0); Lymphocyte # 1.87 X10^3/ul (4.0); Lymphocyte % 22.7 % (19-41); Mean Corp Hgb Conc 31.8 g/dL (32-36); Mean Corpuscular Hgb 30.7 pg (27.0-32.0); Mean Corpuscular Volume 96.8 fL (81-99); Mean Platelet Vol. 9.8 fl (6.2-12.0); Monocyte# 0.47 X10^3/uL; Monocyte% 5.7 % (0-10); NRBC Flagged by Analyzer 0 % (0-5); Neutrophil # 5.55 X10^3/uL (2.7-7.7); Neutrophil % 67.3 % (47-70); Platelet Count 304 K/mm3 (150-450); RBC Distribution Width CV 14.1 % (11.6-14.6); RBC Distribution Width SD 49.8 fl (35.1-43.9); Red Blood Count 3.71 M/mm3 (4.2-5.4); White Blood Count 8.2 K/mm3 (4.4-11.0)
[2020-08-07 15:33] LABS: T4 Free Direct 0.83 ng/dL (0.76-1.46); Thyroid Stim Hormone (TSH) 2.33 uIU/mL (0.358-3.74)
[2020-08-09 11:50] LABS: Ferritin 20 ng/mL (8-252); Iron 34 ug/dL (50-170); Iron Binding Capacity,Total 344 ug/dL (250-450)
== END ==
PROVIDERS: PCP Internal Medicine; Visit Provider Internal Medicine
DX: N93.8 Other specified abnormal uterine and vaginal bleeding (principal); D50.9 Iron deficiency anemia, unspecified; R00.0 Tachycardia, unspecified; R79.89 Other specified abnormal findings of blood chemistry
CPT/HCPCS: 36415; 82728; 83540; 83550; 84439; 84443; 85025

== ENCOUNTER → 2021-02-20 16:03 | Outpatient (CLI) | payer MEDICARE, MEDICAID, SELFPAY ==
[2021-02-20 15:40] VITALS: BMI 58.3
[2021-02-20 16:46] LABS: Absolute Neutrophil Count 6.4 X10^3/uL (2.0-7.7); Basophil# 0.04 X10^3/uL; Basophil% 0.4 % (0-1); Eosinophil# 0.26 X10^3/uL; Eosinophils% 2.9 % (0-5); Hematocrit 40.5 % (37-47); Lymphocyte % 18.8 % (19-41); Mean Corp Hgb Conc 32.1 g/dL (32-36); Mean Corpuscular Hgb 30.8 pg (27.0-32.0); Mean Platelet Vol. 9.5 fl (6.2-12.0); Monocyte# 0.59 X10^3/uL; Monocyte% 6.5 % (0-10); NRBC Flagged by Analyzer 0 % (0-5); Neutrophil # 6.43 X10^3/uL (2.7-7.7); Neutrophil % 71.1 % (47-70); Platelet Count 370 K/mm3 (150-450); RBC Distribution Width CV 14.4 % (11.6-14.6); RBC Distribution Width SD 50.1 fl (35.1-43.9); Red Blood Count 4.22 M/mm3 (4.2-5.4); White Blood Count 9.1 K/mm3 (4.4-11.0)
[2021-02-20 17:47] LABS: ALB/GLOB Ratio 0.9 RATIO (0.9-2.4); AST(SGOT) 14 U/L (15-37); Alanine Aminotransfer ALT/SGPT 30 U/L (13-56); Albumin, Serum 3.5 g/dL (3.2-5.0); Alkaline Phosphatase 101 U/L (45-117); Anion Gap 6 (5-15); BUN 12 mg/dL (7-18); BUN/Creat Ratio 13.7 RATIO (10-20); Calcium,Total 8.7 mg/dL (8.5-10.1); Chloride 107 mmol/L (98-107); Cholesterol 187 mg/dL (200); Creatinine, Serum 0.87 mg/dL (0.55-1.02); EST Glomerular Filtration Rate 83 mL/min (>60); Est Glom Filt Rate - Afr Amer 101 mL/min (>60); Glucose 98 mg/dL (74-106); High Density Lipoprotein 28 mg/dL; Potassium 3.9 mmol/L (3.5-5.1); Protein, Total 7.5 g/dL (6.4-8.2); Sodium Level 139 mmol/L (136-145); Thyroid Stim Hormone (TSH) 1.98 uIU/mL (0.358-3.74); Triglycerides 179 mg/dL; Very Low Density Lipoprotein 36 mg/dL (5-40)
== END ==
PROVIDERS: PCP Internal Medicine; Referring Provider Nurse Practitioner Family; Visit Provider Nurse Practitioner Family
DX: E78.5 Hyperlipidemia, unspecified (principal); R00.0 Tachycardia, unspecified; R21 Rash and other nonspecific skin eruption; N91.2 Amenorrhea, unspecified; E66.01 Morbid (severe) obesity due to excess calories; Z68.43 Body mass index [BMI] 50.0-59.9, adult; F25.9 Schizoaffective disorder, unspecified; K21.9 Gastro-esophageal reflux disease without esophagitis
CPT/HCPCS: 36415; 80053; 80061; 84443; 85025

== ENCOUNTER → 2021-04-10 16:53 | Outpatient (CLI) | payer MEDICARE, MEDICAID, SELFPAY ==
[2021-03-19 13:37] VITALS: BMI 60.7
--- NOTE | 2021-04-10 16:54 | MRI_ITS ---
STUDY: MRI RIGHT HIP REASON FOR EXAM: Female, 26 years old. injury, pain right hip TECHNIQUE: Standardized fat and water weighted pulse sequences were obtained in all 3 orthogonal planes. Images of the entire bony pelvis and left hip are included on several sequences. COMPARISON: Right hip/pelvic x-ray dated March 19, 2021 FINDINGS: Small bilateral hip joint effusions are present, slightly more prominent on the right compared to the left. The hip joint spaces are also mildly narrowed bilaterally. No visualized marrow edema or fracture. No demonstrated avascular necrosis. Normal hip joint without articular joint space narrowing. Normal acetabulum. Normal labrum. Normal femoral head. Normal femoral neck and intratrochanteric region. Normal gluteus minimus, medius and iliopsoas tendons and distal insertions. There is no trochanteric, iliopsoas or iliopectineal bursitis. Normal superior and inferior pubic rami. Normal pubic symphysis. Normal ischial tuberosity. Normal origin of the hamstring tendons. Normal visualized iliac wing, sacroiliac joint, and sacral ala. Normal visualized soft tissue structures of the pelvis. MRI/Lower Ext Joint Only (Routine) IMPRESSION: 1. Small bilateral hip joint effusions are present, slightly more prominent on the right compared to the left. The hip joint spaces are also mildly narrowed bilaterally. 2. No visualized marrow edema or fracture. No demonstrated avascular necrosis Electronically Signed: Zuhair Vasquez MD at 23:40 EDT , Service support ,
== END ==
PROVIDERS: PCP Internal Medicine; Referring Provider Orthopaedic Surgery; Visit Provider Orthopaedic Surgery
DX: M25.551 Pain in right hip (principal)
CPT/HCPCS: 73721

== ENCOUNTER 2021-04-23 14:52 | Outpatient (RCR) | payer MEDICARE, MEDICAID, SELFPAY ==
[2021-04-16 13:51] VITALS: BMI 60.7
--- NOTE | 2021-04-23 15:39 | HP.PTEVAL ---
Patient's Visit Information EDGARDO HENRY is a 26 year old F referred to Physical Therapy by THERESA Smith with a diagnosis of R anterior thigh pain.. Date of Evaluation: 04/23/21 Physical Therapist: Koby Wayne DPT, OCS, CSCS - Visit Plan Frequency: 2-3x /Week Duration: 2-4 Weeks Plan: 2-3x/week for 2-4 weeks for. 1. rollout and STM to R lateral proximal quad. 2. strengthenin R quad, hip flexion and hip stabs. 3. MH if needed and progress to HEP. - Subjective I did something to my hip a couple months ago R hip. Fell and it was down hill from there. Landed on knees. Tripped on dog bone at the time. Pain is anteriorly laterally and is worse walking to kitchen or bathroom. Getting up from sitting long time is usually more painful. Sleep is OK but hard to rol maryann bed. Not employed. 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 Hobbies are reading adn writing whcih she can still do. Basic ADLs are getting done at home but they can hurt. Hot water may help. - Pain R hip Pain Intensity (Out of 10): 0 Pain Intensity Range: 0, 7 Comment: usually when on it. - Objective Walks slowly with wide DERREK but good balancs I back to therapy has some antalgia in R in her gait. Trasnfers I with UE. Steps are reciprocally up without railing but antalgic on R. Descending tends to use only L due to pain. Tender to palpation in lateral upper quad R moderately. AROM B hips WFL, ext end range painful R. SLR flexion painful R. Knees and ankle aROM B WFL. stretching R quad gives pain near end range adn limits active knee flexion in prone. Hip AROM WFL except ext to 5 degrees against gravity. Rotations do not cause pain at the hips today passively or actively. - R hip scour. reflexes 0/3 patella and achilles. Sensation LE WNL to gross light touch. Strength hip flexion R 3 L 4, abd 4- B, ext 3+ B only pain with flexion. knee flex 4 B and painfree. knee ext pain R 4- and L no pain and 4+. No pain at ankles and 4/5 - Goals Goal 1:: Walk without antalgia R leg Goal Time Frame: 2-4 Weeks Goal 2:: Patient to resume walking at stores without increased pain. Goal Time Frame: 2-4 Weeks Goal 3:: I managemnt of condition Goal Time Frame: 2-4 Weeks Goal 4:: Score 55/80 on LEFS. Goal Time Frame: 2-4 Weeks Goal 5:: Steps reciprocally without rail up and down without antalgia. - Rehabilitation Potential Physical Therapy Diagnosis: R anterior thigh pain, likely quad limiting walking. Rehabilitation Potential: Fair - Anticipated Interventions Patient/Client Instruction: Educate patient on: Condition, Plan of Care For the Purpose of:: To decrease pain, To improve muscle performance and motor function, To increase tolerance to activity/condition/position, To improve gait and locomotor functions, To improve health of tissue Therapeutic Exercise to Include: Strength training, Flexibilty training, Gait and locomotor training, Passive ROM, Active ROM For the Purpose of:: To decrease pain, To increase ROM, To improve muscle performance and motor function, To increase tolerance to activity/condition/position, To improve ability of physical actions for home/community/work/leisure, To improve gait and locomotor functions Manual Therapy Techniques to Include: Passive ROM, Soft tissue mobilization For the Purpose of:: To decrease pain, To increase ROM Thank you for the opportunity to evaluate your patient. For Medicare and Medicare HMO plans, please review the plan of care and approve it. It will need to be FAXED BACK to us at [phone] for Medicare purposes. For Medicare only, by signing this I certify the plan of care. Please let me know if there are questions or concerns regarding this plan of care. Physician Signature: Date:
--- NOTE | 2021-05-30 06:52 | HP.PT.NRP ---
EDGARDO HENRY was seen in my office for initial evaluation on 04/23/21. The following Plan of Care was established for this patient: Initial Frequency: 2-3x /Week Initial Duration: 2-4 Weeks Patient/Client Instruction: Educate patient on: Condition, Plan of Care For the Purpose of:: To decrease pain, To improve muscle performance and motor function, To increase tolerance to activity/condition/position, To improve gait and locomotor functions, To improve health of tissue Therapeutic Exercise to Include: Strength training, Flexibilty training, Gait and locomotor training, Passive ROM, Active ROM For the Purpose of:: To decrease pain, To increase ROM, To improve muscle performance and motor function, To increase tolerance to activity/condition/position, To improve ability of physical actions for home/community/work/leisure, To improve gait and locomotor functions Manual Therapy Techniques to Include: Passive ROM, Soft tissue mobilization For the Purpose of:: To decrease pain, To increase ROM This patient was last seen in our office 04/23/21. Pertinent comments regarding their Physical therapy will appear below: Pt was seen for initial evaluation and POC was established. Patient cancelled the next visit and no showed for the following 3. At this point, it has been over a month and I will discontinue due to nonattendance. At this point I will be discontinuing this patient from physical therapy. I would be happy to see this patient again in the future if found appropriate by the physician. Thank you! Koby Wayne, DPT, OCS, CSCS Balance/Gait/Functional tests - Balance/Special Test Scores Lower Extremity Functional Score: 28
== END 2021-04-23 19:00 | disposition home or self-care (01) ==
LOC: PT 14:52
PROVIDERS: PCP Internal Medicine; Referring Provider Physician Assistant; Visit Provider Physician Assistant
DX: M25.551 Pain in right hip (principal); M79.651 Pain in right thigh
CPT/HCPCS: 97161

== ENCOUNTER → 2021-04-30 | Outpatient (CLI) | payer MEDICARE, MEDICAID, SELFPAY ==
[2021-05-03 03:07] LABS: Chlamydia By Nucleic Acid AMP Negative (Negative)
[2021-05-03 07:43] LABS: Gonococcus By Nucleic Acid AMP Negative (Negative)
[2021-05-03 17:29] LABS: HPV Reflexed? NOT INDICATED
== END | disposition home or self-care (01) ==
LOC: LABSPEC 16:42
PROVIDERS: PCP Internal Medicine; Referring Provider Nurse Practitioner Women's Health; Visit Provider Nurse Practitioner Women's Health
DX: N76.0 Acute vaginitis (principal); Z12.4 Encounter for screening for malignant neoplasm of cervix
CPT/HCPCS: 87070; 87077; 87186; 87205; 87491; 87591; 88175; G0145

== ENCOUNTER → 2021-05-01 14:10 | Outpatient (CLI) | payer MEDICARE, MEDICAID, SELFPAY ==
[2021-05-01 15:11] LABS: Absolute Lymphocyte Count 1.79 X10^3/uL (0.83-4.51); Absolute Neutrophil Count 6.2 X10^3/uL (2.0-7.7); Basophil# 0.03 X10^3/uL; Basophil% 0.3 % (0-1); Eosinophil# 0.26 X10^3/uL; Eosinophils% 2.9 % (0-5); Hematocrit 38.9 % (37-47); Hemoglobin 12.5 g/dL (12.0-15.0); Lymphocyte # 1.79 X10^3/ul (0.83-4.51); Mean Corp Hgb Conc 32.1 g/dL (32-36); Mean Corpuscular Volume 93.3 fL (81-99); Mean Platelet Vol. 9.5 fl (6.2-12.0); Monocyte# 0.61 X10^3/uL; Monocyte% 6.8 % (0-10); NRBC Flagged by Analyzer 0 % (0-5); Neutrophil # 6.24 X10^3/uL (2.7-7.7); Neutrophil % 69.6 % (47-70); Platelet Count 338 K/mm3 (150-450); RBC Distribution Width CV 14.7 % (11.6-14.6); RBC Distribution Width SD 49.8 fl (35.1-43.9); Red Blood Count 4.17 M/mm3 (4.2-5.4)
[2021-05-01 15:42] LABS: Thyroid Stim Hormone (TSH) 2.95 uIU/mL (0.358-3.74)
== END ==
PROVIDERS: PCP Internal Medicine; Referring Provider Nurse Practitioner Women's Health; Visit Provider Nurse Practitioner Women's Health
DX: N91.2 Amenorrhea, unspecified (principal); N93.8 Other specified abnormal uterine and vaginal bleeding; R21 Rash and other nonspecific skin eruption; Z13.29 Encounter for screening for other suspected endocrine disorder
CPT/HCPCS: 36415; 84146; 84443; 85025

== ENCOUNTER → 2021-05-21 14:03 | Outpatient (CLI) | payer MEDICARE, MEDICAID, SELFPAY ==
--- NOTE | 2021-05-21 14:05 | US_ITS ---
STUDY: ULTRASOUND OF THE FEMALE PELVIS - COMPLETE REASON FOR EXAM: Female, 26 years old. aub TECHNIQUE: Transabdominal COMPARISON: None. FINDINGS: The uterus is anteverted and is in a midline position. The uterus measures 9.2x 5cm. Normal uterine cervix. The endometrium measures 14 mm in thickness, and is hyperechoic. There is no demonstrated endometrial mass. There is no demonstrated myometrial mass. I.U.D. - The patient does not have an I.U.D. The right ovary is visualized. The right ovary measures 2.8x1.5 cm. There is no right ovarian cyst or ovarian mass. There is no visualized right adnexal mass or complex lesion. There is normal arterial and normal venous vascularity. There is nonvisualization of the left ovary due to overlying bowel gas. Urinary bladder volume of 203 cc. There is no fluid in the cul-de-sac. US/Transvaginal Non- IMPRESSION: Prominent endometrial stripe is likely related to the patient''s menstrual cycle. Electronically Signed: Moises Boyer MD at 15:08 EDT , Service support ,
--- NOTE | 2021-05-21 14:05 | US_ITS ---
STUDY: ULTRASOUND OF THE FEMALE PELVIS - COMPLETE REASON FOR EXAM: Female, 26 years old. aub TECHNIQUE: Transabdominal COMPARISON: None. FINDINGS: The uterus is anteverted and is in a midline position. The uterus measures 9.2x 5cm. Normal uterine cervix. The endometrium measures 14 mm in thickness, and is hyperechoic. There is no demonstrated endometrial mass. There is no demonstrated myometrial mass. I.U.D. - The patient does not have an I.U.D. The right ovary is visualized. The right ovary measures 2.8x1.5 cm. There is no right ovarian cyst or ovarian mass. There is no visualized right adnexal mass or complex lesion. There is normal arterial and normal venous vascularity. There is nonvisualization of the left ovary due to overlying bowel gas. Urinary bladder volume of 203 cc. There is no fluid in the cul-de-sac. US/Pelvic (Non ) IMPRESSION: Prominent endometrial stripe is likely related to the patient''s menstrual cycle. Electronically Signed: Moises Boyer MD at 15:08 EDT , Service support ,
== END ==
PROVIDERS: PCP Internal Medicine; Referring Provider Nurse Practitioner Women's Health; Visit Provider Nurse Practitioner Women's Health
DX: N93.8 Other specified abnormal uterine and vaginal bleeding (principal)
CPT/HCPCS: 76830; 76856

== ENCOUNTER 2021-07-03 01:45 | Inpatient (IN) | payer MEDICARE, MEDICAID, SELFPAY ==
[2021-07-03] VITALS (26 sets, daily range): BP systolic 99–160; BP diastolic 64–95; PULSE 90–116; RESP 21–42; TEMP 35.8–37.1; O2SAT 81–96; BMI 59.5; BMI 59.4
--- NOTE | 2021-07-03 01:57 | RAD_ITS ---
STUDY: X-RAY CHEST REASON FOR EXAM: Female, 26 years old. Dyspnea TECHNIQUE: Single AP portable view of the chest. COMPARISON: 05/29/2018 FINDINGS: Patchy nodular airspace opacities within bilateral perihilar and bibasilar regions. No pleural effusion or pneumothorax. Normal size heart. Normal mediastinum and james. Normal visualized pulmonary arteries. Normal visualized aortic arch and descending thoracic aorta. Normal visualized thoracic spine. Normal visualized ribs, clavicles, and shoulders. There is no demonstrated abnormality of the visualized soft tissue structures of the upper abdomen. RAD/Chest 1 View (Portable) IMPRESSION: Bilateral pneumonia Electronically Signed: Timmy Clifton MD at 2:38 EDT Tel , Service support ,
[2021-07-03] MEDS: Ketorolac 30 MG/ML Syringe IV (02:22)
[2021-07-03 02:23] LABS: Absolute Lymphocyte Count 1.11 X10^3/uL (0.83-4.51); Absolute Neutrophil Count 4.3 X10^3/uL (2.0-7.7); Basophil# 0.01 X10^3/uL; Basophil% 0.2 % (0-1); Hemoglobin 12.1 g/dL (12.0-15.0); Lymphocyte # 1.11 X10^3/ul (0.83-4.51); Lymphocyte % 19.3 % (19-41); Mean Corp Hgb Conc 31.8 g/dL (32-36); Mean Corpuscular Hgb 29.2 pg (27.0-32.0); Mean Corpuscular Volume 91.6 fL (81-99); Mean Platelet Vol. 9.6 fl (6.2-12.0); Monocyte# 0.32 X10^3/uL; Monocyte% 5.6 % (0-10); NRBC Flagged by Analyzer 0 % (0-5); Neutrophil # 4.29 X10^3/uL (2.7-7.7); Neutrophil % 74.7 % (47-70); Platelet Count 225 K/mm3 (150-450); RBC Distribution Width CV 15.5 % (11.6-14.6); RBC Distribution Width SD 51.8 fl (35.1-43.9); Red Blood Count 4.15 M/mm3 (4.2-5.4); White Blood Count 5.7 K/mm3 (4.4-11.0)
--- NOTE | 2021-07-03 02:29 | EX.ED.DYSGE1 ---
HPI History of Present Illness Chief Complaint: Weakness Informant: patient Narrative Narrative: 26-year-old female presents the emergency department shortness of breath. Patient states that she fell ill about 9 days ago. She notes fever cough body aches headache shortness of breath diarrhea. She believes she has Covid. She is not vaccinated against Covid. Patient states she just cannot take being sick anymore. [facility] Medical History Chronic bronchitis GERD (gastroesophageal reflux disease) Right hip pain Schizoaffective disorder Seasonal allergies Tachycardia Home Medications lamotrigine 200 mg PO DAILY 09/28/16 [History Last Taken Unknown] metoprolol tartrate 25 mg tablet 25 mg PO QHS #90 tab 02/20/21 [Rx Last Taken Unknown] escitalopram oxalate 20 mg tablet 20 mg PO DAILY tab 03/19/21 [History Last Taken Unknown] olanzapine 20 mg tablet 20 mg PO DAILY 03/19/21 [History Last Taken Unknown] clotrimazole-betamethasone 1 %-0.05 % topical cream 1 applic TOPICAL BID 14 Days #45 g 04/30/21 [Rx Last Taken Unknown] olanzapine 5 mg tablet 10 mg PO DAILY tab 04/30/21 [History Last Taken Unknown] Allergy/AdvReac Type Severity Reaction Status Date / Time amoxicillin trihydrate Allergy Hives Verified 07/03/21 01:46 [From Augmentin] Penicillins Allergy Hives Verified 07/03/21 01:46 potassium clavulanate Allergy Hives Verified 07/03/21 01:46 [From Augmentin] Sulfa (Sulfonamide Allergy Hives Verified 07/03/21 01:46 Antibiotics) Family History Grandfather Alcoholism Depression CVA (cerebral vascular accident) Hypertension Mother Anxiety Hypertension Father Psychiatric care Grandmother Thyroid disorder Graves disease Surgical History H/O dilation and curettage History of cholecystectomy History of tonsillectomy Social History household members: other details: Hyacinth, and her mother housing: house current occupational status: disabled Smoking Status: Current every day smoker tobacco type: cigarettes alcohol intake: never substance use type: does not use what type of physical activity do you participate in: none do you feel safe at home: Yes ROS ROS ED Constitutional Constitutional ED: Reports chills, fever(s) and sweats; Denies weight loss Eyes Eyes: Denies change in vision or diplopia ENT ENT ED: Reports rhinorrhea; Denies ear pain or sore throat Cardiovascular Cardiovascular: Denies chest pain, orthopnea, palpitations or racing heartbeat Respiratory/Chest Respiratory/Chest: Reports cough and dyspnea; Denies orthopnea Gastrointestinal Gastrointestinal: Reports diarrhea and nausea; Denies abdominal pain or vomiting Genitourinary Genitourinary ED: Denies dysuria, hematuria or urinary frequency Musculoskeletal Musculoskeletal: Reports myalgias; Denies arthralgias Integumentary Denies abscess or rash Neurologic Neurologic: Reports headache(s); Denies weakness Psychiatric Psychiatric: Denies anxiety, depression, suicidal ideation or suicidal thoughts Endocrine Endocrinology: Denies polydipsia, polyphagia or polyuria Allergic/Immunologic Allergic/Immunologic ED: Denies mouth swelling, tongue swelling or urticaria EXAM Physical Exam Const Vital Signs: 07/03/21 01:47 07/03/21 02:13 07/03/21 03:14 Temperature 98.7 F Temperature Source Temporal Pulse Rate 113 H 106 H Respiratory Rate 26 H 27 H Respiratory Effort Short of Breath Labored Respiratory Pattern Tachypnea Blood Pressure 160/68 H Blood Pressure Mean 98 Pulse Ox 88 94 Oxygen Delivery Method Room Air Nasal Cannula Oxygen Flow Rate (L/min) 2 07/03/21 04:40 07/03/21 04:46 Temperature Temperature Source Pulse Rate 101 H 116 H Respiratory Rate 34 H 42 H Respiratory Effort Respiratory Pattern Blood Pressure 99/64 Blood Pressure Mean 75 Pulse Ox 92 81 Oxygen Delivery Method Room Air Room Air Oxygen Flow Rate (L/min) Positive well nourished, well developed and obese General Appearance ED: well developed Nutritional Appearance: obese HEENT Reports normocephalic, head/scalp atraumatic, TM's clear and moist mucous membranes Negative for trauma Tympanic Membrane ED: Yes TM's clear Eyes PERRL and EOMs intact bilaterally Neck no lymphadenopathy, supple and no JVD Resp clear to auscultation bilaterally Resp Narrative: Patient is tachypneic at rest Cardio regular rate and no murmurs Rate: tachycardic GI normal to inspection, nondistended, normoactive bowel sounds and non-tender Palpation: soft Back/Spine no CVA tenderness and normal ROM Extremity normal to inspection General Extremety ED: Negative for edema General Extremity: Negative for edema Neuro oriented x3 and CN's II-XII intact bilaterally Sensorium / Orientation: alert Motor Exam: strength 5/5 throughout Psych mental status grossly normal Mood & Affect: Negative for depressed or tearful Skin no rashes or lesions noted and no wounds MDM MDM MDM Narrative Medical decision making narrative: White count 5.7. Platelet count of 225. CMP showed a creatinine 1.16. AST of 44 glucose 116. D-dimer elevated 0.6 high-sensitivity troponin is 35. My impression of the chest x-ray is multifocal areas of infiltrates. CTA of the chest was obtained which is negative for pulmonary embolism but does show diffuse pneumonitis consistent with her COVID-19 diagnosis. Patient remains tachypneic especially with exertion and she is requiring 2 L nasal cannula. On room air ambulating she goes from 92% at rest to 81 with a respiratory rate greater than 40. She received a dose of Decadron. I will speak with the hospitalist regarding admission Lab Data Attestation: I reviewed the patient's lab results. Labs: Laboratory Results - last 24 hr 07/03/21 07/03/21 07/03/21 02:10 02:10 02:10 WBC 5.7 RBC 4.15 L Hgb 12.1 Hct 38.0 MCV 91.6 MCH 29.2 MCHC 31.8 L RDW Std Deviation 51.8 H RDW Coeff of Gonzalo 15.5 H Plt Count 225 MPV 9.6 Immature Gran % (Auto) 0.200 Neut % (Auto) 74.7 H Lymph % (Auto) 19.3 [place] % (Auto) 5.6 Eos % (Auto) 0.0 Baso % (Auto) 0.2 Absolute Neuts (auto) 4.3 Absolute Lymphs (auto) 1.11 Nucleated RBC % 0 D-Dimer Quant (PE/DVT) 0.60 H* Sodium 134 L Potassium 3.5 Chloride 104 Carbon Dioxide 23.0 Anion Gap 7 BUN 13 Creatinine 1.19 H Estim Creat Clear Calc 56.66 Est GFR (MDRD) Af Amer 70 Est GFR (MDRD) Non-Af 58 L BUN/Creatinine Ratio 10.9 Glucose 116 H Calcium 8.1 L Total Bilirubin 0.40 AST 44 H ALT 41 Alkaline Phosphatase 76 Troponin I High Sens 35 Total Protein 7.7 Albumin 3.5 Globulin 4.2 Albumin/Globulin Ratio 0.8 L Radiography Diagnostic Testing: Clinical Impression(s) from Imaging Studies Chest X-Ray 07/03/21 01:57 IMPRESSION: Bilateral pneumonia Electronically Signed: Timmy Clifton MD at 2:38 EDT Tel , Service support , Chest CTA 07/03/21 02:56 IMPRESSION: 1. No definitive evidence of acute pulmonary embolism with visualization of the subsegmental branches being limited due to timing of the contrast bolus. 2. Patchy nodular groundglass infiltrates throughout both lungs, consistent with an atypical pneumonia, likely representing a Covid pattern. 3. Reactive mediastinal and hilar lymph nodes. Electronically Signed: Timmy Clifton MD at 4:06 EDT Tel , Service support , Discharge Plan Dx/Rx/DC Orders Clinical Impression: Acute hypoxemic respiratory failure due to COVID-19, COVID-19 Disposition Disposition: [facility]
[2021-07-03 02:46] LABS: ALB/GLOB Ratio 0.8 RATIO (0.9-2.4); AST(SGOT) 44 U/L (15-37); Alanine Aminotransfer ALT/SGPT 41 U/L (13-56); Albumin, Serum 3.5 g/dL (3.2-5.0); Alkaline Phosphatase 76 U/L (45-117); Anion Gap 7 (5-15); BUN 13 mg/dL (7-18); BUN/Creat Ratio 10.9 RATIO (10-20); Calcium,Total 8.1 mg/dL (8.5-10.1); Chloride 104 mmol/L (98-107); Creatinine, Serum 1.19 mg/dL (0.55-1.02); EST Glomerular Filtration Rate 58 mL/min (>60); Est Glom Filt Rate - Afr Amer 70 mL/min (>60); Estimated Creatinine Clearance 56.66 ml/min; Globulin 4.2 g/dL (2.2-4.2); Glucose 116 mg/dL (74-106); Potassium 3.5 mmol/L (3.5-5.1); Protein, Total 7.7 g/dL (6.4-8.2); Sodium Level 134 mmol/L (136-145); Troponin-I HS 35 pg/mL (3.0-54.0)
--- NOTE | 2021-07-03 02:56 | CT_ITS ---
STUDY: CTA CHEST REASON FOR EXAM: Female, 26 years old. Covid 19. Rule out pulmonary embolism. RADIATION DOSAGE (If Supplied By Facility): CTDIvol = ( 15.57 ) mGy, DLP = ( 480.88 ) mGycm TECHNIQUE: The examination was performed with the intravenous administration of IV 100mL Isovue-370. Post-processing of the angiographic images was performed, with multiplanar reformation and 3D reconstruction. Individualized dose optimization techniques were used for this CT. COMPARISON: None. FINDINGS: Evaluation of the pulmonary arterial vasculature is somewhat limited due to timing of the contrast bolus. There is no definitive central, lobar or segmental pulmonary embolism. The subsegmental branches are not well opacified. Thoracic aorta demonstrates no aneurysmal dilatation or dissection. Normal heart and pericardium. Shotty mediastinal and hilar lymph nodes. No axillary lymphadenopathy. Normal visualized trachea and bronchi. Patchy nodular groundglass infiltrates throughout both lungs. No pleural effusion or pneumothorax. Normal osseous structures. Normal visualized upper abdomen. CT/CTA Chest W/WO Contrast IMPRESSION: 1. No definitive evidence of acute pulmonary embolism with visualization of the subsegmental branches being limited due to timing of the contrast bolus. 2. Patchy nodular groundglass infiltrates throughout both lungs, consistent with an atypical pneumonia, likely representing a Covid pattern. 3. Reactive mediastinal and hilar lymph nodes. Electronically Signed: Timmy Clifton MD at 4:06 EDT Tel , Service support ,
[2021-07-03] MEDS: dexAMETHasone 4 MG Tablet 6 MG PO (04:38)
--- NOTE | 2021-07-03 04:46 | NURSING ---
pt walked in [place] on ra. po drop to 81% and resp in 40s. dr fernandez notified
--- NOTE | 2021-07-03 05:54 | PCM.HP.STD ---
HPI - General General Date of Admission: 07/03/21 Date of Service: 07/03/21 Chief Complaint: shortness of breath HPI Narrative EDGARDO HENRY, is a 26 F who presents with 8 days of general malaise and illness. Patient contracted COVID-19 and has been progressively getting worse. She presented to the emergency room and was noted to be hypoxic 8080% on room air. Patient was placed on oxygen and her numbers did improve. Patient was tachypneic when taken off of oxygen into the 40s and dropping her sats into the 80s as well. Patient is unvaccinated for COVID-19. In the emergency room, patient received dexamethasone, Toradol. [facility] Medical History Chronic bronchitis GERD (gastroesophageal reflux disease) Right hip pain Schizoaffective disorder Seasonal allergies Tachycardia Home Medications lamotrigine 200 mg PO DAILY 09/28/16 [History Last Taken Unknown] metoprolol tartrate 25 mg tablet 25 mg PO QHS #90 tab 02/20/21 [Rx Last Taken Unknown] escitalopram oxalate 20 mg tablet 20 mg PO DAILY tab 03/19/21 [History Last Taken Unknown] olanzapine 20 mg tablet 20 mg PO DAILY 03/19/21 [History Last Taken Unknown] olanzapine 5 mg tablet 10 mg PO DAILY tab 04/30/21 [History Last Taken Unknown] Allergy/AdvReac Type Severity Reaction Status Date / Time amoxicillin trihydrate Allergy Hives Verified 07/03/21 01:46 [From Augmentin] Penicillins Allergy Hives Verified 07/03/21 01:46 potassium clavulanate Allergy Hives Verified 07/03/21 01:46 [From Augmentin] Sulfa (Sulfonamide Allergy Hives Verified 07/03/21 01:46 Antibiotics) Family History (Updated 07/03/21 @ 05:[address] Koby Wan DO) Grandfather Alcoholism Depression CVA (cerebral vascular accident) Hypertension Mother Anxiety Hypertension Father Psychiatric care Grandmother Thyroid disorder Graves disease Surgical History H/O dilation and curettage History of cholecystectomy History of tonsillectomy Social History household members: other details: Hyacinth, and her mother housing: house current occupational status: disabled Smoking Status: Current every day smoker tobacco type: cigarettes alcohol intake: never substance use type: does not use what type of physical activity do you participate in: none do you feel safe at home: Yes ROS ROS Narrative Chills, rhinitis, anosmia, dysgeusia, diarrhea, nausea and vomiting. All review of systems were negative except as mentioned above in the history of present illness and the other review of systems. Vital Signs Vital Signs Vital Signs: 07/03/21 01:47 07/03/21 02:13 07/03/21 03:14 Temperature 37.1 C Temperature Source Temporal Pulse Rate 113 H 106 H Respiratory Rate 26 H 27 H Respiratory Effort Short of Breath Labored Respiratory Pattern Tachypnea Blood Pressure 160/68 H Blood Pressure Mean 98 Blood Pressure Source Blood Pressure Position Blood Pressure Location Pulse Ox 88 94 Oxygen Delivery Method Room Air Nasal Cannula Oxygen Flow Rate (L/min) 2 07/03/21 04:40 07/03/21 04:46 07/03/21 05:36 Temperature 37.1 C Temperature Source Temporal Pulse Rate 101 H 116 H 116 H Respiratory Rate 34 H 42 H 42 H Respiratory Effort Respiratory Pattern Blood Pressure 99/64 99/64 Blood Pressure Mean 75 75 Blood Pressure Source Blood Pressure Position Blood Pressure Location Pulse Ox 92 81 81 Oxygen Delivery Method Room Air Room Air Room Air Oxygen Flow Rate (L/min) 2 07/03/21 05:44 Temperature 36.6 C Temperature Source Temporal Pulse Rate 100 Respiratory Rate 30 H Respiratory Effort Respiratory Pattern Blood Pressure 123/69 H Blood Pressure Mean 87 Blood Pressure Source Monitor Blood Pressure Position Semi-Fowlers Blood Pressure Location Right Forearm Pulse Ox 95 Oxygen Delivery Method Nasal Cannula Oxygen Flow Rate (L/min) 2 Weight Weight: 147.5 kg Body Mass Index (BMI) 59.4 Physical Exam Const alert Constitutional Narrative: Obese. Afebrile. No respiratory distress. No conversational dyspnea. Hirsutism General Appearance: cooperative HEENT normocephalic and head/scalp atraumatic Neck no lymphadenopathy and no JVD Resp normal respiratory effort, no retractions, no use of accessory muscles and clear to auscultation bilaterally Cardio regular rate, regular rhythm, S1 normal heart sound and S2 normal heart sound GI normal to inspection, nondistended, normoactive bowel sounds, soft to palpation, non-tender and non-distended Extremity normal to inspection Skin no rashes or lesions noted Neuro oriented x3, moves all extremities and no focal motor deficits Sensorium / Orientation: awake and alert Psych affect normal Results Lab / Micro Data Attestation: I reviewed the patient's lab results. Result Diagrams: 07/03/21 02:10 07/03/21 02:10 Labs: Laboratory Results - last 24 hr 07/03/21 02:10: WBC 5.7, RBC 4.15 L, Hgb 12.1, Hct 38.0, MCV 91.6, MCH 29.2, MCHC 31.8 L, RDW Std Deviation 51.8 H, RDW Coeff of Gonzalo 15.5 H, Plt Count 225, MPV 9.6, Immature Gran % (Auto) 0.200, Neut % (Auto) 74.7 H, Lymph % (Auto) 19.3, [place] % (Auto) 5.6, Eos % (Auto) 0.0, Baso % (Auto) 0.2, Absolute Neuts (auto) 4.3, Absolute Lymphs (auto) 1.11, Nucleated RBC % 0 07/03/21 02:10: D-Dimer Quant (PE/DVT) 0.60 H* 07/03/21 02:10: Sodium 134 L, Potassium 3.5, Chloride 104, Carbon Dioxide 23.0, Anion Gap 7, BUN 13, Creatinine 1.19 H, Estim Creat Clear Calc 56.66, Est GFR (MDRD) Af Amer 70, Est GFR (MDRD) Non-Af 58 L, BUN/Creatinine Ratio 10.9, Glucose 116 H, Calcium 8.1 L, Total Bilirubin 0.40, AST 44 H, ALT 41, Alkaline Phosphatase 76, Troponin I High Sens 35, Total Protein 7.7, Albumin 3.5, Globulin 4.2, Albumin/Globulin Ratio 0.8 L Micro: Microbiology 07/03/21 02:20 Nasal Secretion SARS-CoV-2 Antigen (Rapid) - Final SARS-CoV-2 (COVID 19) Radiology Impression Chest X-Ray 07/03/21 01:57 IMPRESSION: Bilateral pneumonia Electronically Signed: Timmy Clifton MD at 2:38 EDT Tel , Service support , Chest CTA 07/03/21 02:56 IMPRESSION: 1. No definitive evidence of acute pulmonary embolism with visualization of the subsegmental branches being limited due to timing of the contrast bolus. 2. Patchy nodular groundglass infiltrates throughout both lungs, consistent with an atypical pneumonia, likely representing a Covid pattern. 3. Reactive mediastinal and hilar lymph nodes. Electronically Signed: Timmy Clifton MD at 4:06 EDT Tel , Service support , Assessment & Plan Assessment/Plan (1) Acute hypoxemic respiratory failure due to COVID-19: (2) COVID-19: PLAN: 1. Acute hypoxic respiratory failure Secondary to COVID-19 Wean oxygen as able Patient may require home oxygen upon discharge and this was discussed with the patient CTA negative for PE 2. COVID-19 pneumonia, acute Unvaccinated onset is June 26, patient will need to quarantine through July 15 Discussed with the patient about emergency authorization for remdesivir and she is okay with using that. Will have patient on dexamethasone. Patient informed that she is not a candidate at this time for baricitinib. Patient advised of the variable directions her COVID-19 infection could take such that it could get better but this would be gradual and could get worse quickly. 3. Schizoaffective disorder Stable at present Continue with olanzapine, lamotrigine and escitalopram lamotrigine and escitalopram 4. VTE prophylaxis: LMWH Charges/Coding Visit Charges Inpatient E&M: 28850 Init Hosp L3
--- NOTE | 2021-07-03 07:32 | PCM.PN.HOSP ---
Objective Data Objective Data Patient is a 26-year-old lady unvaccinated against COVID-19 presented with progressive shortness of breath Vital Signs: Vital Signs Temp Pulse Resp BP Pulse Ox 97.9 F 99 28 H 125/73 H 96 07/03/21 06:40 07/03/21 06:40 07/03/21 06:40 07/03/21 06:40 07/03/21 06:40 Oxygen Flow Rate (L/min) 2 Oxygen Delivery Method Nasal Cannula Weight: 147.5 kg Body Mass Index (BMI) 59.4 Intake & Output: Intake and Output for Last 24 Hours 07/01/21 07/02/21 07/03/21 23:59 23:59 23:59 Intake Total 0.75 / 0.75 Balance 0.75 / 0.75 Lab / Micro Data Result Diagrams: 07/03/21 07:45 07/03/21 07:45 Labs: Laboratory Results - last 24 hr 07/03/21 02:10: WBC 5.7, RBC 4.15 L, Hgb 12.1, Hct 38.0, MCV 91.6, MCH 29.2, MCHC 31.8 L, RDW Std Deviation 51.8 H, RDW Coeff of Gonzalo 15.5 H, Plt Count 225, MPV 9.6, Immature Gran % (Auto) 0.200, Neut % (Auto) 74.7 H, Lymph % (Auto) 19.3, [place] % (Auto) 5.6, Eos % (Auto) 0.0, Baso % (Auto) 0.2, Absolute Neuts (auto) 4.3, Absolute Lymphs (auto) 1.11, Nucleated RBC % 0 07/03/21 02:10: D-Dimer Quant (PE/DVT) 0.60 H* 07/03/21 02:10: Sodium 134 L, Potassium 3.5, Chloride 104, Carbon Dioxide 23.0, Anion Gap 7, BUN 13, Creatinine 1.19 H, Estim Creat Clear Calc 56.66, Est GFR (MDRD) Af Amer 70, Est GFR (MDRD) Non-Af 58 L, BUN/Creatinine Ratio 10.9, Glucose 116 H, Calcium 8.1 L, Total Bilirubin 0.40, AST 44 H, ALT 41, Alkaline Phosphatase 76, Troponin I High Sens 35, Total Protein 7.7, Albumin 3.5, Globulin 4.2, Albumin/Globulin Ratio 0.8 L Micro: Microbiology 07/03/21 02:20 Nasal Secretion SARS-CoV-2 Antigen (Rapid) - Final SARS-CoV-2 (COVID 19) Radiography Diagnostic Testing: Radiology Impression Chest X-Ray 07/03/21 01:57 IMPRESSION: Bilateral pneumonia Electronically Signed: Timmy Clifton MD at 2:38 EDT Tel , Service support , Chest CTA 07/03/21 02:56 IMPRESSION: 1. No definitive evidence of acute pulmonary embolism with visualization of the subsegmental branches being limited due to timing of the contrast bolus. 2. Patchy nodular groundglass infiltrates throughout both lungs, consistent with an atypical pneumonia, likely representing a Covid pattern. 3. Reactive mediastinal and hilar lymph nodes. Electronically Signed: Timmy Clifton MD at 4:06 EDT Tel , Service support , Physical Exam Narrative GENERAL: Appears ill looking HEENT: Atraumatic; EYES; Anicteric, Normal Conjunctiva NECK; supple, normal thyroid, RESPIRATORY: Diminished to auscultation CARDIOVASCULAR: Regular S1 S2, GI: soft, normoactive bowel sounds, : No Renal angle tenderness; EXTREMITIES: No edema, no clubbing, MUSCULOSKELETAL: no muscle waisting NEURO: Awake; no lateralizing signs. SKIN: No Rash PSYCH; Flat affect Assessment & Plan Assessment/Plan (1) Acute hypoxemic respiratory failure due to COVID-19: (2) COVID-19: PLAN: Patient is a 26-year-old lady unvaccinated against COVID-19 presented with progressive shortness of breath. Her symptoms started on 06/25/2021. 1. Acute hypoxic respiratory failure ?Secondary to SARS-CoV-2 pneumonia patient being treated with supplemental oxygen as well as treatment of the underlying etiology 2. SARS-CoV-2 pneumonia ?Patient started on Decadron as well as remdesivir in addition to supplemental oxygen 3. Schizoaffective disorder ?Did continue patient psychotropic medications including olanzapine, lamotrigine and escitalopram lamotrigine and escitalopram 4. Hypertension - Blood pressure controlled, home medications continued with dose adjustment as needed 5. Tobacco dependence - Counseled on cessation, offered nicotine patch for tobacco cravings 6. Morbid obesity with BMI of 59.5 ?Weight loss advised 7. DVT prophylaxis ?Lovenox Advance planning; did discuss with the patient regarding advanced directives as well as CODE STATUS. Did explain the various scenarios involved ( FULL CODE, DNR CCA, DNR CCA with no intubation, and DNR CC and what each meant) patient elected to be a full code with CPR and intubation if needed order was placed. Time spent on discussion 18 minutes. Total time spent evaluating patient going over chart discussion with patient and subsequent orders placed; 55 minutes Charges/Coding Procedures Hospitalists Procedures: 44086 Advncd Care Plan 30 Min Multi Select Codes Hospitalists' Procedures Procedures: 32818 Prolonged Physician INPT
[2021-07-03 08:20] LABS: Hematocrit 37.7 % (37-47); Hemoglobin 12.1 g/dL (12.0-15.0); Mean Corp Hgb Conc 32.1 g/dL (32-36); Mean Corpuscular Hgb 29.4 pg (27.0-32.0); Mean Corpuscular Volume 91.7 fL (81-99); Mean Platelet Vol. 9.8 fl (6.2-12.0); Platelet Count 213 K/mm3 (150-450); RBC Distribution Width CV 15.6 % (11.6-14.6); RBC Distribution Width SD 52.5 fl (35.1-43.9); Red Blood Count 4.11 M/mm3 (4.2-5.4)
[2021-07-03] MEDS: Escitalopram Oxalate 20 MG Tablet PO (08:52)
[2021-07-03] MEDS: lamoTRIgine 100 MG Tablet 200 MG PO (08:52)
[2021-07-03 09:01] LABS: ALB/GLOB Ratio 0.8 RATIO (0.9-2.4); AST(SGOT) 45 U/L (15-37); Alanine Aminotransfer ALT/SGPT 40 U/L (13-56); Albumin, Serum 3.4 g/dL (3.2-5.0); Alkaline Phosphatase 72 U/L (45-117); Anion Gap 7 (5-15); BUN 16 mg/dL (7-18); BUN/Creat Ratio 13.7 RATIO (10-20); Calcium,Total 8.2 mg/dL (8.5-10.1); Chloride 104 mmol/L (98-107); Creatinine, Serum 1.17 mg/dL (0.55-1.02); EST Glomerular Filtration Rate 59 mL/min (>60); Est Glom Filt Rate - Afr Amer 72 mL/min (>60); Estimated Creatinine Clearance 57.63 ml/min; Glucose 121 mg/dL (74-106); Potassium 3.6 mmol/L (3.5-5.1); Protein, Total 7.4 g/dL (6.4-8.2); Sodium Level 133 mmol/L (136-145)
--- NOTE | 2021-07-03 13:30 | CASEMGMT ---
RN CM called patient for initial transition planning/care coordination assessment. RN HUBER introduced self and role at [facility]. Patient is alert and oriented. Patient willing to participate in assessment and is able to answer all questions appropriately. Care providers, pharmacy, and demographics verified. Patient wishes to discharge home, denies need for home health at this time. Patient states she has no further needs or concerns at this time. CM to follow for discharge planning needs that may arise. PCP: [place] Specialists: none Preferred Pharmacy: [facility] Insurance: [employer] Prescription Benefit: yes Living Will/HPOA: none LNOK: mother Living Arrangements: Patient lives with mother in a 2 story duplex. Patient states she is independent at home and able to ambulate stairs. Transportation: mother DME/HHC: Patient denies DME or previous HHC. Patient states she prefers [facility] for DME Disposition Plan: Patient to discharge home with family support and follow-up plans in place. Estelle LINARES, RN, CM
[2021-07-03 16:54] LABS: Fibrinogen 503 mg/dl (203-444)
[2021-07-03 16:57] LABS: CPK Total, Creatine Kinase 670 U/L (26-192); LDH 556 U/L (84-246); Troponin-I HS 31 pg/mL (3.0-54.0)
[2021-07-03 17:01] LABS: Procalcitonin 0.21 ng/mL (0.00-0.09)
[2021-07-03 17:11] LABS: Lactic Acid 1.6 mmol/L (0.4-1.9)
[2021-07-03 17:21] LABS: D-Dimer Quantitative (DVT/PE) 0.62 FEU/ug/m (0.27-0.49)
[2021-07-03] MEDS: OLANZapine 10 MG Tablet 30 MG PO (18:52)
[2021-07-03] MEDS: Metoprolol Tartrate 25 MG Tablet PO (18:54)
[2021-07-03] MEDS: 0.9% Saline Lock 10 ML Syringe IV (21:55)
[2021-07-03] MEDS: guaiFENesin/Codeine 5 ML UDC 10 ML PO (22:33)
[2021-07-04] VITALS (35 sets, daily range): BP systolic 96–148; BP diastolic 51–96; PULSE 84–124; RESP 12–53; TEMP 36.2–39.2; O2SAT 85–98
--- NOTE | 2021-07-04 00:54 | NURSING ---
Dr jem reyna that pt is being switched to bipap. Pt 02 sats in 87-88% on airvo
--- NOTE | 2021-07-04 01:27 | CPS ---
Patient unable to tolerate BiPAP at different pressures. Became tachypneic with RR 50-60s. Expressing the feeling of not being able to breath. Was given adequate time to try to adjust without improvement.
--- NOTE | 2021-07-04 02:14 | NURSING ---
pt did not tolerate bipap. Pt became very anxious. p[t switch back to airvo 60l 93% withh nonrebreather mask. Pt sats 87 to 91 %. Dr parish notified ativan given.
[2021-07-04] MEDS: LORazepam 2 MG/ML Syringe 1 MG IV (02:54)
[2021-07-04] MEDS: 0.9% Saline Lock 10 ML Syringe IV ×2 (02:55→03:21)
--- NOTE | 2021-07-04 03:01 | NURSING ---
dr parish here to evaluate pt. Pt is going to be transferred to icu
--- NOTE | 2021-07-04 03:12 | PCM.HOSP.N ---
Hospitalist Note Went to 9liters oxygen then to Airvo. Could not tolerate BiPAP, so went back to Airvo and NRB was added over the Airvo. Sats 91-95% RR 24-26. Discussed with the patient that given her rapid decline that she may very well need to be intubated. She asked if that could be done around 11:00 so she can talk with her family. Told her I could not guarantee that and she may need that much sooner. Given her declining respiratory status and pending respiratory failure, I feel is best the patient be transferred to the ICU. Infectious disease and critical care medicine have been consulted. We will give the patient IV furosemide to see if that will help. I strongly encouraged the patient to work with us in regards to trying the BiPAP again. Will administer some Ativan to see if that would help calm her down so that she could be able to better tolerate the BiPAP. Though I am concerned that despite that she would likely not tolerate the BiPAP and may eventually need to be intubated. Her status currently is tenuous but relatively stable but I do anticipate ongoing worsening and eventual need for ventilator. Patient earlier had issues with her nose ring that she did not want to take it out because of the the air Vo. I told her in [place] terms that this really boils down to her life and and nose ring is little consequence in regards to these matters and she fits impeding her ability to receive the proper amount oxygen whether it be air Vo or BiPAP and she just needs to get it taken out so that she could live.
--- NOTE | 2021-07-04 03:15 | NURSING ---
pt to be transferred to icu report called to [facility]. Resp notified
[2021-07-04] MEDS: Furosemide 40 MG/4 ML Vial IV ×3 (03:21→18:12)
--- NOTE | 2021-07-04 03:40 | NURSING ---
Pt transferred to icu with bipap on. fi02 at 80%. monitor st via bed
--- NOTE | 2021-07-04 04:06 | NURSING ---
Hyacinth (mother)notified of pt being transfer to icu.
[2021-07-04 05:26] LABS: ALB/GLOB Ratio 0.8 RATIO (0.9-2.4); AST(SGOT) 57 U/L (15-37); Alanine Aminotransfer ALT/SGPT 42 U/L (13-56); Albumin, Serum 3.1 g/dL (3.2-5.0); Alkaline Phosphatase 69 U/L (45-117); Anion Gap 10 (5-15); BUN 16 mg/dL (7-18); BUN/Creat Ratio 14.8 RATIO (10-20); Chloride 104 mmol/L (98-107); Creatinine, Serum 1.08 mg/dL (0.55-1.02); EST Glomerular Filtration Rate 65 mL/min (>60); Est Glom Filt Rate - Afr Amer 79 mL/min (>60); Estimated Creatinine Clearance 62.43 ml/min; Globulin 4.1 g/dL (2.2-4.2); Glucose 120 mg/dL (74-106); Potassium 3.4 mmol/L (3.5-5.1); Protein, Total 7.2 g/dL (6.4-8.2); Sodium Level 137 mmol/L (136-145)
[2021-07-04] MEDS: Acetaminophen 325 MG Tablet 650 MG PO (06:16)
--- NOTE | 2021-07-04 06:30 | EX.PCM.CONCC ---
Assessment & Plan Assessment/Plan (1) Acute hypoxemic respiratory failure due to COVID-19: PLAN: RECOMMENDATIONS: 1. Continue patient on BiPAP and wean FiO2 as tolerated for saturations greater than 90%. 2. Continue remdesivir, Decadron and Lovenox. 3. Obtain infectious disease consultation for initiation of baricitinib. 4. IV diuretic therapy as needed to maintain euvolemic state. 5. Awake prone positioning was encouraged. 6. The patient is at high risk for intubation in the next 24 hours. IMPRESSIONS: 1. Acute hypoxemic respiratory failure secondary to COVID-19 pneumonia The patient presented with worsening symptoms and is currently within 10 days of onset. Therefore, she has been initiated on remdesivir and Decadron. Given her further clinical decompensation, she would be a candidate for baricitinib. Therefore, recommend infectious diseases consultation. In the interim, the patient will be continued on BiPAP as tolerated. She is at high risk for intubation in the next 24 hours. Will obtain arterial blood gas this morning. The patient will remain on Lovenox as well. 2. History of schizoaffective disorder/hypertension/tobacco dependency/morbid obesity Complicates care, management, recovery and prognosis. Continue home medications as indicated. Nicotine replacement therapy can be offered to the patient while admitted to the hospital. TIME: 35 minutes of critical care time, independent of procedures, was spent addressing the patient's acute hypoxemic respiratory failure secondary to COVID-19 pneumonia, review of all data and collaboration with the care team. HPI Consult Data Date of Consult: 07/04/21 HPI Narrative Reason for Consultation: Acute hypoxemic respiratory failure secondary to COVID-19 pneumonia HPI Narrative: The patient is a 26-year-old female, with a history as outlined below, who presented to the emergency department on July 03 with generalized malaise, fatigue, shortness of breath, cough and myalgias. Symptom onset was approximately 9 days ago. The patient is unvaccinated with sick family contact exposure. On presentation to the emergency department, the patient was noted to be afebrile and hemodynamically stable. However, she was notably tachycardic and tachypneic. Laboratory evaluation revealed a normal white blood cell count. D-dimer was noted to be 0.62. Chemistry profile demonstrated a sodium of 134 and creatinine of 1.19. Lactate was within normal limits. Liver function was within normal limits. CRP was elevated at 76. Rapid coronavirus antigen testing was positive. CTA chest was limited for the evaluation of PE. Patchy diffuse groundglass changes were noted bilaterally. Although the patient was initially admitted to the progressive care unit, due to increasing oxygen demand overnight, she was transferred to the medical intensive care unit, where she was placed on BiPAP therapy. This morning, the patient is currently maintaining appropriate oxygen saturations on BiPAP with an FiO2 requirement of 85%. Nevertheless, she remains significantly tachypneic. She is currently being maintained on remdesivir, Lovenox and Decadron. PENDING SALE TO [facility] Medical History Chronic bronchitis GERD (gastroesophageal reflux disease) Right hip pain Schizoaffective disorder Seasonal allergies Tachycardia Home Medications lamotrigine 200 mg PO DAILY 09/28/16 [History Last Taken Unknown] metoprolol tartrate 25 mg tablet 25 mg PO QHS #90 tab 02/20/21 [Rx Last Taken Unknown] escitalopram oxalate 20 mg tablet 20 mg PO DAILY tab 03/19/21 [History Last Taken Unknown] olanzapine 20 mg tablet 20 mg PO DAILY 03/19/21 [History Last Taken Unknown] olanzapine 5 mg tablet 10 mg PO DAILY tab 04/30/21 [History Last Taken Unknown] Allergy/AdvReac Type Severity Reaction Status Date / Time amoxicillin trihydrate Allergy Hives Verified 07/03/21 01:46 [From Augmentin] Penicillins Allergy Hives Verified 07/03/21 01:46 potassium clavulanate Allergy Hives Verified 07/03/21 01:46 [From Augmentin] Sulfa (Sulfonamide Allergy Hives Verified 07/03/21 01:46 Antibiotics) Family History (Updated 07/03/21 @ 05:[address] Koby Wan DO) Grandfather Alcoholism Depression CVA (cerebral vascular accident) Hypertension Mother Anxiety Hypertension Father Psychiatric care Grandmother Thyroid disorder Graves disease Surgical History H/O dilation and curettage History of cholecystectomy History of tonsillectomy Social History household members: other details: Hyacinth, and her mother housing: house current occupational status: disabled Smoking Status: Current every day smoker tobacco type: cigarettes alcohol intake: never substance use type: does not use what type of physical activity do you participate in: none do you feel safe at home: Yes ROS Constitutional Constitutional: Reports body ache(s), chills, fatigue and malaise Eyes Eyes: Denies blurry vision or change in vision ENT HEENT: Reports headache(s); Denies dysphagia or epistaxis Cardiovascular Cardiovascular: Reports dyspnea; Denies chest pain or dizziness Respiratory/Chest Respiratory/Chest: Reports cough and dyspnea Gastrointestinal Gastrointestinal: Reports diarrhea Genitourinary Genitourinary: Denies difficulty urinating, dysuria or urinary frequency Musculoskeletal Musculoskeletal: Reports myalgias Integumentary Integumentary: Denies lesions, rash or skin ulcer Neurologic Neurologic: Denies abnormal gait or abnormal speech Psychiatric Psychiatric: Denies anxiety or depression Endocrine Endocrinology: Reports fatigue Hematologic/Lymphatic Hematologic/Lymphatic: Denies easy bleeding or easy bruising Physical Exam Const alert General Appearance: cooperative, ill appearing and on BiPAP Nutritional Appearance: morbidly obese HEENT normocephalic and head/scalp atraumatic Eyes PERRL, EOMs intact bilaterally and conjunctivae normal Neck supple General: trachea midline Chest inspection of chest normal Resp Effort and Inspection: tachypneic and labored Auscultation: diminished lung sounds; Negative for rales, rhonchi or wheezes Cardio S1 normal heart sound and S2 normal heart sound Rate: tachycardic GI normal to inspection, nondistended, normoactive bowel sounds Extremity no clubbing, cyanosis or edema Skin no rashes or lesions noted Neuro CN's II-XII intact bilaterally, moves all extremities and no focal motor deficits Psych Mood & Affect: anxious Lab / Micro Data Result Diagrams: 07/03/21 07:45 07/04/21 04:45 Labs: Laboratory Results - last 24 hr 07/03/21 07:45: Sodium 133 L, Potassium 3.6, Chloride 104, Carbon Dioxide 22.0, Anion Gap 7, BUN 16, Creatinine 1.17 H, Estim Creat Clear Calc 57.63, Est GFR (MDRD) Af Amer 72, Est GFR (MDRD) Non-Af 59 L, BUN/Creatinine Ratio 13.7, Glucose 121 H, Calcium 8.2 L, Total Bilirubin 0.60, AST 45 H, ALT 40, Alkaline Phosphatase 72, Total Protein 7.4, Albumin 3.4, Globulin 4.0, Albumin/Globulin Ratio 0.8 L 07/03/21 07:45: WBC 6.0, RBC 4.11 L, Hgb 12.1, Hct 37.7, MCV 91.7, MCH 29.4, MCHC 32.1, RDW Std Deviation 52.5 H, RDW Coeff of Gonzalo 15.6 H, Plt Count 213, MPV 9.8 07/03/21 07:45: Lactate Dehydrogenase 556 H, Total Creatine Kinase 670 H, Troponin I High Sens 31, C-React Prot Ext Range 75.90 H 07/03/21 07:45: Procalcitonin 0.21 H 07/03/21 16:35: Fibrinogen 503 H, D-Dimer Quant (PE/DVT) 0.62 H* 07/03/21 16:35: Lactic Acid 1.6 07/04/21 04:45: Sodium 137, Potassium 3.4 L, Chloride 104, Carbon Dioxide 23.0, Anion Gap 10, BUN 16, Creatinine 1.08 H, Estim Creat Clear Calc 62.43, Est GFR (MDRD) Af Amer 79, Est GFR (MDRD) Non-Af 65, BUN/Creatinine Ratio 14.8, Glucose 120 H, Calcium 8.0 L, Total Bilirubin 0.50, AST 57 H, ALT 42, Alkaline Phosphatase 69, Total Protein 7.2, Albumin 3.1 L, Globulin 4.1, Albumin/Globulin Ratio 0.8 L Micro: Microbiology 07/03/21 21:27 Stool C. difficile DNA Amplification - Final 07/03/21 21:27 Urine, Clean Catch Legionella Antigen - Final 07/03/21 21:27 Urine, Clean Catch Streptococcus pneumoniae Antigen (M - Final 07/03/21 02:20 Nasal Secretion SARS-CoV-2 Antigen (Rapid) - Final SARS-CoV-2 (COVID 19) Charges/Coding Procedures Hospitalists Procedures: [id number] [facility] 1st Hr
--- NOTE | 2021-07-04 07:20 | PN.HOSP_ITS ---
Subjective Subjective Patient was transferred to the ICU following deterioration in her respiratory symptoms. Currently on BiPAP. Consult placed to both ID as well as pulmonary medicine Objective Data Objective Data Vital Signs: Vital Signs Temp Pulse Resp BP Pulse Ox 101.3 F H 114 H 53 H 102/51 L 94 07/04/21 03:45 07/04/21 07:12 07/04/21 07:12 07/04/21 07:00 07/04/21 07:12 Oxygen Flow Rate (L/min) 60 Oxygen Delivery Method Bi-pap Weight: 148.4 kg Body Mass Index (BMI) 59.4 Intake & Output: Intake and Output for Last 24 Hours 07/02/21 07/03/21 07/04/21 23:59 23:59 23:59 Intake Total 1220.75 / 1220.75 Output Total 500 / 500 Balance 1220.75 / 1220.75 -500 / -500 Lab / Micro Data Result Diagrams: 07/03/21 07:45 07/04/21 04:45 Labs: Laboratory Results - last 24 hr 07/03/21 07:45: Sodium 133 L, Potassium 3.6, Chloride 104, Carbon Dioxide 22.0, Anion Gap 7, BUN 16, Creatinine 1.17 H, Estim Creat Clear Calc 57.63, Est GFR (MDRD) Af Amer 72, Est GFR (MDRD) Non-Af 59 L, BUN/Creatinine Ratio 13.7, Glucose 121 H, Calcium 8.2 L, Total Bilirubin 0.60, AST 45 H, ALT 40, Alkaline Phosphatase 72, Total Protein 7.4, Albumin 3.4, Globulin 4.0, Albumin/Globulin Ratio 0.8 L 07/03/21 07:45: WBC 6.0, RBC 4.11 L, Hgb 12.1, Hct 37.7, MCV 91.7, MCH 29.4, MCHC 32.1, RDW Std Deviation 52.5 H, RDW Coeff of Gonzalo 15.6 H, Plt Count 213, MPV 9.8 07/03/21 07:45: Lactate Dehydrogenase 556 H, Total Creatine Kinase 670 H, Troponin I High Sens 31, C-React Prot Ext Range 75.90 H 07/03/21 07:45: Procalcitonin 0.21 H 07/03/21 16:35: Fibrinogen 503 H, D-Dimer Quant (PE/DVT) 0.62 H* 07/03/21 16:35: Lactic Acid 1.6 07/04/21 04:45: Sodium 137, Potassium 3.4 L, Chloride 104, Carbon Dioxide 23.0, Anion Gap 10, BUN 16, Creatinine 1.08 H, Estim Creat Clear Calc 62.43, Est GFR (MDRD) Af Amer 79, Est GFR (MDRD) Non-Af 65, BUN/Creatinine Ratio 14.8, Glucose 120 H, Calcium 8.0 L, Total Bilirubin 0.50, AST 57 H, ALT 42, Alkaline Phosphatase 69, Total Protein 7.2, Albumin 3.1 L, Globulin 4.1, Albumin/Globulin Ratio 0.8 L Micro: Microbiology 07/03/21 21:27 Stool C. difficile DNA Amplification - Final 07/03/21 21:27 Urine, Clean Catch Legionella Antigen - Final 07/03/21 21:27 Urine, Clean Catch Streptococcus pneumoniae Antigen (M - Final 07/03/21 02:20 Nasal Secretion SARS-CoV-2 Antigen (Rapid) - Final SARS-CoV-2 (COVID 19) Physical Exam Narrative GENERAL: Appears ill looking, on BiPAP HEENT: Atraumatic; EYES; Anicteric, Normal Conjunctiva NECK; supple, normal thyroid, RESPIRATORY: Diminished to auscultation CARDIOVASCULAR: Regular S1 S2, GI: soft, normoactive bowel sounds, : No Renal angle tenderness; EXTREMITIES: No edema, no clubbing, MUSCULOSKELETAL: no muscle waisting NEURO: Awake; no lateralizing signs. SKIN: No Rash PSYCH; Flat affect Assessment & Plan Assessment/Plan (1) Acute hypoxemic respiratory failure due to COVID-19: (2) COVID-19: PLAN: Patient is a 26-year-old lady unvaccinated against COVID-19 presented with progressive shortness of breath. Her symptoms started on 06/25/2021. 1. Acute hypoxic respiratory failure ?Secondary to SARS-CoV-2 pneumonia patient being treated with supplemental oxygen as well as treatment of the underlying etiology -1Patient was transferred to the ICU following deterioration in her respiratory symptoms. Currently on BiPAP. Consult placed to both ID as well as pulmonary medicine 2. SARS-CoV-2 pneumonia ?Patient started on Decadron as well as remdesivir in addition to supplemental o xygen 3. Schizoaffective disorder ?Did continue patient psychotropic medications including olanzapine, lamotrigine and escitalopram lamotrigine and escitalopram 4. Hypertension - Blood pressure controlled, home medications continued with dose adjustment as needed 5. Tobacco dependence - Counseled on cessation, offered nicotine patch for tobacco cravings 6. Morbid obesity with BMI of 59.5 ?Weight loss advised 7. DVT prophylaxis ?Lovenox 8. Hypokalemia ?Corrected per protocol Charges/Coding Visit Charges Inpatient E&M: 40767 Subs Hosp L3
[2021-07-04 09:01] LABS: Allen Test Positive; Base Excess -3 mmol/L (-2 to +2); Bicarbonate 21.4 mmol/L (22-26); Blood Gas Specimen Type ART; FI02 75; O2 Delivery Device BiPAP; PEEP 8; PO2 57 mmHG (75-100); RR 12; SITE L Radial; SO2 91 % (95-99); Total Carbon Dioxide 22 mmol/L; pCO2 30.3 mmHg (35-45); pH 7.46 (7.35-7.45)
[2021-07-04] MEDS: Enoxaparin 40 MG/0.4 ML Syringe SC (10:43)
[2021-07-04] MEDS: Escitalopram Oxalate 20 MG Tablet PO (10:43)
[2021-07-04] MEDS: lamoTRIgine 100 MG Tablet 200 MG PO (10:43)
[2021-07-04] MEDS: dexAMETHasone 10 MG/ML Vial 6 MG IV (10:44)
[2021-07-04] MEDS: Potassium Chloride 10mEq/100mL 10 MEQ/100 ML IV.SOLN. 100 MEQ IV BOLUS ×4 (13:12→19:53)
--- NOTE | 2021-07-04 17:23 | PCM.CONS.GEN ---
Assessment & Plan Assessment/Plan (1) Acute hypoxemic respiratory failure due to COVID-19: (2) COVID-19: PLAN: Sx started around 06/26. Unvaccinated. Isolate for 20 days from start of sx. On dex, remdesivir. Will order daily labs. CT neg for PE. Reviewed EUA and risks/benefits, we agree to start baricitinib. Recommend increasing dose of lovenox from 40mg daily to bid. Will follow, thank you, d/w Dr. Vazquez HPI Consult Data Date of Consult: 07/04/21 HPI Narrative HPI Narrative: EDGARDO HENRY, is a 26 F who presented yesterday with 8 days of fever, chills, cough, SOB, change in taste/smell, n/v/d, aches. Unvaccinated. Family member also coming to ED likely today. Admitted, on dex, remdesivir. In icu. Full ROS performed and neg except PFSH Medical History Chronic bronchitis GERD (gastroesophageal reflux disease) Right hip pain Schizoaffective disorder Seasonal allergies Tachycardia Home Medications lamotrigine 200 mg PO DAILY 09/28/16 [History Last Taken Unknown] metoprolol tartrate 25 mg tablet 25 mg PO QHS #90 tab 02/20/21 [Rx Last Taken Unknown] escitalopram oxalate 20 mg tablet 20 mg PO DAILY tab 03/19/21 [History Last Taken Unknown] olanzapine 20 mg tablet 20 mg PO DAILY 03/19/21 [History Last Taken Unknown] olanzapine 5 mg tablet 10 mg PO DAILY tab 04/30/21 [History Last Taken Unknown] Allergy/AdvReac Type Severity Reaction Status Date / Time amoxicillin trihydrate Allergy Hives Verified 07/03/21 01:46 [From Augmentin] Penicillins Allergy Hives Verified 07/03/21 01:46 potassium clavulanate Allergy Hives Verified 07/03/21 01:46 [From Augmentin] Sulfa (Sulfonamide Allergy Hives Verified 07/03/21 01:46 Antibiotics) Family History (Updated 07/03/21 @ 05:[address] Koby Wan, DO) Grandfather Alcoholism Depression CVA (cerebral vascular accident) Hypertension Mother Anxiety Hypertension Father Psychiatric care Grandmother Thyroid disorder Graves disease Surgical History H/O dilation and curettage History of cholecystectomy History of tonsillectomy Social History household members: other details: Hyacinth, and her mother housing: house current occupational status: disabled Smoking Status: Current every day smoker tobacco type: cigarettes alcohol intake: never substance use type: does not use what type of physical activity do you participate in: none do you feel safe at home: Yes Physical Exam Const alert General Appearance: cooperative Exam Limitations: no limitations Nutritional Appearance: obese HEENT normocephalic and head/scalp atraumatic Eyes PERRL and EOMs intact bilaterally Neck supple and No nodes Resp Auscultation: diminished lung sounds Cardio regular rate and regular rhythm GI normal to inspection, nondistended, normoactive bowel sounds Extremity no clubbing, cyanosis or edema Skin no rashes or lesions noted Neuro CN's II-XII intact bilaterally Lab / Micro Data Result Diagrams: 07/03/21 07:45 07/04/21 04:45 Labs: Laboratory Results - last 24 hr 07/04/21 04:45: Sodium 137, Potassium 3.4 L, Chloride 104, Carbon Dioxide 23.0, Anion Gap 10, BUN 16, Creatinine 1.08 H, Estim Creat Clear Calc 62.43, Est GFR (MDRD) Af Amer 79, Est GFR (MDRD) Non-Af 65, BUN/Creatinine Ratio 14.8, Glucose 120 H, Calcium 8.0 L, Total Bilirubin 0.50, AST 57 H, ALT 42, Alkaline Phosphatase 69, Total Protein 7.2, Albumin 3.1 L, Globulin 4.1, Albumin/Globulin Ratio 0.8 L Micro: Microbiology 07/03/21 21:27 Stool C. difficile DNA Amplification - Final 07/03/21 21:27 Urine, Clean Catch Legionella Antigen - Final 07/03/21 21:27 Urine, Clean Catch Streptococcus pneumoniae Antigen (M - Final ABG Data ABG results: ABG 07/04/21 08:53 Specimen Type ART Sample Site L Radial pH 7.46 H Bicarbonate Actual 21.4 L Total CO2 22 Base Excess -3 L O2 Saturation 91 L O2 % 75 ABG pCO2 30.3 L ABG pO2 57 L J Luis Test Positive Respiration Rate 12 O2 Delivery Device BiPAP POC PEEP 8
[2021-07-04] MEDS: OLANZapine 10 MG Tablet 30 MG PO (20:46)
[2021-07-04] MEDS: Metoprolol Tartrate 25 MG Tablet PO (20:46)
[2021-07-05] VITALS (36 sets, daily range): BP systolic 112–168; BP diastolic 64–106; PULSE 70–95; RESP 12–42; TEMP 36.2–36.8; O2SAT 87–96
[2021-07-05 05:34] LABS: Hematocrit 39.3 % (37-47); Hemoglobin 12.5 g/dL (12.0-15.0); Mean Corp Hgb Conc 31.8 g/dL (32-36); Mean Corpuscular Hgb 29.1 pg (27.0-32.0); Mean Corpuscular Volume 91.4 fL (81-99); Mean Platelet Vol. 10.2 fl (6.2-12.0); Platelet Count 229 K/mm3 (150-450); RBC Distribution Width CV 15.7 % (11.6-14.6); RBC Distribution Width SD 52.2 fl (35.1-43.9); White Blood Count 4.6 K/mm3 (4.4-11.0)
--- NOTE | 2021-07-05 05:41 | PN.CC_ITS ---
Assessment & Plan Assessment/Plan (1) Acute hypoxemic respiratory failure due to COVID-19: PLAN: RECOMMENDATIONS: 1. Continue patient on AVAPS as tolerated and wean FiO2 for saturations greater than 90%. 2. Continue remdesivir. Continue to monitor liver and renal function. 3. Continue Decadron, Lovenox and baricitinib. 4. Continue diuretic therapy as tolerated by hemodynamics and renal function. 5. Awake prone positioning was encouraged. 6. Patient to remain n.p.o. for now. 7. If no improvement in respiratory status in the next 12 to 24 hours, consider intubation. IMPRESSIONS: 1. Acute hypoxemic respiratory failure secondary to COVID-19 pneumonia The patient presented with worsening symptoms and is currently within 10 days of onset. Therefore, she has been initiated on remdesivir and Decadron. The patient was also placed on baricitinib, following evaluation by infectious diseases. She will be continued on twice daily Lovenox along with diuretic therapy as tolerated by hemodynamics and renal function. In addition, the patient will be continued on AVAPS therapy, with a goal to wean FiO2 to maintain oxygen saturations at or above 90%. If the patient does not begin to improve from a respiratory perspective in the next 24 hours, will need to consider intubation. She should remain n.p.o. for now. 2. Hypokalemia Electrolyte repletion as ordered. Recheck levels in the morning. 3. History of schizoaffective disorder/hypertension/tobacco dependency/morbid obesity Complicates care, management, recovery and prognosis. Continue home medications as indicated. Nicotine replacement therapy can be offered to the patient while admitted to the hospital. TIME: 32 minutes of critical care time, independent of procedures, was spent addressing the patient's acute hypoxemic respiratory failure secondary to COVID- 19 pneumonia, review of all data and collaboration with the care team. Subjective Subjective The patient was seen and examined at the bedside this morning. Events from the last 24 hours have been reviewed. The patient is currently afebrile and hemodynamically stable. Yesterday, the patient was able to be maintained on Airvo heated high flow for part of the day. She had to be placed back on BiPAP overnight. Early this morning, the patient was transitioned from BiPAP to AVAPS. Her FiO2 requirement has steadily increased over the course of the night and she is now requiring 100% FiO2. She is currently documented to be overall net -500 mL for the hospital admission. She remains on remdesivir, Lovenox, Decadron and baricitinib. Potassium is low this morning at 3.3. Liver and renal function are stable. Objective Data Objective Data The patient's most recent lab work, culture data and imaging studies have all been personally reviewed. Rapid coronavirus antigen testing was positive on July 03. C. difficile was negative. Strep and urine Legionella antigens were negative. Vital Signs: Vital Signs Temp Pulse Resp BP Pulse Ox 98.2 F 81 42 H 112/66 94 07/05/21 04:00 07/05/21 04:00 07/05/21 04:00 07/05/21 04:00 07/05/21 04:00 Oxygen Flow Rate (L/min) 60 Oxygen Delivery Method Bi-pap Weight: 148.4 kg Body Mass Index (BMI) 59.4 Intake & Output: Intake and Output for Last 24 Hours 07/03/21 07/04/21 07/05/21 23:59 23:59 23:59 Intake Total 1220.75 / 1220.75 900 / 900 Output Total 2550 / 2550 Balance 1220.75 / 1220.75 -1650 / -1650 Lab / Micro Data Attestation: I reviewed the patient's lab results. Result Diagrams: 07/05/21 04:17 07/05/21 04:17 Labs: Laboratory Results - last 24 hr 07/05/21 04:17: WBC 4.6, RBC 4.30, Hgb 12.5, Hct 39.3, MCV 91.4, MCH 29.1, MCHC 31.8 L, RDW Std Deviation 52.2 H, RDW Coeff of Gonzalo 15.7 H, Plt Count 229, MPV 10.2 Micro: Microbiology 07/03/21 21:27 Stool C. difficile DNA Amplification - Final 07/03/21 21:27 Urine, Clean Catch Legionella Antigen - Final 07/03/21 21:27 Urine, Clean Catch Streptococcus pneumoniae Antigen (M - Final 07/03/21 02:20 Nasal Secretion SARS-CoV-2 Antigen (Rapid) - Final SARS-CoV-2 (COVID 19) ABG Data ABG results: ABG 07/04/21 08:53 Specimen Type ART Sample Site L Radial pH 7.46 H Bicarbonate Actual 21.4 L Total CO2 22 Base Excess -3 L O2 Saturation 91 L O2 % 75 ABG pCO2 30.3 L ABG pO2 57 L J Luis Test Positive Respiration Rate 12 O2 Delivery Device BiPAP POC PEEP 8 Physical Exam Const alert General Appearance: cooperative, ill appearing and on BiPAP Nutritional Appearance: morbidly obese HEENT normocephalic and head/scalp atraumatic HEENT Narrative: Dry oral mucosa. Poor dentition. Eyes PERRL, EOMs intact bilaterally and conjunctivae normal Neck supple General: trachea midline Chest inspection of chest normal Resp Effort and Inspection: tachypneic Auscultation: diminished lung sounds; Negative for rales, rhonchi or wheezes Cardio regular rate, regular rhythm, S1 normal heart sound and S2 normal heart sound GI normal to inspection, nondistended, normoactive bowel sounds Extremity no clubbing, cyanosis or edema Skin no rashes or lesions noted Neuro CN's II-XII intact bilaterally, moves all extremities and no focal motor deficits Psych cooperative and affect normal Charges/Coding Procedures Hospitalists Procedures: [id number] Critial Care 1st Hr
[2021-07-05 06:05] LABS: ALB/GLOB Ratio 0.7 RATIO (0.9-2.4); AST(SGOT) 58 U/L (15-37); Alanine Aminotransfer ALT/SGPT 44 U/L (13-56); Alkaline Phosphatase 70 U/L (45-117); Anion Gap 4 (5-15); BUN 21 mg/dL (7-18); BUN/Creat Ratio 24.9 RATIO (10-20); Calcium,Total 7.6 mg/dL (8.5-10.1); Chloride 107 mmol/L (98-107); Creatinine, Serum 0.84 mg/dL (0.55-1.02); EST Glomerular Filtration Rate 87 mL/min (>60); Est Glom Filt Rate - Afr Amer 105 mL/min (>60); Estimated Creatinine Clearance 80.27 ml/min; Globulin 4.1 g/dL (2.2-4.2); Glucose 182 mg/dL (74-106); Potassium 3.3 mmol/L (3.5-5.1); Protein, Total 7.1 g/dL (6.4-8.2); Sodium Level 138 mmol/L (136-145)
[2021-07-05] MEDS: Potassium Chloride 10mEq/100mL 10 MEQ/100 ML IV.SOLN. 100 MEQ IV BOLUS ×4 (06:42→12:35)
--- NOTE | 2021-07-05 08:09 | PN.HOSP_ITS ---
Subjective Subjective Patient seen remains in ICU. Currently on AVAPS with FiO2 of 90% and 60 mill per liter flow. Diagnostic data significant for potassium of 3.3 Objective Data Objective Data Vital Signs: Vital Signs Temp Pulse Resp BP Pulse Ox 98.2 F 95 37 H 122/64 H 95 07/05/21 04:00 07/05/21 07:26 07/05/21 07:06 07/05/21 07:00 07/05/21 07:06 Oxygen Flow Rate (L/min) 60 Oxygen Delivery Method Bi-pap Weight: 143.9 kg Body Mass Index (BMI) 59.4 Intake & Output: Intake and Output for Last 24 Hours 07/03/21 07/04/21 07/05/21 23:59 23:59 23:59 Intake Total 1220.75 / 1220.75 900 / 900 100 / 100 Output Total 2550 / 2550 Balance 1220.75 / 1220.75 -1650 / -1650 100 / 100 Lab / Micro Data Result Diagrams: 07/05/21 04:17 07/05/21 04:17 Labs: Laboratory Results - last 24 hr 07/05/21 04:17: WBC 4.6, RBC 4.30, Hgb 12.5, Hct 39.3, MCV 91.4, MCH 29.1, MCHC 31.8 L, RDW Std Deviation 52.2 H, RDW Coeff of Gonzalo 15.7 H, Plt Count 229, MPV 1 0.2 07/05/21 04:17: Sodium 138, Potassium 3.3 L, Chloride 107, Carbon Dioxide 27.0, Anion Gap 4 L, BUN 21 H, Creatinine 0.84, Estim Creat Clear Calc 80.27, Est GFR (MDRD) Af Amer 105, Est GFR (MDRD) Non-Af 87, BUN/Creatinine Ratio 24.9 H, Glucose 182 H, Calcium 7.6 L, Total Bilirubin 0.40, AST 58 H, ALT 44, Alkaline Phosphatase 70, Total Protein 7.1, Albumin 3.0 L, Globulin 4.1, Albumin/Globulin Ratio 0.7 L Micro: Microbiology 07/03/21 21:27 Stool C. difficile DNA Amplification - Final 07/03/21 21:27 Urine, Clean Catch Legionella Antigen - Final 07/03/21 21:27 Urine, Clean Catch Streptococcus pneumoniae Antigen (M - Final 07/03/21 02:20 Nasal Secretion SARS-CoV-2 Antigen (Rapid) - Final SARS-CoV-2 (COVID 19) ABG Data ABG results: ABG 07/04/21 08:53 Specimen Type ART Sample Site L Radial pH 7.46 H Bicarbonate Actual 21.4 L Total CO2 22 Base Excess -3 L O2 Saturation 91 L O2 % 75 ABG pCO2 30.3 L ABG pO2 57 L J Luis Test Positive Respiration Rate 12 O2 Delivery Device BiPAP POC PEEP 8 Physical Exam Narrative GENERAL: Appears ill looking, on BiPAP HEENT: Atraumatic; EYES; Anicteric, Normal Conjunctiva NECK; supple, normal thyroid, RESPIRATORY: Diminished to auscultation CARDIOVASCULAR: Regular S1 S2, GI: soft, normoactive bowel sounds, : No Renal angle tenderness; EXTREMITIES: No edema, no clubbing, MUSCULOSKELETAL: no muscle waisting NEURO: Awake; no lateralizing signs. SKIN: No Rash PSYCH; Flat affect Assessment & Plan Assessment/Plan (1) Acute hypoxemic respiratory failure due to COVID-19: (2) COVID-19: PLAN: Patient is a 26-year-old lady unvaccinated against COVID-19 presented with progressive shortness of breath. Her symptoms started on 06/25/2021. 1. Acute hypoxic respiratory failure ?Secondary to SARS-CoV-2 pneumonia patient being treated with supplemental oxygen as well as treatment of the underlying etiology -07/04/2021atient was transferred to the ICU following deterioration in her respiratory symptoms. Currently on BiPAP. Consult placed to both ID as well as pulmonary medicine ?07/05/2021;Patient seen remains in ICU. Currently on AVAPS with FiO2 of 90% and 60 mill per liter flow. Diagnostic data significant for potassium of 3.3 2. SARS-CoV-2 pneumonia ?Patient started on Decadron as well as remdesivir in addition to supplemental oxygen 3. Schizoaffective disorder ?Did continue patient psychotropic medications including olanzapine, lamotrigine and escitalopram lamotrigine and escitalopram 4. Hypertension - Blood pressure controlled, home medications continued with dose adjustment as needed 5. Tobacco dependence - Counseled on cessation, offered nicotine patch for tobacco cravings 6. Morbid obesity with BMI of 59.5 ?Weight loss advised 7. DVT prophylaxis ?Lovenox 8. Hypokalemia ?Corrected per protocol ?07/05/2021; potassium remains low additional replacement given Charges/Coding Visit Charges Inpatient E&M: 13890 Subs Hosp L3
[2021-07-05] MEDS: Escitalopram Oxalate 20 MG Tablet PO (10:21)
[2021-07-05] MEDS: Enoxaparin 40 MG/0.4 ML Syringe SC ×2 (10:21→21:13)
[2021-07-05] MEDS: Loperamide 2 MG Capsule PO (10:21)
[2021-07-05] MEDS: dexAMETHasone 10 MG/ML Vial 6 MG IV (10:21)
[2021-07-05] MEDS: Furosemide 40 MG/4 ML Vial IV ×2 (10:21→17:35)
[2021-07-05] MEDS: lamoTRIgine 100 MG Tablet 200 MG PO (10:22)
[2021-07-05] MEDS: 0.9% Saline Lock 10 ML Syringe IV (10:25)
--- NOTE | 2021-07-05 10:25 | PCM.PN.ID ---
Physical Exam Narrative Sleeping, on bipap, no fever Const no apparent distress Resp Auscultation: diminished lung sounds Cardio regular rate and regular rhythm GI normal to inspection, nondistended, normoactive bowel sounds Skin no rashes or lesions noted ID ID: Route of nutrition/ use of supplements: [] Nutritional Intake: [] IV Site: [] Brenner Catheter: [] Assessment & Plan Assessment/Plan (1) Acute hypoxemic respiratory failure due to COVID-19: (2) COVID-19: PLAN: Sx started around 06/26. Unvaccinated. Isolate for 20 days from start of sx. On dex, remdesivir, baricitinib. Following labs. CT neg for PE. Recommend increasing dose of lovenox from 40mg daily to bid. Will follow
[2021-07-05] MEDS: OLANZapine 10 MG Tablet 30 MG PO (21:12)
[2021-07-05] MEDS: Metoprolol Tartrate 25 MG Tablet PO (21:13)
[2021-07-06] VITALS (39 sets, daily range): BP systolic 110–182; BP diastolic 64–111; PULSE 62–110; RESP 12–34; TEMP 34.6–36.9; O2SAT 81–100
[2021-07-06 03:30] LABS: Hematocrit 41.2 % (37-47); Hemoglobin 12.7 g/dL (12.0-15.0); Mean Corp Hgb Conc 30.8 g/dL (32-36); Mean Corpuscular Hgb 28.3 pg (27.0-32.0); Mean Corpuscular Volume 91.8 fL (81-99); Mean Platelet Vol. 10.4 fl (6.2-12.0); Platelet Count 267 K/mm3 (150-450); RBC Distribution Width CV 15.4 % (11.6-14.6); RBC Distribution Width SD 51.7 fl (35.1-43.9); Red Blood Count 4.49 M/mm3 (4.2-5.4); White Blood Count 6.6 K/mm3 (4.4-11.0)
[2021-07-06 03:48] LABS: ALB/GLOB Ratio 0.7 RATIO (0.9-2.4); AST(SGOT) 41 U/L (15-37); Alanine Aminotransfer ALT/SGPT 40 U/L (13-56); Alkaline Phosphatase 76 U/L (45-117); Anion Gap 6 (5-15); BUN 22 mg/dL (7-18); Calcium,Total 7.8 mg/dL (8.5-10.1); Chloride 105 mmol/L (98-107); Creatinine, Serum 0.84 mg/dL (0.55-1.02); EST Glomerular Filtration Rate 86 mL/min (>60); Est Glom Filt Rate - Afr Amer 105 mL/min (>60); Estimated Creatinine Clearance 80.27 ml/min; Globulin 4.6 g/dL (2.2-4.2); Glucose 173 mg/dL (74-106); Potassium 3.2 mmol/L (3.5-5.1); Protein, Total 7.6 g/dL (6.4-8.2); Sodium Level 140 mmol/L (136-145)
--- NOTE | 2021-07-06 06:56 | PCM.PN.HOSP ---
Subjective Subjective Patient seen in the ICU. Remains on AVAPS with FiO2 of 90%. Case discussed with pulmonary medicine with plans for possible intubation if patient clinical condition continues to worsen Objective Data Objective Data Vital Signs: Vital Signs Temp Pulse Resp BP Pulse Ox 98.5 F 75 30 H 182/111 H 91 07/06/21 00:00 07/06/21 06:00 07/06/21 06:00 07/06/21 06:00 07/06/21 06:00 Oxygen Flow Rate (L/min) 60 Oxygen Delivery Method Bi-pap Weight: 141.1 kg Body Mass Index (BMI) 59.4 Intake & Output: Intake and Output for Last 24 Hours 07/04/21 07/05/21 07/06/21 23:59 23:59 23:59 Intake Total 900 / 900 770 / 770 120 / 120 Output Total 2550 / 2550 1350 / 1350 Balance -1650 / -1650 -580 / -580 120 / 120 Lab / Micro Data Result Diagrams: 07/06/21 03:15 07/06/21 03:15 Labs: Laboratory Results - last 24 hr 07/06/21 03:15: WBC 6.6, RBC 4.49, Hgb 12.7, Hct 41.2, MCV 91.8, MCH 28.3, MCHC 30.8 L, RDW Std Deviation 51.7 H, RDW Coeff of Gonzalo 15.4 H, Plt Count 267, MPV 10.4 07/06/21 03:15: Sodium 140, Potassium 3.2 L, Chloride 105, Carbon Dioxide 29.0, Anion Gap 6, BUN 22 H, Creatinine 0.84, Estim Creat Clear Calc 80.27, Est GFR (MDRD) Af Amer 105, Est GFR (MDRD) Non-Af 86, BUN/Creatinine Ratio 26.0 H, Glucose 173 H, Calcium 7.8 L, Total Bilirubin 0.40, AST 41 H, ALT 40, Alkaline Phosphatase 76, Total Protein 7.6, Albumin 3.0 L, Globulin 4.6 H, Albumin/Globulin Ratio 0.7 L Micro: Microbiology 07/03/21 21:27 Stool C. difficile DNA Amplification - Final 07/03/21 21:27 Urine, Clean Catch Legionella Antigen - Final 07/03/21 21:27 Urine, Clean Catch Streptococcus pneumoniae Antigen (M - Final 07/03/21 02:20 Nasal Secretion SARS-CoV-2 Antigen (Rapid) - Final SARS-CoV-2 (COVID 19) Physical Exam Narrative GENERAL: Appears ill looking, on BiPAP HEENT: Atraumatic; EYES; Anicteric, Normal Conjunctiva NECK; supple, normal thyroid, RESPIRATORY: Diminished to auscultation CARDIOVASCULAR: Regular S1 S2, GI: soft, normoactive bowel sounds, : No Renal angle tenderness; EXTREMITIES: No edema, no clubbing, MUSCULOSKELETAL: no muscle waisting NEURO: Awake; no lateralizing signs. SKIN: No Rash PSYCH; Flat affect Assessment & Plan Assessment/Plan (1) Acute hypoxemic respiratory failure due to COVID-19: (2) COVID-19: PLAN: Patient is a 26-year-old lady unvaccinated against COVID-19 presented with progressive shortness of breath. Her symptoms started on 06/25/2021. 1. Acute hypoxic respiratory failure ?Secondary to SARS-CoV-2 pneumonia patient being treated with supplemental oxygen as well as treatment of the underlying etiology -07/04/2021atient was transferred to the ICU following deterioration in her respiratory symptoms. Currently on BiPAP. Consult placed to both ID as well as pulmonary medicine ?07/05/2021;Patient seen remains in ICU. Currently on AVAPS with FiO2 of 90% and 60 mill per liter flow. Diagnostic data significant for potassium of 3.3 ?07/06/2021;Patient seen in the ICU. Remains on AVAPS with FiO2 of 90%. Case discussed with pulmonary medicine with plans for possible intubation if patient clinical condition continues to worsen 2. SARS-CoV-2 pneumonia ?Patient started on Decadron as well as remdesivir in addition to supplemental oxygen 3. Schizoaffective disorder ?Did continue patient psychotropic medications including olanzapine, lamotrigine and escitalopram lamotrigine and escitalopram 4. Hypertension - Blood pressure controlled, home medications continued with dose adjustment as needed 5. Tobacco dependence - Counseled on cessation, offered nicotine patch for tobacco cravings 6. Morbid obesity with BMI of 59.5 ?Weight loss advised 7. DVT prophylaxis ?Lovenox 8. Hypokalemia ?Corrected per protocol ?07/05/2021; potassium remains low additional replacement given Charges/Coding Visit Charges Inpatient E&M: 54395 Subs Hosp L3
--- NOTE | 2021-07-06 07:08 | PN.CC_ITS ---
Assessment & Plan Assessment/Plan (1) Acute hypoxemic respiratory failure due to COVID-19: PLAN: RECOMMENDATIONS: 1. Proceed with intubation. 2. Wean FiO2 and PEEP to maintain oxygen saturations at or above 90%. 3. Attempt to maintain plateau pressures less than 30. 4. Obtain and send sputum for culture. 5. Obtain arterial blood gas. 6. Start propofol and fentanyl. Initiate cis atracurium, if needed, to maintain ventilator synchrony and prevent coughing. 7. Continue Decadron, Lovenox and baricitinib. 8. Given further clinical decompensation, start empiric antimicrobials. Check MRSA screen as well. 9. Start appropriate GI prophylaxis. IMPRESSIONS: 1. Acute hypoxemic respiratory failure secondary to COVID-19 pneumonia The patient presented with worsening symptoms and is currently within 10 days of onset. Therefore, she has been initiated on remdesivir and Decadron. The patient was also placed on baricitinib, following evaluation by infectious diseases. She will be continued on twice daily Lovenox along with diuretic therapy as tolerated by hemodynamics and renal function. Unfortunately, despite multiple days on continuous noninvasive positive pressure ventilatory support, she failed to improve from a respiratory perspective and was ultimately intubated on July 06. Given further clinical decompensation, the patient was started on empiric antimicrobials. She will be maintained on assist control mod e of mechanical ventilation. FiO2 and PEEP will be weaned to maintain saturations at or above 90%. Goal to maintain plateau pressures less than 30. 2. Hypokalemia Additional electrolyte repletion as ordered. Recheck levels in the morning. 3. History of schizoaffective disorder/hypertension/tobacco dependency/morbid obesity Complicates care, management, recovery and prognosis. Continue home medications as indicated. Nicotine replacement therapy can be offered to the patient while admitted to the hospital. TIME: 42 minutes of critical care time, independent of procedures, was spent addressing the patient's acute hypoxemic respiratory failure secondary to COVID- 19 pneumonia, review of all data and collaboration with the care team. Subjective Subjective The patient was seen and examined at the bedside this morning. Events from the last 24 hours have been reviewed. The patient is currently afebrile, hemodynamically stable and maintaining appropriate oxygen saturations on AVAPS with an FiO2 requirement of 90%. The patient was unable to take breaks from her Pap therapy yesterday. She continues to struggle from a respiratory perspective. She is currently documented to be overall net -900 mL for the hospitalization. The patient remains on remdesivir, Decadron, Lovenox, baricitinib and Lasix. Potassium is low this morning at 3.2. Liver and renal function both remain stable. Given that the patient has remained on continuous BiPAP support now for multiple days without any interval improvement in her respiratory status, I discussed the need for intubation with the patient. She is agreeable to proceed. I will plan to call her mother and update her as well. Intubation Indication: Respiratory failure Consent was obtained from: Patient The patient was placed in the appropriate sniffing position. Preoxygenated sedation via BiPAP was provided for a minimum of 3 minutes. The patient had continuous cardiac as well as pulse oximetry monitoring during the procedure. Procedure sedation was provided by the administration of 4 mg of Versed, 20 mg of etomidate and 100 mg of succinylcholine. Direct laryngoscopy was then performed using a number 3 MAC blade, which revealed a grade 1 view. A 7.5 mm endotracheal tube was visualized advancing between the cords to the level of 24 cm at the lip. The stylette was then removed and discarded. Tube placement was confirmed by fogging in the tube along with equal and bilateral breath sounds. Colorimetric change was visualized on the CO2 meter. The cuff was then inflated and the tube secured using a commercially available device. A good pulse oximetry waveform was seen on the monitor throughout the procedure. A portable chest x-ray has been ordered to confirm appropriate placement. The patient tolerated the procedure well. Objective Data Objective Data The patient's most recent lab work, culture data and imaging studies have all been personally reviewed. Rapid coronavirus antigen testing was positive on July 03. C. difficile was negative. Strep and urine Legionella antigens were negative. Vital Signs: Vital Signs Temp Pulse Resp BP Pulse Ox 98.5 F 75 30 H 182/111 H 91 07/06/21 00:00 07/06/21 06:00 07/06/21 06:00 07/06/21 06:00 07/06/21 06:00 Oxygen Flow Rate (L/min) 60 Oxygen Delivery Method Bi-pap Weight: 141.1 kg Body Mass Index (BMI) 59.4 Intake & Output: Intake and Output for Last 24 Hours 07/04/21 07/05/21 07/06/21 23:59 23:59 23:59 Intake Total 900 / 900 770 / 770 120 / 120 Output Total 2550 / 2550 1350 / 1350 Balance -1650 / -1650 -580 / -580 120 / 120 Lab / Micro Data Attestation: I reviewed the patient's lab results. Result Diagrams: 07/06/21 03:15 07/06/21 03:15 Labs: Laboratory Results - last 24 hr 07/06/21 03:15: WBC 6.6, RBC 4.49, Hgb 12.7, Hct 41.2, MCV 91.8, MCH 28.3, MCHC 30.8 L, RDW Std Deviation 51.7 H, RDW Coeff of Gonzalo 15.4 H, Plt Count 267, MPV 10.4 07/06/21 03:15: Sodium 140, Potassium 3.2 L, Chloride 105, Carbon Dioxide 29.0, Anion Gap 6, BUN 22 H, Creatinine 0.84, Estim Creat Clear Calc 80.27, Est GFR (MDRD) Af Amer 105, Est GFR (MDRD) Non-Af 86, BUN/Creatinine Ratio 26.0 H, Glucose 173 H, Calcium 7.8 L, Total Bilirubin 0.40, AST 41 H, ALT 40, Alkaline Phosphatase 76, Total Protein 7.6, Albumin 3.0 L, Globulin 4.6 H, Albumin/Globulin Ratio 0.7 L Micro: Microbiology 07/03/21 21:27 Stool C. difficile DNA Amplification - Final 07/03/21 21:27 Urine, Clean Catch Legionella Antigen - Final 07/03/21 21:27 Urine, Clean Catch Streptococcus pneumoniae Antigen (M - Final 07/03/21 02:20 Nasal Secretion SARS-CoV-2 Antigen (Rapid) - Final SARS-CoV-2 (COVID 19) Physical Exam Const alert General Appearance: cooperative, ill appearing and on BiPAP Nutritional Appearance: morbidly obese HEENT normocephalic and head/scalp atraumatic HEENT Narrative: Dry oral mucosa. Poor dentition. Eyes PERRL, EOMs intact bilaterally and conjunctivae normal Neck supple General: trachea midline Chest inspection of chest normal Resp Effort and Inspection: tachypneic Auscultation: diminished lung sounds; Negative for rales, rhonchi or wheezes Cardio regular rate, regular rhythm, S1 normal heart sound and S2 normal heart sound GI normal to inspection, nondistended, normoactive bowel sounds Extremity no clubbing, cyanosis or edema Skin no rashes or lesions noted Neuro CN's II-XII intact bilaterally, moves all extremities and no focal motor deficits Psych Mood & Affect: anxious Charges/Coding Procedures Hospitalists Procedures: 42558 Critial Care 1st Hr
[2021-07-06] MEDS: Midazolam 2 MG/2 ML Syringe IV (08:40)
[2021-07-06] MEDS: Etomidate 20 MG/10 ML Vial IV (08:46)
--- NOTE | 2021-07-06 08:46 | NURSING ---
0845 4 versed ivp, 20 etomadate, succ 100 mg ivp 0950 intubated 7.5 25 lip. og inserted, christianson cath inserted
--- NOTE | 2021-07-06 08:52 | RAD_ITS ---
STUDY: X-RAY CHEST REASON FOR EXAM: Female, 26 years old. ETT placement TECHNIQUE: Single AP portable view of the chest. COMPARISON: Comparison is made with prior study dated 07/06/2021 at 9:11 AM. FINDINGS: An endotracheal tube is in situ. The endotracheal tube is at 1.7 cm proximal to the lisa. An orogastric tube is seen with the tip in the body of the stomach. EKG electrodes are seen. A right-sided PICC line catheter is seen with the tip in the superior vena cava. Persistent bilateral nodular infiltrates worse in the right hemithorax. There is evidence of subcutaneous emphysema overlying the right axillary region. There is borderline cardiomegaly. Normal mediastinum and james. Normal visualized pulmonary arteries. Normal visualized aortic arch and descending thoracic aorta. Normal visualized thoracic spine. Normal visualized ribs, clavicles, and shoulders. There is no demonstrated abnormality of the visualized soft tissue structures of the upper abdomen. RAD/Chest 1 View (Portable) IMPRESSION: The support tubes are in good position. Stable bilateral infiltrates worse in the right hemithorax. Subcutaneous emphysema is seen in the right axillary region. Electronically Signed: Rod Nieto MD at 13:35 EDT , Service support ,
[2021-07-06] MEDS: Propofol 10MG/Ml 1,000 MG/100 ML Bottle 42.3 MG CONT INF (09:00)
--- NOTE | 2021-07-06 09:26 | RAD_ITS ---
STUDY: X-RAY - ABDOMEN/PELVIS REASON FOR EXAM: Female, 26 years old. OG placement TECHNIQUE: Single AP view of the abdomen / pelvis. COMPARISON: None. FINDINGS: The tip of the orogastric tube is in the body of the stomach. There is an unremarkable bowel gas pattern. RAD/Abdomen Single View (Portable) IMPRESSION: The tip of the orogastric tube is in the body of the stomach. Electronically Signed: Rod Nieto MD at 13:33 EDT , Service support ,
[2021-07-06] MEDS: dexAMETHasone 10 MG/ML Vial 6 MG IV (10:33)
[2021-07-06 11:00] LABS: Base Excess 2 mmol/L (-2 to +2); Bicarbonate 27.8 mmol/L (22-26); Blood Gas Specimen Type ART; FI02 100; Mode AC; O2 Delivery Device Adult Vent; PEEP 15; PO2 100 mmHG (75-100); RR 16; SITE L Brach; SO2 97 % (95-99); Total Carbon Dioxide 29 mmol/L; Vt 350; pCO2 52.7 mmHg (35-45); pH 7.33 (7.35-7.45)
[2021-07-06 12:15] LABS: CPK Total, Creatine Kinase 405 U/L (26-192); Triglycerides 89 mg/dL
[2021-07-06] MEDS: Propofol 10MG/Ml 1,000 MG/100 ML Bottle 25.4 MG CONT INF ×3 (12:30→22:19)
[2021-07-06] MEDS: Escitalopram Oxalate 20 MG Tablet PO (13:15)
[2021-07-06] MEDS: lamoTRIgine 100 MG Tablet 200 MG PO (13:15)
[2021-07-06] MEDS: Enoxaparin 40 MG/0.4 ML Syringe SC ×2 (13:15→22:18)
[2021-07-06 14:03] LABS: M R Staph aureus DNA By PCR Negative (Negative); Probe Check PASS; Specimen Processing Control PASS
[2021-07-06] MEDS: TITRATION PARAMETER CHANGE 1 EACH IV (14:20)
--- NOTE | 2021-07-06 14:57 | PCS.PANDOC ---
PANDEMIC DOCUMENTATION INITIATED: Date: 04/16/2021 Time: 190
[2021-07-06] MEDS: Potassium Chloride Oral Soln 20 MEQ/15 ML UDC GT (16:47)
[2021-07-06] MEDS: Propofol 10MG/Ml 1,000 MG/100 ML Bottle 21.2 MG CONT INF (17:08)
--- NOTE | 2021-07-06 20:52 | NURSING ---
med verified with Ameena WORRELL
[2021-07-06] MEDS: Metoprolol Tartrate 25 MG Tablet GT (22:18)
[2021-07-06] MEDS: Chlorhexidine 15 ML PO (22:27)
[2021-07-06] MEDS: 0.9% Saline Lock 10 ML Syringe IV (22:36)
--- NOTE | 2021-07-06 23:06 | NURSING ---
Fentanyl verified with Bradford Maguire
[2021-07-06] MEDS: OLANZapine 10 MG Tablet 30 MG GT (23:47)
[2021-07-07] VITALS (38 sets, daily range): BP systolic 101–160; BP diastolic 60–88; PULSE 58–84; RESP 15–16; TEMP 35.9–37.1; O2SAT 90–96
[2021-07-07] MEDS: Propofol 10MG/Ml 1,000 MG/100 ML Bottle 25.4 MG CONT INF ×4 (02:04→11:31)
[2021-07-07 04:52] LABS: Hematocrit 39.8 % (37-47); Hemoglobin 12.2 g/dL (12.0-15.0); Mean Corp Hgb Conc 30.7 g/dL (32-36); Mean Corpuscular Hgb 29.3 pg (27.0-32.0); Mean Corpuscular Volume 95.4 fL (81-99); Platelet Count 302 K/mm3 (150-450); RBC Distribution Width CV 15.6 % (11.6-14.6); RBC Distribution Width SD 55.2 fl (35.1-43.9); Red Blood Count 4.17 M/mm3 (4.2-5.4); White Blood Count 7.5 K/mm3 (4.4-11.0)
[2021-07-07 05:09] LABS: ALB/GLOB Ratio 0.6 RATIO (0.9-2.4); AST(SGOT) 33 U/L (15-37); Alanine Aminotransfer ALT/SGPT 41 U/L (13-56); Albumin, Serum 2.7 g/dL (3.2-5.0); Alkaline Phosphatase 67 U/L (45-117); Anion Gap 5 (5-15); BUN 21 mg/dL (7-18); BUN/Creat Ratio 27.1 RATIO (10-20); Calcium,Total 7.6 mg/dL (8.5-10.1); Chloride 111 mmol/L (98-107); Creatinine, Serum 0.77 mg/dL (0.55-1.02); EST Glomerular Filtration Rate 96 mL/min (>60); Est Glom Filt Rate - Afr Amer 116 mL/min (>60); Estimated Creatinine Clearance 87.57 ml/min; Globulin 4.2 g/dL (2.2-4.2); Glucose 154 mg/dL (74-106); Potassium 3.7 mmol/L (3.5-5.1); Protein, Total 6.9 g/dL (6.4-8.2); Sodium Level 145 mmol/L (136-145)
--- NOTE | 2021-07-07 05:45 | PN.CC_ITS ---
Assessment & Plan Assessment/Plan (1) Acute hypoxemic respiratory failure due to COVID-19: PLAN: RECOMMENDATIONS: 1. Continue to wean FiO2 and PEEP to maintain oxygen saturations at or above 90%. 2. Attempt to maintain plateau pressures less than 30. 3. Continue empiric antimicrobials, Decadron, Lovenox and baricitinib as ordered. 4. Continue cis atracurium yet today. Will attempt to wean off paralytics tomorrow. 5. Resume diuretic regimen as tolerated by hemodynamics and renal function. 6. Continue appropriate GI prophylaxis. IMPRESSIONS: 1. Acute hypoxemic respiratory failure secondary to COVID-19 pneumonia The patient presented with worsening symptoms and is currently within 10 days of onset. Although the patient was maintained on noninvasive positive pressure ventilatory support for several days, she failed to improve from a respiratory perspective and was subsequently intubated on July 06. She has completed a treatment course of remdesivir. The patient remains on empiric antimicrobials, Decadron, Lovenox and baricitinib. We will plan to resume her diuretic regimen today as tolerated by hemodynamics and renal function. Continue to wean FiO2 and PEEP as tolerated to maintain saturations at or above 90%. Goal to maintain plateau pressures less than 30. The patient will be continued on her current sedation regimen and cis atracurium yet today. Plan to wean her paralytic beginning tomorrow. Continue appropriate GI prophylaxis. 2. History of schizoaffective disorder/hypertension/tobacco dependency/morbid obesity Complicates care, management, recovery and prognosis. Continue home medications as indicated. Nicotine replacement therapy can be offered to the patient while admitted to the hospital. TIME: 32 minutes of critical care time, independent of procedures, was spent addressing the patient's acute hypoxemic respiratory failure secondary to COVID- 19 pneumonia, review of all data and collaboration with the care team. Subjective Subjective The patient was seen and examined at the bedside this morning. Events from the last 24 hours have been reviewed. The patient is currently afebrile, hemodynamically stable and maintaining appropriate oxygen saturations on assist control mode of mechanical ventilation with an FiO2 requirement of 60% and PEEP of 15. The patient remains sedated on propofol and fentanyl. She remains pharmacologically paralyzed on cis atracurium. The patient is currently documented to be overall net +300 mL for the hospital admission. Liver and renal function are stable. She remains on empiric antimicrobials, Decadron, Love nox and baricitinib. Objective Data Objective Data The patient's most recent lab work, culture data and imaging studies have all been personally reviewed. Rapid coronavirus antigen testing was positive on July 03. C. difficile was negative. Strep and urine Legionella antigens were negative. Sputum culture is pending. Vital Signs: Vital Signs Temp Pulse Resp BP Pulse Ox 96.8 F L 79 16 105/64 91 07/07/21 05:00 07/07/21 05:12 07/07/21 05:12 07/07/21 05:00 07/07/21 05:12 Oxygen Flow Rate (L/min) 60 Oxygen Delivery Method Mechanical Ventilator Weight: 141.1 kg Body Mass Index (BMI) 59.4 Intake & Output: Intake and Output for Last 24 Hours 07/05/21 07/06/21 07/07/21 23:59 23:59 23:59 Intake Total 770 / 770 1577.21 / 1672.21 575.00 / 575.00 Output Total 1350 / 1350 875 / 875 Balance -580 / -580 702.21 / 797.21 575.00 / 575.00 Lab / Micro Data Attestation: I reviewed the patient's lab results. Result Diagrams: 07/07/21 04:45 07/07/21 04:45 Labs: Laboratory Results - last 24 hr 07/06/21 03:15: Total Creatine Kinase 405 H, Triglycerides 89 07/06/21 12:10: MRSA (PCR) Negative 07/07/21 04:45: WBC 7.5, RBC 4.17 L, Hgb 12.2, Hct 39.8, MCV 95.4, MCH 29.3, MCHC 30.7 L, RDW Std Deviation 55.2 H, RDW Coeff of Gonzalo 15.6 H, Plt Count 302, MPV 10.0 07/07/21 04:45: Sodium 145, Potassium 3.7, Chloride 111 H, Carbon Dioxide 29.0, Anion Gap 5, BUN 21 H, Creatinine 0.77, Estim Creat Clear Calc 87.57, Est GFR (MDRD) Af Amer 116, Est GFR (MDRD) Non-Af 96, BUN/Creatinine Ratio 27.1 H, Glucose 154 H, Calcium 7.6 L, Total Bilirubin 0.50, AST 33, ALT 41, Alkaline Phosphatase 67, Total Protein 6.9, Albumin 2.7 L, Globulin 4.2, Albumin/Globulin Ratio 0.6 L Micro: Microbiology 07/06/21 09:00 Sputum, Induced/Lukens Gram Stain - Final 07/03/21 21:27 Stool C. difficile DNA Amplification - Final 07/03/21 21:27 Urine, Clean Catch Legionella Antigen - Final 07/03/21 21:27 Urine, Clean Catch Streptococcus pneumoniae Antigen (M - Final 07/03/21 02:20 Nasal Secretion SARS-CoV-2 Antigen (Rapid) - Final SARS-CoV-2 (COVID 19) ABG Data ABG results: ABG 07/06/21 10:52 Specimen Type ART Sample Site L Brach pH 7.33 L Bicarbonate Actual 27.8 H Total CO2 29 Base Excess 2 O2 Saturation 97 O2 % 100 ABG pCO2 52.7 H ABG pO2 100 Respiration Rate 16 O2 Delivery Device Adult Vent Vent Mode AC Tidal Volume 350 POC PEEP 15 Radiography Diagnostic Testing: Radiology Impression Chest X-Ray 07/06/21 08:52 IMPRESSION: The support tubes are in good position. Stable bilateral infiltrates worse in the right hemithorax. Subcutaneous emphysema is seen in the right axillary region. Electronically Signed: Rod Nieto MD at 13:35 EDT , Service support , KUB X-Ray 07/06/21 09:26 IMPRESSION: The tip of the orogastric tube is in the body of the stomach. Electronically Signed: Rod Nieto MD at 13:33 EDT , Service support , Physical Exam Const General Appearance: intubated and patient mechanically ventilated Nutritional Appearance: morbidly obese HEENT normocephalic and head/scalp atraumatic HEENT Narrative: Dry oral mucosa. Poor dentition. Mouth: endotracheal tube in place and OG tube in place Eyes PERRL, EOMs intact bilaterally and conjunctivae normal Neck supple General: trachea midline Chest inspection of chest normal Resp Auscultation: diminished lung sounds; Negative for rales, rhonchi or wheezes Cardio regular rate, regular rhythm, S1 normal heart sound and S2 normal heart sound GI normal to inspection, nondistended, normoactive bowel sounds Extremity no clubbing, cyanosis or edema Skin no rashes or lesions noted Neuro Sensorium / Orientation: sedated on vent Charges/Coding Procedures Hospitalists Procedures: [id number] Critial Care 1st Hr
--- NOTE | 2021-07-07 07:08 | PCM.PN.HOSP ---
Subjective Subjective Patient respiratory status deteriorated resulting in patient being intubated and subsequently placed on the vent the day prior patient currently paralyzed with Cisatracurium Objective Data Objective Data Vital Signs: Vital Signs Temp Pulse Resp BP Pulse Ox 97.0 F L 61 16 126/72 H 93 07/07/21 06:00 07/07/21 06:57 07/07/21 06:57 07/07/21 06:00 07/07/21 06:57 Oxygen Flow Rate (L/min) 60 Oxygen Delivery Method Mechanical Ventilator Weight: 144.3 kg Body Mass Index (BMI) 59.4 Intake & Output: Intake and Output for Last 24 Hours 07/05/21 07/06/21 07/07/21 23:59 23:59 23:59 Intake Total 770 / 770 1577.21 / 1672.21 623.21 / 623.21 Output Total 1350 / 1350 875 / 875 200 / 200 Balance -580 / -580 702.21 / 797.21 423.21 / 423.21 Lab / Micro Data Result Diagrams: 07/07/21 04:45 07/07/21 04:45 Labs: Laboratory Results - last 24 hr 07/06/21 03:15: Total Creatine Kinase 405 H, Triglycerides 89 07/06/21 12:10: MRSA (PCR) Negative 07/07/21 04:45: WBC 7.5, RBC 4.17 L, Hgb 12.2, Hct 39.8, MCV 95.4, MCH 29.3, MCHC 30.7 L, RDW Std Deviation 55.2 H, RDW Coeff of Gonzalo 15.6 H, Plt Count 302, MPV 10.0 07/07/21 04:45: Sodium 145, Potassium 3.7, Chloride 111 H, Carbon Dioxide 29.0, Anion Gap 5, BUN 21 H, Creatinine 0.77, Estim Creat Clear Calc 87.57, Est GFR (MDRD) Af Amer 116, Est GFR (MDRD) Non-Af 96, BUN/Creatinine Ratio 27.1 H, Glucose 154 H, Calcium 7.6 L, Total Bilirubin 0.50, AST 33, ALT 41, Alkaline Phosphatase 67, Total Protein 6.9, Albumin 2.7 L, Globulin 4.2, Albumin/Globulin Ratio 0.6 L Micro: Microbiology 07/06/21 09:00 Sputum, Induced/Lukens Gram Stain - Final 07/03/21 21:27 Stool C. difficile DNA Amplification - Final 07/03/21 21:27 Urine, Clean Catch Legionella Antigen - Final 07/03/21 21:27 Urine, Clean Catch Streptococcus pneumoniae Antigen (M - Final 07/03/21 02:20 Nasal Secretion SARS-CoV-2 Antigen (Rapid) - Final SARS-CoV-2 (COVID 19) ABG Data ABG results: ABG 07/06/21 10:52 Specimen Type ART Sample Site L Brach pH 7.33 L Bicarbonate Actual 27.8 H Total CO2 29 Base Excess 2 O2 Saturation 97 O2 % 100 ABG pCO2 52.7 H ABG pO2 100 Respiration Rate 16 O2 Delivery Device Adult Vent Vent Mode AC Tidal Volume 350 POC PEEP 15 Radiography Diagnostic Testing: Radiology Impression Chest X-Ray 07/06/21 08:52 IMPRESSION: The support tubes are in good position. Stable bilateral infiltrates worse in the right hemithorax. Subcutaneous emphysema is seen in the right axillary region. Electronically Signed: Rod Nieto MD at 13:35 EDT , Service support , KUB X-Ray 07/06/21 09:26 IMPRESSION: The tip of the orogastric tube is in the body of the stomach. Electronically Signed: Rod Nieto MD at 13:33 EDT , Service support , Physical Exam Narrative GENERAL: On the vent HEENT: Atraumatic; EYES; Anicteric, Normal Conjunctiva NECK; supple, normal thyroid, RESPIRATORY: Diminished to auscultation CARDIOVASCULAR: Regular S1 S2, GI: soft, normoactive bowel sounds, : No Renal angle tenderness; EXTREMITIES: No edema, no clubbing, MUSCULOSKELETAL: no muscle waisting NEURO: On the vent SKIN: No Rash Assessment & Plan Assessment/Plan (1) Acute hypoxemic respiratory failure due to COVID-19: (2) COVID-19: PLAN: Patient is a 26-year-old lady unvaccinated against COVID-19 presented with progressive shortness of breath. Her symptoms started on 06/25/2021. 1. Acute hypoxic respiratory failure ?Secondary to SARS-CoV-2 pneumonia patient being treated with supplemental oxygen as well as treatment of the underlying etiology -07/04/2021atient was transferred to the ICU following deterioration in her respiratory symptoms. Currently on BiPAP. Consult placed to both ID as well as pulmonary medicine ?07/05/2021;Patient seen remains in ICU. Currently on AVAPS with FiO2 of 90% and 60 mill per liter flow. Diagnostic data significant for potassium of 3.3 ?07/06/2021;Patient seen in the ICU. Remains on AVAPS with FiO2 of 90%. Case discussed with pulmonary medicine with plans for possible intubation if patient clinical condition continues to worsen ?07/07/2021;Patient respiratory status deteriorated resulting in patient being intubated and subsequently placed on the vent the day prior patient currently paralyzed with Cisatracurium 2. SARS-CoV-2 pneumonia ?Patient started on Decadron as well as remdesivir in addition to supplemental oxygen 3. Schizoaffective disorder ?Did continue patient psychotropic medications including olanzapine, lamotrigine and escitalopram lamotrigine and escitalopram 4. Hypertension - Blood pressure controlled, home medications continued with dose adjustment as needed 5. Tobacco dependence - Counseled on cessation, offered nicotine patch for tobacco cravings 6. Morbid obesity with BMI of 59.5 ?Weight loss advised 7. DVT prophylaxis ?Lovenox 8. Hypokalemia ?Corrected per protocol ?07/05/2021; potassium remains low additional replacement given Charges/Coding Visit Charges Inpatient E&M: 58125 Subs Hosp L3
[2021-07-07] MEDS: Potassium Chloride Oral Soln 20 MEQ/15 ML UDC GT ×2 (08:28→16:31)
[2021-07-07] MEDS: Chlorhexidine 15 ML PO ×2 (08:28→20:12)
[2021-07-07] MEDS: Enoxaparin 40 MG/0.4 ML Syringe SC ×2 (08:28→20:09)
[2021-07-07] MEDS: dexAMETHasone 10 MG/ML Vial 6 MG IV (08:29)
[2021-07-07] MEDS: Furosemide 40 MG/4 ML Vial IV (08:29)
[2021-07-07] MEDS: Escitalopram Oxalate 20 MG Tablet GT (08:29)
[2021-07-07] MEDS: lamoTRIgine 100 MG Tablet 200 MG GT (08:31)
[2021-07-07] MEDS: Propofol 10MG/Ml 1,000 MG/100 ML Bottle 21.2 MG CONT INF ×3 (15:39→22:08)
--- NOTE | 2021-07-07 17:08 | NURSING ---
patient's mother requesting patient's wallet because the rent's due. Wallet taken to [facility] room 312 where patient's mother is currently admitted.
[2021-07-07] MEDS: OLANZapine 10 MG Tablet 30 MG GT (20:09)
[2021-07-07] MEDS: Metoprolol Tartrate 25 MG Tablet GT (20:09)
[2021-07-08] VITALS (34 sets, daily range): BP systolic 99–162; BP diastolic 60–92; PULSE 55–91; RESP 16–20; TEMP 36.3–37.9; O2SAT 85–100
[2021-07-08] MEDS: Propofol 10MG/Ml 1,000 MG/100 ML Bottle 21.2 MG CONT INF ×2 (01:34→06:18)
[2021-07-08 04:20] LABS: Hematocrit 40.5 % (37-47); Hemoglobin 12.1 g/dL (12.0-15.0); Mean Corp Hgb Conc 29.9 g/dL (32-36); Mean Corpuscular Hgb 28.7 pg (27.0-32.0); Mean Corpuscular Volume 96.2 fL (81-99); Mean Platelet Vol. 10.2 fl (6.2-12.0); Platelet Count 302 K/mm3 (150-450); RBC Distribution Width CV 15.6 % (11.6-14.6); RBC Distribution Width SD 55.3 fl (35.1-43.9); Red Blood Count 4.21 M/mm3 (4.2-5.4); White Blood Count 6.5 K/mm3 (4.4-11.0)
[2021-07-08 04:41] LABS: ALB/GLOB Ratio 0.6 RATIO (0.9-2.4); AST(SGOT) 53 U/L (15-37); Alanine Aminotransfer ALT/SGPT 65 U/L (13-56); Albumin, Serum 2.7 g/dL (3.2-5.0); Alkaline Phosphatase 64 U/L (45-117); Anion Gap 2 (5-15); BUN 23 mg/dL (7-18); Calcium,Total 7.8 mg/dL (8.5-10.1); Chloride 110 mmol/L (98-107); Creatinine, Serum 0.74 mg/dL (0.55-1.02); EST Glomerular Filtration Rate 101 mL/min (>60); Est Glom Filt Rate - Afr Amer 122 mL/min (>60); Estimated Creatinine Clearance 91.12 ml/min; Globulin 4.2 g/dL (2.2-4.2); Glucose 120 mg/dL (74-106); Potassium 3.7 mmol/L (3.5-5.1); Protein, Total 6.9 g/dL (6.4-8.2); Sodium Level 145 mmol/L (136-145)
--- NOTE | 2021-07-08 05:24 | PN.CC_ITS ---
Assessment & Plan Assessment/Plan (1) Acute hypoxemic respiratory failure due to COVID-19: PLAN: RECOMMENDATIONS: 1. Continue to wean FiO2 and PEEP to maintain oxygen saturations at or above 90%. 2. Attempt to maintain plateau pressures less than 30. 3. Continue empiric antimicrobials, Decadron, Lovenox and baricitinib as ordered. 4. Wean cis atracurium off over the course of today. Increase sedation if needed. 5. Continue diuretic regimen as tolerated by hemodynamics and renal function. 6. Continue appropriate GI prophylaxis. IMPRESSIONS: 1. Acute hypoxemic respiratory failure secondary to COVID-19 pneumonia The patient presented with worsening symptoms and was within 10 days of onset. Although the patient was maintained on noninvasive positive pressure ventilatory support for several days, she failed to improve from a respiratory perspective and was subsequently intubated on July 06. She has completed a treatment course of remdesivir. The patient remains on empiric antimicrobials, Decadron, Lovenox and baricitinib. We will plan to continue her diuretic regimen as tolerated by hemodynamics and renal function. Continue to wean FiO2 and PEEP as tolerated to maintain saturations at or above 90%. Goal to maintain plateau pressures less than 30. The patient will be continued on her current sedation regimen and cis atracurium will be weaned off over the course of today. Continue appropriate GI prophylaxis. 2. History of schizoaffective disorder/hypertension/tobacco dependency/morbid o besity Complicates care, management, recovery and prognosis. Continue home medications as indicated. Nicotine replacement therapy can be offered to the patient while admitted to the hospital. TIME: 31 minutes of critical care time, independent of procedures, was spent addressing the patient's acute hypoxemic respiratory failure secondary to COVID- 19 pneumonia, review of all data and collaboration with the care team. (0600- 0635) Subjective Subjective The patient was seen and examined at the bedside this morning. Events from the last 24 hours have been reviewed. The patient is currently afebrile, hemodynamically stable and maintaining appropriate oxygen saturations on assist control mode of mechanical ventilation with an FiO2 requirement of 45% and PEEP of 10. The patient remains sedated on propofol and fentanyl. She remains pharmacologically paralyzed on cis atracurium. The patient is currently documented to be overall net +400 mL for the hospital admission. Liver and renal function are stable. She remains on empiric antimicrobials, Decadron, Lovenox and baricitinib. Ventilator plateau pressures remain less than 30. Objective Data Objective Data The patient's most recent lab work, culture data and imaging studies have all been personally reviewed. Rapid coronavirus antigen testing was positive on July 03. C. difficile was negative. Strep and urine Legionella antigens were negative. Sputum culture is pending. Vital Signs: Vital Signs Temp Pulse Resp BP Pulse Ox 97.5 F L 60 16 127/79 H 97 07/08/21 04:00 07/08/21 04:58 07/08/21 04:58 07/08/21 04:00 07/08/21 04:58 Oxygen Flow Rate (L/min) 60 Oxygen Delivery Method Mechanical Ventilator Weight: 144.1 kg Body Mass Index (BMI) 59.4 Intake & Output: Intake and Output for Last 24 Hours 07/06/21 07/07/21 07/08/21 23:59 23:59 22:59 Intake Total 1577.21 / 1672.21 2272.08 / 2449.48 472.23 / 472.23 Output Total 875 / 875 1750 / 2025 275 / 275 Balance 702.21 / 797.21 522.08 / 424.48 197.23 / 197.23 Lab / Micro Data Attestation: I reviewed the patient's lab results. Result Diagrams: 07/08/21 04:10 07/08/21 04:10 Labs: Laboratory Results - last 24 hr 07/08/21 04:10: WBC 6.5, RBC 4.21, Hgb 12.1, Hct 40.5, MCV 96.2, MCH 28.7, MCHC 29.9 L, RDW Std Deviation 55.3 H, RDW Coeff of Gonzalo 15.6 H, Plt Count 302, MPV 10.2 07/08/21 04:10: Sodium 145, Potassium 3.7, Chloride 110 H, Carbon Dioxide 33.0 H , Anion Gap 2 L, BUN 23 H, Creatinine 0.74, Estim Creat Clear Calc 91.12, Est GFR (MDRD) Af Amer 122, Est GFR (MDRD) Non-Af 101, BUN/Creatinine Ratio 31.0 H, Glucose 120 H, Calcium 7.8 L, Total Bilirubin 0.50, AST 53 H, ALT 65 H, Alkaline Phosphatase 64, Total Protein 6.9, Albumin 2.7 L, Globulin 4.2, Albumin/Globulin Ratio 0.6 L Micro: Microbiology 07/06/21 09:00 Sputum, Induced/Lukens Gram Stain - Final 07/06/21 09:00 Sputum, Induced/Lukens Respiratory Culture - Preliminary Culture exhibits no growth. 07/03/21 21:27 Stool C. difficile DNA Amplification - Final 07/03/21 21:27 Urine, Clean Catch Legionella Antigen - Final 07/03/21 21:27 Urine, Clean Catch Streptococcus pneumoniae Antigen (M - Final 07/03/21 02:20 Nasal Secretion SARS-CoV-2 Antigen (Rapid) - Final SARS-CoV-2 (COVID 19) Physical Exam Const General Appearance: intubated and patient mechanically ventilated Nutritional Appearance: morbidly obese HEENT normocephalic and head/scalp atraumatic Mouth: endotracheal tube in place and OG tube in place Teeth and Gingiva: poor dentition Eyes PERRL, EOMs intact bilaterally and conjunctivae normal Neck supple General: trachea midline Chest inspection of chest normal Resp Auscultation: diminished lung sounds; Negative for rales, rhonchi or wheezes Cardio regular rate, regular rhythm, S1 normal heart sound and S2 normal heart sound GI normal to inspection, nondistended, normoactive bowel sounds Extremity no clubbing, cyanosis or edema Skin no rashes or lesions noted Neuro Sensorium / Orientation: sedated on vent Charges/Coding Procedures Hospitalists Procedures: 19526 Critial Care 1st Hr
[2021-07-08] MEDS: TITRATION PARAMETER CHANGE 1 EACH IV ×3 (05:59→11:21)
--- NOTE | 2021-07-08 07:17 | PN.HOSP_ITS ---
Subjective Subjective Patient seen remains on the vent has been weaned off paralytic agent current vent settings; FiO2 requirement of100% and PEEP of 10 Objective Data Objective Data Vital Signs: Vital Signs Temp Pulse Resp BP Pulse Ox 97.5 F L 84 16 127/74 H 97 07/08/21 04:00 07/08/21 07:03 07/08/21 07:03 07/08/21 06:00 07/08/21 06:00 Oxygen Flow Rate (L/min) 60 Oxygen Delivery Method Mechanical Ventilator Weight: 144.1 kg Body Mass Index (BMI) 59.4 Intake & Output: Intake and Output for Last 24 Hours 07/06/21 07/07/21 07/08/21 23:59 23:59 22:59 Intake Total 1577.21 / 1672.21 2272.08 / 2449.48 627.45 / 627.45 Output Total 875 / 875 1750 / 2025 425 / 425 Balance 702.21 / 797.21 522.08 / 424.48 202.45 / 202.45 Lab / Micro Data Result Diagrams: 07/08/21 04:10 07/08/21 04:10 Labs: Laboratory Results - last 24 hr 07/08/21 04:10: WBC 6.5, RBC 4.21, Hgb 12.1, Hct 40.5, MCV 96.2, MCH 28.7, MCHC 29.9 L, RDW Std Deviation 55.3 H, RDW Coeff of Gonzalo 15.6 H, Plt Count 302, MPV 10.2 07/08/21 04:10: Sodium 145, Potassium 3.7, Chloride 110 H, Carbon Dioxide 33.0 H , Anion Gap 2 L, BUN 23 H, Creatinine 0.74, Estim Creat Clear Calc 91.12, Est GFR (MDRD) Af Amer 122, Est GFR (MDRD) Non-Af 101, BUN/Creatinine Ratio 31.0 H, Glucose 120 H, Calcium 7.8 L, Total Bilirubin 0.50, AST 53 H, ALT 65 H, Alkaline Phosphatase 64, Total Protein 6.9, Albumin 2.7 L, Globulin 4.2, Albumin/Globulin Ratio 0.6 L Micro: Microbiology 07/06/21 09:00 Sputum, Induced/Lukens Gram Stain - Final 07/06/21 09:00 Sputum, Induced/Lukens Respiratory Culture - Preliminary Culture exhibits no growth. 07/03/21 21:27 Stool C. difficile DNA Amplification - Final 07/03/21 21:27 Urine, Clean Catch Legionella Antigen - Final 07/03/21 21:27 Urine, Clean Catch Streptococcus pneumoniae Antigen (M - Final 07/03/21 02:20 Nasal Secretion SARS-CoV-2 Antigen (Rapid) - Final SARS-CoV-2 (COVID 19) Physical Exam Narrative GENERAL: On the vent HEENT: Atraumatic; EYES; Anicteric, Normal Conjunctiva NECK; supple, normal thyroid, RESPIRATORY: Diminished to auscultation CARDIOVASCULAR: Regular S1 S2, GI: soft, normoactive bowel sounds, : No Renal angle tenderness; EXTREMITIES: No edema, no clubbing, MUSCULOSKELETAL: no muscle waisting NEURO: On the vent SKIN: No Rash Assessment & Plan Assessment/Plan (1) Acute hypoxemic respiratory failure due to COVID-19: (2) COVID-19: PLAN: Patient is a 26-year-old lady unvaccinated against COVID-19 presented with progressive shortness of breath. Her symptoms started on 06/25/2021. 1. Acute hypoxic respiratory failure ?Secondary to SARS-CoV-2 pneumonia patient being treated with supplemental oxygen as well as treatment of the underlying etiology -07/04/2021atient was transferred to the ICU following deterioration in her respiratory symptoms. Currently on BiPAP. Consult placed to both ID as well as pulmonary medicine ?07/05/2021;Patient seen remains in ICU. Currently on AVAPS with FiO2 of 90% and 60 mill per liter flow. Diagnostic data significant for potassium of 3.3 ?07/06/2021;Patient seen in the ICU. Remains on AVAPS with FiO2 of 90%. Case discussed with pulmonary medicine with plans for possible intubation if patient clinical condition continues to worsen ?07/07/2021;Patient respiratory status deteriorated resulting in patient being intubated and subsequently placed on the vent the day prior patient currently paralyzed with Cisatracurium -07/08/2021: Patient seen remains on the vent has been weaned off paralytic agent current vent settings; FiO2 requirement of100% and PEEP of 10 2. SARS-CoV-2 pneumonia ?Patient started on Decadron as well as remdesivir in addition to supplemental oxygen 3. Schizoaffective disorder ?Did continue patient psychotropic medications including olanzapine, lamotrigine and escitalopram lamotrigine and escitalopram 4. Hypertension - Blood pressure controlled, home medications continued with dose adjustment as needed 5. Tobacco dependence - Counseled on cessation, offered nicotine patch for tobacco cravings 6. Morbid obesity with BMI of 59.5 ?Weight loss advised 7. DVT prophylaxis ?Lovenox 8. Hypokalemia ?Corrected per protocol ?07/05/2021; potassium remains low additional replacement given Charges/Coding Visit Charges Inpatient E&M: 73897 Subs Hosp L3
[2021-07-08] MEDS: Propofol 10MG/Ml 1,000 MG/100 ML Bottle 38.1 MG CONT INF (07:30)
[2021-07-08] MEDS: Dexmedetomidine 1,000 mcg in 0.9% NS 240 mL 18 MCG CONT INF (08:30)
[2021-07-08] MEDS: Furosemide 40 MG/4 ML Vial IV (11:21)
[2021-07-08] MEDS: Potassium Chloride Oral Soln 20 MEQ/15 ML UDC GT ×2 (11:21→16:51)
[2021-07-08] MEDS: dexAMETHasone 10 MG/ML Vial 6 MG IV (11:22)
[2021-07-08] MEDS: lamoTRIgine 100 MG Tablet 200 MG GT (11:22)
[2021-07-08] MEDS: Escitalopram Oxalate 20 MG Tablet GT (11:22)
[2021-07-08] MEDS: 0.9% Saline Lock 10 ML Syringe IV ×2 (11:23→17:02)
[2021-07-08] MEDS: Chlorhexidine 15 ML PO ×2 (11:25→21:26)
[2021-07-08] MEDS: Enoxaparin 40 MG/0.4 ML Syringe SC ×2 (11:25→21:31)
[2021-07-08] MEDS: Alteplase 2 MG/2 ML Vial IV (11:32)
[2021-07-08] MEDS: Propofol 10MG/Ml 1,000 MG/100 ML Bottle 8.5 MG CONT INF (13:30)
[2021-07-08] MEDS: Dexmedetomidine 1,000 mcg in 0.9% NS 240 mL 39.6 MCG CONT INF ×2 (14:36→20:15)
[2021-07-08] MEDS: Propofol 10MG/Ml 1,000 MG/100 ML Bottle 12.7 MG CONT INF (16:32)
[2021-07-08] MEDS: Metoprolol Tartrate 25 MG Tablet GT (21:30)
[2021-07-08] MEDS: Acetaminophen 650 MG/20 ML UDC PO (21:30)
[2021-07-08] MEDS: OLANZapine 10 MG Tablet 30 MG GT (21:30)
[2021-07-09] VITALS (40 sets, daily range): BP systolic 117–139; BP diastolic 71–115; PULSE 60–71; RESP 16–24; TEMP 37.9–38.4; O2SAT 88–95
[2021-07-09] MEDS: Propofol 10MG/Ml 1,000 MG/100 ML Bottle 8.5 MG CONT INF ×3 (01:03→13:00)
[2021-07-09] MEDS: Dexmedetomidine 1,000 mcg in 0.9% NS 240 mL 39.6 MCG CONT INF ×4 (02:16→21:32)
[2021-07-09 04:18] LABS: Hematocrit 43.2 % (37-47); Mean Corp Hgb Conc 30.1 g/dL (32-36); Mean Corpuscular Hgb 28.9 pg (27.0-32.0); Mean Platelet Vol. 10.2 fl (6.2-12.0); Platelet Count 331 K/mm3 (150-450); RBC Distribution Width CV 15.2 % (11.6-14.6); RBC Distribution Width SD 54.1 fl (35.1-43.9); White Blood Count 8.1 K/mm3 (4.4-11.0)
[2021-07-09 04:34] LABS: ALB/GLOB Ratio 0.6 RATIO (0.9-2.4); AST(SGOT) 126 U/L (15-37); Alanine Aminotransfer ALT/SGPT 119 U/L (13-56); Albumin, Serum 2.7 g/dL (3.2-5.0); Alkaline Phosphatase 70 U/L (45-117); Anion Gap 3 (5-15); BUN 23 mg/dL (7-18); Calcium,Total 8.2 mg/dL (8.5-10.1); Chloride 111 mmol/L (98-107); Creatinine, Serum 0.77 mg/dL (0.55-1.02); EST Glomerular Filtration Rate 97 mL/min (>60); Est Glom Filt Rate - Afr Amer 117 mL/min (>60); Estimated Creatinine Clearance 87.57 ml/min; Globulin 4.3 g/dL (2.2-4.2); Glucose 129 mg/dL (74-106); Potassium 4.1 mmol/L (3.5-5.1); Sodium Level 145 mmol/L (136-145)
[2021-07-09] MEDS: Vital AF 1.2 Cal Liquid 1,000 ML 10 ML GT (06:44)
--- NOTE | 2021-07-09 06:52 | PN.CC_ITS ---
Assessment & Plan Assessment/Plan (1) Acute hypoxemic respiratory failure due to COVID-19: PLAN: RECOMMENDATIONS: 1. Continue to wean FiO2 and PEEP to maintain oxygen saturations at or above 90%. 2. Attempt to maintain plateau pressures less than 30. 3. Discontinue antimicrobials. Continue Decadron (07/13/2021), Lovenox (prophylactic) and baricitinib (07/18/2021) as ordered. 4. Titrate sedation as necessary. Continue codeine for now 5. Continue diuretic regimen as tolerated by hemodynamics and renal function. 6. Continue appropriate GI prophylaxis. Start trophic feeds for 24 hours IMPRESSIONS: 1. Acute hypoxemic respiratory failure secondary to COVID-19 pneumonia The patient presented with worsening symptoms and was within 10 days of onset. Although the patient was maintained on noninvasive positive pressure ventilatory support for several days, she failed to improve from a respiratory perspective and was subsequently intubated on July 06. She has completed a treatment course of remdesivir. The patient remains on Decadron, Lovenox and baricitinib. We will discontinue empiric antibiotics given culture negative. We will plan to continue her diuretic regimen as tolerated by hemodynamics and renal function. Continue to wean FiO2 and PEEP as tolerated to maintain saturations at or above 90%. Goal to maintain plateau pressures less than 30. The patient will be continued on her current sedation regimen. Continue appropriate GI prophylaxis. 2. History of schizoaffective disorder/hypertension/tobacco dependency/morbid obesity Complicates care, management, recovery and prognosis. Continue home medications as indicated. Unclear if patient will require nicotine replacement given intubation. TIME: 32 minutes of critical care time, independent of procedures, was spent addressing the patient's acute hypoxemic respiratory failure secondary to COVID- 19 pneumonia, review of all data and collaboration with the care team. (5:45 AM to 6:45 AM) Subjective Subjective Patient did okay overnight. Patient continues to be hemodynamically stable when synchrony with vent is noted. Patient on significant sedative medications. Patient has not been initiated on tube feeds at this time because she came off of paralytics yesterday. Objective Data Objective Data Vital Signs: Vital Signs Temp Pulse Resp BP Pulse Ox 37.9 C H 63 16 133/81 H 93 07/09/21 04:00 07/09/21 06:00 07/09/21 06:00 07/09/21 06:00 07/09/21 06:00 Oxygen Flow Rate (L/min) 60 Oxygen Delivery Method Mechanical Ventilator Weight: 143.8 kg Body Mass Index (BMI) 59.4 Intake & Output: Intake and Output for Last 24 Hours 07/08/21 07/08/21 07/09/21 00:59 23:59 23:59 Intake Total 621.71 / 621.71 Output Total 500 / 500 Balance 121.71 / 121.71 Lab / Micro Data Result Diagrams: 07/09/21 04:05 07/09/21 04:05 Labs: Laboratory Results - last 24 hr 07/09/21 04:05: WBC 8.1, RBC 4.50, Hgb 13.0, Hct 43.2, MCV 96.0, MCH 28.9, MCHC 30.1 L, RDW Std Deviation 54.1 H, RDW Coeff of Gonzalo 15.2 H, Plt Count 331, MPV 10.2 07/09/21 04:05: Sodium 145, Potassium 4.1, Chloride 111 H, Carbon Dioxide 31.0, Anion Gap 3 L, BUN 23 H, Creatinine 0.77, Estim Creat Clear Calc 87.57, Est GFR (MDRD) Af Amer 117, Est GFR (MDRD) Non-Af 97, BUN/Creatinine Ratio 30.0 H, Glucose 129 H, Calcium 8.2 L, Total Bilirubin 0.80, AST 126 H, ALT 119 H, Alkaline Phosphatase 70, Total Protein 7.0, Albumin 2.7 L, Globulin 4.3 H, Albumin/Globulin Ratio 0.6 L Micro: Microbiology 07/06/21 09:00 Sputum, Induced/Lukens Gram Stain - Final 07/06/21 09:00 Sputum, Induced/Lukens Respiratory Culture - Final 07/03/21 21:27 Stool C. difficile DNA Amplification - Final 07/03/21 21:27 Urine, Clean Catch Legionella Antigen - Final 07/03/21 21:27 Urine, Clean Catch Streptococcus pneumoniae Antigen (M - Final 07/03/21 02:20 Nasal Secretion SARS-CoV-2 Antigen (Rapid) - Final SARS-CoV-2 (COVID 19) Physical Exam Const General Appearance: intubated and patient mechanically ventilated Nutritional Appearance: morbidly obese HEENT normocephalic and head/scalp atraumatic Mouth: endotracheal tube in place and OG tube in place Teeth and Gingiva: poor dentition Eyes PERRL, EOMs intact bilaterally and conjunctivae normal Neck supple General: trachea midline Chest inspection of chest normal Chest: symmetrical chest wall rise; Negative for crepitus Resp Auscultation: diminished lung sounds; Negative for rales, rhonchi or wheezes Cardio regular rate, regular rhythm, S1 normal heart sound, S2 normal heart sound, no murmurs, no rub and no gallops GI normal to inspection, nondistended, normoactive bowel sounds Extremity General Extremity: Negative for clubbing, cyanosis or edema Skin no rashes or lesions noted Neuro Sensorium / Orientation: sedated on vent Charges/Coding Procedures Hospitalists Procedures: [id number] Critial Care 1st Hr
[2021-07-09] MEDS: Enoxaparin 40 MG/0.4 ML Syringe SC ×2 (08:22→20:13)
[2021-07-09] MEDS: 0.9% Saline Lock 10 ML Syringe IV (08:23)
[2021-07-09] MEDS: Chlorhexidine 15 ML PO ×2 (08:23→20:14)
[2021-07-09] MEDS: dexAMETHasone 10 MG/ML Vial 6 MG IV (08:23)
[2021-07-09] MEDS: Furosemide 40 MG/4 ML Vial IV (08:23)
[2021-07-09] MEDS: Potassium Chloride Oral Soln 20 MEQ/15 ML UDC GT ×2 (08:24→16:23)
[2021-07-09] MEDS: lamoTRIgine 100 MG Tablet 200 MG GT (08:24)
[2021-07-09] MEDS: Escitalopram Oxalate 20 MG Tablet GT (08:24)
--- NOTE | 2021-07-09 11:07 | CASEMGMT ---
SW participated in ICU rounds this morning. Pt's case management director from [facility], Sayra [place] called in for an update, will call back for updates periodically. Sayra's callback is [phone]. PITER Paul
--- NOTE | 2021-07-09 12:59 | PCM.PN.HOSP ---
Subjective Subjective Follow-up with acute respiratory failure/acute COVID-19 pneumonia: Patient was seen and examined. She remains intubated. No acute events overnight. She is having low-grade fevers. Objective Data Objective Data Vital Signs: Vital Signs Temp Pulse Resp BP Pulse Ox 100.5 F H 66 18 117/71 92 07/09/21 12:00 07/09/21 12:00 07/09/21 12:00 07/09/21 12:00 07/09/21 12:00 Oxygen Flow Rate (L/min) 60 Oxygen Delivery Method Mechanical Ventilator Weight: 143.8 kg Body Mass Index (BMI) 59.4 Intake & Output: Intake and Output for Last 24 Hours 07/08/21 07/08/21 07/09/21 00:59 23:59 23:59 Intake Total 1303.06 / 1303.06 Output Total 2275 / 2275 Balance -971.94 / -971.94 Lab / Micro Data Result Diagrams: 07/09/21 04:05 07/09/21 04:05 Labs: Laboratory Results - last 24 hr 07/09/21 04:05: WBC 8.1, RBC 4.50, Hgb 13.0, Hct 43.2, MCV 96.0, MCH 28.9, MCHC 30.1 L, RDW Std Deviation 54.1 H, RDW Coeff of Gonzalo 15.2 H, Plt Count 331, MPV 10.2 07/09/21 04:05: Sodium 145, Potassium 4.1, Chloride 111 H, Carbon Dioxide 31.0, Anion Gap 3 L, BUN 23 H, Creatinine 0.77, Estim Creat Clear Calc 87.57, Est GFR (MDRD) Af Amer 117, Est GFR (MDRD) Non-Af 97, BUN/Creatinine Ratio 30.0 H, Glucose 129 H, Calcium 8.2 L, Total Bilirubin 0.80, AST 126 H, ALT 119 H, Alkaline Phosphatase 70, Total Protein 7.0, Albumin 2.7 L, Globulin 4.3 H, Albumin/Globulin Ratio 0.6 L Micro: Microbiology 07/06/21 09:00 Sputum, Induced/Lukens Gram Stain - Final 07/06/21 09:00 Sputum, Induced/Lukens Respiratory Culture - Final 07/03/21 21:27 Stool C. difficile DNA Amplification - Final 07/03/21 21:27 Urine, Clean Catch Legionella Antigen - Final 07/03/21 21:27 Urine, Clean Catch Streptococcus pneumoniae Antigen (M - Final 07/03/21 02:20 Nasal Secretion SARS-CoV-2 Antigen (Rapid) - Final SARS-CoV-2 (COVID 19) Physical Exam Narrative Physical exam: General: Sedated, intubated, morbidly obese HEENT: Atraumatic Oral: Moist Mucosa Neck: Supple Lungs: Clear to auscultation Cardiovascular: HS I+II, regular, no murmurs Abdomen: Bowel Sounds Present, Soft, Non Tender Extremities: Trace bilateral leg edema Assessment & Plan Assessment/Plan (1) Acute hypoxemic respiratory failure due to COVID-19: (2) COVID-19: PLAN: 1. Acute hypoxic respiratory failure secondary to acute COVID-19 pneumonia Status post intubation on 07/07/21 On Decadron and Baricitinib Patient has completed remdesivir Sputum culture, urine for Legionella and streptococcal antigen are all negative Sand System Operator and pulmonology following We will continue to monitor 2. Rest of her chronic medical conditions including schizoaffective disorder/hypertension/nicotine dependence/morbid obesity -remain stable Rest of her home medication reviewed. Charges/Coding Visit Charges Inpatient E&M: 02892 Subs Hosp L3
--- NOTE | 2021-07-09 14:35 | PCM.PN.ID ---
Physical Exam Narrative On vent, no fever Const no apparent distress Resp Auscultation: diminished lung sounds Cardio regular rate and regular rhythm GI normal to inspection, nondistended, normoactive bowel sounds Skin no rashes or lesions noted ID ID: Route of nutrition/ use of supplements: [] Nutritional Intake: [] IV Site: [] Brenner Catheter: [] Assessment & Plan Assessment/Plan (1) Acute hypoxemic respiratory failure due to COVID-19: (2) COVID-19: PLAN: Sx started around 06/26. Unvaccinated. Isolate for 20 days from start of sx. On dex, completed remdesivir, also on baricitinib. Following labs. CT neg for PE. Off meropenem. Cxs neg. Will follow
[2021-07-09] MEDS: Acetaminophen 650 MG/20 ML UDC PO (16:23)
[2021-07-09] MEDS: Metoprolol Tartrate 25 MG Tablet GT (20:14)
[2021-07-09] MEDS: OLANZapine 10 MG Tablet 30 MG GT (20:14)
[2021-07-10] VITALS (37 sets, daily range): BP systolic 105–154; BP diastolic 60–91; PULSE 59–83; RESP 16–22; TEMP 37.9–39.2; O2SAT 90–96
[2021-07-10] MEDS: Propofol 10MG/Ml 1,000 MG/100 ML Bottle 8.5 MG CONT INF ×2 (00:08→10:49)
[2021-07-10] MEDS: Dexmedetomidine 1,000 mcg in 0.9% NS 240 mL 39.6 MCG CONT INF (04:06)
[2021-07-10 04:35] LABS: Absolute Lymphocyte Count 1.91 X10^3/uL (0.83-4.51); Absolute Neutrophil Count 7.1 X10^3/uL (2.0-7.7); Basophil# 0.06 X10^3/uL; Basophil% 0.6 % (0-1); Eosinophil# 0.17 X10^3/uL; Eosinophils% 1.7 % (0-5); Hematocrit 44.4 % (37-47); Hemoglobin 13.3 g/dL (12.0-15.0); Lymphocyte # 1.91 X10^3/ul (0.83-4.51); Lymphocyte % 18.7 % (19-41); Mean Corpuscular Hgb 28.4 pg (27.0-32.0); Mean Corpuscular Volume 94.9 fL (81-99); Mean Platelet Vol. 10.2 fl (6.2-12.0); Monocyte# 0.72 X10^3/uL; NRBC Flagged by Analyzer 0 % (0-5); Neutrophil # 7.05 X10^3/uL (2.7-7.7); Neutrophil % 68.9 % (47-70); Platelet Count 344 K/mm3 (150-450); RBC Distribution Width SD 52.2 fl (35.1-43.9); Red Blood Count 4.68 M/mm3 (4.2-5.4); White Blood Count 10.2 K/mm3 (4.4-11.0)
[2021-07-10 04:53] LABS: ALB/GLOB Ratio 0.6 RATIO (0.9-2.4); AST(SGOT) 155 U/L (15-37); Alanine Aminotransfer ALT/SGPT 224 U/L (13-56); Albumin, Serum 2.6 g/dL (3.2-5.0); Alkaline Phosphatase 74 U/L (45-117); Anion Gap 3 (5-15); BUN 24 mg/dL (7-18); BUN/Creat Ratio 30.3 RATIO (10-20); Calcium,Total 8.5 mg/dL (8.5-10.1); Chloride 111 mmol/L (98-107); Creatinine, Serum 0.79 mg/dL (0.55-1.02); EST Glomerular Filtration Rate 93 mL/min (>60); Est Glom Filt Rate - Afr Amer 113 mL/min (>60); Estimated Creatinine Clearance 85.35 ml/min; Globulin 4.5 g/dL (2.2-4.2); Glucose 131 mg/dL (74-106); Potassium 4.1 mmol/L (3.5-5.1); Protein, Total 7.1 g/dL (6.4-8.2); Sodium Level 144 mmol/L (136-145)
[2021-07-10] MEDS: Acetaminophen 650 MG/20 ML UDC PO ×3 (05:19→20:13)
--- NOTE | 2021-07-10 07:04 | PCM.PN.INT ---
Assessment & Plan Assessment/Plan (1) Acute hypoxemic respiratory failure due to COVID-19: PLAN: RECOMMENDATIONS: 1. Continue to wean FiO2 and PEEP to maintain oxygen saturations at or above 90%. 2. Attempt to maintain plateau pressures less than 30. 3. Discontinue antimicrobials. Continue Decadron (07/13/2021), Lovenox (prophylactic) and baricitinib (07/18/2021) as ordered. 4. Titrate sedation as necessary. Continue codeine for now 5. Continue diuretic regimen as tolerated by hemodynamics and renal function. 6. Continue appropriate GI prophylaxis. Continue trophic feeds and aggressive bowel regimen IMPRESSIONS: 1. Acute hypoxemic respiratory failure secondary to COVID-19 pneumonia The patient presented with worsening symptoms and was within 10 days of onset. Although the patient was maintained on noninvasive positive pressure ventilatory support for several days, she failed to improve from a respiratory perspective and was subsequently intubated on July 06. She has completed a treatment course of remdesivir. The patient remains on Decadron, Lovenox and baricitinib. Monitoring off antibiotics. We will plan to continue her diuretic regimen as ordered and tolerated by hemodynamics and renal function. Continue to wean FiO2 and PEEP as tolerated to maintain saturations at or above 90%. Goal to maintain plateau pressures less than 30. The patient will be continued on her current sedation regimen. Continue appropriate GI prophylaxis. 2. History of schizoaffective disorder/hypertension/tobacco dependency/morbid obesity Complicates care, management, recovery and prognosis. Continue home medications as indicated. Unclear if patient will require nicotine replacement given intubation. TIME: 33 minutes of critical care time, independent of procedures, was spent addressing the patient's acute hypoxemic respiratory failure secondary to COVID-19 pneumonia, review of all data and collaboration with the care team. (5:40 AM to 6:40 AM) Subjective Subjective Patient did okay overnight. Patient has received only trophic tube feeds, but residuals were elevated. No bowel movement has been reported. Patient did have an increase in FiO2 from 45% to 55%, but PEEP has remained stable. Objective Data Objective Data Vital Signs: Vital Signs Temp Pulse Resp BP Pulse Ox 38.2 C H 73 19 H 125/77 H 93 07/10/21 07:00 07/10/21 07:00 07/10/21 07:00 07/10/21 07:00 07/10/21 07:00 Oxygen Flow Rate (L/min) 60 Oxygen Delivery Method Mechanical Ventilator Weight: 142.3 kg Body Mass Index (BMI) 59.4 Intake & Output: Intake and Output for Last 24 Hours 07/08/21 07/09/21 07/10/21 23:59 23:59 23:59 Intake Total 2458.58 / 2515.31 523.39 / 523.39 Output Total 3125 / 3125 400 / 400 Balance -666.42 / -609.69 123.39 / 123.39 Lab / Micro Data Result Diagrams: 07/10/21 04:20 07/10/21 04:20 Labs: Laboratory Results - last 24 hr 07/10/21 04:20: WBC 10.2, RBC 4.68, Hgb 13.3, Hct 44.4, MCV 94.9, MCH 28.4, MCHC 30.0 L, RDW Std Deviation 52.2 H, RDW Coeff of Gonzalo 15.0 H, Plt Count 344, MPV 10.2, Immature Gran % (Auto) 3.100 H, Neut % (Auto) 68.9, Lymph % (Auto) 18.7 L, [place] % (Auto) 7.0, Eos % (Auto) 1.7, Baso % (Auto) 0.6, Absolute Neuts (auto) 7.1, Absolute Lymphs (auto) 1.91, Nucleated RBC % 0 07/10/21 04:20: Sodium 144, Potassium 4.1, Chloride 111 H, Carbon Dioxide 30.0, Anion Gap 3 L, BUN 24 H, Creatinine 0.79, Estim Creat Clear Calc 85.35, Est GFR (MDRD) Af Amer 113, Est GFR (MDRD) Non-Af 93, BUN/Creatinine Ratio 30.3 H, Glucose 131 H, Calcium 8.5, Total Bilirubin 1.00, AST 155 H, ALT 224 H, Alkaline Phosphatase 74, Total Protein 7.1, Albumin 2.6 L, Globulin 4.5 H, Albumin/Globulin Ratio 0.6 L Micro: Microbiology 07/06/21 09:00 Sputum, Induced/Lukens Gram Stain - Final 07/06/21 09:00 Sputum, Induced/Lukens Respiratory Culture - Final 07/03/21 21:27 Stool C. difficile DNA Amplification - Final 07/03/21 21:27 Urine, Clean Catch Legionella Antigen - Final 07/03/21 21:27 Urine, Clean Catch Streptococcus pneumoniae Antigen (M - Final 07/03/21 02:20 Nasal Secretion SARS-CoV-2 Antigen (Rapid) - Final SARS-CoV-2 (COVID 19) Physical Exam Const General Appearance: intubated and patient mechanically ventilated Nutritional Appearance: morbidly obese HEENT normocephalic and head/scalp atraumatic Mouth: endotracheal tube in place and OG tube in place Teeth and Gingiva: poor dentition Eyes PERRL, EOMs intact bilaterally and conjunctivae normal Neck supple General: trachea midline Chest inspection of chest normal Chest: symmetrical chest wall rise; Negative for crepitus Resp Auscultation: diminished lung sounds; Negative for rales, rhonchi or wheezes Cardio regular rate, regular rhythm, S1 normal heart sound, S2 normal heart sound, no murmurs, no rub and no gallops GI normal to inspection, nondistended, normoactive bowel sounds Extremity General Extremity: Negative for clubbing, cyanosis or edema Skin no rashes or lesions noted Neuro Sensorium / Orientation: sedated on vent Charges/Coding Procedures Hospitalists Procedures: [id number] [facility] 1st Hr
[2021-07-10] MEDS: dexAMETHasone 10 MG/ML Vial 6 MG IV (08:30)
[2021-07-10] MEDS: Potassium Chloride Oral Soln 20 MEQ/15 ML UDC GT ×2 (08:30→16:20)
[2021-07-10] MEDS: Furosemide 40 MG/4 ML Vial IV (08:30)
[2021-07-10] MEDS: lamoTRIgine 100 MG Tablet 200 MG GT (08:32)
[2021-07-10] MEDS: Senna Tablet 2 TABLET PO ×2 (08:32→20:13)
[2021-07-10] MEDS: Polyethylene Glycol 3350 17 GM PACKET PO ×2 (08:33→20:13)
[2021-07-10] MEDS: Escitalopram Oxalate 20 MG Tablet GT (08:33)
[2021-07-10] MEDS: Enoxaparin 40 MG/0.4 ML Syringe SC ×2 (08:33→20:13)
[2021-07-10] MEDS: Chlorhexidine 15 ML PO ×2 (08:34→20:14)
[2021-07-10] MEDS: Dexmedetomidine 1,000 mcg in 0.9% NS 240 mL 36 MCG CONT INF (10:48)
--- NOTE | 2021-07-10 11:06 | PCM.PN.ID ---
Physical Exam Narrative On vent, fever this AM to 101 Const no apparent distress Resp Effort and Inspection: mechanically ventilated Auscultation: diminished lung sounds Cardio regular rate and regular rhythm GI normal to inspection, nondistended, normoactive bowel sounds Skin no rashes or lesions noted ID ID: Route of nutrition/ use of supplements: [] Nutritional Intake: [] IV Site: [] Brenner Catheter: [] Assessment & Plan Assessment/Plan (1) Acute hypoxemic respiratory failure due to COVID-19: (2) COVID-19: PLAN: Sx started around 06/26. Unvaccinated. Isolate for 20 days from start of sx. On dex, completed remdesivir, also on baricitinib. Following labs. CT neg for PE. Off meropenem. Cxs neg. Wbc normal, O2 stable on vent, but new fever this AM, will send cxs, labs, cxr. May need empiric abx (vanc/carlos) depending on further results/temps. Will follow
[2021-07-10 11:28] LABS: Troponin-I HS 36 pg/mL (3.0-54.0)
[2021-07-10 11:34] LABS: D-Dimer Quantitative (DVT/PE) 1.06 FEU/ug/m (0.27-0.49)
--- NOTE | 2021-07-10 11:39 | CASEMGMT ---
YASMINE participated in ICU rounds. SW called pt's mother to offer support. She just got out of the hospital herself, says she has very low energy. She also states misses her daughter. She did speak to the nurse and was told there's a possibility that she will get off of the vent tomorrow. SW let pt's mother know if she would like to facetime w/her daughter we can assist w/that. Mother states understanding and may want to facetime once pt gets off the vent. YASMINE remains available for additional support to family. PITER Paul
[2021-07-10 11:58] LABS: Procalcitonin 0.11 ng/mL (0.00-0.09)
--- NOTE | 2021-07-10 12:56 | PCM.PN.HOSP ---
Subjective Subjective Follow-up with acute respiratory failure/acute COVID-19 pneumonia: Patient was seen and examined. She is developing high-grade fevers. She has been pancultured. Objective Data Objective Data Vital Signs: Vital Signs Temp Pulse Resp BP Pulse Ox 102.5 F H 80 19 H 109/60 91 07/10/21 12:00 07/10/21 12:00 07/10/21 12:00 07/10/21 12:00 07/10/21 12:00 Oxygen Flow Rate (L/min) 60 Oxygen Delivery Method Mechanical Ventilator Weight: 142.3 kg Body Mass Index (BMI) 59.4 Intake & Output: Intake and Output for Last 24 Hours 07/08/21 07/09/21 07/10/21 23:59 23:59 23:59 Intake Total 2458.58 / 2515.31 1013.40 / 1013.40 Output Total 3125 / 3125 2200 / 2200 Balance -666.42 / -609.69 -1186.60 / -1186.60 Lab / Micro Data Result Diagrams: 07/10/21 04:20 07/10/21 04:20 Labs: Laboratory Results - last 24 hr 07/10/21 04:20: WBC 10.2, RBC 4.68, Hgb 13.3, Hct 44.4, MCV 94.9, MCH 28.4, MCHC 30.0 L, RDW Std Deviation 52.2 H, RDW Coeff of Gonzalo 15.0 H, Plt Count 344, MPV 10.2, Immature Gran % (Auto) 3.100 H, Neut % (Auto) 68.9, Lymph % (Auto) 18.7 L, [place] % (Auto) 7.0, Eos % (Auto) 1.7, Baso % (Auto) 0.6, Absolute Neuts (auto) 7.1, Absolute Lymphs (auto) 1.91, Nucleated RBC % 0 07/10/21 04:20: Sodium 144, Potassium 4.1, Chloride 111 H, Carbon Dioxide 30.0, Anion Gap 3 L, BUN 24 H, Creatinine 0.79, Estim Creat Clear Calc 85.35, Est GFR (MDRD) Af Amer 113, Est GFR (MDRD) Non-Af 93, BUN/Creatinine Ratio 30.3 H, Glucose 131 H, Calcium 8.5, Total Bilirubin 1.00, AST 155 H, ALT 224 H, Alkaline Phosphatase 74, Total Protein 7.1, Albumin 2.6 L, Globulin 4.5 H, Albumin/Globulin Ratio 0.6 L 07/10/21 04:20: B-Natriuretic Peptide 28.0 07/10/21 04:20: Troponin I High Sens 36 07/10/21 11:00: D-Dimer Quant (PE/DVT) 1.06 H* 07/10/21 11:00: Procalcitonin 0.11 H Micro: Microbiology 07/06/21 09:00 Sputum, Induced/Lukens Gram Stain - Final 07/06/21 09:00 Sputum, Induced/Lukens Respiratory Culture - Final 07/03/21 21:27 Stool C. difficile DNA Amplification - Final 07/03/21 21:27 Urine, Clean Catch Legionella Antigen - Final 07/03/21 21:27 Urine, Clean Catch Streptococcus pneumoniae Antigen (M - Final 07/03/21 02:20 Nasal Secretion SARS-CoV-2 Antigen (Rapid) - Final SARS-CoV-2 (COVID 19) Physical Exam Narrative Physical exam: General: Sedated, intubated, morbidly obese HEENT: Atraumatic Oral: Moist Mucosa Neck: Supple Lungs: Clear to auscultation Cardiovascular: HS I+II, regular, no murmurs Abdomen: Bowel Sounds Present, Soft, Non Tender Extremities: Trace bilateral leg edema Assessment & Plan Assessment/Plan (1) Acute hypoxemic respiratory failure due to COVID-19: (2) COVID-19: PLAN: 1. Acute hypoxic respiratory failure secondary to acute COVID-19 pneumonia, oxygen requirement seems to be improving some Been having fevers, pancultured Status post intubation on 07/07/21 On Decadron and Baricitinib Patient has completed remdesivir Sputum culture, urine for Legionella and streptococcal antigen are all negative We will start on empiric vancomycin and meropenem [employer] and pulmonology following Continue to monitor cultures 2. Rest of her chronic medical conditions including schizoaffective disorder/hypertension/nicotine dependence/morbid obesity -remain stable Rest of her home medication reviewed. Charges/Coding Visit Charges Inpatient E&M: 19945 Subs Hosp L3
--- NOTE | 2021-07-10 13:11 | RAD_ITS ---
STUDY: X-RAY CHEST REASON FOR EXAM: Female, 26 years old. fever TECHNIQUE: Single AP portable view of the chest. COMPARISON: 07/06/2021 FINDINGS: Endotracheal tube, nasogastric tube, right upper extremity PICC all of which are unchanged. Decrease in alveolar opacities in both lungs consistent with improved bilateral pneumonia. There is no demonstrated pleural abnormality. There is moderate cardiac enlargement. Normal mediastinum and james. Normal visualized pulmonary arteries. Normal visualized aortic arch and descending thoracic aorta. Normal visualized thoracic spine. Normal visualized ribs, clavicles, and shoulders. There is no demonstrated abnormality of the visualized soft tissue structures of the upper abdomen. RAD/Chest 1 View (Portable) IMPRESSION: Improved bilateral pneumonia. Electronically Signed: Isaac Rivera MD at 8:09 EST Tel , Service support ,
[2021-07-10] MEDS: 0.9% Saline Lock 10 ML Syringe IV (13:13)
[2021-07-10] MEDS: Vital AF 1.2 Cal Liquid 1,000 ML 10 ML GT (13:13)
--- NOTE | 2021-07-10 16:18 | PCM.RX.CS ---
Consult Pharmacy has been consulted to manage selected antiobiotic: Vancomycin Type of Consult: New start Suspected Infection: Other - FEVERS Labs: Sodium 144 mmol/L (136-145) 07/10/21 04:20 Potassium 4.1 mmol/L (3.5-5.1) 07/10/21 04:20 Chloride 111 mmol/L (98-107) H 07/10/21 04:20 Carbon Dioxide 30.0 mmol/L (21.0-32.0) 07/10/21 04:20 Anion Gap 3 (5-15) L 07/10/21 04:20 BUN 24 mg/dL (7-18) H 07/10/21 04:20 Creatinine 0.79 mg/dL (0.55-1.02) 07/10/21 04:20 Est GFR (MDRD) Af Amer 113 mL/min (>60) 07/10/21 04:20 Est GFR (MDRD) Non-Af 93 mL/min (>60) 07/10/21 04:20 BUN/Creatinine Ratio 30.3 RATIO (10-20) H 07/10/21 04:20 Glucose 131 mg/dL (74-106) H 07/10/21 04:20 Microbiology: Microbiology 07/06/21 09:00 Sputum, Induced/Lukens Gram Stain - Final 07/06/21 09:00 Sputum, Induced/Lukens Respiratory Culture - Final 07/03/21 21:27 Stool C. difficile DNA Amplification - Final 07/03/21 21:27 Urine, Clean Catch Legionella Antigen - Final 07/03/21 21:27 Urine, Clean Catch Streptococcus pneumoniae Antigen (M - Final 07/03/21 02:20 Nasal Secretion SARS-CoV-2 Antigen (Rapid) - Final SARS-CoV-2 (COVID 19) Pharmacy Plan for Drug Dosing: NEW START IV VANCOMYCIN Consulting Physician: KAE Indication: FEVERS, UNKNOWN Goal Trough: 15-20 MG/DL SrCr: 0.79 CrCl: >100ML/MIN (USING ADJ BW OF 86.9 KG) Comments: FIRST DOSE OF 2000MG GIVEN 07/10 @ 7592 Vancomycin Dose: WILL START VANCOMYCIN 1500MG IV Q8 PER POLICY AND GET A TROUGH PRIOR TO 4TH TOTAL DOSE OF REGIMEN. Pending Level: 07/11 @ 5168 Pharmacy Service will continue to monitor and adjust dosing as required.
[2021-07-10] MEDS: Dexmedetomidine 1,000 mcg in 0.9% NS 240 mL 32.4 MCG CONT INF (18:32)
[2021-07-10] MEDS: OLANZapine 10 MG Tablet 30 MG GT (20:12)
[2021-07-10] MEDS: Metoprolol Tartrate 25 MG Tablet GT (20:12)
[2021-07-11] VITALS (40 sets, daily range): BP systolic 113–134; BP diastolic 68–84; PULSE 65–86; RESP 14–82; TEMP 38.7–39.5; O2SAT 82–97
--- NOTE | 2021-07-11 00:49 | NURSING ---
Pt remains febrile at 101.9 per core temp christianson after PRN Tylenol was given for fever, see MAR. Cooling blanket applied.
[2021-07-11] MEDS: Dexmedetomidine 1,000 mcg in 0.9% NS 240 mL 32.4 MCG CONT INF ×3 (01:51→17:11)
[2021-07-11 04:37] LABS: Absolute Lymphocyte Count 2.11 X10^3/uL (0.83-4.51); Absolute Neutrophil Count 6.5 X10^3/uL (2.0-7.7); Basophil# 0.04 X10^3/uL; Basophil% 0.4 % (0-1); Eosinophil# 0.23 X10^3/uL; Eosinophils% 2.3 % (0-5); Hematocrit 41.6 % (37-47); Hemoglobin 12.7 g/dL (12.0-15.0); Lymphocyte # 2.11 X10^3/ul (0.83-4.51); Lymphocyte % 21.1 % (19-41); Mean Corp Hgb Conc 30.5 g/dL (32-36); Mean Corpuscular Hgb 28.9 pg (27.0-32.0); Mean Corpuscular Volume 94.8 fL (81-99); Mean Platelet Vol. 10.3 fl (6.2-12.0); Monocyte# 0.78 X10^3/uL; Monocyte% 7.8 % (0-10); NRBC Flagged by Analyzer 0 % (0-5); Neutrophil # 6.45 X10^3/uL (2.7-7.7); Neutrophil % 64.5 % (47-70); Platelet Count 370 K/mm3 (150-450); RBC Distribution Width CV 15.1 % (11.6-14.6); RBC Distribution Width SD 52.5 fl (35.1-43.9); Red Blood Count 4.39 M/mm3 (4.2-5.4)
[2021-07-11 04:54] LABS: ALB/GLOB Ratio 0.5 RATIO (0.9-2.4); AST(SGOT) 78 U/L (15-37); Alanine Aminotransfer ALT/SGPT 163 U/L (13-56); Albumin, Serum 2.4 g/dL (3.2-5.0); Alkaline Phosphatase 69 U/L (45-117); Anion Gap 5 (5-15); BUN 23 mg/dL (7-18); BUN/Creat Ratio 29.2 RATIO (10-20); Calcium,Total 8.3 mg/dL (8.5-10.1); Chloride 110 mmol/L (98-107); Creatinine, Serum 0.79 mg/dL (0.55-1.02); EST Glomerular Filtration Rate 93 mL/min (>60); Est Glom Filt Rate - Afr Amer 113 mL/min (>60); Estimated Creatinine Clearance 85.35 ml/min; Globulin 4.4 g/dL (2.2-4.2); Glucose 122 mg/dL (74-106); Potassium 4.3 mmol/L (3.5-5.1); Protein, Total 6.8 g/dL (6.4-8.2); Sodium Level 143 mmol/L (136-145)
[2021-07-11 06:31] LABS: Allen Test Positive; Base Excess 2 mmol/L (-2 to +2); Bicarbonate 26.4 mmol/L (22-26); Blood Gas Specimen Type ART; FI02 45; Mode PS; O2 Delivery Device Adult Vent; PEEP 5; PO2 46 mmHG (75-100); PS 5; SITE R Radial; SO2 83 % (95-99); Total Carbon Dioxide 28 mmol/L; pCO2 38.5 mmHg (35-45); pH 7.45 (7.35-7.45)
--- NOTE | 2021-07-11 07:17 | PN.CC_ITS ---
Assessment & Plan Assessment/Plan (1) Acute hypoxemic respiratory failure due to COVID-19: PLAN: RECOMMENDATIONS: 1. Continue to wean FiO2 and PEEP to maintain oxygen saturations at or above 90%. 2. Attempt to maintain plateau pressures less than 30. 3. Antimicrobials per ID. Continue Decadron (07/13/2021), Lovenox (prophylactic) and baricitinib (07/18/2021) as ordered. 4. Titrate sedation as necessary. We will discontinue codeine 5. Continue diuretic regimen as tolerated by hemodynamics and renal function. 6. Continue appropriate GI prophylaxis. Continue trophic feeds and aggressive bowel regimen IMPRESSIONS: 1. Acute hypoxemic respiratory failure secondary to COVID-19 pneumonia The patient presented with worsening symptoms and was within 10 days of onset. Although the patient was maintained on noninvasive positive pressure ventilatory support for several days, she failed to improve from a respiratory perspective and was subsequently intubated on July 06. She has completed a treatment course of remdesivir. The patient remains on Decadron, Lovenox and baricitinib. Antibiotics and vincent cultures were ordered yesterday. Clinical suspicion for Precedex drug fever, but await cultures prior to discontinue of antibiotics. We will plan to continue her diuretic regimen as ordered and tolerated by hemodynamics and renal function. Continue to wean FiO2 and PEEP as tolerated to maintain saturations at or above 90%. Goal to maintain plateau pressures less than 30. The patient will be continued on her current sedation regimen. Continue appropriate GI prophylaxis. 2. History of schizoaffective disorder/hypertension/tobacco dependency/morbid obesity Complicates care, management, recovery and prognosis. Continue home medications as indicated. Unclear if patient will require nicotine replacement given intubation. TIME: 31 minutes of critical care time, independent of procedures, was spent addressing the patient's acute hypoxemic respiratory failure secondary to COVID- 19 pneumonia, review of all data and collaboration with the care team. (6 AM to 7 AM) Subjective Subjective The patient did okay overnight. Patient was actually able to be weaned to 5 of PEEP and 50%, also had a spontaneous breathing trial this morning. Patient continues to have high residuals despite trophic feeds, but these were held for the spontaneous breathing trial. Patient has persisted in fever. Patient was able to tolerate 1 hour on a spontaneous breathing trial, but then became hypoxic after an hour. Patient has subsequently been placed on 10 of PEEP and 100% FiO2. Patient did have moderate secretions following spontaneous breathing trial. Objective Data Objective Data Vital Signs: Vital Signs Temp Pulse Resp BP Pulse Ox 39.1 C H 85 26 H 118/70 87 07/11/21 06:00 07/11/21 07:00 07/11/21 07:05 07/11/21 07:00 07/11/21 07:00 Oxygen Flow Rate (L/min) 60 Oxygen Delivery Method Mechanical Ventilator Weight: 142.2 kg Body Mass Index (BMI) 59.4 Intake & Output: Intake and Output for Last 24 Hours 07/09/21 07/10/21 07/11/21 23:59 23:59 23:59 Intake Total 2458.58 / 2515.31 2457.42 / 2534.82 914.70 / 914.70 Output Total 3125 / 3125 3000 / 3000 375 / 375 Balance -666.42 / -609.69 -542.58 / -465.18 539.70 / 539.70 Lab / Micro Data Result Diagrams: 07/11/21 04:00 07/11/21 04:00 Labs: Laboratory Results - last 24 hr 07/10/21 04:20: B-Natriuretic Peptide 28.0 07/10/21 04:20: Troponin I High Sens 36 07/10/21 11:00: D-Dimer Quant (PE/DVT) 1.06 H* 07/10/21 11:00: Procalcitonin 0.11 H 07/11/21 04:00: WBC 10.0, RBC 4.39, Hgb 12.7, Hct 41.6, MCV 94.8, MCH 28.9, MCHC 30.5 L, RDW Std Deviation 52.5 H, RDW Coeff of Gonzalo 15.1 H, Plt Count 370, MPV 10.3, Immature Gran % (Auto) 3.900 H, Neut % (Auto) 64.5, Lymph % (Auto) 21.1, [place] % (Auto) 7.8, Eos % (Auto) 2.3, Baso % (Auto) 0.4, Absolute Neuts (auto) 6.5, Absolute Lymphs (auto) 2.11, Nucleated RBC % 0 07/11/21 04:00: Sodium 143, Potassium 4.3, Chloride 110 H, Carbon Dioxide 28.0, Anion Gap 5, BUN 23 H, Creatinine 0.79, Estim Creat Clear Calc 85.35, Est GFR (MDRD) Af Amer 113, Est GFR (MDRD) Non-Af 93, BUN/Creatinine Ratio 29.2 H, Glucose 122 H, Calcium 8.3 L, Total Bilirubin 1.00, AST 78 H, ALT 163 H, Alkaline Phosphatase 69, Total Protein 6.8, Albumin 2.4 L, Globulin 4.4 H, Albumin/Globulin Ratio 0.5 L Micro: Microbiology 07/06/21 09:00 Sputum, Induced/Lukens Gram Stain - Final 07/06/21 09:00 Sputum, Induced/Lukens Respiratory Culture - Final 07/03/21 21:27 Stool C. difficile DNA Amplification - Final 07/03/21 21:27 Urine, Clean Catch Legionella Antigen - Final 07/03/21 21:27 Urine, Clean Catch Streptococcus pneumoniae Antigen (M - Final 07/03/21 02:20 Nasal Secretion SARS-CoV-2 Antigen (Rapid) - Final SARS-CoV-2 (COVID 19) ABG Data ABG results: ABG 07/11/21 06:23 Specimen Type ART Sample Site R Radial pH 7.45 Bicarbonate Actual 26.4 H Total CO2 28 Base Excess 2 O2 Saturation 83 L O2 % 45 ABG pCO2 38.5 ABG pO2 46 L J Luis Test Positive O2 Delivery Device Adult Vent Vent Mode PS POC PEEP 5 POC Pressure Suppt 5 Physical Exam Const General Appearance: diaphoretic, intubated and patient mechanically ventilated Nutritional Appearance: morbidly obese HEENT normocephalic and head/scalp atraumatic Mouth: endotracheal tube in place and OG tube in place Teeth and Gingiva: poor dentition Eyes PERRL, EOMs intact bilaterally and conjunctivae normal Neck supple General: trachea midline Chest inspection of chest normal Chest: symmetrical chest wall rise; Negative for crepitus Resp Auscultation: diminished lung sounds; Negative for rales, rhonchi or wheezes Cardio regular rate, regular rhythm, S1 normal heart sound, S2 normal heart sound, no murmurs, no rub and no gallops GI normal to inspection, nondistended, normoactive bowel sounds Extremity General Extremity: Negative for clubbing, cyanosis or edema Skin no rashes or lesions noted Neuro Sensorium / Orientation: sedated on vent Charges/Coding Procedures Hospitalists Procedures: [id number]
--- NOTE | 2021-07-11 08:40 | PN.HOSP_ITS ---
Subjective Subjective Follow-up with acute respiratory failure/acute COVID-19 pneumonia: Patient was seen and examined. She remains febrile. Cultures are still pending. She feels functional potential today, became hypotensive, propofol switched off, remains on Precedex Objective Data Objective Data Vital Signs: Vital Signs Temp Pulse Resp BP Pulse Ox 101.8 F H 81 20 H 121/74 H 91 07/11/21 08:00 07/11/21 08:00 07/11/21 08:00 07/11/21 08:00 07/11/21 08:00 Oxygen Flow Rate (L/min) 60 Oxygen Delivery Method Mechanical Ventilator Weight: 142.2 kg Body Mass Index (BMI) 59.4 Intake & Output: Intake and Output for Last 24 Hours 07/09/21 07/10/21 07/11/21 23:59 23:59 23:59 Intake Total 2458.58 / 2515.31 2457.42 / 2534.82 1095.85 / 1095.85 Output Total 3125 / 3125 3000 / 3000 375 / 375 Balance -666.42 / -609.69 -542.58 / -465.18 720.85 / 720.85 Lab / Micro Data Result Diagrams: 07/11/21 04:00 07/11/21 04:00 Labs: Laboratory Results - last 24 hr 07/10/21 04:20: B-Natriuretic Peptide 28.0 07/10/21 04:20: Troponin I High Sens 36 07/10/21 11:00: D-Dimer Quant (PE/DVT) 1.06 H* 07/10/21 11:00: Procalcitonin 0.11 H 07/11/21 04:00: WBC 10.0, RBC 4.39, Hgb 12.7, Hct 41.6, MCV 94.8, MCH 28.9, MCHC 30.5 L, RDW Std Deviation 52.5 H, RDW Coeff of Gonzalo 15.1 H, Plt Count 370, MPV 10.3, Immature Gran % (Auto) 3.900 H, Neut % (Auto) 64.5, Lymph % (Auto) 21.1, [place] % (Auto) 7.8, Eos % (Auto) 2.3, Baso % (Auto) 0.4, Absolute Neuts (auto) 6.5, Absolute Lymphs (auto) 2.11, Nucleated RBC % 0 07/11/21 04:00: Sodium 143, Potassium 4.3, Chloride 110 H, Carbon Dioxide 28.0, Anion Gap 5, BUN 23 H, Creatinine 0.79, Estim Creat Clear Calc 85.35, Est GFR (MDRD) Af Amer 113, Est GFR (MDRD) Non-Af 93, BUN/Creatinine Ratio 29.2 H, Glucose 122 H, Calcium 8.3 L, Total Bilirubin 1.00, AST 78 H, ALT 163 H, Alkaline Phosphatase 69, Total Protein 6.8, Albumin 2.4 L, Globulin 4.4 H, Albumin/Globulin Ratio 0.5 L Micro: Microbiology 07/06/21 09:00 Sputum, Induced/Lukens Gram Stain - Final 07/06/21 09:00 Sputum, Induced/Lukens Respiratory Culture - Final 07/03/21 21:27 Stool C. difficile DNA Amplification - Final 07/03/21 21:27 Urine, Clean Catch Legionella Antigen - Final 07/03/21 21:27 Urine, Clean Catch Streptococcus pneumoniae Antigen (M - Final 07/03/21 02:20 Nasal Secretion SARS-CoV-2 Antigen (Rapid) - Final SARS-CoV-2 (COVID 19) ABG Data ABG results: ABG 07/11/21 06:23 Specimen Type ART Sample Site R Radial pH 7.45 Bicarbonate Actual 26.4 H Total CO2 28 Base Excess 2 O2 Saturation 83 L O2 % 45 ABG pCO2 38.5 ABG pO2 46 L J Luis Test Positive O2 Delivery Device Adult Vent Vent Mode PS POC PEEP 5 POC Pressure Suppt 5 Radiography Diagnostic Testing: Radiology Impression Chest X-Ray 07/10/21 13:11 IMPRESSION: Improved bilateral pneumonia. Electronically Signed: Isaac Rivera MD at 8:09 EST Tel , Service support , Physical Exam Narrative Physical exam: General: Sedated, intubated, morbidly obese HEENT: Atraumatic Oral: Moist Mucosa Neck: Supple Lungs: Clear to auscultation Cardiovascular: HS I+II, regular, no murmurs Abdomen: Bowel Sounds Present, Soft, Non Tender Extremities: Trace bilateral leg edema Assessment & Plan Assessment/Plan (1) Acute hypoxemic respiratory failure due to COVID-19: (2) COVID-19: PLAN: 1. Acute hypoxic respiratory failure secondary to acute COVID-19 pneumonia, Remains intubated, oxygen requirements waxing and waning; intubated on 07/07/21 Fevers persist On Decadron and Baricitinib; patient has completed remdesivir Sputum culture, urine for Legionella and streptococcal antigen are all negative Started on empiric vancomycin and meropenem ID and pulmonology following Continue to monitor cultures 2. Elevated D-dimer concerning for possible PE Lovenox dose increased to 140 mg twice daily 3. Rest of her chronic medical conditions including schizoaffective disorder/hypertension/nicotine dependence/morbid obesity -remain stable Rest of her home medication reviewed. Charges/Coding Visit Charges Inpatient E&M: 86137 Subs Hosp L3
[2021-07-11] MEDS: Acetaminophen 650 MG/20 ML UDC PO ×2 (08:41→14:49)
[2021-07-11] MEDS: guaiFENesin 10 ML UDC (200MG/10ML) GT ×4 (08:43→19:58)
[2021-07-11] MEDS: Potassium Chloride Oral Soln 20 MEQ/15 ML UDC GT ×2 (08:43→16:55)
[2021-07-11] MEDS: lamoTRIgine 100 MG Tablet 200 MG GT (08:43)
[2021-07-11] MEDS: Senna Tablet 2 TABLET PO ×2 (08:43→20:01)
[2021-07-11] MEDS: Escitalopram Oxalate 20 MG Tablet GT (08:43)
[2021-07-11] MEDS: Furosemide 40 MG/4 ML Vial IV ×2 (08:44→16:55)
[2021-07-11] MEDS: Enoxaparin 150 MG/ML Syringe 140 MG SC ×2 (08:44→19:58)
[2021-07-11] MEDS: dexAMETHasone 10 MG/ML Vial 6 MG IV (08:44)
[2021-07-11] MEDS: Chlorhexidine 15 ML PO ×2 (08:44→19:58)
[2021-07-11] MEDS: 0.9% Saline Lock 10 ML Syringe IV (08:45)
--- NOTE | 2021-07-11 12:11 | PN.ID_ITS ---
Physical Exam Narrative Still fever, on vent Const no apparent distress Resp Effort and Inspection: mechanically ventilated Cardio regular rate and regular rhythm GI normal to inspection, nondistended, normoactive bowel sounds Skin no rashes or lesions noted ID ID: Route of nutrition/ use of supplements: [] Nutritional Intake: [] IV Site: [] Brenner Catheter: [] Assessment & Plan Assessment/Plan (1) Acute hypoxemic respiratory failure due to COVID-19: (2) COVID-19: PLAN: Sx started around 06/26. Unvaccinated. Isolate for [address] art of sx. On dex, completed remdesivir, also on baricitinib. Following labs. CT neg for PE. Off meropenem. Cxs neg. Wbc normal, still with fever; cxs pending. Is on empiric vanc/carlos, temps may be related to precedex. Will follow
[2021-07-11] MEDS: Nystatin Powder 15gm Bottle 1 APPLIC TOPICAL ×2 (14:53→20:02)
--- NOTE | 2021-07-11 17:30 | PCM.RX.CS ---
Consult Pharmacy has been consulted to manage selected antiobiotic: Vancomycin Type of Consult: Follow-up Labs: Sodium 143 mmol/L (136-145) 07/11/21 04:00 Potassium 4.3 mmol/L (3.5-5.1) 07/11/21 04:00 Chloride 110 mmol/L (98-107) H 07/11/21 04:00 Carbon Dioxide 28.0 mmol/L (21.0-32.0) 07/11/21 04:00 Anion Gap 5 (5-15) 07/11/21 04:00 BUN 23 mg/dL (7-18) H 07/11/21 04:00 Creatinine 0.79 mg/dL (0.55-1.02) 07/11/21 04:00 Est GFR (MDRD) Af Amer 113 mL/min (>60) 07/11/21 04:00 Est GFR (MDRD) Non-Af 93 mL/min (>60) 07/11/21 04:00 BUN/Creatinine Ratio 29.2 RATIO (10-20) H 07/11/21 04:00 Glucose 122 mg/dL (74-106) H 07/11/21 04:00 Vancomycin Trough 21.0 ug/mL (5.0-15.0) H 07/11/21 15:00 Microbiology: Microbiology 07/10/21 14:45 Sputum, Induced/Lukens Gram Stain - Final 07/06/21 09:00 Sputum, Induced/Lukens Gram Stain - Final 07/06/21 09:00 Sputum, Induced/Lukens Respiratory Culture - Final 07/03/21 21:27 Stool C. difficile DNA Amplification - Final 07/03/21 21:27 Urine, Clean Catch Legionella Antigen - Final 07/03/21 21:27 Urine, Clean Catch Streptococcus pneumoniae Antigen (M - Final 07/03/21 02:20 Nasal Secretion SARS-CoV-2 Antigen (Rapid) - Final SARS-CoV-2 (COVID 19) Goal Trough: 15-20 mcg/mL Pharmacy Plan for Drug Dosing: VANCOMYCIN LEVEL RECEIVED Current Vancomycin Dose: 1500MG IV Q8H Number of Doses Received:4 (3 PRIOR TO TROUGH DRAW) Vancomycin Level: 21 Hours Since Last Dose: 6.5HR Renal Function: 0.79 Renal Function Trend: STABLE Lab/Micro: PENDING Vancomycin Plan/Comments: The patient had a trough come back which resulted in a value of 21 (goal 15-20). Although the trough is above goal, it was drawn only 6.5hrs from last administered dose due to this mornings dose being hung 40min late and the trough being drawn 30min early. Per global RPh calculator, her estimated true trough on 1500mg IV Q8h is likely ~17. With this in mind, will continue current dose and recheck a trough prior to tomorrow morning's dose. Of note, the patient had already gotten her 1600 dose which is done infusing at this time. Patient will only have 1 more dose prior to the next trough check to verify she is within therapeutic range. Pending Level: 07/12/21 @9033 Pharmacy Service will continue to monitor and adjust dosing as required.
[2021-07-11] MEDS: Metoprolol Tartrate 25 MG Tablet GT (19:59)
[2021-07-11] MEDS: Menthol/Lanolin/Calamine/Znox 113 GM Tube 1 APPLIC TOPICAL (20:01)
[2021-07-11] MEDS: OLANZapine 10 MG Tablet 30 MG GT (20:01)
[2021-07-12] VITALS (35 sets, daily range): BP systolic 106–128; BP diastolic 59–75; PULSE 65–84; RESP 3–25; TEMP 37.9–39.4; O2SAT 87–99
[2021-07-12] MEDS: guaiFENesin 10 ML UDC (200MG/10ML) GT ×6 (00:33→21:06)
[2021-07-12] MEDS: Acetaminophen 650 MG/20 ML UDC PO ×4 (00:34→21:06)
[2021-07-12] MEDS: Dexmedetomidine 1,000 mcg in 0.9% NS 240 mL 28.8 MCG CONT INF (01:04)
[2021-07-12 04:10] LABS: Absolute Lymphocyte Count 2.67 X10^3/uL (0.83-4.51); Absolute Neutrophil Count 6.9 X10^3/uL (2.0-7.7); Basophil# 0.05 X10^3/uL; Basophil% 0.5 % (0-1); Eosinophil# 0.14 X10^3/uL; Eosinophils% 1.3 % (0-5); Hematocrit 41.2 % (37-47); Hemoglobin 12.5 g/dL (12.0-15.0); Lymphocyte # 2.67 X10^3/ul (0.83-4.51); Lymphocyte % 24.4 % (19-41); Mean Corp Hgb Conc 30.3 g/dL (32-36); Mean Corpuscular Hgb 28.8 pg (27.0-32.0); Mean Corpuscular Volume 94.9 fL (81-99); Mean Platelet Vol. 10.3 fl (6.2-12.0); Monocyte# 0.91 X10^3/uL; Monocyte% 8.3 % (0-10); NRBC Flagged by Analyzer 0 % (0-5); Neutrophil # 6.88 X10^3/uL (2.7-7.7); Neutrophil % 62.8 % (47-70); Platelet Count 352 K/mm3 (150-450); RBC Distribution Width CV 14.9 % (11.6-14.6); RBC Distribution Width SD 52.7 fl (35.1-43.9); Red Blood Count 4.34 M/mm3 (4.2-5.4)
[2021-07-12 04:35] LABS: ALB/GLOB Ratio 0.5 RATIO (0.9-2.4); AST(SGOT) 57 U/L (15-37); Alanine Aminotransfer ALT/SGPT 131 U/L (13-56); Albumin, Serum 2.3 g/dL (3.2-5.0); Alkaline Phosphatase 64 U/L (45-117); Anion Gap 4 (5-15); BUN 27 mg/dL (7-18); BUN/Creat Ratio 32.3 RATIO (10-20); Calcium,Total 8.4 mg/dL (8.5-10.1); Chloride 109 mmol/L (98-107); Creatinine, Serum 0.84 mg/dL (0.55-1.02); EST Glomerular Filtration Rate 87 mL/min (>60); Est Glom Filt Rate - Afr Amer 106 mL/min (>60); Estimated Creatinine Clearance 80.27 ml/min; Globulin 4.4 g/dL (2.2-4.2); Glucose 124 mg/dL (74-106); Protein, Total 6.7 g/dL (6.4-8.2); Sodium Level 143 mmol/L (136-145)
[2021-07-12] MEDS: Potassium Chloride Oral Soln 20 MEQ/15 ML UDC GT ×2 (07:54→18:00)
--- NOTE | 2021-07-12 08:26 | PCM.PN.HOSP ---
Subjective Subjective Follow-up with acute respiratory failure/acute COVID-19 pneumonia: Patient seen and examined. Remains febrile. No acute events. Objective Data Objective Data Vital Signs: Vital Signs Temp Pulse Resp BP Pulse Ox 101.9 F H 77 19 H 128/72 H 93 07/12/21 06:00 07/12/21 07:00 07/12/21 07:00 07/12/21 07:00 07/12/21 07:00 Oxygen Flow Rate (L/min) 60 Oxygen Delivery Method Mechanical Ventilator Weight: 141.9 kg Body Mass Index (BMI) 59.4 Intake & Output: Intake and Output for Last 24 Hours 07/10/21 07/11/21 07/12/21 23:59 23:59 23:59 Intake Total 2707.42 / 2784.82 3450.67 / 3493.70 1231.60 / 1231.60 Output Total 3000 / 3000 2525 / 2925 735 / 735 Balance -292.58 / -215.18 925.67 / 568.70 496.60 / 496.60 Lab / Micro Data Result Diagrams: 07/12/21 04:00 07/12/21 04:00 Labs: Laboratory Results - last 24 hr 07/11/21 15:00: Vancomycin Trough 21.0 H 07/12/21 04:00: WBC 11.0, RBC 4.34, Hgb 12.5, Hct 41.2, MCV 94.9, MCH 28.8, MCHC 30.3 L, RDW Std Deviation 52.7 H, RDW Coeff of Gonzalo 14.9 H, Plt Count 352, MPV 10.3, Immature Gran % (Auto) 2.700 H, Neut % (Auto) 62.8, Lymph % (Auto) 24.4, [place] % (Auto) 8.3, Eos % (Auto) 1.3, Baso % (Auto) 0.5, Absolute Neuts (auto) 6.9, Absolute Lymphs (auto) 2.67, Nucleated RBC % 0 07/12/21 04:00: Sodium 143, Potassium 4.0, Chloride 109 H, Carbon Dioxide 30.0, Anion Gap 4 L, BUN 27 H, Creatinine 0.84, Estim Creat Clear Calc 80.27, Est GFR (MDRD) Af Amer 106, Est GFR (MDRD) Non-Af 87, BUN/Creatinine Ratio 32.3 H, Glucose 124 H, Calcium 8.4 L, Total Bilirubin 0.90, AST 57 H, ALT 131 H, Alkaline Phosphatase 64, Total Protein 6.7, Albumin 2.3 L, Globulin 4.4 H, Albumin/Globulin Ratio 0.5 L Micro: Microbiology 07/10/21 14:45 Sputum, Induced/Lukens Gram Stain - Final 07/06/21 09:00 Sputum, Induced/Lukens Gram Stain - Final 07/06/21 09:00 Sputum, Induced/Lukens Respiratory Culture - Final 07/03/21 21:27 Stool C. difficile DNA Amplification - Final 07/03/21 21:27 Urine, Clean Catch Legionella Antigen - Final 07/03/21 21:27 Urine, Clean Catch Streptococcus pneumoniae Antigen (M - Final 07/03/21 02:20 Nasal Secretion SARS-CoV-2 Antigen (Rapid) - Final SARS-CoV-2 (COVID 19) Physical Exam Narrative Physical exam: General: Sedated, intubated, morbidly obese HEENT: Atraumatic Oral: Moist Mucosa Neck: Supple Lungs: Clear to auscultation Cardiovascular: HS I+II, regular, no murmurs Abdomen: Bowel Sounds Present, Soft, Non Tender Extremities: Trace bilateral leg edema Assessment & Plan Assessment/Plan (1) Acute hypoxemic respiratory failure due to COVID-19: (2) COVID-19: PLAN: 1. Acute hypoxic respiratory failure secondary to acute COVID-19 pneumonia, Remains intubated, oxygen requirements waxing and waning; intubated on 07/07/21, on PEEP 8 Fevers persist On Decadron and Baricitinib; patient has completed remdesivir Sputum culture, urine for Legionella and streptococcal antigen are all negative Continue on empiric vancomycin and meropenem ID and pulmonology following Continue to monitor cultures 2. Elevated D-dimer concerning for possible PE Continue on therapeutic Lovenox 3. Rest of her chronic medical conditions including schizoaffective disorder/hypertension/nicotine dependence/morbid obesity -remain stable Rest of her home medication reviewed. Charges/Coding Visit Charges Inpatient E&M: 10131 Subs Hosp L3
--- NOTE | 2021-07-12 08:55 | PN.CC_ITS ---
Assessment & Plan Assessment/Plan (1) Acute hypoxemic respiratory failure due to COVID-19: PLAN: RECOMMENDATIONS: 1. Continue to wean FiO2 and PEEP to maintain oxygen saturations at or above 90%. 2. Attempt to maintain plateau pressures less than 30. 3. Antimicrobials per ID. Continue Decadron (07/13/2021), Lovenox (prophylactic) and baricitinib (07/18/2021) as ordered. 4. Titrate sedation as necessary. 5. Continue diuretic regimen as tolerated by hemodynamics and renal fu nction. 6. Continue appropriate GI prophylaxis. Potentially attempt to advance tube feeds IMPRESSIONS: 1. Acute hypoxemic respiratory failure secondary to COVID-19 pneumonia The patient presented with worsening symptoms and was within 10 days of onset. Although the patient was maintained on noninvasive positive pressure ventilatory support for several days, she failed to improve from a respiratory perspective and was subsequently intubated on July 06. She has completed a treatment course of remdesivir. The patient remains on Decadron, Lovenox and baricitinib. Antibiotics and vincent cultures still show no growth to date. Clinic al suspicion for Precedex drug fever, but await cultures prior to discontinue of antibiotics. We will plan to continue her diuretic regimen as ordered and tolerated by hemodynamics and renal function. Continue to wean FiO2 and PEEP as tolerated to maintain saturations at or above 90%. Goal to maintain plateau pressures less than 30. The patient will be continued on her current sedation regimen. Continue appropriate GI prophylaxis. Continuing Precedex for concerns patient will not be able to tolerate spontaneous breathing trial without sedation given psych history. 2. History of schizoaffective disorder/hypertension/tobacco dependency/morbid obesity Complicates care, management, recovery and prognosis. Continue home medications as indicated. Unclear if patient will require nicotine replacement given intubation. TIME: 35 minutes of critical care time, independent of procedures, was spent addressing the patient's acute hypoxemic respiratory failure secondary to COVID- 19 pneumonia, review of all data and collaboration with the care team. (6 AM to 8 AM) Subjective Subjective Patient did okay from a hemodynamic standpoint. Patient did have a bowel movement overnight. Patient has remained persistently febrile, but cultures are still no growth to date. Patient was placed on a cooling blanket and has been receiving Tylenol intermittently. Objective Data Objective Data Vital Signs: Vital Signs Temp Pulse Resp BP Pulse Ox 38.8 C H 77 19 H 128/72 H 93 07/12/21 06:00 07/12/21 07:00 07/12/21 07:00 07/12/21 07:00 07/12/21 07:00 Oxygen Flow Rate (L/min) 60 Oxygen Delivery Method Mechanical Ventilator Weight: 141.9 kg Body Mass Index (BMI) 59.4 Intake & Output: Intake and Output for Last 24 Hours 07/10/21 07/11/21 07/12/21 23:59 23:59 23:59 Intake Total 2707.42 / 2784.82 3450.67 / 3493.70 1231.60 / 1231.60 Output Total 3000 / 3000 2525 / 2925 735 / 735 Balance -292.58 / -215.18 925.67 / 568.70 496.60 / 496.60 Lab / Micro Data Result Diagrams: 07/12/21 04:00 07/12/21 04:00 Labs: Laboratory Results - last 24 hr 07/11/21 15:00: Vancomycin Trough 21.0 H 07/12/21 04:00: WBC 11.0, RBC 4.34, Hgb 12.5, Hct 41.2, MCV 94.9, MCH 28.8, MCHC 30.3 L, RDW Std Deviation 52.7 H, RDW Coeff of Gonzalo 14.9 H, Plt Count 352, MPV 10.3, Immature Gran % (Auto) 2.700 H, Neut % (Auto) 62.8, Lymph % (Auto) 24.4, [place] % (Auto) 8.3, Eos % (Auto) 1.3, Baso % (Auto) 0.5, Absolute Neuts (auto) 6.9, Absolute Lymphs (auto) 2.67, Nucleated RBC % 0 07/12/21 04:00: Sodium 143, Potassium 4.0, Chloride 109 H, Carbon Dioxide 30.0, Anion Gap 4 L, BUN 27 H, Creatinine 0.84, Estim Creat Clear Calc 80.27, Est GFR (MDRD) Af Amer 106, Est GFR (MDRD) Non-Af 87, BUN/Creatinine Ratio 32.3 H, Glucose 124 H, Calcium 8.4 L, Total Bilirubin 0.90, AST 57 H, ALT 131 H, Alkaline Phosphatase 64, Total Protein 6.7, Albumin 2.3 L, Globulin 4.4 H, [place]/Globulin Ratio 0.5 L Micro: Microbiology 07/10/21 14:45 Sputum, Induced/Lukens Gram Stain - Final 07/06/21 09:00 Sputum, Induced/Lukens Gram Stain - Final 07/06/21 09:00 Sputum, Induced/Lukens Respiratory Culture - Final 07/03/21 21:27 Stool C. difficile DNA Amplification - Final 07/03/21 21:27 Urine, Clean Catch Legionella Antigen - Final 07/03/21 21:27 Urine, Clean Catch Streptococcus pneumoniae Antigen (M - Final 07/03/21 02:20 Nasal Secretion SARS-CoV-2 Antigen (Rapid) - Final SARS-CoV-2 (COVID 19) Physical Exam Const Constitutional Narrative: Diaphoretic appearance is improving General Appearance: intubated and patient mechanically ventilated Nutritional Appearance: morbidly obese HEENT normocephalic and head/scalp atraumatic Mouth: endotracheal tube in place and OG tube in place Teeth and Gingiva: poor dentition Eyes PERRL, EOMs intact bilaterally and conjunctivae normal Neck supple General: trachea midline Chest inspection of chest normal Chest: symmetrical chest wall rise; Negative for crepitus Resp Auscultation: diminished lung sounds; Negative for rales, rhonchi or wheezes Cardio regular rate, regular rhythm, S1 normal heart sound, S2 normal heart sound, no murmurs, no rub and no gallops GI normal to inspection, nondistended, normoactive bowel sounds Extremity General Extremity: Negative for clubbing, cyanosis or edema Skin no rashes or lesions noted Neuro Sensorium / Orientation: sedated on vent Charges/Coding Procedures Hospitalists Procedures: [id number] Critial Care 1st Hr
[2021-07-12] MEDS: Chlorhexidine 15 ML PO ×2 (10:00→21:06)
[2021-07-12] MEDS: Dexmedetomidine 1,000 mcg in 0.9% NS 240 mL 18 MCG CONT INF (11:24)
[2021-07-12] MEDS: Menthol/Lanolin/Calamine/Znox 113 GM Tube 1 APPLIC TOPICAL ×2 (11:31→21:09)
[2021-07-12] MEDS: Nystatin Powder 15gm Bottle 1 APPLIC TOPICAL ×2 (11:39→21:08)
[2021-07-12] MEDS: 0.9% Saline Lock 10 ML Syringe IV (11:42)
[2021-07-12] MEDS: Enoxaparin 150 MG/ML Syringe 140 MG SC ×2 (11:43→21:07)
[2021-07-12] MEDS: Polyethylene Glycol 3350 17 GM PACKET PO (11:43)
[2021-07-12] MEDS: Senna Tablet 2 TABLET PO ×2 (11:45→21:07)
[2021-07-12] MEDS: Furosemide 40 MG/4 ML Vial IV ×2 (11:45→18:01)
[2021-07-12] MEDS: dexAMETHasone 10 MG/ML Vial 6 MG IV (11:46)
[2021-07-12] MEDS: lamoTRIgine 100 MG Tablet 200 MG GT (11:47)
[2021-07-12] MEDS: Escitalopram Oxalate 20 MG Tablet GT (11:47)
[2021-07-12] MEDS: Vital AF 1.2 Cal Liquid 1,000 ML 25 ML GT (12:00)
[2021-07-12] MEDS: TITRATION PARAMETER CHANGE 1 EACH IV (12:45)
[2021-07-12] MEDS: Metoprolol Tartrate 25 MG Tablet GT (21:08)
[2021-07-12] MEDS: OLANZapine 10 MG Tablet 30 MG GT (21:08)
[2021-07-13] VITALS (36 sets, daily range): BP systolic 106–138; BP diastolic 50–97; PULSE 52–75; RESP 14–25; TEMP 37.5–37.9; O2SAT 86–98
[2021-07-13] MEDS: Dexmedetomidine 1,000 mcg in 0.9% NS 240 mL 17.8 MCG CONT INF ×2 (02:28→12:00)
[2021-07-13] MEDS: guaiFENesin 10 ML UDC (200MG/10ML) GT ×6 (02:52→20:33)
[2021-07-13] MEDS: Acetaminophen 650 MG/20 ML UDC PO (02:53)
[2021-07-13 03:12] LABS: Absolute Lymphocyte Count 1.83 X10^3/uL (0.83-4.51); Basophil# 0.05 X10^3/uL; Basophil% 0.5 % (0-1); Eosinophil# 0.07 X10^3/uL; Eosinophils% 0.7 % (0-5); Hematocrit 41.5 % (37-47); Hemoglobin 12.7 g/dL (12.0-15.0); Lymphocyte # 1.83 X10^3/ul (0.83-4.51); Lymphocyte % 18.3 % (19-41); Mean Corp Hgb Conc 30.6 g/dL (32-36); Mean Corpuscular Hgb 29.3 pg (27.0-32.0); Mean Corpuscular Volume 95.8 fL (81-99); Mean Platelet Vol. 10.3 fl (6.2-12.0); Monocyte# 0.87 X10^3/uL; Monocyte% 8.7 % (0-10); NRBC Flagged by Analyzer 0 % (0-5); Neutrophil # 6.99 X10^3/uL (2.7-7.7); Neutrophil % 70.1 % (47-70); Platelet Count 343 K/mm3 (150-450); RBC Distribution Width CV 14.5 % (11.6-14.6); RBC Distribution Width SD 50.6 fl (35.1-43.9); Red Blood Count 4.33 M/mm3 (4.2-5.4)
[2021-07-13 03:31] LABS: ALB/GLOB Ratio 0.5 RATIO (0.9-2.4); AST(SGOT) 68 U/L (15-37); Alanine Aminotransfer ALT/SGPT 148 U/L (13-56); Albumin, Serum 2.5 g/dL (3.2-5.0); Alkaline Phosphatase 67 U/L (45-117); Anion Gap 6 (5-15); BUN 29 mg/dL (7-18); Calcium,Total 8.6 mg/dL (8.5-10.1); Chloride 106 mmol/L (98-107); Creatinine, Serum 0.78 mg/dL (0.55-1.02); EST Glomerular Filtration Rate 94 mL/min (>60); Est Glom Filt Rate - Afr Amer 114 mL/min (>60); Estimated Creatinine Clearance 86.44 ml/min; Globulin 4.6 g/dL (2.2-4.2); Glucose 143 mg/dL (74-106); Potassium 4.1 mmol/L (3.5-5.1); Protein, Total 7.1 g/dL (6.4-8.2); Sodium Level 143 mmol/L (136-145)
--- NOTE | 2021-07-13 07:27 | PCM.PN.HOSP ---
Subjective Subjective Follow-up with acute respiratory failure/acute COVID-19 pneumonia: Patient seen and examined. Remains intubated. No acute events overnight. Her PEEP remains elevated at 10. Objective Data Objective Data Vital Signs: Vital Signs Temp Pulse Resp BP Pulse Ox 99.9 F H 59 L 19 H 111/61 93 07/13/21 07:00 07/13/21 07:01 07/13/21 07:01 07/13/21 07:00 07/13/21 07:01 Oxygen Flow Rate (L/min) 60 Oxygen Delivery Method Mechanical Ventilator Weight: 141.5 kg Body Mass Index (BMI) 59.4 Intake & Output: Intake and Output for Last 24 Hours 07/11/21 07/12/21 07/13/21 23:59 23:59 23:59 Intake Total 3450.67 / 3493.70 3432.15 / 3735.45 916.97 / 916.97 Output Total 2525 / 2925 3835 / 3995 445 / 445 Balance 925.67 / 568.70 -402.85 / -259.55 471.97 / 471.97 Lab / Micro Data Result Diagrams: 07/13/21 03:05 07/13/21 03:05 Labs: Laboratory Results - last 24 hr 07/13/21 03:05: WBC 10.0, RBC 4.33, Hgb 12.7, Hct 41.5, MCV 95.8, MCH 29.3, MCHC 30.6 L, RDW Std Deviation 50.6 H, RDW Coeff of Gonzalo 14.5, Plt Count 343, MPV 10.3, Immature Gran % (Auto) 1.700 H, Neut % (Auto) 70.1 H, Lymph % (Auto) 18.3 L, [place] % (Auto) 8.7, Eos % (Auto) 0.7, Baso % (Auto) 0.5, Absolute Neuts (auto) 7.0, Absolute Lymphs (auto) 1.83, Nucleated RBC % 0 07/13/21 03:05: Sodium 143, Potassium 4.1, Chloride 106, Carbon Dioxide 31.0, Anion Gap 6, BUN 29 H, Creatinine 0.78, Estim Creat Clear Calc 86.44, Est GFR (MDRD) Af Amer 114, Est GFR (MDRD) Non-Af 94, BUN/Creatinine Ratio 37.0 H, Glucose 143 H, Calcium 8.6, Total Bilirubin 0.60, AST 68 H, ALT 148 H, Alkaline Phosphatase 67, Total Protein 7.1, Albumin 2.5 L, Globulin 4.6 H, Albumin/Globulin Ratio 0.5 L Micro: Microbiology 07/10/21 14:45 Sputum, Induced/Lukens Gram Stain - Final 07/10/21 14:45 Sputum, Induced/Lukens Respiratory Culture - Preliminary Presumptive C albicans 07/10/21 13:10 Blood Culture (Wb) - Anticubital Left Blood Culture - Preliminary No growth in 48 hours. 07/10/21 11:00 Blood Culture (Wb) - Arm Right Blood Culture - Preliminary No growth in 48 hours. 07/06/21 09:00 Sputum, Induced/Lukens Gram Stain - Final 07/06/21 09:00 Sputum, Induced/Lukens Respiratory Culture - Final 07/03/21 21:27 Stool C. difficile DNA Amplification - Final 07/03/21 21:27 Urine, Clean Catch Legionella Antigen - Final 07/03/21 21:27 Urine, Clean Catch Streptococcus pneumoniae Antigen (M - Final 07/03/21 02:20 Nasal Secretion SARS-CoV-2 Antigen (Rapid) - Final SARS-CoV-2 (COVID 19) Physical Exam Narrative Physical exam: General: Sedated, intubated, morbidly obese HEENT: Atraumatic Oral: Moist Mucosa Neck: Supple Lungs: Clear to auscultation Cardiovascular: HS I+II, regular, no murmurs Abdomen: Bowel Sounds Present, Soft, Non Tender Extremities: Trace bilateral leg edema Assessment & Plan Assessment/Plan (1) Acute hypoxemic respiratory failure due to COVID-19: (2) COVID-19: PLAN: 1. Acute hypoxic respiratory failure secondary to acute COVID-19 pneumonia, Remains intubated, oxygen requirements waxing and waning; intubated on 07/07/21, on PEEP 10 Fevers persist Will complete Decadron today, continue on Baricitinib; patient has completed remdesivir Sputum culture, urine for Legionella and streptococcal antigen are all negative Recent repeat panculture are negative except for Jessica and gram-positive rods in sputum Continue on empiric vancomycin and meropenem ID and pulmonology following Continue to monitor cultures 2. Elevated D-dimer concerning for possible PE Continue on therapeutic Lovenox 3. Rest of her chronic medical conditions including schizoaffective disorder/hypertension/nicotine dependence/morbid obesity -remain stable Rest of her home medication reviewed. Charges/Coding Visit Charges Inpatient E&M: 42002 Subs Hosp L3
--- NOTE | 2021-07-13 07:50 | PN.CC_ITS ---
Assessment & Plan Assessment/Plan (1) Acute hypoxemic respiratory failure due to COVID-19: PLAN: RECOMMENDATIONS: 1. Continue to wean FiO2 and PEEP to maintain oxygen saturations at or above 90%. 2. Defer to ID on whether Jessica needs to be treated 3. Antimicrobials per ID. Continue Decadron (07/13/2021), Lovenox (prophylactic) and baricitinib (07/18/2021) as ordered. 4. Titrate sedation as necessary. 5. Continue diuretic regimen as tolerated by hemodynamics and renal fun ction. 6. Continue appropriate GI prophylaxis. Potentially attempt to advance tube feeds IMPRESSIONS: 1. Acute hypoxemic respiratory failure secondary to COVID-19 pneumonia The patient presented with worsening symptoms and was within 10 days of onset. Although the patient was maintained on noninvasive positive pressure ventilatory support for several days, she failed to improve from a respiratory perspective and was subsequently intubated on July 06. She has completed a treatment course of remdesivir. The patient remains on Decadron, Lovenox and baricitinib. Patient is growing Jessica and low volume. Defer to ID on whether this needs to be treated. Clinical suspicion for Precedex drug fever, but await cultures prior to discontinue of antibiotics. We will plan to continue her diuretic regimen as ordered and tolerated by hemodynamics and renal function. Continue to wean FiO2 and PEEP as tolerated to maintain saturations at or above 90%. Goal to maintain plateau pressures less than 30. The patient will be continued on her current sedation regimen. Continue appropriate GI prophylaxis. Continuing Precedex for concerns patient will not be able to tolerate spontaneous breathing trial without sedation given psych history. 2. History of schizoaffective disorder/hypertension/tobacco dependency/mor bid obesity Complicates care, management, recovery and prognosis. Continue home medic ations as indicated. Unclear if patient will require nicotine replacement given intubation. TIME: 34 minutes of critical care time, independent of procedures, was spent addressing the patient's acute hypoxemic respiratory failure secondary to COVID- 19 pneumonia, review of all data and collaboration with the care team. (5:30 AM to 7:45 AM) Subjective Subjective Patient did okay overnight. No acute issues were reported. Patient was able to tolerate tube feeds. FiO2 was able to be decreased, but PEEP remains elevated, so no spontaneous breathing trial was attempted this morning. Patient does open her eyes to voice and follows commands. Objective Data Objective Data Vital Signs: Vital Signs Temp Pulse Resp BP Pulse Ox 37.7 C H 59 L 19 H 111/61 93 07/13/21 07:00 07/13/21 07:01 07/13/21 07:01 07/13/21 07:00 07/13/21 07:01 Oxygen Flow Rate (L/min) 60 Oxygen Delivery Method Mechanical Ventilator Weight: 141.5 kg Body Mass Index (BMI) 59.4 Intake & Output: Intake and Output for Last 24 Hours 07/11/21 07/12/21 07/13/21 23:59 23:59 23:59 Intake Total 3450.67 / 3493.70 3432.15 / 3735.45 916.97 / 916.97 Output Total 2525 / 2925 3835 / 3995 445 / 445 Balance 925.67 / 568.70 -402.85 / -259.55 471.97 / 471.97 Lab / Micro Data Result Diagrams: 07/13/21 03:05 07/13/21 03:05 Labs: Laboratory Results - last 24 hr 07/13/21 03:05: WBC 10.0, RBC 4.33, Hgb 12.7, Hct 41.5, MCV 95.8, MCH 29.3, MCHC 30.6 L, RDW Std Deviation 50.6 H, RDW Coeff of Gonzalo 14.5, Plt Count 343, MPV 10.3, Immature Gran % (Auto) 1.700 H, Neut % (Auto) 70.1 H, Lymph % (Auto) 18.3 L, [place] % (Auto) 8.7, Eos % (Auto) 0.7, Baso % (Auto) 0.5, Absolute Neuts (auto) 7.0, Absolute Lymphs (auto) 1.83, Nucleated RBC % 0 07/13/21 03:05: Sodium 143, Potassium 4.1, Chloride 106, Carbon Dioxide 31.0, Anion Gap 6, BUN 29 H, Creatinine 0.78, Estim Creat Clear Calc 86.44, Est GFR (MDRD) Af Amer 114, Est GFR (MDRD) Non-Af 94, BUN/Creatinine Ratio 37.0 H, Glucose 143 H, Calcium 8.6, Total Bilirubin 0.60, AST 68 H, ALT 148 H, Alkaline Phosphatase 67, Total Protein 7.1, Albumin 2.5 L, Globulin 4.6 H, Albumin/Globulin Ratio 0.5 L Micro: Microbiology 07/10/21 14:45 Sputum, Induced/Lukens Gram Stain - Final 07/10/21 14:45 Sputum, Induced/Lukens Respiratory Culture - Preliminary Presumptive C albicans 07/10/21 13:10 Blood Culture (Wb) - Anticubital Left Blood Culture - Preli minary No growth in 48 hours. 07/10/21 11:00 Blood Culture (Wb) - Arm Right Blood Culture - Preliminary No growth in 48 hours. 07/06/21 09:00 Sputum, Induced/Lukens Gram Stain - Final 07/06/21 09:00 Sputum, Induced/Lukens Respiratory Culture - Final 07/03/21 21:27 Stool C. difficile DNA Amplification - Final 07/03/21 21:27 Urine, Clean Catch Legionella Antigen - Final 07/03/21 21:27 Urine, Clean Catch Streptococcus pneumoniae Antigen (M - Final 07/03/21 02:20 Nasal Secretion SARS-CoV-2 Antigen (Rapid) - Final SARS-CoV-2 (COVID 19) Physical Exam Const Constitutional Narrative: Diaphoretic appearance is improving General Appearance: intubated and patient mechanically ventilated Nutritional Appearance: morbidly obese HEENT normocephalic and head/scalp atraumatic Mouth: endotracheal tube in place and OG tube in place Teeth and Gingiva: poor dentition Eyes PERRL, EOMs intact bilaterally and conjunctivae normal Neck supple General: trachea midline Chest inspection of chest normal Chest: symmetrical chest wall rise; Negative for crepitus Resp Auscultation: diminished lung sounds; Negative for rales, rhonchi or wheezes Cardio regular rate, regular rhythm, S1 normal heart sound, S2 normal heart sound, no murmurs, no rub and no gallops GI normal to inspection, nondistended, normoactive bowel sounds Extremity General Extremity: Negative for clubbing, cyanosis or edema Skin no rashes or lesions noted Neuro Sensorium / Orientation: sedated on vent Charges/Coding Procedures Hospitalists Procedures: [id number] Critial Care 1st Hr
[2021-07-13] MEDS: Potassium Chloride Oral Soln 20 MEQ/15 ML UDC GT (08:23)
[2021-07-13] MEDS: Vital AF 1.2 Cal Liquid 1,000 ML 25 ML GT (08:23)
[2021-07-13] MEDS: Polyethylene Glycol 3350 17 GM PACKET PO (08:24)
[2021-07-13] MEDS: dexAMETHasone 10 MG/ML Vial 6 MG IV (08:24)
[2021-07-13] MEDS: Menthol/Lanolin/Calamine/Znox 113 GM Tube 1 APPLIC TOPICAL ×2 (08:24→20:32)
[2021-07-13] MEDS: Enoxaparin 150 MG/ML Syringe 140 MG SC ×2 (08:24→20:32)
[2021-07-13] MEDS: 0.9% Saline Lock 10 ML Syringe IV (08:25)
[2021-07-13] MEDS: Furosemide 40 MG/4 ML Vial IV ×2 (08:26→17:21)
[2021-07-13] MEDS: lamoTRIgine 100 MG Tablet 200 MG GT (08:26)
[2021-07-13] MEDS: Senna Tablet 2 TABLET PO ×2 (08:26→20:30)
[2021-07-13] MEDS: Nystatin Powder 15gm Bottle 1 APPLIC TOPICAL ×2 (08:27→20:32)
[2021-07-13] MEDS: Chlorhexidine 15 ML PO ×2 (08:27→20:30)
[2021-07-13] MEDS: Escitalopram Oxalate 20 MG Tablet GT (08:27)
[2021-07-13 10:34] LABS: CPK Total, Creatine Kinase 372 U/L (26-192); Triglycerides 335 mg/dL
[2021-07-13] MEDS: Potassium Chloride Oral Soln 20 MEQ/15 ML UDC 40 MEQ GT (17:21)
[2021-07-13] MEDS: OLANZapine 10 MG Tablet 30 MG GT (20:33)
[2021-07-14] VITALS (34 sets, daily range): BP systolic 97–129; BP diastolic 59–90; PULSE 49–94; RESP 16–25; TEMP 37.3–38.2; O2SAT 88–97
[2021-07-14] MEDS: Dexmedetomidine 1,000 mcg in 0.9% NS 240 mL 21.3 MCG CONT INF (01:00)
[2021-07-14] MEDS: guaiFENesin 10 ML UDC (200MG/10ML) GT ×6 (02:33→21:56)
[2021-07-14 05:36] LABS: Absolute Lymphocyte Count 2.61 X10^3/uL (0.83-4.51); Absolute Neutrophil Count 8.7 X10^3/uL (2.0-7.7); Basophil# 0.03 X10^3/uL; Basophil% 0.2 % (0-1); Eosinophil# 0.04 X10^3/uL; Eosinophils% 0.3 % (0-5); Hematocrit 39.4 % (37-47); Hemoglobin 11.9 g/dL (12.0-15.0); Lymphocyte # 2.61 X10^3/ul (0.83-4.51); Lymphocyte % 21.2 % (19-41); Mean Corp Hgb Conc 30.2 g/dL (32-36); Mean Corpuscular Hgb 29.1 pg (27.0-32.0); Mean Corpuscular Volume 96.3 fL (81-99); Mean Platelet Vol. 10.8 fl (6.2-12.0); Monocyte# 0.81 X10^3/uL; Monocyte% 6.6 % (0-10); NRBC Flagged by Analyzer 0 % (0-5); Neutrophil % 70.8 % (47-70); Platelet Count 309 K/mm3 (150-450); RBC Distribution Width CV 14.7 % (11.6-14.6); RBC Distribution Width SD 52.6 fl (35.1-43.9); Red Blood Count 4.09 M/mm3 (4.2-5.4); White Blood Count 12.3 K/mm3 (4.4-11.0)
[2021-07-14 05:48] LABS: ALB/GLOB Ratio 0.6 RATIO (0.9-2.4); AST(SGOT) 40 U/L (15-37); Alanine Aminotransfer ALT/SGPT 111 U/L (13-56); Albumin, Serum 2.4 g/dL (3.2-5.0); Alkaline Phosphatase 58 U/L (45-117); Anion Gap 5 (5-15); BUN 30 mg/dL (7-18); BUN/Creat Ratio 46.1 RATIO (10-20); Calcium,Total 8.1 mg/dL (8.5-10.1); Chloride 110 mmol/L (98-107); Creatinine, Serum 0.65 mg/dL (0.55-1.02); EST Glomerular Filtration Rate 117 mL/min (>60); Est Glom Filt Rate - Afr Amer 141 mL/min (>60); Estimated Creatinine Clearance 103.73 ml/min; Globulin 4.2 g/dL (2.2-4.2); Glucose 134 mg/dL (74-106); Potassium 3.2 mmol/L (3.5-5.1); Protein, Total 6.6 g/dL (6.4-8.2); Sodium Level 145 mmol/L (136-145)
--- NOTE | 2021-07-14 07:11 | PN.CC_ITS ---
Assessment & Plan Assessment/Plan (1) Acute hypoxemic respiratory failure due to COVID-19: PLAN: RECOMMENDATIONS: 1. Continue to wean FiO2 and PEEP to maintain oxygen saturations at or above 90%. 2. No treatment for Jessica 3. Antimicrobials per ID. Completed Decadron. Continue Lovenox (prophylactic) and baricitinib (07/18/2021) as ordered. 4. Titrate sedation as necessary. 5. Continue diuretic regimen as tolerated by hemodynamics and renal function. 6. Continue appropriate GI prophylaxis. Potentially attempt to advance tube feeds IMPRESSIONS: 1. Acute hypoxemic respiratory failure secondary to COVID-19 pneumonia The patient presented with worsening symptoms and was within 10 days of onset. Although the patient was maintained on noninvasive positive pressure ventilatory support for several days, she failed to improve from a respiratory perspective and was subsequently intubated on July 06. She has completed a treatment course of remdesivir. The patient remains on Decadron, Lovenox and baricitinib. Clinical suspicion for Precedex drug fever, but await cultures prior to discontinue of antibiotics. We will plan to continue her diuretic regimen as ordered and tolerated by hemodynamics and renal function. Continue to wean FiO2 and PEEP as tolerated to maintain saturations at or above 90%. The patient will be continued on her current sedation regimen. Continue appropriate GI prophylaxis. Continuing Precedex for concerns patient will not be able to tolerate spontaneous breathing trial without sedation given psych history. 2. History of schizoaffective disorder/hypertension/tobacco dependency/morbid obesity Complicates care, management, recovery and prognosis. Continue home medications as indicated. Unclear if patient will require nicotine replacement given intubation. TIME: 32 minutes of critical care time, independent of procedures, was spent addressing the patient's acute hypoxemic respiratory failure secondary to COVID- 19 pneumonia, review of all data and collaboration with the care team. (5:30 AM to 6:30 AM) Subjective Subjective Patient did well overnight. No acute issues were reported. Patient is interactive and denying any pain or shortness of breath. Patient did not have a spontaneous breathing trial as she is still on a PEEP of 10. Patient has been tolerating tube feeds. Patient has had 2 bowel movements over the last 24 hours. Patient reportedly did very well with therapy yesterday Objective Data Objective Data Vital Signs: Vital Signs Temp Pulse Resp BP Pulse Ox 37.7 C H 60 16 121/71 H 91 07/14/21 06:00 07/14/21 06:50 07/14/21 06:50 07/14/21 06:00 07/14/21 06:50 Oxygen Flow Rate (L/min) 60 Oxygen Delivery Method Mechanical Ventilator Weight: 140.4 kg Body Mass Index (BMI) 59.4 Intake & Output: Intake and Output for Last 24 Hours 07/12/21 07/13/21 07/14/21 23:59 23:59 23:59 Intake Total 3432.15 / 3735.45 2519.03 / 2552.83 592.14 / 592.14 Output Total 3835 / 3995 1845 / 1845 1425 / 1425 Balance -402.85 / -259.55 674.03 / 707.83 -832.86 / -832.86 Lab / Micro Data Result Diagrams: 07/14/21 04:50 07/14/21 04:50 Labs: Laboratory Results - last 24 hr 07/13/21 03:05: Total Creatine Kinase 372 H, Triglycerides 335 H 07/14/21 04:50: WBC 12.3 H, RBC 4.09 L, Hgb 11.9 L, Hct 39.4, MCV 96.3, MCH 29.1, MCHC 30.2 L, RDW Std Deviation 52.6 H, RDW Coeff of Gonzalo 14.7 H, Plt Count 309, MPV 10.8, Immature Gran % (Auto) 0.900, Neut % (Auto) 70.8 H, Lymph % (A uto) 21.2, [place] % (Auto) 6.6, Eos % (Auto) 0.3, Baso % (Auto) 0.2, Absolute Neuts (auto) 8.7 H, Absolute Lymphs (auto) 2.61, Nucleated RBC % 0 07/14/21 04:50: Sodium 145, Potassium 3.2 L, Chloride 110 H, Carbon Dioxide 30.0, Anion Gap 5, BUN 30 H, Creatinine 0.65, Estim Creat Clear Calc 103.73, Est GFR (MDRD) Af Amer 141, Est GFR (MDRD) Non-Af 117, BUN/Creatinine Ratio 46.1 H, Glucose 134 H, Calcium 8.1 L, Total Bilirubin 0.50, AST 40 H, ALT 111 H, Alkaline Phosphatase 58, Total Protein 6.6, Albumin 2.4 L, Globulin 4.2, Albumin/Globulin Ratio 0.6 L Micro: Microbiology 07/10/21 14:45 Sputum, Induced/Lukens Gram Stain - Final 07/10/21 14:45 Sputum, Induced/Lukens Respiratory Culture - Final Presumptive C albicans Gram positive pierce 07/10/21 13:10 Blood Culture (Wb) - Anticubital Left Blood Culture - Preliminary No growth in 48 hours. 07/10/21 11:00 Blood Culture (Wb) - Arm Right Blood Culture - Preliminary No growth in 48 hours. 07/06/21 09:00 Sputum, Induced/Lukens Gram Stain - Final 07/06/21 09:00 Sputum, Induced/Lukens Respiratory Culture - Final 07/03/21 21:27 Stool C. difficile DNA Amplification - Final 07/03/21 21:27 Urine, Clean Catch Legionella Antigen - Final 07/03/21 21:27 Urine, Clean Catch Streptococcus pneumoniae Antigen (M - Final 07/03/21 02:20 Nasal Secretion SARS-CoV-2 Antigen (Rapid) - Final SARS-CoV-2 (COVID 19) Physical Exam Const Constitutional Narrative: Interactive and following commands. General Appearance: intubated and patient mechanically ventilated Nutritional Appearance: morbidly obese HEENT normocephalic and head/scalp atraumatic Mouth: endotracheal tube in place and OG tube in place Teeth and Gingiva: poor dentition Eyes PERRL, EOMs intact bilaterally and conjunctivae normal Neck supple General: trachea midline Chest inspection of chest normal Chest: symmetrical chest wall rise; Negative for crepitus Resp Auscultation: diminished lung sounds; Negative for rales, rhonchi or wheezes Cardio regular rate, regular rhythm, S1 normal heart sound, S2 normal heart sound, no murmurs, no rub and no gallops GI normal to inspection, nondistended, normoactive bowel sounds Extremity General Extremity: Negative for clubbing, cyanosis or edema Skin no rashes or lesions noted Neuro Sensorium / Orientation: sedated on vent Charges/Coding Procedures Hospitalists Procedures: 98493 Critial Care 1st Hr
[2021-07-14] MEDS: Potassium Chloride 20mEq/100mL 20 MEQ/100 ML IV.SOLN. 100 MEQ IV BOLUS ×2 (08:40→11:16)
[2021-07-14] MEDS: Vital High Protein 1,000 ML 70 ML GT (08:40)
[2021-07-14] MEDS: TITRATION PARAMETER CHANGE 1 EACH IV (08:41)
[2021-07-14] MEDS: Acetaminophen 650 MG/20 ML UDC PO (08:47)
[2021-07-14] MEDS: Furosemide 40 MG/4 ML Vial IV ×2 (08:47→17:11)
[2021-07-14] MEDS: Potassium Chloride Oral Soln 20 MEQ/15 ML UDC 40 MEQ GT ×2 (08:50→17:11)
[2021-07-14] MEDS: Menthol/Lanolin/Calamine/Znox 113 GM Tube 1 APPLIC TOPICAL ×2 (08:50→21:59)
[2021-07-14] MEDS: Chlorhexidine 15 ML PO ×2 (08:51→21:56)
[2021-07-14] MEDS: Senna Tablet 2 TABLET PO (08:52)
[2021-07-14] MEDS: lamoTRIgine 100 MG Tablet 200 MG GT (08:52)
[2021-07-14] MEDS: Nystatin Powder 15gm Bottle 1 APPLIC TOPICAL ×2 (08:53→21:58)
[2021-07-14] MEDS: Polyethylene Glycol 3350 17 GM PACKET PO (08:53)
[2021-07-14] MEDS: Enoxaparin 150 MG/ML Syringe 140 MG SC ×2 (08:53→21:58)
[2021-07-14] MEDS: Escitalopram Oxalate 20 MG Tablet GT (08:53)
[2021-07-14] MEDS: Dexmedetomidine 1,000 mcg in 0.9% NS 240 mL 21.1 MCG CONT INF ×2 (10:59→23:40)
--- NOTE | 2021-07-14 12:50 | PN.HOSP_ITS ---
Subjective Subjective Follow-up with acute respiratory failure/acute COVID-19 pneumonia: Patient seen and examined. Remains intubated. No acute events overnight. Her PEEP and FiO2 has improved to 8 and 45%. Objective Data Objective Data Vital Signs: Vital Signs Temp Pulse Resp BP Pulse Ox 100.2 F H 69 17 115/66 94 07/14/21 11:00 07/14/21 11:00 07/14/21 11:00 07/14/21 11:00 07/14/21 11:00 Oxygen Flow Rate (L/min) 60 Oxygen Delivery Method Mechanical Ventilator Weight: 140.4 kg Body Mass Index (BMI) 59.4 Intake & Output: Intake and Output for Last 24 Hours 07/12/21 07/13/21 07/14/21 23:59 23:59 23:59 Intake Total 3432.15 / 3735.45 2519.03 / 2552.83 1379.34 / 1379.34 Output Total 3835 / 3995 1845 / 1845 1425 / 1425 Balance -402.85 / -259.55 674.03 / 707.83 -45.66 / -45.66 Lab / Micro Data Result Diagrams: 07/14/21 04:50 07/14/21 04:50 Labs: Laboratory Results - last 24 hr 07/14/21 04:50: WBC 12.3 H, RBC 4.09 L, Hgb 11.9 L, Hct 39.4, MCV 96.3, MCH 29.1, MCHC 30.2 L, RDW Std Deviation 52.6 H, RDW Coeff of Gonzalo 14.7 H, Plt Count 309, MPV 10.8, Immature Gran % (Auto) 0.900, Neut % (Auto) 70.8 H, Lymph % (Auto) 21.2, [place] % (Auto) 6.6, Eos % (Auto) 0.3, Baso % (Auto) 0.2, Absolute Neuts (auto) 8.7 H, Absolute Lymphs (auto) 2.61, Nucleated RBC % 0 07/14/21 04:50: Sodium 145, Potassium 3.2 L, Chloride 110 H, Carbon Dioxide 30.0, Anion Gap 5, BUN 30 H, Creatinine 0.65, Estim Creat Clear Calc 103.73, Est GFR (MDRD) Af Amer 141, Est GFR (MDRD) Non-Af 117, BUN/Creatinine Ratio 46.1 H, Glucose 134 H, Calcium 8.1 L, Total Bilirubin 0.50, AST 40 H, ALT 111 H, Alkaline Phosphatase 58, Total Protein 6.6, Albumin 2.4 L, Globulin 4.2, Albumin/Globulin Ratio 0.6 L Micro: Microbiology 07/10/21 14:45 Sputum, Induced/Lukens Gram Stain - Final 07/10/21 14:45 Sputum, Induced/Lukens Respiratory Culture - Final Presumptive C albicans Gram positive pierce 07/10/21 13:10 Blood Culture (Wb) - Anticubital Left Blood Culture - Preliminary No growth in 48 hours. 07/10/21 11:00 Blood Culture (Wb) - Arm Right Blood Culture - Preliminary No growth in 48 hours. 07/06/21 09:00 Sputum, Induced/Lukens Gram Stain - Final 07/06/21 09:00 Sputum, Induced/Lukens Respiratory Culture - Final 07/03/21 21:27 Stool C. difficile DNA Amplification - Final 07/03/21 21:27 Urine, Clean Catch Legionella Antigen - Final 07/03/21 21:27 Urine, Clean Catch Streptococcus pneumoniae Antigen (M - Final 07/03/21 02:20 Nasal Secretion SARS-CoV-2 Antigen (Rapid) - Final SARS-CoV-2 (COVID 19) Physical Exam Narrative Physical exam: General: Sedated, intubated, morbidly obese HEENT: Atraumatic Oral: Moist Mucosa Neck: Supple Lungs: Clear to auscultation Cardiovascular: HS I+II, regular, no murmurs Abdomen: Bowel Sounds Present, Soft, Non Tender Extremities: Trace bilateral leg edema Assessment & Plan Assessment/Plan (1) Acute hypoxemic respiratory failure due to COVID-19: (2) COVID-19: PLAN: 1. Acute hypoxic respiratory failure secondary to acute COVID-19 pneumonia, slightly improved Remains intubated, oxygen requirements waxing and waning; intubated on 07/07/21, on PEEP 8 Completed Decadron and Remdesivir. Continue on Baricitinib Sputum culture, urine for Legionella and streptococcal antigen are all negative Recent repeat panculture are negative except for Jessica and gram-positive rods in sputum Continue on empiric meropenem ID and pulmonology following Continue to monitor cultures 2. Elevated D-dimer concerning for possible Acute PE Continue on therapeutic Lovenox 3. Rest of her chronic medical conditions including schizoaffective disorder/hypertension/nicotine dependence/morbid obesity -remain stable Rest of her home medication reviewed. Charges/Coding Visit Charges Inpatient E&M: 78004 Subs Hosp L3
[2021-07-14] MEDS: OLANZapine 10 MG Tablet 30 MG GT (21:56)
[2021-07-15] VITALS (37 sets, daily range): BP systolic 91–164; BP diastolic 61–110; PULSE 50–152; RESP 12–31; TEMP 37.2–38; O2SAT 89–98
[2021-07-15] MEDS: guaiFENesin 10 ML UDC (200MG/10ML) GT ×2 (03:04→10:33)
[2021-07-15 03:22] LABS: Absolute Lymphocyte Count 2.51 X10^3/uL (0.83-4.51); Absolute Neutrophil Count 9.3 X10^3/uL (2.0-7.7); Basophil# 0.05 X10^3/uL; Basophil% 0.4 % (0-1); Eosinophil# 0.14 X10^3/uL; Eosinophils% 1.1 % (0-5); Hematocrit 41.3 % (37-47); Hemoglobin 12.3 g/dL (12.0-15.0); Lymphocyte # 2.51 X10^3/ul (0.83-4.51); Lymphocyte % 19.4 % (19-41); Mean Corp Hgb Conc 29.8 g/dL (32-36); Mean Corpuscular Hgb 28.9 pg (27.0-32.0); Mean Corpuscular Volume 96.9 fL (81-99); Mean Platelet Vol. 10.9 fl (6.2-12.0); Monocyte# 0.87 X10^3/uL; Monocyte% 6.7 % (0-10); NRBC Flagged by Analyzer 0 % (0-5); Neutrophil # 9.32 X10^3/uL (2.7-7.7); Neutrophil % 71.8 % (47-70); Platelet Count 323 K/mm3 (150-450); RBC Distribution Width CV 15.2 % (11.6-14.6); RBC Distribution Width SD 53.9 fl (35.1-43.9); Red Blood Count 4.26 M/mm3 (4.2-5.4)
[2021-07-15 03:48] LABS: ALB/GLOB Ratio 0.6 RATIO (0.9-2.4); AST(SGOT) 42 U/L (15-37); Alanine Aminotransfer ALT/SGPT 118 U/L (13-56); Albumin, Serum 2.7 g/dL (3.2-5.0); Alkaline Phosphatase 63 U/L (45-117); Anion Gap 5 (5-15); BUN 34 mg/dL (7-18); BUN/Creat Ratio 44.7 RATIO (10-20); Calcium,Total 8.7 mg/dL (8.5-10.1); Chloride 110 mmol/L (98-107); Creatinine, Serum 0.76 mg/dL (0.55-1.02); EST Glomerular Filtration Rate 97 mL/min (>60); Est Glom Filt Rate - Afr Amer 118 mL/min (>60); Estimated Creatinine Clearance 88.72 ml/min; Globulin 4.5 g/dL (2.2-4.2); Glucose 118 mg/dL (74-106); Potassium 4.2 mmol/L (3.5-5.1); Protein, Total 7.2 g/dL (6.4-8.2); Sodium Level 147 mmol/L (136-145)
[2021-07-15 05:56] LABS: Allen Test Positive; Base Excess 6 mmol/L (-2 to +2); Bicarbonate 30.2 mmol/L (22-26); Blood Gas Specimen Type ART; FI02 45; Mode CPAP/PS; O2 Delivery Device ET Tube; PEEP 5; PO2 64 mmHG (75-100); PS 5; SITE R Radial; SO2 92 % (95-99); Total Carbon Dioxide 32 mmol/L; pCO2 46.8 mmHg (35-45); pH 7.42 (7.35-7.45)
--- NOTE | 2021-07-15 06:48 | PN.CC_ITS ---
Assessment & Plan Assessment/Plan (1) Acute hypoxemic respiratory failure due to COVID-19: PLAN: RECOMMENDATIONS: 1. Continue to wean FiO2 and PEEP to maintain oxygen saturations at or above 90%. 2. Potentially attempt trial off AVAPS later today 3. Antimicrobials per ID. Completed Decadron. Continue Lovenox (prophylactic) and baricitinib (07/18/2021) as ordered. 4. Discontinue Precedex and fentanyl therapy 5. Hold on diuretic therapy today given hyperchloremia and hypernatremia 6. Continue appropriate GI prophylaxis. IMPRESSIONS: 1. Acute hypoxemic respiratory failure secondary to COVID-19 pneumonia The patient presented with worsening symptoms and was within 10 days of onset. Although the patient was maintained on noninvasive positive pressure ventilatory support for several days, she failed to improve from a respiratory perspective and was subsequently intubated on July 06. She has completed a t reatment course of remdesivir. The patient remains on Decadron, Lovenox and baricitinib. Patient was able to be extubated on 07/15/2021 to BiPAP therapy. 2. History of schizoaffective disorder/hypertension/tobacco dependency/morbid obesity Complicates care, management, recovery and prognosis. Continue home medications as indicated. Unclear if patient will require nicotine replacement given intubation. TIME: 35 minutes of critical care time, independent of procedures, was spent addressing the patient's acute hypoxemic respiratory failure secondary to COVID- 19 pneumonia, review of all data and collaboration with the care team. (5:30 AM to 6:45 AM) Subjective Subjective Patient did okay overnight. No acute issues were reported. Patient was able to have a spontaneous breathing trial this morning and tolerate 1 hour. ABG showed adequate oxygenation and ventilation. However, shortly thereafter patient started to have some desaturation. It was decided to extubate the patient to AVAPS. Objective Data Objective Data Patient was noted to have significant intraluminal mucoid secretions in endotracheal tube at extubation Vital Signs: Vital Signs Temp Pulse Resp BP Pulse Ox 37.9 C H 57 L 17 116/64 89 07/15/21 04:00 07/15/21 04:50 07/15/21 04:50 07/15/21 04:00 07/15/21 06:18 Oxygen Flow Rate (L/min) 11 Oxygen Delivery Method Nasal Cannula Weight: 140.4 kg Body Mass Index (BMI) 59.4 Intake & Output: Intake and Output for Last 24 Hours 07/13/21 07/14/21 07/15/21 23:59 23:59 23:59 Intake Total 2519.03 / 2552.83 4165.99 / 4373.52 365.95 / 365.95 Output Total 1845 / 1845 4100 / 4100 Balance 674.03 / 707.83 65.99 / 273.52 365.95 / 365.95 Lab / Micro Data Result Diagrams: 07/15/21 03:15 07/15/21 03:15 Labs: Laboratory Results - last 24 hr 07/15/21 03:15: WBC 13.0 H, RBC 4.26, Hgb 12.3, Hct 41.3, MCV 96.9, MCH 28.9, MCHC 29.8 L, RDW Std Deviation 53.9 H, RDW Coeff of Gonzalo 15.2 H, Plt Count 323, MPV 10.9, Immature Gran % (Auto) 0.600, Neut % (Auto) 71.8 H, Lymph % (Auto) 19.4, [place] % (Auto) 6.7, Eos % (Auto) 1.1, Baso % (Auto) 0.4, Absolute Neuts (auto) 9.3 H, Absolute Lymphs (auto) 2.51, Nucleated RBC % 0 07/15/21 03:15: Sodium 147 H, Potassium 4.2, Chloride 110 H, Carbon Dioxide 32.0, Anion Gap 5, BUN 34 H, Creatinine 0.76, Estim Creat Clear Calc 88.72, Est GFR (MDRD) Af Amer 118, Est GFR (MDRD) Non-Af 97, BUN/Creatinine Ratio 44.7 H, Glucose 118 H, Calcium 8.7, Total Bilirubin 0.50, AST 42 H, ALT 118 H, Alkaline Phosphatase 63, Total Protein 7.2, Albumin 2.7 L, Globulin 4.5 H, Albumin/Globu maryann Ratio 0.6 L Micro: Microbiology 07/10/21 14:45 Sputum, Induced/Lukens Gram Stain - Final 07/10/21 14:45 Sputum, Induced/Lukens Respiratory Culture - Final Presumptive C albicans Gram positive pierce 07/10/21 13:10 Blood Culture (Wb) - Anticubital Left Blood Culture - Preliminary No growth in 48 hours. 07/10/21 11:00 Blood Culture (Wb) - Arm Right Blood Culture - Preliminary No growth in 48 hours. 07/06/21 09:00 Sputum, Induced/Lukens Gram Stain - Final 07/06/21 09:00 Sputum, Induced/Lukens Respiratory Culture - Final 07/03/21 21:27 Stool C. difficile DNA Amplification - Final 07/03/21 21:27 Urine, Clean Catch Legionella Antigen - Final 07/03/21 21:27 Urine, Clean Catch Streptococcus pneumoniae Antigen (M - Final 07/03/21 02:20 Nasal Secretion SARS-CoV-2 Antigen (Rapid) - Final SARS-CoV-2 (COVID 19) ABG Data ABG results: ABG 07/15/21 05:51 Specimen Type ART Sample Site R Radial pH 7.42 Bicarbonate Actual 30.2 H Total CO2 32 Base Excess 6 H O2 Saturation 92 L O2 % 45 ABG pCO2 46.8 H ABG pO2 64 L J Luis Test Positive O2 Delivery Device ET Tube Vent Mode CPAP/PS POC PEEP 5 POC Pressure Suppt 5 Physical Exam Const Constitutional Narrative: Interactive and following commands. General Appearance: intubated and patient mechanically ventilated Nutritional Appearance: morbidly obese HEENT normocephalic and head/scalp atraumatic Mouth: endotracheal tube in place and OG tube in place Teeth and Gingiva: poor dentition Eyes PERRL, EOMs intact bilaterally and conjunctivae normal Neck supple General: trachea midline Chest inspection of chest normal Chest: symmetrical chest wall rise; Negative for crepitus Resp Auscultation: diminished lung sounds; Negative for rales, rhonchi or wheezes Cardio regular rate, regular rhythm, S1 normal heart sound, S2 normal heart sound, no murmurs, no rub and no gallops GI normal to inspection, nondistended, normoactive bowel sounds Extremity General Extremity: Negative for clubbing, cyanosis or edema Skin no rashes or lesions noted Neuro Sensorium / Orientation: sedated on vent Charges/Coding Procedures Hospitalists Procedures: [id number] Critial Care 1st Hr
--- NOTE | 2021-07-15 09:29 | PCM.PN.HOSP ---
Subjective Subjective Follow-up with acute respiratory failure/acute COVID-19 pneumonia: Patient seen and examined. Extubated this morning, on nasal canula 11L/min. She is alert, oriented x3. Objective Data Objective Data Vital Signs: Vital Signs Temp Pulse Resp BP Pulse Ox 99.7 F H 82 25 H 164/85 H 92 07/15/21 08:00 07/15/21 09:00 07/15/21 09:00 07/15/21 09:00 07/15/21 09:00 Oxygen Flow Rate (L/min) 11 Oxygen Delivery Method Airvo Weight: 139.6 kg Body Mass Index (BMI) 59.4 Intake & Output: Intake and Output for Last 24 Hours 07/13/21 07/14/21 07/15/21 23:59 23:59 23:59 Intake Total 2519.03 / 2552.83 4165.99 / 4373.52 674.08 / 674.08 Output Total 1845 / 1845 4100 / 4100 325 / 325 Balance 674.03 / 707.83 65.99 / 273.52 349.08 / 349.08 Lab / Micro Data Result Diagrams: 07/15/21 03:15 07/15/21 03:15 Labs: Laboratory Results - last 24 hr 07/15/21 03:15: WBC 13.0 H, RBC 4.26, Hgb 12.3, Hct 41.3, MCV 96.9, MCH 28.9, MCHC 29.8 L, RDW Std Deviation 53.9 H, RDW Coeff of Gonzalo 15.2 H, Plt Count 323, MPV 10.9, Immature Gran % (Auto) 0.600, Neut % (Auto) 71.8 H, Lymph % (Auto) 19.4, [place] % (Auto) 6.7, Eos % (Auto) 1.1, Baso % (Auto) 0.4, Absolute Neuts (auto) 9.3 H, Absolute Lymphs (auto) 2.51, Nucleated RBC % 0 07/15/21 03:15: Sodium 147 H, Potassium 4.2, Chloride 110 H, Carbon Dioxide 32.0, Anion Gap 5, BUN 34 H, Creatinine 0.76, Estim Creat Clear Calc 88.72, Est GFR (MDRD) Af Amer 118, Est GFR (MDRD) Non-Af 97, BUN/Creatinine Ratio 44.7 H, Glucose 118 H, Calcium 8.7, Total Bilirubin 0.50, AST 42 H, ALT 118 H, Alkaline Phosphatase 63, Total Protein 7.2, Albumin 2.7 L, Globulin 4.5 H, Albumin/Globulin Ratio 0.6 L Micro: Microbiology 07/10/21 14:45 Sputum, Induced/Lukens Gram Stain - Final 07/10/21 14:45 Sputum, Induced/Lukens Respiratory Culture - Final Presumptive C albicans Gram positive pierce 07/10/21 13:10 Blood Culture (Wb) - Anticubital Left Blood Culture - Preliminary No growth in 48 hours. 07/10/21 11:00 Blood Culture (Wb) - Arm Right Blood Culture - Preliminary No growth in 48 hours. 07/06/21 09:00 Sputum, Induced/Lukens Gram Stain - Final 07/06/21 09:00 Sputum, Induced/Lukens Respiratory Culture - Final 07/03/21 21:27 Stool C. difficile DNA Amplification - Final 07/03/21 21:27 Urine, Clean Catch Legionella Antigen - Final 07/03/21 21:27 Urine, Clean Catch Streptococcus pneumoniae Antigen (M - Final 07/03/21 02:20 Nasal Secretion SARS-CoV-2 Antigen (Rapid) - Final SARS-CoV-2 (COVID 19) ABG Data ABG results: ABG 07/15/21 05:51 Specimen Type ART Sample Site R Radial pH 7.42 Bicarbonate Actual 30.2 H Total CO2 32 Base Excess 6 H O2 Saturation 92 L O2 % 45 ABG pCO2 46.8 H ABG pO2 64 L J Luis Test Positive O2 Delivery Device ET Tube Vent Mode CPAP/PS POC PEEP 5 POC Pressure Suppt 5 Physical Exam Narrative Physical exam: General: Sedated, intubated, morbidly obese HEENT: Atraumatic Oral: Moist Mucosa Neck: Supple Lungs: Clear to auscultation Cardiovascular: HS I+II, regular, no murmurs Abdomen: Bowel Sounds Present, Soft, Non Tender Extremities: Trace bilateral leg edema Assessment & Plan Assessment/Plan (1) Acute hypoxemic respiratory failure due to COVID-19: (2) COVID-19: PLAN: Summary: 26-year-old female, unvaccinated for acute COVID-19, who was admitted on 07/03/21 with 8-day history of progressive shortness of breath and generalized malaise. 1. Acute hypoxic respiratory failure secondary to acute COVID-19 pneumonia, improved Extubated 07/15/21; intubated on 07/07/21 Currently on 11 L of nasal cannula oxygen Completed Decadron and Remdesivir. Continue on Baricitinib Sputum culture, urine for Legionella and streptococcal antigen are all negative Recent repeat panculture are negative except for Jessica and gram-positive rods in sputum Continue on empiric meropenem ID and pulmonology following Continue to monitor cultures 2. Elevated D-dimer concerning for possible Acute PE Continue on therapeutic Lovenox 3. Rest of her chronic medical conditions including schizoaffective disorder/hypertension/nicotine dependence/morbid obesity -remain stable Rest of her home medication reviewed. Charges/Coding Visit Charges Inpatient E&M: 19194 Subs Hosp L3
[2021-07-15] MEDS: Escitalopram Oxalate 20 MG Tablet GT (10:34)
[2021-07-15] MEDS: lamoTRIgine 100 MG Tablet 200 MG GT (10:34)
[2021-07-15] MEDS: Enoxaparin 150 MG/ML Syringe 140 MG SC ×2 (10:34→22:06)
[2021-07-15] MEDS: Nystatin Powder 15gm Bottle 1 APPLIC TOPICAL ×2 (10:35→22:06)
[2021-07-15] MEDS: Menthol/Lanolin/Calamine/Znox 113 GM Tube 1 APPLIC TOPICAL ×2 (10:35→22:05)
[2021-07-15] MEDS: 0.9% Saline Lock 10 ML Syringe IV (22:05)
[2021-07-15] MEDS: Metoprolol Tartrate 5 MG/5 ML Vial IV (22:06)
--- NOTE | 2021-07-15 23:03 | NURSING ---
07/15/21 @ 2100- Patient facetimed with Mother.
[2021-07-16] VITALS (37 sets, daily range): BP systolic 95–164; BP diastolic 50–99; PULSE 71–120; RESP 14–30; TEMP 36.7–37.6; O2SAT 92–99
[2021-07-16] MEDS: Metoprolol Tartrate 5 MG/5 ML Vial IV ×3 (02:56→10:44)
[2021-07-16 03:39] LABS: Absolute Lymphocyte Count 3.13 X10^3/uL (0.83-4.51); Absolute Neutrophil Count 9.6 X10^3/uL (2.0-7.7); Basophil# 0.08 X10^3/uL; Basophil% 0.6 % (0-1); Eosinophil# 0.18 X10^3/uL; Eosinophils% 1.3 % (0-5); Hematocrit 39.8 % (37-47); Hemoglobin 11.8 g/dL (12.0-15.0); Lymphocyte # 3.13 X10^3/ul (0.83-4.51); Lymphocyte % 22.1 % (19-41); Mean Corp Hgb Conc 29.6 g/dL (32-36); Mean Corpuscular Hgb 29.1 pg (27.0-32.0); Mean Platelet Vol. 10.6 fl (6.2-12.0); Monocyte# 1.03 X10^3/uL; Monocyte% 7.3 % (0-10); NRBC Flagged by Analyzer 0 % (0-5); Neutrophil # 9.63 X10^3/uL (2.7-7.7); Neutrophil % 68.1 % (47-70); Platelet Count 384 K/mm3 (150-450); RBC Distribution Width CV 15.6 % (11.6-14.6); RBC Distribution Width SD 56.3 fl (35.1-43.9); Red Blood Count 4.06 M/mm3 (4.2-5.4); White Blood Count 14.1 K/mm3 (4.4-11.0)
[2021-07-16 03:57] LABS: ALB/GLOB Ratio 0.6 RATIO (0.9-2.4); AST(SGOT) 56 U/L (15-37); Alanine Aminotransfer ALT/SGPT 109 U/L (13-56); Albumin, Serum 2.6 g/dL (3.2-5.0); Alkaline Phosphatase 67 U/L (45-117); Anion Gap 3 (5-15); BUN 25 mg/dL (7-18); BUN/Creat Ratio 36.3 RATIO (10-20); Calcium,Total 8.4 mg/dL (8.5-10.1); Chloride 114 mmol/L (98-107); Creatinine, Serum 0.69 mg/dL (0.55-1.02); EST Glomerular Filtration Rate 109 mL/min (>60); Est Glom Filt Rate - Afr Amer 132 mL/min (>60); Estimated Creatinine Clearance 97.72 ml/min; Globulin 4.3 g/dL (2.2-4.2); Glucose 95 mg/dL (74-106); Potassium 3.7 mmol/L (3.5-5.1); Protein, Total 6.9 g/dL (6.4-8.2); Sodium Level 146 mmol/L (136-145)
--- NOTE | 2021-07-16 06:55 | PCM.PN.INT ---
Assessment & Plan Assessment/Plan (1) Acute hypoxemic respiratory failure due to COVID-19: PLAN: RECOMMENDATIONS: 1. Continue to wean FiO2 and PEEP to maintain oxygen saturations at or above 90%. 2. Continue BiPAP with sleep. Attempt Airvo during the day 3. Antimicrobials per ID. Completed Decadron. Continue Lovenox (prophylactic) and baricitinib (07/18/2021) as ordered. 4. Await swallow evaluation 5. Possibly challenge with diuretics in the next 24 hours 6. Continue appropriate GI prophylaxis. IMPRESSIONS: 1. Acute hypoxemic respiratory failure secondary to COVID-19 pneumonia The patient presented with worsening symptoms and was within 10 days of onset. Although the patient was maintained on noninvasive positive pressure ventilatory support for several days, she failed to improve from a respiratory perspective and was subsequently intubated on July 06. She has completed a treatment course of remdesivir and Decadron. The patient remains on Lovenox and baricitinib. Patient was able to be extubated on 07/15/2021 to BiPAP therapy. Patient continues to do well. We will continue BiPAP with sleep, but potentially weaned to nasal cannula during the day. Increase activity as tolerated with pulmonary recruitment measures. Likely watch in the intensive care unit for another 24 hours. 2. History of schizoaffective disorder/hypertension/tobacco dependency/morbid obesity Complicates care, management, recovery and prognosis. Continue home medications as indicated. Unclear if patient will require nicotine replacement given intubation. Subjective Subjective The patient did okay overnight. Patient did have issues with SVT yesterday. Patient also passed a bedside swallow evaluation, but subsequently choked on apple juice so was made NPO. Patient tolerated BiPAP overnight with Airvo during the day. Patient subjectively feels unchanged compared to yesterday. Objective Data Objective Data Vital Signs: Vital Signs Temp Pulse Resp BP Pulse Ox 37.1 C 84 23 H 139/87 H 97 07/16/21 06:00 07/16/21 06:00 07/16/21 06:00 07/16/21 06:00 07/16/21 06:00 Oxygen Flow Rate (L/min) 50 Oxygen Delivery Method Bi-pap Weight: 139.2 kg Body Mass Index (BMI) 59.4 Intake & Output: Intake and Output for Last 24 Hours 07/14/21 07/15/21 07/16/21 23:59 23:59 23:59 Intake Total 4165.99 / 4373.52 1190.33 / 1190.33 97 / 97 Output Total 4100 / 4100 1075 / 1075 200 / 200 Balance 65.99 / 273.52 115.33 / 115.33 -103 / -103 Lab / Micro Data Result Diagrams: 07/16/21 03:30 07/16/21 03:30 Labs: Laboratory Results - last 24 hr 07/16/21 03:30: WBC 14.1 H, RBC 4.06 L, Hgb 11.8 L, Hct 39.8, MCV 98.0, MCH 29.1, MCHC 29.6 L, RDW Std Deviation 56.3 H, RDW Coeff of Gonzalo 15.6 H, Plt Count 384, MPV 10.6, Immature Gran % (Auto) 0.600, Neut % (Auto) 68.1, Lymph % (Auto) 22.1, [place] % (Auto) 7.3, Eos % (Auto) 1.3, Baso % (Auto) 0.6, Absolute Neuts (auto) 9.6 H, Absolute Lymphs (auto) 3.13, Nucleated RBC % 0 07/16/21 03:30: Sodium 146 H, Potassium 3.7, Chloride 114 H, Carbon Dioxide 29.0, Anion Gap 3 L, BUN 25 H, Creatinine 0.69, Estim Creat Clear Calc 97.72, Est GFR (MDRD) Af Amer 132, Est GFR (MDRD) Non-Af 109, BUN/Creatinine Ratio 36.3 H, Glucose 95, Calcium 8.4 L, Total Bilirubin 1.00, AST 56 H, ALT 109 H, Alkaline Phosphatase 67, Total Protein 6.9, Albumin 2.6 L, Globulin 4.3 H, Albumin/Globulin Ratio 0.6 L Micro: Microbiology 07/10/21 13:10 Blood Culture (Wb) - Anticubital Left Blood Culture - Final No growth in 5 days. 07/10/21 11:00 Blood Culture (Wb) - Arm Right Blood Culture - Final No growth in 5 days. 07/10/21 14:45 Sputum, Induced/Lukens Gram Stain - Final 07/10/21 14:45 Sputum, Induced/Lukens Respiratory Culture - Final Presumptive C albicans Gram positive pierce 07/06/21 09:00 Sputum, Induced/Lukens Gram Stain - Final 07/06/21 09:00 Sputum, Induced/Lukens Respiratory Culture - Final 07/03/21 21:27 Stool C. difficile DNA Amplification - Final 07/03/21 21:27 Urine, Clean Catch Legionella Antigen - Final 07/03/21 21:27 Urine, Clean Catch Streptococcus pneumoniae Antigen (M - Final 07/03/21 02:20 Nasal Secretion SARS-CoV-2 Antigen (Rapid) - Final SARS-CoV-2 (COVID 19) Physical Exam Const Constitutional Narrative: Interactive and following commands. General Appearance: on BiPAP Nutritional Appearance: morbidly obese HEENT normocephalic and head/scalp atraumatic Mouth: endotracheal tube in place and OG tube in place Teeth and Gingiva: poor dentition Eyes PERRL, EOMs intact bilaterally and conjunctivae normal Neck supple General: trachea midline Chest inspection of chest normal Chest: symmetrical chest wall rise; Negative for crepitus Resp Auscultation: diminished lung sounds; Negative for rales, rhonchi or wheezes Cardio regular rate, regular rhythm, S1 normal heart sound, S2 normal heart sound, no murmurs, no rub and no gallops GI normal to inspection, nondistended, normoactive bowel sounds Extremity General Extremity: Negative for clubbing, cyanosis or edema Skin no rashes or lesions noted Neuro Sensorium / Orientation: sedated on vent Charges/Coding Visit Charges Inpatient E&M: 57059 [facility] Hosp L3
[2021-07-16] MEDS: Menthol/Lanolin/Calamine/Znox 113 GM Tube 1 APPLIC TOPICAL ×2 (07:43→21:36)
[2021-07-16] MEDS: Ondansetron 4 MG/2 ML Vial IV (08:50)
[2021-07-16] MEDS: 0.9% Saline Lock 10 ML Syringe IV ×2 (08:50→21:37)
[2021-07-16] MEDS: Nystatin Powder 15gm Bottle 1 APPLIC TOPICAL ×2 (08:52→21:37)
[2021-07-16] MEDS: Enoxaparin 150 MG/ML Syringe 140 MG SC ×2 (08:53→21:37)
[2021-07-16] MEDS: Escitalopram Oxalate 20 MG Tablet PO (10:44)
[2021-07-16] MEDS: lamoTRIgine 100 MG Tablet 200 MG PO (10:44)
[2021-07-16] MEDS: CHLORHEXIDINE GLUC 2% CLOTH 1 EACH TOWELETTE TOPICAL (10:53)
--- NOTE | 2021-07-16 14:18 | PCM.PN.ID ---
Physical Exam Narrative Extubated, breathing ok, no fever Const no apparent distress General Appearance: cooperative Resp clear to auscultation bilaterally Auscultation: diminished lung sounds Cardio regular rate and regular rhythm GI normal to inspection, nondistended, normoactive bowel sounds Skin no rashes or lesions noted ID ID: Route of nutrition/ use of supplements: [] Nutritional Intake: [] IV Site: [] Brenner Catheter: [] Assessment & Plan Assessment/Plan (1) Acute hypoxemic respiratory failure due to COVID-19: (2) COVID-19: PLAN: Sx started around 06/26. Unvaccinated. Out of isolation. Completed dex, completed remdesivir, on baricitinib. Following labs. CT neg for PE. Will stop meropenem. Fever resolved, off vent. Recommend vaccine once out of hospital. Will follow
--- NOTE | 2021-07-16 15:39 | CASEMGMT ---
Pt's bottle caser from [facility], Sangita Carver called, SW updated her. PITER Paul
--- NOTE | 2021-07-16 17:40 | PN.HOSP_ITS ---
Subjective Subjective Patient was seen and examined today, she does not complain of shortness of breath at rest, she is currently on nasal cannula oxygen. Patient remains on dexamethasone and baricitinib. Objective Data Objective Data Vital Signs: Vital Signs Temp Pulse Resp BP Pulse Ox 98.2 F 113 H 19 H 129/82 H 97 07/16/21 16:00 07/16/21 17:00 07/16/21 17:00 07/16/21 17:00 07/16/21 17:00 Oxygen Flow Rate (L/min) 4 Oxygen Delivery Method Nasal Cannula Weight: 139.2 kg Body Mass Index (BMI) 59.4 Intake & Output: Intake and Output for Last 24 Hours 07/14/21 07/15/21 07/16/21 23:59 23:59 23:59 Intake Total 4165.99 / 4373.52 1190.33 / 1190.33 447 / 447 Output Total 4100 / 4100 1075 / 1075 500 / 500 Balance 65.99 / 273.52 115.33 / 115.33 -53 / -53 Lab / Micro Data Result Diagrams: 07/16/21 03:30 07/16/21 03:30 Labs: Laboratory Results - last 24 hr 07/16/21 03:30: WBC 14.1 H, RBC 4.06 L, Hgb 11.8 L, Hct 39.8, MCV 98.0, MCH 29.1, MCHC 29.6 L, RDW Std Deviation 56.3 H, RDW Coeff of Gonzalo 15.6 H, Plt Count 384, MPV 10.6, Immature Gran % (Auto) 0.600, Neut % (Auto) 68.1, Lymph % (Auto) 22.1, [place] % (Auto) 7.3, Eos % (Auto) 1.3, Baso % (Auto) 0.6, Absolute Neuts (auto) 9.6 H, Absolute Lymphs (auto) 3.13, Nucleated RBC % 0 07/16/21 03:30: Sodium 146 H, Potassium 3.7, Chloride 114 H, Carbon Dioxide 29.0, Anion Gap 3 L, BUN 25 H, Creatinine 0.69, Estim Creat Clear Calc 97.72, Est GFR (MDRD) Af Amer 132, Est GFR (MDRD) Non-Af 109, BUN/Creatinine Ratio 36.3 H, Glucose 95, Calcium 8.4 L, Total Bilirubin 1.00, AST 56 H, ALT 109 H, Alkaline Phosphatase 67, Total Protein 6.9, Albumin 2.6 L, Globulin 4.3 H, Albumin/Globulin Ratio 0.6 L Micro: Microbiology 07/10/21 13:10 Blood Culture (Wb) - Anticubital Left Blood Culture - Final No growth in 5 days. 07/10/21 11:00 Blood Culture (Wb) - Arm Right Blood Culture - Final No growth in 5 days. 07/10/21 14:45 Sputum, Induced/Lukens Gram Stain - Final 07/10/21 14:45 Sputum, Induced/Lukens Respiratory Culture - Final Presumptive C albicans Gram positive pierce 07/06/21 09:00 Sputum, Induced/Lukens Gram Stain - Final 07/06/21 09:00 Sputum, Induced/Lukens Respiratory Culture - Final 07/03/21 21:27 Stool C. difficile DNA Amplification - Final 07/03/21 21:27 Urine, Clean Catch Legionella Antigen - Final 07/03/21 21:27 Urine, Clean Catch Streptococcus pneumoniae Antigen (M - Final 07/03/21 02:20 Nasal Secretion SARS-CoV-2 Antigen (Rapid) - Final SARS-CoV-2 (COVID 19) Physical Exam Const alert, oriented x3 and no apparent distress Constitutional Narrative: Patient is morbidly obese General Appearance: cooperative, well kempt and well developed Orientation / Consciousness: awake, oriented to person, oriented to place and oriented to time HEENT normocephalic and moist oral mucous membranes Eyes PERRL, EOMs intact bilaterally and conjunctivae normal Neck nuchal rigidity, supple, no JVD, thyroid normal and no carotid bruits General: trachea midline Resp normal respiratory effort and clear to auscultation bilaterally Auscultation: Negative for rales, rhonchi or wheezes Cardio regular rate, regular rhythm, S1 normal heart sound, S2 normal heart sound, no murmurs, no rub and no gallops GI normal to inspection, nondistended, normoactive bowel sounds, soft to palpation and non-tender GI Narrative: Patient has morbid obesity Extremity no clubbing, cyanosis or edema Skin no rashes or lesions noted General Skin Exam: no breakdown Neuro oriented x3, CN's II-XII intact bilaterally, no focal motor deficits and no sensory deficits noted Sensorium / Orientation: awake and alert Speech: speech normal Psych thought process normal and affect normal Assessment & Plan Assessment/Plan (1) Acute hypoxemic respiratory failure due to COVID-19: PLAN: 1. COVID-19 pneumonia-patient continues to receive dexamethasone and baricitinib, she is currently being seen by infectious diseases and pulmonar y medicine #2 acute hypoxic respiratory failure secondary to #1-patient is currently on nasal cannula oxygen #3 morbid obesity #4 schizoaffective disorder Charges/Coding Visit Charges Inpatient E&M: 46565 Subs Hosp L2
[2021-07-16] MEDS: OLANZapine 10 MG Tablet 30 MG PO (21:35)
[2021-07-16] MEDS: Metoprolol Tartrate 25 MG Tablet PO (21:35)
[2021-07-16] MEDS: guaiFENesin 600 MG Tablet PO (21:35)
[2021-07-17] VITALS (30 sets, daily range): BP systolic 104–151; BP diastolic 64–92; PULSE 67–125; RESP 14–28; TEMP 36.4–36.9; O2SAT 91–100
[2021-07-17 04:30] LABS: Absolute Lymphocyte Count 3.17 X10^3/uL (0.83-4.51); Absolute Neutrophil Count 6.3 X10^3/uL (2.0-7.7); Basophil# 0.05 X10^3/uL; Basophil% 0.5 % (0-1); Eosinophil# 0.26 X10^3/uL; Eosinophils% 2.4 % (0-5); Hematocrit 39.4 % (37-47); Hemoglobin 11.4 g/dL (12.0-15.0); Lymphocyte # 3.17 X10^3/ul (0.83-4.51); Lymphocyte % 29.8 % (19-41); Mean Corp Hgb Conc 28.9 g/dL (32-36); Mean Corpuscular Volume 100.3 fL (81-99); Mean Platelet Vol. 10.7 fl (6.2-12.0); Monocyte# 0.77 X10^3/uL; Monocyte% 7.3 % (0-10); NRBC Flagged by Analyzer 0 % (0-5); Neutrophil # 6.29 X10^3/uL (2.7-7.7); Neutrophil % 59.2 % (47-70); Platelet Count 373 K/mm3 (150-450); RBC Distribution Width CV 15.7 % (11.6-14.6); RBC Distribution Width SD 58.2 fl (35.1-43.9); Red Blood Count 3.93 M/mm3 (4.2-5.4); White Blood Count 10.6 K/mm3 (4.4-11.0)
[2021-07-17 04:50] LABS: ALB/GLOB Ratio 0.7 RATIO (0.9-2.4); AST(SGOT) 42 U/L (15-37); Alanine Aminotransfer ALT/SGPT 101 U/L (13-56); Albumin, Serum 2.8 g/dL (3.2-5.0); Alkaline Phosphatase 66 U/L (45-117); Anion Gap 1 (5-15); BUN 23 mg/dL (7-18); BUN/Creat Ratio 36.2 RATIO (10-20); Calcium,Total 8.8 mg/dL (8.5-10.1); Chloride 113 mmol/L (98-107); Creatinine, Serum 0.64 mg/dL (0.55-1.02); EST Glomerular Filtration Rate 120 mL/min (>60); Est Glom Filt Rate - Afr Amer 145 mL/min (>60); Estimated Creatinine Clearance 105.35 ml/min; Globulin 4.1 g/dL (2.2-4.2); Glucose 100 mg/dL (74-106); Potassium 4.1 mmol/L (3.5-5.1); Protein, Total 6.9 g/dL (6.4-8.2); Sodium Level 146 mmol/L (136-145)
--- NOTE | 2021-07-17 06:53 | PN.CC_ITS ---
Assessment & Plan Assessment/Plan (1) Acute hypoxemic respiratory failure due to COVID-19: PLAN: RECOMMENDATIONS: 1. Continue to wean FiO2 to maintain oxygen saturations at or above 90%. 2. Continue BiPAP with sleep. 3. Antimicrobials per ID. Completed Decadron. Continue Lovenox ( prophylactic) and baricitinib (07/18/2021) as ordered. 4. Discontinue Brenner catheter 5. Okay to leave the intensive care unit from my perspective IMPRESSIONS: 1. Acute hypoxemic respiratory failure secondary to COVID-19 pneumonia The patient presented with worsening symptoms and was within 10 days of onset. Although the patient was maintained on noninvasive positive pressure ventilatory support for several days, she failed to improve from a respiratory perspective and was subsequently intubated on July 06. She has completed a t reatment course of remdesivir and Decadron. The patient remains on Lovenox and baricitinib. Patient was able to be extubated on 07/15/2021 to BiPAP therapy. Patient continues to do well. We will continue BiPAP with sleep, but continue nasal cannula during the day. Increase activity as tolerated with pulmonary recruitment measures. Okay to leave the intensive care unit from my perspective 2. History of schizoaffective disorder/hypertension/tobacco d ependency/morbid obesity Complicates care, management, recovery and prognosis. Continue home medications as indicated. Unclear if patient will require nicotine replacement given intubation. Subjective Subjective Patient did well overnight. No acute issues were reported. Speech therapy did place patient on a modified diet and she is tolerating well. Patient was on BiPAP overnight with minimal FiO2 and is tolerating nasal cannula during the day. Objective Data Objective Data Vital Signs: Vital Signs Temp Pulse Resp BP Pulse Ox 36.7 C 99 26 H 130/84 H 91 07/17/21 06:00 07/17/21 06:00 07/17/21 06:00 07/17/21 06:00 07/17/21 06:00 Oxygen Flow Rate (L/min) 4 Oxygen Delivery Method Bi-pap Weight: 139.9 kg Body Mass Index (BMI) 59.4 Intake & Output: Intake and Output for Last 24 Hours 07/15/21 07/16/21 07/17/21 23:59 23:59 23:59 Intake Total 1190.33 / 1190.33 657 / 657 120 / 120 Output Total 1075 / 1075 1000 / 1000 225 / 225 Balance 115.33 / 115.33 -343 / -343 -105 / -105 Lab / Micro Data Result Diagrams: 07/17/21 04:25 07/17/21 04:25 Labs: Laboratory Results - last 24 hr 07/17/21 04:25: WBC 10.6, RBC 3.93 L, Hgb 11.4 L, Hct 39.4, MCV 100.3 H, MCH 29.0, MCHC 28.9 L, RDW Std Deviation 58.2 H, RDW Coeff of Gonzalo 15.7 H, Plt Count 373, MPV 10.7, Immature Gran % (Auto) 0.800, Neut % (Auto) 59.2, Lymph % (Auto) 29.8, [place] % (Auto) 7.3, Eos % (Auto) 2.4, Baso % (Auto) 0.5, Absolute Neuts (auto) 6.3, Absolute Lymphs (auto) 3.17, Nucleated RBC % 0 07/17/21 04:25: Sodium 146 H, Potassium 4.1, Chloride 113 H, Carbon Dioxide 32.0, Anion Gap 1 L, BUN 23 H, Creatinine 0.64, Estim Creat Clear Calc 105.35, Est GFR (MDRD) Af Amer 145, Est GFR (MDRD) Non-Af 120, BUN/Creatinine Ratio 36.2 H, Glucose 100, Calcium 8.8, Total Bilirubin 1.00, AST 42 H, ALT 101 H, Alkaline Phosphatase 66, Total Protein 6.9, Albumin 2.8 L, Globulin 4.1, Albumin/Globulin Ratio 0.7 L Micro: Microbiology 07/10/21 13:10 Blood Culture (Wb) - Anticubital Left Blood Culture - Final No growth in 5 days. 07/10/21 11:00 Blood Culture (Wb) - Arm Right Blood Culture - Final No growth in 5 days. 07/10/21 14:45 Sputum, Induced/Lukens Gram Stain - Final 07/10/21 14:45 Sputum, Induced/Lukens Respiratory Culture - Final Presumptive C albicans Gram positive pierce 07/06/21 09:00 Sputum, Induced/Lukens Gram Stain - Final 07/06/21 09:00 Sputum, Induced/Lukens Respiratory Culture - Final 07/03/21 21:27 Stool C. difficile DNA Amplification - Final 07/03/21 21:27 Urine, Clean Catch Legionella Antigen - Final 07/03/21 21:27 Urine, Clean Catch Streptococcus pneumoniae Antigen (M - Final 07/03/21 02:20 Nasal Secretion SARS-CoV-2 Antigen (Rapid) - Final SARS-CoV-2 (COVID 19) Physical Exam Const Constitutional Narrative: Interactive and following commands. General Appearance: on BiPAP Nutritional Appearance: morbidly obese HEENT normocephalic and head/scalp atraumatic Teeth and Gingiva: poor dentition Eyes PERRL, EOMs intact bilaterally and conjunctivae normal Neck supple General: trachea midline Chest inspection of chest normal Chest: symmetrical chest wall rise; Negative for crepitus Resp Auscultation: diminished lung sounds; Negative for rales, rhonchi or wheezes Cardio regular rate, regular rhythm, S1 normal heart sound, S2 normal heart sound, no murmurs, no rub and no gallops GI normal to inspection, nondistended, normoactive bowel sounds Extremity General Extremity: Negative for clubbing, cyanosis or edema Skin no rashes or lesions noted Neuro oriented x3, CN's II-XII intact bilaterally, moves all extremities and no focal motor deficits Psych mental status grossly normal Charges/Coding Visit Charges Inpatient E&M: 31076 Subs Hosp L2
[2021-07-17] MEDS: guaiFENesin 600 MG Tablet PO ×2 (08:35→21:26)
[2021-07-17] MEDS: Enoxaparin 150 MG/ML Syringe 140 MG SC ×2 (08:36→21:26)
[2021-07-17] MEDS: Escitalopram Oxalate 20 MG Tablet PO (08:36)
[2021-07-17] MEDS: lamoTRIgine 100 MG Tablet 200 MG PO (08:36)
[2021-07-17] MEDS: Nystatin Powder 15gm Bottle 1 APPLIC TOPICAL ×2 (08:37→21:25)
[2021-07-17] MEDS: Menthol/Lanolin/Calamine/Znox 113 GM Tube 1 APPLIC TOPICAL ×2 (08:37→21:25)
[2021-07-17] MEDS: Metoprolol Tartrate 25 MG Tablet PO ×2 (10:51→21:27)
[2021-07-17] MEDS: Pantoprazole Sodium 40 MG Tablet PO (10:51)
--- NOTE | 2021-07-17 19:45 | PCM.PN.HOSP ---
Subjective Subjective Patient was seen and examined today, I transferred her out to PCU today, she remains on nasal cannula oxygen at this time. Objective Data Objective Data Vital Signs: Vital Signs Temp Pulse Resp BP Pulse Ox 98.1 F 85 22 H 135/92 H 95 07/17/21 15:00 07/17/21 15:10 07/17/21 15:00 07/17/21 15:00 07/17/21 15:00 Oxygen Flow Rate (L/min) 2 Oxygen Delivery Method Room Air Weight: 139.9 kg Body Mass Index (BMI) 59.4 Intake & Output: Intake and Output for Last 24 Hours 07/15/21 07/16/21 07/17/21 23:59 23:59 23:59 Intake Total 1190.33 / 1190.33 657 / 657 540 / 540 Output Total 1075 / 1075 1000 / 1000 475 / 475 Balance 115.33 / 115.33 -343 / -343 65 / 65 Lab / Micro Data Result Diagrams: 07/17/21 04:25 07/17/21 04:25 Labs: Laboratory Results - last 24 hr 07/17/21 04:25: WBC 10.6, RBC 3.93 L, Hgb 11.4 L, Hct 39.4, MCV 100.3 H, MCH 29.0, MCHC 28.9 L, RDW Std Deviation 58.2 H, RDW Coeff of Gonzalo 15.7 H, Plt Count 373, MPV 10.7, Immature Gran % (Auto) 0.800, Neut % (Auto) 59.2, Lymph % (Auto) 29.8, [place] % (Auto) 7.3, Eos % (Auto) 2.4, Baso % (Auto) 0.5, Absolute Neuts (auto) 6.3, Absolute Lymphs (auto) 3.17, Nucleated RBC % 0 07/17/21 04:25: Sodium 146 H, Potassium 4.1, Chloride 113 H, Carbon Dioxide 32.0, Anion Gap 1 L, BUN 23 H, Creatinine 0.64, Estim Creat Clear Calc 105.35, Est GFR (MDRD) Af Amer 145, Est GFR (MDRD) Non-Af 120, BUN/Creatinine Ratio 36.2 H, Glucose 100, Calcium 8.8, Total Bilirubin 1.00, AST 42 H, ALT 101 H, Alkaline Phosphatase 66, Total Protein 6.9, Albumin 2.8 L, Globulin 4.1, Albumin/Globulin Ratio 0.7 L Micro: Microbiology 07/10/21 13:10 Blood Culture (Wb) - Anticubital Left Blood Culture - Final No growth in 5 days. 07/10/21 11:00 Blood Culture (Wb) - Arm Right Blood Culture - Final No growth in 5 days. 07/10/21 14:45 Sputum, Induced/Lukens Gram Stain - Final 07/10/21 14:45 Sputum, Induced/Lukens Respiratory Culture - Final Presumptive C albicans Gram positive pierce 07/06/21 09:00 Sputum, Induced/Lukens Gram Stain - Final 07/06/21 09:00 Sputum, Induced/Lukens Respiratory Culture - Final 07/03/21 21:27 Stool C. difficile DNA Amplification - Final 07/03/21 21:27 Urine, Clean Catch Legionella Antigen - Final 07/03/21 21:27 Urine, Clean Catch Streptococcus pneumoniae Antigen (M - Final 07/03/21 02:20 Nasal Secretion SARS-CoV-2 Antigen (Rapid) - Final SARS-CoV-2 (COVID 19) Physical Exam Narrative Const alert and no apparent distress Constitutional Narrative: Patient is morbidly obese General Appearance: cooperative, well kempt and well developed Orientation / Consciousness: awake, oriented to person, oriented to place and oriented to time HEENT normocephalic and moist oral mucous membranes Eyes PERRL, EOMs intact bilaterally and conjunctivae normal Neck nuchal rigidity, supple, no JVD, thyroid normal and no carotid bruits General: trachea midline Resp normal respiratory effort and clear to auscultation bilaterally Auscultation: Negative for rales, rhonchi or wheezes Cardio regular rate, regular rhythm, S1 normal heart sound, S2 normal heart sound, no murmurs, no rub and no gallops GI normal to inspection, nondistended, normoactive bowel sounds, soft to palpation and non-tender GI Narrative: Patient has morbid obesity Extremity no clubbing, cyanosis or edema Skin no rashes or lesions noted General Skin Exam: no breakdown Neuro oriented x3, CN's II-XII intact bilaterally, no focal motor deficits and no sensory deficits noted Sensorium / Orientation: awake and alert Speech: speech normal Psych-patient is alert and responds to simple questions, she has cognitive impairment Assessment & Plan Assessment/Plan (1) Acute hypoxemic respiratory failure due to COVID-19: PLAN: 1. COVID-19 pneumonia-patient continues to receive dexamethasone and baricitinib, she is currently being seen by infectious diseases and pulmonary medicine #2 acute hypoxic respiratory failure secondary to #1-patient is currently on room air at the time of my dictation this evening #3 morbid obesity #4 schizoaffective disorder with cognitive impairment It is unknown at this time whether patient will be discharged home or will need short-term placement in the shelter facility, case management and social media marketing analyst will need to talk with the patient's family tomorrow. Charges/Coding Visit Charges Inpatient E&M: 53109 Subs Hosp L2
[2021-07-17] MEDS: OLANZapine 10 MG Tablet 30 MG PO (21:28)
[2021-07-17] MEDS: 0.9% Saline Lock 10 ML Syringe IV (21:29)
[2021-07-18] VITALS (10 sets, daily range): BP systolic 141–143; BP diastolic 71–97; PULSE 69–112; RESP 14–20; TEMP 36.9–37; O2SAT 92–96
[2021-07-18] MEDS: Menthol/Lanolin/Calamine/Znox 113 GM Tube 1 APPLIC TOPICAL (10:04)
[2021-07-18] MEDS: lamoTRIgine 100 MG Tablet 200 MG PO (10:04)
[2021-07-18] MEDS: Nystatin Powder 15gm Bottle 1 APPLIC TOPICAL (10:05)
[2021-07-18] MEDS: guaiFENesin 600 MG Tablet PO (10:05)
[2021-07-18] MEDS: Metoprolol Tartrate 25 MG Tablet PO (10:05)
[2021-07-18] MEDS: Pantoprazole Sodium 40 MG Tablet PO (10:06)
[2021-07-18] MEDS: Escitalopram Oxalate 20 MG Tablet PO (10:06)
[2021-07-18] MEDS: Enoxaparin 150 MG/ML Syringe 140 MG SC (10:06)
--- NOTE | 2021-07-18 13:27 | PCM.DC ---
Discharge Instructions Diet Discharge Diet: No restrictions Activity Discharge Activity: Return to Normal Activity Return to work on:: 07/30/21 Dressing / Incision Call your doctor if you observe: Fever of 101 or Higher and Shortness of breath Follow Up Care Test Results: Test results from this visit will be discussed in further detail at your follow-up appointment, if applicable. Discharge Plan Admission Admit Date/Time: 07/03/21 05:51 Primary Reason for Your Visit: COVID 19 Attending Provider: Koby Wan Primary Care Provider: Annamarie Tovar Consulting Providers: Darwin Carpio ; Alexis Schaefer ; Eric Vazquez ; Evelyn Verdin WORKDAY SENIOR ASSOCIATE Discharge Orders/Prescriptions Prescriptions: New metoprolol tartrate 25 mg Tablet 25 mg PO BID Qty: 60 RF: 0 Continued escitalopram oxalate [Lexapro] 20 mg tablet 20 mg PO DAILY RF: 0 olanzapine [Zyprexa] 20 mg tablet 20 mg PO DAILY RF: 0 olanzapine [Zyprexa] 5 mg tablet 10 mg PO DAILY RF: 0 lamotrigine 200 MG tablet 200 mg PO DAILY RF: 0 Discontinued metoprolol tartrate 25 mg tablet 25 mg PO QHS Qty: 90 RF: 3 Referrals / Follow Up: Annamarie Tovar MD [Primary Care Provider] - Within 2 Weeks Disposition Disposition (needs filled in before D/C Order can be placed): Home, Self Care
--- NOTE | 2021-07-18 13:31 | DS.PCM_ITS ---
Providers Date of Admission: 07/03/21 Primary Care Physician: Dr. Annamarie Tovar MD Consultations 07/03/21 15:17 Consult: Infectious Disease Routine Consulting Provider: Darwin Carpio Reason for Consult: Covid-19 EMERGENT Consult: No Notified: Yes Date Notified: 07/03/21 Time Notified: 16:05 Method of Notification: Text Consult: Brothel Keeper / Pulmonary Medicine Routine Consulting Provider: Pulmonary Medicine kaylene Parsons Reason for Consult: Covid-19 EMERGENT Consult: No Notified: Yes Date Notified: 07/03/21 Time Notified: 16:04 Method of Notification: Text Reason For Visit: COVID 19 Diagnosis Discharge Diagnosis (1) Acute hypoxemic respiratory failure due to COVID-19: Status: Acute Code(s): U07.1 - COVID-19; J96.01 - Acute respiratory failure with hypoxia Medications at Discharge Home Medications lamotrigine 200 mg PO DAILY 09/28/16 escitalopram oxalate 20 mg tablet 20 mg PO DAILY tab 03/19/21 olanzapine 20 mg tablet 20 mg PO DAILY 03/19/21 olanzapine 5 mg tablet 10 mg PO DAILY tab 04/30/21 metoprolol tartrate 25 mg PO BID #60 tab 07/18/21 Hospital Course Procedures Intubation Summary of Care Provided Minutes Spent on Discharge: 32 Hospital Course: This is 26 year old female presented with illness on June 26. Patient presented to the emergency room with worsening shortness of breath. Patient was found to have acute hypoxic respiratory failure secondary to COVID- 19 pneumonia. Patient's course worsened during hospitalization after being initially started on remdesivir and dexamethasone. Patient was subsequently intubated on July 06. Patient was then added on baricitinib. She was extubated on the and has continued to do well and is currently on room air. Patient will be discharged home in stable condition. Patient was put on therapeutic enoxaparin though her initial CTA did not show any evidence of pulmonary embolism. Patient will be discharged without any anticoagulation. Patient advised to follow-up with pulmonology for evaluation for polysomnogram as she does have concerning features for underlying WANDY. Physical Exam Const alert Resp normal respiratory effort, no retractions, no use of accessory muscles and clear to auscultation bilaterally Cardio regular rate, regular rhythm, S1 normal heart sound and S2 normal heart sound GI normal to inspection, nondistended, normoactive bowel sounds, soft to palpation, non-tender and non-distended Weight / BMI Weight Weight: 139.3 kg Body Mass Index (BMI) 59.4 ABG / Lab / Microbiology Data Result Diagrams: 07/17/21 04:25 07/17/21 04:25 Microbiology: Microbiology 07/10/21 13:10 Blood Culture (Wb) - Anticubital Left Blood Culture - Final No growth in 5 days. 07/10/21 11:00 Blood Culture (Wb) - Arm Right Blood Culture - Final No growth in 5 days. 07/10/21 14:45 Sputum, Induced/Lukens Gram Stain - Final 07/10/21 14:45 Sputum, Induced/Lukens Respiratory Culture - Final Presumptive C albicans Gram positive pierce 07/06/21 09:00 Sputum, Induced/Lukens Gram Stain - Final 07/06/21 09:00 Sputum, Induced/Lukens Respiratory Culture - Final 07/03/21 21:27 Stool C. difficile DNA Amplification - Final 07/03/21 21:27 Urine, Clean Catch Legionella Antigen - Final 07/03/21 21:27 Urine, Clean Catch Streptococcus pneumoniae Antigen (M - Final 07/03/21 02:20 Nasal Secretion SARS-CoV-2 Antigen (Rapid) - Final SARS-CoV-2 (COVID 19) D/C Instructions Discharge Diet: No restrictions Return to work on: 07/30/21 Call your doctor if you observe: Fever of 101 or Higher and Shortness of breath Meaningful Use Info Meaningful Use Diagnoses (Choose all that apply): None applicable Discharge Plan Admission Admit Date/Time: 07/03/21 05:51 Primary Reason for Your Visit: COVID 19 Attending Provider: Koby Wan Primary Care Provider: Annamarie Tovar Consulting Providers: Darwin Carpio ; Alexis Schaefer ; Eric Vazquez ; Evelyn Verdin NP Discharge Orders/Prescriptions Prescriptions: New metoprolol tartrate 25 mg Tablet 25 mg PO BID Qty: 60 RF: 0 Continued escitalopram oxalate [Lexapro] 20 mg tablet 20 mg PO DAILY RF: 0 olanzapine [Zyprexa] 20 mg tablet 20 mg PO DAILY RF: 0 olanzapine [Zyprexa] 5 mg tablet 10 mg PO DAILY RF: 0 lamotrigine 200 MG tablet 200 mg PO DAILY RF: 0 Discontinued metoprolol tartrate 25 mg tablet 25 mg PO QHS Qty: 90 RF: 3 Referrals / Follow Up: Annamarie Tovar MD [Primary Care Provider] - Within 2 Weeks Evelyn Verdin NP, WELDING MACHINE OPERATOR [employer] [Nurse Practitioner] - Within 1 Month Disposition Disposition (needs filled in before D/C Order can be placed): Home, Self Care Charges/Coding Visit Charges Inpatient E&M: 13739 Disch Hosp
--- NOTE | 2021-07-18 14:00 | CASEMGMT ---
Therapy is recommending WW for pt at discharge and pt is aware but declines WW at this time. Pt does not qualify for home oxygen and states no further questions/concerns/needs with going home. Nettie WORRELL CM
--- NOTE | 2021-07-18 14:10 | PHA.DC.MR ---
Pharmacy Service has performed discharge medication reconciliation for this patient. The patient's discharge medication list was reviewed for discrepancies and discrepancies were resolved. Home Medications lamotrigine 200 mg PO DAILY 09/28/16 escitalopram oxalate 20 mg tablet 20 mg PO DAILY tab 03/19/21 olanzapine 20 mg tablet 20 mg PO DAILY 03/19/21 olanzapine 5 mg tablet 10 mg PO DAILY tab 04/30/21 metoprolol tartrate 25 mg PO BID #60 tab 07/18/21
== END 2021-07-18 15:00 | disposition home or self-care (01) | DRG 207 ==
LOC: ED 04:05 → PCU 05:59 → ICU 07-04 07:51 → PCU 07-17 16:15
PROVIDERS: Internal Medicine; Internal Medicine Critical Care Medicine; Internal Medicine Infectious Disease; Emergency Provider Emergency Medicine; PCP Internal Medicine
DX: U07.1 COVID-19 (principal); J12.82 Pneumonia due to coronavirus disease 2019; J96.01 Acute respiratory failure with hypoxia; Z68.43 Body mass index [BMI] 50.0-59.9, adult; E87.0 Hyperosmolality and hypernatremia; F17.210 Nicotine dependence, cigarettes, uncomplicated; F25.9 Schizoaffective disorder, unspecified; I10 Essential (primary) hypertension; E66.01 Morbid (severe) obesity due to excess calories; E87.6 Hypokalemia; R79.1 Abnormal coagulation profile; E87.8 Other disorders of electrolyte and fluid balance, not elsewhere classified; Z79.899 Other long term (current) drug therapy
CPT/HCPCS: 31500; 31720; 36415; 36569; 36600; 71045; 71275; 74018; 80053; 80202; 82550; 82803; 83605; 83615; 83880; 84145; 84478; 84484; 85025; 85027; 85379; 85384; 86140; 87040; 87070; 87205; 87426; 87449; 87493; 87641; 92526; 92610; 94002; 94003; 94660; 94667; 94762; 97110; 97162; 97166; 97530; 97535; 97802; 97803; 99251; 99285; 99406; J2185; J2997; J7040; J7050; Q9967; A4216; G0463; J1940; J2405; J3010

== ENCOUNTER → 2022-06-14 | Outpatient (CLI) | payer MEDICARE, MEDICAID, SELFPAY ==
[2022-06-14 16:23] LABS: Absolute Lymphocyte Count 2.25 X10^3/uL (0.83-4.51); Absolute Neutrophil Count 6.8 X10^3/uL (2.0-7.7); Basophil# 0.06 X10^3/uL; Basophil% 0.6 % (0-1); Eosinophil# 0.42 X10^3/uL; Eosinophils% 4.1 % (0-5); Hematocrit 43.9 % (37-47); Lymphocyte # 2.25 X10^3/ul (0.83-4.51); Mean Corp Hgb Conc 31.9 g/dL (32-36); Mean Platelet Vol. 9.6 fl (6.2-12.0); Monocyte# 0.63 X10^3/uL; Monocyte% 6.1 % (0-10); NRBC Flagged by Analyzer 0 % (0-5); Neutrophil # 6.84 X10^3/uL (2.7-7.7); Neutrophil % 66.7 % (47-70); Platelet Count 360 K/mm3 (150-450); RBC Distribution Width CV 16.2 % (11.6-14.6); RBC Distribution Width SD 55.3 fl (35.1-43.9); Red Blood Count 4.67 M/mm3 (4.2-5.4); White Blood Count 10.3 K/mm3 (4.4-11.0)
[2022-06-14 16:53] LABS: ALB/GLOB Ratio 0.9 RATIO (0.9-2.4); AST(SGOT) 12 U/L (15-37); Alanine Aminotransfer ALT/SGPT 25 U/L (13-56); Albumin, Serum 3.8 g/dL (3.2-5.0); Alkaline Phosphatase 122 U/L (45-117); Anion Gap 6 (5-15); BUN 8 mg/dL (7-18); Calcium,Total 9.4 mg/dL (8.5-10.1); Chloride 106 mmol/L (98-107); Cholesterol 202 mg/dL (200); Creatinine, Serum 0.89 mg/dL (0.55-1.02); EST Glomerular Filtration Rate 81 mL/min (>60); Est Glom Filt Rate - Afr Amer 98 mL/min (>60); Globulin 4.4 g/dL (2.2-4.2); Glucose 94 mg/dL (74-106); High Density Lipoprotein 33 mg/dL; Potassium 4.4 mmol/L (3.5-5.1); Protein, Total 8.2 g/dL (6.4-8.2); Sodium Level 139 mmol/L (136-145); Thyroid Stim Hormone (TSH) 3.59 uIU/mL (0.358-3.74); Triglycerides 134 mg/dL; Very Low Density Lipoprotein 27 mg/dL (5-40)
== END | disposition home or self-care (01) ==
LOC: BIMLAB 15:30
PROVIDERS: PCP Internal Medicine; Referring Provider Nurse Practitioner Family; Visit Provider Nurse Practitioner Family
DX: G47.33 Obstructive sleep apnea (adult) (pediatric) (principal); E66.01 Morbid (severe) obesity due to excess calories; R63.2 Polyphagia; I49.9 Cardiac arrhythmia, unspecified
CPT/HCPCS: 36415; 80053; 80061; 84443; 85025

== ENCOUNTER → 2022-11-20 | Outpatient (CLI) | payer MEDICARE, MEDICAID, SELFPAY | END | disposition home or self-care (01) | LOC: LABSPEC 08:54 | PROVIDERS: PCP Internal Medicine; Referring Provider Nurse Practitioner Family; Visit Provider Nurse Practitioner Family | DX: L02.91 Cutaneous abscess, unspecified (principal) | CPT/HCPCS: 87070; 87205 ==

== ENCOUNTER 2023-01-06 12:31 | Outpatient (CLI) | payer MEDICARE, MEDICAID, SELFPAY ==
[2023-01-06 15:13] LABS: Hematocrit 44.9 % (37-47); Hemoglobin 14.3 g/dL (12.0-15.0); Mean Corp Hgb Conc 31.8 g/dL (32-36); Mean Corpuscular Volume 100.4 fL (81-99); Mean Platelet Vol. 9.9 fl (6.2-12.0); Platelet Count 312 K/mm3 (150-450); RBC Distribution Width CV 14.6 % (11.6-14.6); RBC Distribution Width SD 53.8 fl (35.1-43.9); Red Blood Count 4.47 M/mm3 (4.2-5.4); White Blood Count 8.7 K/mm3 (4.4-11.0)
[2023-01-06 15:43] LABS: Vitamin D,25 Hydroxy 21.8 ng/mL
[2023-01-06 15:49] LABS: ALB/GLOB Ratio 0.8 RATIO (0.9-2.4); AST(SGOT) 22 U/L (15-37); Alanine Aminotransfer ALT/SGPT 37 U/L (13-56); Albumin, Serum 3.3 g/dL (3.2-5.0); Alkaline Phosphatase 109 U/L (45-117); Anion Gap 9 (5-15); BUN 11 mg/dL (7-18); BUN/Creat Ratio 13.5 RATIO (10-20); Calcium,Total 8.9 mg/dL (8.5-10.1); Chloride 110 mmol/L (98-107); Creatinine, Serum 0.82 mg/dL (0.55-1.02); EST Glomerular Filtration Rate 89 mL/min (>60); Est Glom Filt Rate - Afr Amer 107 mL/min (>60); Globulin 3.9 g/dL (2.2-4.2); Glucose 156 mg/dL (74-106); Prolactin 29.4 ng/mL; Protein, Total 7.2 g/dL (6.4-8.2); Sodium Level 138 mmol/L (136-145); Thyroid Stim Hormone (TSH) 4.47 uIU/mL (0.358-3.74)
[2023-01-06 16:16] LABS: Hemoglobin A1c 6.1 % (3.8-5.6)
== END 2023-01-06 23:59 | disposition home or self-care (01) ==
PROVIDERS: PCP Internal Medicine; Referring Provider Psychiatry & Neurology Psychiatry; Visit Provider Psychiatry & Neurology Psychiatry
DX: R53.83 Other fatigue (principal); Z79.899 Other long term (current) drug therapy
CPT/HCPCS: 36415; 80053; 82306; 83036; 84146; 84443; 85027

== ENCOUNTER → 2023-04-21 | Outpatient (CLI) | payer MEDICARE, MEDICAID, SELFPAY ==
[2023-04-21 15:08] LABS: Hematocrit 44.4 % (37-47); Hemoglobin 14.2 g/dL (12.0-15.0); Mean Corpuscular Hgb 31.9 pg (27.0-32.0); Mean Corpuscular Volume 99.8 fL (81-99); Mean Platelet Vol. 9.4 fl (6.2-12.0); Platelet Count 333 K/mm3 (150-450); RBC Distribution Width CV 14.6 % (11.6-14.6); RBC Distribution Width SD 53.3 fl (35.1-43.9); Red Blood Count 4.45 M/mm3 (4.2-5.4); White Blood Count 10.9 K/mm3 (4.4-11.0)
[2023-04-21 15:57] LABS: ALB/GLOB Ratio 0.9 RATIO (0.9-2.4); AST(SGOT) 16 U/L (15-37); Alanine Aminotransfer ALT/SGPT 32 U/L (13-56); Albumin, Serum 3.6 g/dL (3.2-5.0); Alkaline Phosphatase 108 U/L (45-117); Anion Gap 6 (5-15); BUN 10 mg/dL (7-18); BUN/Creat Ratio 13.1 RATIO (10-20); Calcium,Total 8.9 mg/dL (8.5-10.1); Chloride 107 mmol/L (98-107); Cholesterol 189 mg/dL (200); Creatinine, Serum 0.76 mg/dL (0.55-1.02); EST Glomerular Filtration Rate 96 mL/min (>60); Est Glom Filt Rate - Afr Amer 116 mL/min (>60); Globulin 3.8 g/dL (2.2-4.2); Glucose 142 mg/dL (74-106); High Density Lipoprotein 30 mg/dL; Potassium 4.2 mmol/L (3.5-5.1); Protein, Total 7.4 g/dL (6.4-8.2); Sodium Level 139 mmol/L (136-145); Thyroid Stim Hormone (TSH) 2.75 uIU/mL (0.358-3.74); Triglycerides 144 mg/dL; Very Low Density Lipoprotein 29 mg/dL (5-40)
== END | disposition home or self-care (01) ==
PROVIDERS: PCP Nurse Practitioner Family; Referring Provider Nurse Practitioner Family; Visit Provider Nurse Practitioner Family
DX: E66.01 Morbid (severe) obesity due to excess calories (principal); E88.81 Metabolic syndrome and other insulin resistance
CPT/HCPCS: 36415; 80053; 80061; 84443; 85027

== ENCOUNTER 2023-04-22 12:38 | Emergency (ER) | payer MEDICARE, MEDICAID, SELFPAY ==
[2023-04-22 12:39] VITALS: BP 181/91; PULSE 109; RESP 20; TEMP 36.1; O2SAT 95; BMI 66.2
--- NOTE | 2023-04-22 13:09 | EX.ED.DYSGE1 ---
HPI History of Present Illness Chief Complaint: Ear Problem Narrative Narrative: 28-year-old female past medical history of obstructive sleep apnea, presents with right ear pain that she has had for the last 1 to 2 days. She does admit to recent Q-tip use, and recent swimming within the last week. She states that her right ear feels swollen and she has diminished hearing. She has pain whenever she touches her right ear. She denies any fevers or chills, no nausea or vomiting, no other symptoms. She is taking ibuprofen without relief. [facility] Medical History Abscess of right lower extremity excluding foot Arrhythmia Chronic bronchitis COVID-19 Dysfunctional uterine bleeding GERD (gastroesophageal reflux disease) GERD (gastroesophageal reflux disease) Hyperlipidemia Hypothyroidism Macromastia Morbid obesity Morbid obesity with BMI of 50.0-59.9, adult Obstructive sleep apnea Rash and nonspecific skin eruption Right hip pain Schizoaffective disorder Seasonal allergies Tachycardia Tachycardia Vaginal candidiasis Vitamin D insufficiency Weight gain, abnormal Home Medications lamotrigine 200 mg tablet 200 mg PO DAILY seizures 09/28/16 [History Last Taken 04/22/23] olanzapine 15 mg tablet 30 mg PO DAILY 07/31/21 [History Last Taken 04/22/23] benztropine 0.5 mg tablet 0.5 mg PO DAILY PRN PRN TARDIVE DYKENISA 10/02/21 [History Last Taken Unknown] levonorgestrel 20.4 mcg/24 hrs (8 yrs) 52 mg intrauterine device (Liletta) 1 device intrauterine ONCE 03/11/22 [History Last Taken 04/22/23] metoprolol tartrate 25 mg tablet 25 mg PO BID #180 tabs 11/19/22 [Rx Last Taken 04/22/23] venlafaxine 75 mg capsule,extended release 24 hr 75 mg PO DAILY 11/19/22 [History Last Taken Unknown] cholecalciferol (vitamin D3) 50 mcg (2,000 unit) capsule 50 mcg PO DAILY #90 caps 01/23/23 [Rx Last Taken 04/22/23] fluticasone propionate 50 mcg/actuation nasal spray,suspension (Flonase Allergy Relief) 2 spray intranasal DAILY #15.8 grams 01/23/23 [Rx Last Taken 04/22/23] lorazepam 1 mg tablet 1 mg PO QHS PRN anxiety 01/23/23 [History Last Taken Unknown] risperidone 1 mg tablet See Rx Instructions PO BID 01/23/23 [History Last Taken 04/22/23] levothyroxine 50 mcg tablet 50 mcg PO DAILY #90 tabs 04/16/23 [Rx Last Taken 04/22/23] melatonin 5 mg capsule 10 mg PO QHS 04/22/23 [History Last Taken 04/21/23] facwraib-kbqxfh-KB-thonzonm 3.3 mg-3 mg-10 mg-0.5 mg/mL ear drops,susp (Cortisporin-TC) 4 drp RIGHT EAR TID #10 mL 04/22/23 [Rx Last Taken Unknown] Allergy/AdvReac Type Severity Reaction Status Date / Time amoxicillin trihydrate Allergy Hives Verified 04/22/23 12:40 [From Augmentin] Penicillins Allergy Hives Verified 04/22/23 12:40 potassium clavulanate Allergy Hives Verified 04/22/23 12:40 [From Augmentin] Sulfa (Sulfonamide Allergy Hives Verified 04/22/23 12:40 Antibiotics) Family History Grandfather Alcoholism Depression CVA (cerebral vascular accident) Hypertension Mother Anxiety Hypertension Father Psychiatric care Grandmother Thyroid disorder Graves disease Surgical History H/O dilation and curettage History of cholecystectomy History of tonsillectomy Social History household members: other details: Hyacinth, and her mother housing: house current occupational status: disabled Smoking Status: Current every day smoker tobacco type: cigarettes Tobacco: How many years used: 10 how long ago did patient quit smokin06/01/2021 alcohol intake: never substance use type: does not use what type of physical activity do you participate in: none do you feel safe at home: Yes ROS ROS ED ROS Narrative Constitutional: No fever, no chills. HEENT: No sore throat. No neck pain. No loss of vision. No rhinorrhea. Right ear pain, decreased hearing out of right ear. Cardiovascular: No chest pain. No palpitations. No pedal edema. Respiratory: No cough, no shortness of breath. Abdominal: No abdominal pain. No nausea. No vomiting. Genitourinary: No dysuria. No hematuria. Musculoskeletal: No myalgias. No arthralgias. Neurologic: No headaches. No dizziness. No lightheadedness. Skin: No rash. No change in color. Psychiatric: No depression. No anxiety. EXAM Physical Exam Narrative Exam Narrative: Afebrile. Vital signs noted. Nontoxic-appearing. HEENT: Normocephalic. Atraumatic. PERRL, EOMI. Neck soft and supple. No point tenderness or step off. Mild swelling of right ear canal, no purulent drainage, no noted erythema. Positive pain with movement of tragus and auricle. No mastoid tenderness or erythema. No meningismus. Cardiovascular: Regular rate and rhythm. No murmurs, rubs, or gallops appreciated. Respiratory: No tachypnea. Lungs clear to auscultation bilaterally. Gastrointestinal: Abdomen soft, nontender, with normoactive bowel sounds. No rebound or guarding. Neurological: Awake. Alert. Nonfocal, nonlateralizing. Skin: No rash. Normal color. No pallor. Musculoskeletal: No pedal edema. Full range of motion extremities. Const Vital Signs: 04/22/23 12:39 Temperature 97 F L Temperature Source Temporal Pulse Rate 109 H Respiratory Rate 20 H Blood Pressure 181/91 H Blood Pressure Mean 121 Pulse Ox 95 Oxygen Delivery Method Room Air MDM MDM MDM Narrative Medical decision making narrative: Initially in the differential from the history would be otitis media versus otitis externa versus mastoiditis. I have low concern for mastoiditis based on her clinical exam and no tenderness to percussion. I do not feel laboratory work or CT imaging is indicated. Given the mild swelling of her canal, I do not feel that an ear wick would be able to be placed as the swelling is not as significant. In comparison to her other, left ear canal, there is noted swelling. She was given a prescription for Cortisporin and told to follow-up with her primary care provider. She was also referred to ENT to follow-up as needed. I do not feel she requires observation and that she can be discharged safely home with follow-up. Return instructions to the emergency department were reviewed. She will also continue lujw-gfk-qtitkvd analgesics as needed. She was warned not to use Q-tips in her ear to dry them out any longer. Disposition is discharged home in stable condition. Discharge Plan Triage Chief Complaint: Ear Problem ED Provider: Cristobal Garcia Dx/Rx/DC Orders Clinical Impression: Otitis externa Instructions: ED External Ear Infection (Adult) Prescriptions: New Cortisporin-TC 3.3-3-10-0.5 mg/mL drops,suspension 4 drp RIGHT EAR TID Qty: 10 0RF No Action olanzapine 15 mg tablet 30 mg PO DAILY benztropine 0.5 mg tablet 0.5 mg PO DAILY PRN PRN (Reason: TARDIVE DYKENISA ) Liletta 20.1 mcg/24 hrs (6 yrs) 52 mg intrauterine device 1 device intrauterine ONCE Rx Instructions: as a single dose metoprolol tartrate 25 mg tablet 25 mg PO BID Qty: 180 2RF venlafaxine 75 mg capsule,extended release 24hr 75 mg PO DAILY lorazepam 1 mg tablet 1 mg PO QHS PRN (Reason: anxiety) risperidone 1 mg tablet See Rx Instructions PO BID Rx Instructions: 0.5 AM, 1 mg QHS orally twice a day; cholecalciferol (vitamin D3) 50 mcg (2,000 unit) capsule 50 mcg PO DAILY Qty: 90 3RF fluticasone propionate [Flonase Allergy Relief] 50 mcg/actuation spray,suspension 2 spray intranasal DAILY Qty: 15.8 1RF Rx Instructions: administer into each nostril lamotrigine 200 MG tablet 200 mg PO DAILY melatonin 5 mg capsule 10 mg PO QHS levothyroxine 50 mcg tablet 50 mcg PO DAILY Qty: 90 0RF Primary Care Provider: Brock Negron NP Referrals: Sacha Bangura MD [Med Staff - Active Staff] - As Needed Brock Negron NP, MID LEVEL DEVELOPER-C [Primary Care Provider] - 3-5 Days if not improving Disposition Disposition: Home, Self Care
[2023-04-22 13:22] VITALS: BP 108/79; PULSE 82; RESP 16; TEMP 36.6; O2SAT 98
== END 2023-04-22 13:23 | disposition home or self-care (01) ==
PROVIDERS: Emergency Provider Emergency Medicine; PCP Nurse Practitioner Family; Visit Provider Emergency Medicine
DX: H60.91 Unspecified otitis externa, right ear (principal); F17.210 Nicotine dependence, cigarettes, uncomplicated; E78.5 Hyperlipidemia, unspecified
CPT/HCPCS: 99282

== ENCOUNTER 2023-04-24 05:58 | Emergency (ER) | payer MEDICARE, MEDICAID, SELFPAY ==
[2023-04-24 05:59] VITALS: BP 152/81; PULSE 107; RESP 22; TEMP 36.9; O2SAT 97; BMI 69.7
--- NOTE | 2023-04-24 06:15 | EDS_ITS ---
HPI History of Present Illness Chief Complaint: Ear Problem Detail of Chief Complaint: Right ear pain Informant: patient Onset/Context/Timing Onset: Days Context: Sudden Onset Timing: Continuous Quality: Pain Location: Right ear Current Severity: Moderate Maximum Severity: Severe Worsened by: Pressure on the ear Relieved by: Nothing Associated Symptoms Associated Symptoms: No constitutional symptoms Narrative Narrative: Patient is a 28-year-old female who was seen on April 22 by ER physician and diagnosed with external otitis. Patient was placed on otic drops. Patient states in spite of the medication and taking ibuprofen donvak-bxr-mvyen there is still significant pain. There is no drainage from the ear. Her most recent blood sugar was 151. This is elevated for her. She has no other complaints or symptoms. Prior similar symptoms: Yes Recent Illness/Hospitalization: Yes [facility] Medical History Abscess of right lower extremity excluding foot Arrhythmia Chronic bronchitis COVID-19 Dysfunctional uterine bleeding GERD (gastroesophageal reflux disease) GERD (gastroesophageal reflux disease) Hyperlipidemia Hypothyroidism Macromastia Morbid obesity Morbid obesity with BMI of 50.0-59.9, adult Obstructive sleep apnea Rash and nonspecific skin eruption Right hip pain Schizoaffective disorder Seasonal allergies Tachycardia Tachycardia Vaginal candidiasis Vitamin D insufficiency Weight gain, abnormal Home Medications lamotrigine 200 mg tablet 200 mg PO DAILY seizures 09/28/16 [History Last Taken 04/22/23] olanzapine 15 mg tablet 30 mg PO DAILY 07/31/21 [History Last Taken 04/22/23] benztropine 0.5 mg tablet 0.5 mg PO DAILY PRN PRN TARDIVE DYKENISA 10/02/21 [History Last Taken Unknown] levonorgestrel 20.4 mcg/24 hrs (8 yrs) 52 mg intrauterine device (Liletta) 1 device intrauterine ONCE 03/11/22 [History Last Taken 04/22/23] metoprolol tartrate 25 mg tablet 25 mg PO BID #180 tabs 11/19/22 [Rx Last Taken 04/22/23] venlafaxine 75 mg capsule,extended release 24 hr 75 mg PO DAILY 11/19/22 [History Last Taken Unknown] cholecalciferol (vitamin D3) 50 mcg (2,000 unit) capsule 50 mcg PO DAILY #90 c aps 01/23/23 [Rx Last Taken 04/22/23] fluticasone propionate 50 mcg/actuation nasal spray,suspension (Flonase Allergy Relief) 2 spray intranasal DAILY #15.8 grams 01/23/23 [Rx Last Taken 04/22/23] lorazepam 1 mg tablet 1 mg PO QHS PRN anxiety 01/23/23 [History Last Taken Unknown] risperidone 1 mg tablet See Rx Instructions PO BID 01/23/23 [History Last Taken 04/22/23] levothyroxine 50 mcg tablet 50 mcg PO DAILY #90 tabs 04/16/23 [Rx Last Taken 04/22/23] melatonin 5 mg capsule 10 mg PO QHS 04/22/23 [History Last Taken 04/21/23] ussefgfq-nbksaj-AT-thonzonm 3.3 mg-3 mg-10 mg-0.5 mg/mL ear drops,susp (Cortisporin-TC) 4 drp RIGHT EAR TID #10 mL 04/22/23 [Rx Last Taken Unknown] Allergy/AdvReac Type Severity Reaction Status Date / Time amoxicillin trihydrate Allergy Hives Verified 04/24/23 06:03 [From Augmentin] Penicillins Allergy Hives Verified 04/24/23 06:03 potassium clavulanate Allergy Hives Verified 04/24/23 06:03 [From Augmentin] Sulfa (Sulfonamide Allergy Hives Verified 04/24/23 06:03 Antibiotics) Family History Grandfather Alcoholism Depression CVA (cerebral vascular accident) Hypertension Mother Anxiety Hypertension Father Psychiatric care Grandmother Thyroid disorder Graves disease Surgical History H/O dilation and curettage History of cholecystectomy History of tonsillectomy Social History household members: other details: Hyacinth, and her mother housing: house current occupational status: disabled Smoking Status: Current every day smoker tobacco type: cigarettes Tobacco: How many years used: 10 how long ago did patient quit smokin06/01/2021 alcohol intake: never substance use type: does not use what type of physical activity do you participate in: none do you feel safe at home: Yes ROS ROS ED Constitutional Constitutional ED: Denies chills, fever(s), subjective or sweats Eyes Eyes: Denies blurry vision, change in vision or diplopia ENT ENT ED: Reports ear pain right; Denies rhinorrhea or sore throat Hematologic/Lymphatic Hematologic/Lymphatic: Denies easy bruising or lymphadenopathy Allergic/Immunologic Allergic/Immunologic ED: Denies mouth swelling, tongue swelling or urticaria EXAM Physical Exam Const Vital Signs: 04/24/23 05:59 Temperature 98.5 F Temperature Source Oral Pulse Rate 107 H Respiratory Rate 22 H Blood Pressure 152/81 H Blood Pressure Mean 104 Pulse Ox 97 Oxygen Delivery Method Room Air Positive well nourished, well developed and obese Constitutional Narrative: Patient appears slightly uncomfortable. General Appearance ED: well developed; Negative for cyanotic, diaphoretic or pallor Nutritional Appearance: obese HEENT Reports moist mucous membranes HEENT Narrative: Head is atraumatic normocephalic. The right external auditory canal is closed. There is erythema noted. There is slight debris noted. Eyes PERRL and EOMs intact bilaterally General Eye ED: Negative for pale conjunctiva or scleral icterus Neck no lymphadenopathy, supple and no JVD Resp normal respiratory effort Cardio regular rate and regular rhythm Neuro oriented x3 and CN's II-XII intact bilaterally Sensorium / Orientation: alert Psych mental status grossly normal Skin no rashes or lesions noted, no wounds and skin turgor normal General Skin Exam: Negative for jaundice or pallor MDM MDM MDM Narrative Medical decision making narrative: Patient has otitis externa right ear. Patient external auditory canal is closed shut and when she is in she is not getting better and spite of appropriate treatment. An ear wick was placed. Will have nurse administer 1 Boykin tablet for her pain and Cortisporin otic suspension. No further testing is needed. There is no concern for malignant otitis externa since she is diabetic. Discharge Plan Triage Chief Complaint: Ear Problem ED Provider: Felipe Estrada Dx/Rx/DC Orders Clinical Impression: Sinus tachycardia, Otitis externa of right ear Instructions: ED External Ear Infection (Adult) Prescriptions: No Action olanzapine 15 mg tablet 30 mg PO DAILY benztropine 0.5 mg tablet 0.5 mg PO DAILY PRN PRN (Reason: TARDIVE DYKENISA ) Liletta 20.1 mcg/24 hrs (6 yrs) 52 mg intrauterine device 1 device intrauterine ONCE Rx Instructions: as a single dose metoprolol tartrate 25 mg tablet 25 mg PO BID Qty: 180 2RF venlafaxine 75 mg capsule,extended release 24hr 75 mg PO DAILY lorazepam 1 mg tablet 1 mg PO QHS PRN (Reason: anxiety) risperidone 1 mg tablet See Rx Instructions PO BID Rx Instructions: 0.5 AM, 1 mg QHS orally twice a day; cholecalciferol (vitamin D3) 50 mcg (2,000 unit) capsule 50 mcg PO DAILY Qty: 90 3RF fluticasone propionate [Flonase Allergy Relief] 50 mcg/actuation spray,suspension 2 spray intranasal DAILY Qty: 15.8 1RF Rx Instructions: administer into each nostril lamotrigine 200 MG tablet 200 mg PO DAILY melatonin 5 mg capsule 10 mg PO QHS Cortisporin-TC 3.3-3-10-0.5 mg/mL drops,suspension 4 drp RIGHT EAR TID Qty: 10 0RF levothyroxine 50 mcg tablet 50 mcg PO DAILY Qty: 90 0RF Primary Care Provider: Brock Negron NP Referrals: Brock Negron NP, RABBET OPERATOR-C [Primary Care Provider] - 3-5 Days Activity Restrictions/Additional Instructions: 1. Instill 4 drops of the ear suspension right side 4 times a day. 2. If the wick does not fall out in 5 days follow-up with your physician to have it removed 3. If your blood sugars are greater than 250 either see your doctor or return to the emergency department Disposition Disposition: Home, Self Care
[2023-04-24] MEDS: HYDROcodone Bitartrate/Apap 5/325 Tablet PO (06:38)
[2023-04-24] MEDS: Neomycin/Polymyxin/Dexameth 5ML OPTH.BTL 4 DRP OTIC (06:39)
== END 2023-04-24 07:03 | disposition home or self-care (01) ==
LOC: ED 07:03
PROVIDERS: Emergency Provider Emergency Medicine; PCP Nurse Practitioner Family; Visit Provider Emergency Medicine
DX: H60.91 Unspecified otitis externa, right ear (principal); E11.9 Type 2 diabetes mellitus without complications; R00.0 Tachycardia, unspecified; E78.5 Hyperlipidemia, unspecified; F17.210 Nicotine dependence, cigarettes, uncomplicated; E66.9 Obesity, unspecified
CPT/HCPCS: 99283

== ENCOUNTER → 2023-06-06 | Outpatient (CLI) | payer MEDICARE, MEDICAID, SELFPAY | END | disposition home or self-care (01) | LOC: SL 19:53 | PROVIDERS: PCP Nurse Practitioner Family; Referring Provider Nurse Practitioner Family; Visit Provider Nurse Practitioner Family | DX: G47.33 Obstructive sleep apnea (adult) (pediatric) (principal) | CPT/HCPCS: 95810 ==

== ENCOUNTER 2023-07-21 07:51 | Emergency (ER) | payer MEDICARE, MEDICAID, SELFPAY ==
[2023-07-21 07:52] VITALS: BP 157/98; PULSE 121; RESP 16; TEMP 36.7; O2SAT 95; BMI 65.6
--- NOTE | 2023-07-21 08:45 | EX.ED.DYSGE1 ---
HPI History of Present Illness Chief Complaint: General Illness Narrative Narrative: 8-year-old female presenting with rhinorrhea, cough, congestion. She has had a fever at home. She does not feel short of breath. Mild body aches and chills. She believes she is come down with a viral syndrome. Patient tested herself for COVID already at home and it was negative. She presents because she is coughing more. She is having trouble sleeping secondary to cough. No nausea or vomiting. [facility] Medical History Abscess of right lower extremity excluding foot Arrhythmia Chronic bronchitis COVID-19 Dysfunctional uterine bleeding GERD (gastroesophageal reflux disease) GERD (gastroesophageal reflux disease) Hyperlipidemia Hypothyroidism Macromastia Morbid obesity Morbid obesity with BMI of 50.0-59.9, adult Obstructive sleep apnea Rash and nonspecific skin eruption Right hip pain Schizoaffective disorder Seasonal allergies Tachycardia Tachycardia Vaginal candidiasis Vitamin D insufficiency Weight gain, abnormal Home Medications lamotrigine 200 mg tablet 200 mg PO DAILY seizures 09/28/16 [History Last Taken 04/22/23] olanzapine 15 mg tablet 30 mg PO DAILY 07/31/21 [History Last Taken 04/22/23] benztropine 0.5 mg tablet 0.5 mg PO DAILY PRN PRN TARDIVE DYKENISA 10/02/21 [History Last Taken Unknown] levonorgestrel 20.4 mcg/24 hrs (8 yrs) 52 mg intrauterine device (Liletta) 1 device intrauterine ONCE 03/11/22 [History Last Taken 04/22/23] metoprolol tartrate 25 mg tablet 25 mg PO BID #180 tabs 11/19/22 [Rx Last Taken 04/22/23] venlafaxine 75 mg capsule,extended release 24 hr 75 mg PO DAILY 11/19/22 [History Last Taken Unknown] cholecalciferol (vitamin D3) 50 mcg (2,000 unit) capsule 50 mcg PO DAILY #90 caps 01/23/23 [Rx Last Taken 04/22/23] fluticasone propionate 50 mcg/actuation nasal spray,suspension (Flonase Allergy Relief) 2 spray intranasal DAILY #15.8 grams 01/23/23 [Rx Last Taken 04/22/23] lorazepam 1 mg tablet 1 mg PO QHS PRN anxiety 01/23/23 [History Last Taken Unknown] risperidone 1 mg tablet See Rx Instructions PO BID 01/23/23 [History Last Taken 04/22/23] levothyroxine 50 mcg tablet 50 mcg PO DAILY #90 tabs 04/16/23 [Rx Last Taken 04/22/23] melatonin 5 mg capsule 10 mg PO QHS 04/22/23 [History Last Taken 04/21/23] [id number]-[id number]-MN-[id number] 3.3 mg-3 mg-10 mg-0.5 mg/mL ear drops,susp (Cortisporin-TC) 4 drp RIGHT EAR TID #10 mL 04/22/23 [Rx Last Taken Unknown] benzonatate 200 mg capsule 200 mg PO TID PRN cough #20 caps 07/21/23 [Rx Last Taken Unknown] codeine 10 mg-guaifenesin 100 mg/5 mL oral liquid 5 ml PO Q6H PRN cold symptoms #118 mL 07/21/23 [Rx Last Taken Unknown] oxymetazoline 0.05 % nasal mist (Afrin (oxymetazoline)) 2 spray intranasal Q12H PRN nasal congestion 3 days #15 mL 07/21/23 [Rx Last Taken Unknown] Allergy/AdvReac Type Severity Reaction Status Date / Time amoxicillin trihydrate Allergy Hives Verified 07/21/23 07:54 [From Augmentin] Penicillins Allergy Hives Verified 07/21/23 07:54 potassium clavulanate Allergy Hives Verified 07/21/23 07:54 [From Augmentin] Sulfa (Sulfonamide Allergy Hives Verified 07/21/23 07:54 Antibiotics) Family History Grandfather Alcoholism Depression CVA (cerebral vascular accident) Hypertension Mother Anxiety Hypertension Father Psychiatric care Grandmother Thyroid disorder Graves disease Surgical History H/O dilation and curettage History of cholecystectomy History of tonsillectomy Social History household members: other details: Hyacinth, and her mother housing: house current occupational status: disabled Smoking Status: Current every day smoker tobacco type: cigarettes Tobacco: How many years used: 10 how long ago did patient quit smokin06/01/2021 alcohol intake: never substance use type: does not use what type of physical activity do you participate in: none do you feel safe at home: Yes ROS ROS ED Constitutional Constitutional ED: Reports chills; Denies fever(s) or sweats Eyes Eyes: Denies blurry vision or change in vision ENT ENT ED: Reports rhinorrhea; Denies ear pain or sore throat Cardiovascular Cardiovascular: Denies chest pain, palpitations or racing heartbeat Respiratory/Chest Respiratory/Chest: Reports cough; Denies dyspnea or sputum Gastrointestinal Gastrointestinal: Denies abdominal pain, constipation, diarrhea, nausea or vomiting Genitourinary Genitourinary ED: Denies dysuria, hematuria or urinary frequency Musculoskeletal Musculoskeletal: Reports myalgias; Denies arthralgias or neck pain Integumentary Denies abscess, Abrasions or rash Neurologic Neurologic: Denies headache(s), paresthesias or weakness Psychiatric Psychiatric: Denies anxiety, depression, suicidal ideation or suicidal thoughts Endocrine Endocrinology: Denies polydipsia or polyuria EXAM Physical Exam Const Vital Signs: 07/21/23 07:52 07/21/23 07:57 Temperature 98.1 F Temperature Source Temporal Pulse Rate 121 H Respiratory Rate 16 Respiratory Effort Normal Non-Labored Respiratory Pattern Normal Blood Pressure 157/98 H Blood Pressure Mean 117 Pulse Ox 95 Oxygen Delivery Method Room Air Positive well nourished General Appearance ED: NAD; Negative for pallor HEENT Reports moist mucous membranes Eyes PERRL General Eye ED: Yes pale conjunctiva Neck no lymphadenopathy Chest Wall inspection of chest normal Resp normal respiratory effort Auscultation: Negative for rales, rhonchi or wheezes Cardio regular rate Rate: tachycardic Neuro oriented x3 and CN's II-XII intact bilaterally Sensorium / Orientation: alert Psych mental status grossly normal Skin no rashes or lesions noted General Skin Exam: Negative for jaundice or pallor MDM MDM MDM Narrative Medical decision making narrative: 28-year-old female with viral syndrome. Lungs are clear to auscultation. Vital signs are stable and she is afebrile. Patient request something for cough and she is given Tessalon Perles. Also did give her a prescription for Afrin as the most of this is likely triggered by postnasal drip due to her nasal congestion. She was also given some Cheratussin to take as needed at night for sleep as she is having trouble sleeping. She was amenable to this. I do not believe she did need blood work or imaging. She declines viral testing. Impression: 1. Cough 2. Postnasal drip 3. Viral syndrome Discharge Plan Triage Chief Complaint: General Illness ED Provider: Mal Lucio Dx/Rx/DC Orders Instructions: ED Viral Syndrome (Adult) Prescriptions: New benzonatate 200 mg capsule 200 mg PO TID PRN (Reason: cough) Qty: 20 0RF Afrin (oxymetazoline) 0.05 % mist 2 spray intranasal Q12H PRN (Reason: nasal congestion) 3 Days Qty: 15 0RF codeine-guaifenesin 10-100 mg/5 mL liquid 5 ml PO Q6H PRN (Reason: cold symptoms) Qty: 118 0RF No Action olanzapine 15 mg tablet 30 mg PO DAILY benztropine 0.5 mg tablet 0.5 mg PO DAILY PRN PRN (Reason: TARDIVE DYKENISA ) Liletta 20.1 mcg/24 hrs (6 yrs) 52 mg intrauterine device 1 device intrauterine ONCE Rx Instructions: as a single dose metoprolol tartrate 25 mg tablet 25 mg PO BID Qty: 180 2RF venlafaxine 75 mg capsule,extended release 24hr 75 mg PO DAILY lorazepam 1 mg tablet 1 mg PO QHS PRN (Reason: anxiety) risperidone 1 mg tablet See Rx Instructions PO BID Rx Instructions: 0.5 AM, 1 mg QHS orally twice a day; cholecalciferol (vitamin D3) 50 mcg (2,000 unit) capsule 50 mcg PO DAILY Qty: 90 3RF fluticasone propionate [Flonase Allergy Relief] 50 mcg/actuation spray,suspension 2 spray intranasal DAILY Qty: 15.8 1RF Rx Instructions: administer into each nostril lamotrigine 200 MG tablet 200 mg PO DAILY melatonin 5 mg capsule 10 mg PO QHS Cortisporin-TC 3.3-3-10-0.5 mg/mL drops,suspension 4 drp RIGHT EAR TID Qty: 10 0RF levothyroxine 50 mcg tablet 50 mcg PO DAILY Qty: 90 0RF Primary Care Provider: Brock Negron NP Referrals: Brock Negron NP, [employer]ACHINE MAINTENANCE SUPERVISOR-[employer] [Primary Care Provider] - Disposition Disposition: Home, Self Care
[2023-07-21 09:04] VITALS: O2SAT 94
== END 2023-07-21 09:05 | disposition home or self-care (01) ==
LOC: ED 08:51
PROVIDERS: Emergency Provider Student in an Organized Health Care Education/Training Program; PCP Nurse Practitioner Family; Visit Provider Student in an Organized Health Care Education/Training Program
DX: B34.9 Viral infection, unspecified (principal); F17.210 Nicotine dependence, cigarettes, uncomplicated; E78.5 Hyperlipidemia, unspecified
CPT/HCPCS: 99282

== ENCOUNTER → 2023-07-29 | Outpatient (CLI) | payer MEDICARE, MEDICAID, SELFPAY | END | disposition home or self-care (01) | LOC: SL 13:41 | PROVIDERS: PCP Nurse Practitioner Family; Visit Provider Nurse Practitioner Family | DX: Z00.00 Encounter for general adult medical examination without abnormal findings (principal) ==

== ENCOUNTER 2024-04-12 18:46 | Emergency (ER) | payer MEDICARE, MEDICAID, SELFPAY ==
[2024-04-12 18:47] VITALS: BP 151/89; PULSE 84; RESP 22; TEMP 36.5; O2SAT 96; BMI 60.3
== END 2024-04-12 19:23 | disposition left against medical advice (07) ==
LOC: ED 19:31
PROVIDERS: PCP Nurse Practitioner Family
DX: Z53.21 Procedure and treatment not carried out due to patient leaving prior to being seen by health care provider (principal)

== ENCOUNTER 2024-04-14 13:21 | Emergency (ER) | payer MEDICARE, MEDICAID, SELFPAY ==
[2024-04-14 13:22] VITALS: BP 135/89; PULSE 91; RESP 18; TEMP 36.6; O2SAT 100; BMI 59.1
--- NOTE | 2024-04-14 13:50 | EX.ED.UPPERE ---
HPI History of Present Illness HPI Narrative: Try 9-year-old female history of diabetes and schizoaffective disorder. Complaining of right atraumatic shoulder pain since last . Denies any fall injury or trauma. No fever. Patient is right-hand dominant. No prior surgeries to the shoulder. Saw her primary care provider last week started the patient on meloxicam plus a muscle relaxant without any significant relief. Chief Complaint: Edema Informant: patient Occured/Mechanism Mechanism/Context: No injury and No blunt trauma Onset/Context/Timing Onset: Days Context: Gradual Onset Timing: Continuous Quality of Pain: Dull and Aching Current Severity: Mild Maximum Severity: Mild Associated Symptoms Associated Symptoms: Negative for Parasthesia, Weakness or Loss of Funtion Narrative Narrative: 9-year-old female atraumatic right shoulder pain. Prior similar symptoms: No Recent Illness/Hospitalization: No PFSH PFSH Medical History Vitamin D insufficiency Hypothyroidism Abscess of right lower extremity excluding foot Weight gain, abnormal Morbid obesity COVID-19 Vaginal candidiasis Arrhythmia Obstructive sleep apnea Tachycardia Right hip pain Morbid obesity with BMI of 50.0-59.9, adult Hyperlipidemia Macromastia Dysfunctional uterine bleeding GERD (gastroesophageal reflux disease) Tachycardia GERD (gastroesophageal reflux disease) Chronic bronchitis Schizoaffective disorder Seasonal allergies Rash and nonspecific skin eruption Home Medications ?Medication ?Instructions ?Recorded ?Last Taken ?Type lamotrigine 200 mg tablet 200 mg PO DAILY seizures 09/28/16 04/22/23 History olanzapine 15 mg tablet 30 mg PO DAILY 07/31/21 04/22/23 History benztropine 0.5 mg tablet 0.5 mg PO DAILY PRN PRN TARDIVE 10/02/21 Unknown History DYKENISA levonorgestrel 20.4 mcg/24 hr (up 1 device intrauterine ONCE 03/11/22 04/22/23 History to 8 yrs) 52 mg intrauterine device (Liletta) metoprolol tartrate 25 mg tablet 25 mg PO BID #180 tabs 11/19/22 04/22/23 Rx venlafaxine 75 mg capsule,extended 75 mg PO DAILY 11/19/22 Unknown History release 24 hr cholecalciferol (vitamin D3) 50 50 mcg PO DAILY #90 caps 01/23/23 04/22/23 Rx mcg (2,000 unit) capsule fluticasone propionate 50 2 spray intranasal DAILY #15.8 01/23/23 04/22/23 Rx mcg/actuation nasal grams spray,suspension (Flonase Allergy Relief) lorazepam 1 mg tablet 1 mg PO QHS PRN anxiety 01/23/23 Unknown History risperidone 1 mg tablet See Rx Instructions PO BID 01/23/23 04/22/23 History levothyroxine 50 mcg tablet 50 mcg PO DAILY #90 tabs 04/16/23 04/22/23 Rx melatonin 5 mg capsule 10 mg PO QHS 04/22/23 04/21/23 History epbhcqvy-svvvvp-XG-thonzonm 3.3 4 drp RIGHT EAR TID #10 mL 04/22/23 Unknown Rx mg-3 mg-10 mg-0.5 mg/mL ear drops,susp (Cortisporin-TC) benzonatate 200 mg capsule 200 mg PO TID PRN cough #20 caps 07/21/23 Unknown Rx codeine 10 mg-guaifenesin 100 mg/5 5 ml PO Q6H PRN cold symptoms #118 07/21/23 Unknown Rx mL oral liquid mL oxymetazoline 0.05 % nasal mist 2 spray intranasal Q12H PRN nasal 07/21/23 Unknown Rx (Afrin (oxymetazoline)) congestion 3 days #15 mL Allergy/AdvReac Type Severity Reaction Status Date / Time amoxicillin trihydrate (From Allergy Hives Verified 04/14/24 13:22 Augmentin) Penicillins Allergy Hives Verified 04/14/24 13:22 potassium clavulanate (From Allergy Hives Verified 04/14/24 13:22 Augmentin) Sulfa (Sulfonamide Allergy Hives Verified 04/14/24 13:22 Antibiotics) Family History Grandfather Alcoholism Depression CVA (cerebral vascular accident) Hypertension Mother Anxiety Hypertension Father Psychiatric care Grandmother Thyroid disorder Graves disease Surgical History H/O dilation and curettage History of tonsillectomy History of cholecystectomy Social History household members: other details: Hyacinth, and her mother housing: house current occupational status: disabled Smoking Status: Current every day smoker tobacco type: cigarettes Tobacco: How many years used: 10 how long ago did patient quit smokin06/01/2021 alcohol intake: never substance use type: does not use what type of physical activity do you participate in: none do you feel safe at home: Yes ROS ROS ED ROS Narrative Denies recent illness. Constitutional Constitutional ED: Denies chills or fever(s) ENT ENT ED: Denies ear pain Cardiovascular Cardiovascular: Denies chest pain Respiratory/Chest Respiratory/Chest: Denies cough or dyspnea Gastrointestinal Gastrointestinal: Denies abdominal pain Genitourinary Genitourinary ED: Denies dysuria or hematuria Musculoskeletal Musculoskeletal: Denies back pain Integumentary Denies abscess or Abrasions Neurologic Neurologic: Denies headache(s) Psychiatric Psychiatric: Denies anxiety or depression Endocrine Endocrinology: Denies cold intolerance Hematologic/Lymphatic Hematologic/Lymphatic: Denies easy bleeding, easy bruising or lymphadenopathy Allergic/Immunologic Allergic/Immunologic ED: Denies mouth swelling, tongue swelling or urticaria EXAM Physical Exam Narrative Exam Narrative: 20-year-old female no acute distress. Vital signs stable afebrile. H EENT exam unremarkable. Neck nontender. Lungs clear to auscultation bilaterally. Heart regular rhythm no murmur rate about 90. Abdomen soft nontender. No peritoneal signs. Moving all 4 extremities. Neurovascularly intact. Specifically right shoulder no redness or warmth. No swelling. Full flexion extension. AB and adduction. Able to lift arm overhead without any difficulty. No signs of dislocation. No bony deformities. No fracture. No signs of infected joint. No cellulitis. No redness or warmth. No axillary lymphadenopathy. Normal flexion extension of the right elbow and wrist. 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 Normal radial pulse. Patient has diffuse tenderness along the shoulder and primarily the trapezius muscle and right upper chest wall muscle. Consistent with myofascial strain. There is no bruising or deformity. Otherwise exam unremarkable. Const Vital Signs: 04/14/24 13:22 04/14/24 13:22 Temperature 97.8 F Temperature Source Temporal Pulse Rate 91 Respiratory Rate 18 Respiratory Effort Normal Respiratory Pattern Normal Blood Pressure 135/89 H Blood Pressure Mean 104 Pulse Ox 100 Oxygen Delivery Method Room Air Positive well nourished, well developed and obese; Negative for cachectic, contractures or unkempt General Appearance ED: well developed and NAD; Negative for unkempt, cachectic, contractures, cyanotic or diaphoretic Nutritional Appearance: obese; Negative for cachectic HEENT Reports moist mucous membranes normocephalic and atraumatic; Negative for trauma or tenderness Eyes PERRL and EOMs intact bilaterally General Eye ED: Negative for other Neck full ROM and supple General: Negative for tenderness Lymph Lymphatic: Negative for other Chest Wall inspection of chest normal; Negative for palpation of chest normal Chest Narrative: Right upper chest wall discomfort. To the soft tissue. Resp normal respiratory effort and clear to auscultation bilaterally Effort and Inspection: Negative for pain with movement Auscultation: Negative for rales, rhonchi, wheezes, diminished lung sounds or other Cardio regular rate, regular rhythm, S1 normal heart sound, S2 normal heart sound and no murmurs Rate: Negative for bradycardia or tachycardic Rhythm: Negative for abnormal rhythm GI non-tender, non-distended and no masses Inspection: Negative for abdominal distention Auscultation: normoactive bowel sounds Palpation: soft; Negative for tender, guarding or rebound tenderness present Bladder / Kidney Exam: No other Back/Spine no CVA tenderness General Back: Negative for CVA tenderness Cervical Spine: Negative for cervical spine tenderness Thoracic Spine / Upper Back: Negative for thoracic spinal tenderness Lumbar Spine / Lower Back: Negative for lumbar spinal tenderness Extremity normal to inspection and full ROM Extremity Narrative: Full range of motion of right shoulder. No dislocation or fracture. No signs of infection or septic joint. No cellulitis. Diffuse soft tissue tenderness consistent with a myofascial strain. However normal AB and adduction. Normal rotation. Normal flexion extension. Able to lift arm overhead without any difficulty. General Extremety ED: Negative for edema General Extremity: Negative for edema Neuro oriented x3, CN's II-XII intact bilaterally, moves all extremities, no focal motor deficits and no sensory deficits noted Sensorium / Orientation: alert, oriented to person, oriented to place and oriented to time Motor Exam: strength 5/5 throughout Psych mental status grossly normal Appearance: Negative for unkempt Attitude: No agitated Mood & Affect: Negative for depressed, anxious or tearful Skin General Skin Exam: Negative for petechiae Lesions: no lesions Rashes: no rashes Trauma: no lacerations or abrasions; Negative for abrasion or laceration MDM MDM MDM Narrative Medical decision making narrative: 29-year-old atraumatic right shoulder discomfort. Exam is consistent with the myofascial strain. Normal range of motion. No infection. Discussed I do not think an x-ray would be helpful patient is comfortable with that not being done. Motrin Tylenol for pain. Outpatient follow-up as needed. Discharge Plan Triage Chief Complaint: Edema ED Provider: Dean Rowan Dx/Rx/DC Orders Clinical Impression: Acute shoulder pain, Muscle strain Instructions: ED Muscle Strain, Extremity Prescriptions: No Action olanzapine 15 mg tablet 30 mg PO DAILY benztropine 0.5 mg tablet 0.5 mg PO DAILY PRN PRN (Reason: TARDIVE DYKENISA ) Liletta 20.1 mcg/24 hrs (6 yrs) 52 mg intrauterine device 1 device intrauterine ONCE Rx Instructions: as a single dose metoprolol tartrate 25 mg tablet 25 mg PO BID Qty: 180 2RF venlafaxine 75 mg capsule,extended release 24hr 75 mg PO DAILY lorazepam 1 mg tablet 1 mg PO QHS PRN (Reason: anxiety) risperidone 1 mg tablet See Rx Instructions PO BID Rx Instructions: 0.5 AM, 1 mg QHS orally twice a day; cholecalciferol (vitamin D3) 50 mcg (2,000 unit) capsule 50 mcg PO DAILY Qty: 90 3RF fluticasone propionate [Flonase Allergy Relief] 50 mcg/actuation spray,suspension 2 spray intranasal DAILY Qty: 15.8 1RF Rx Instructions: administer into each nostril lamotrigine 200 MG tablet 200 mg PO DAILY benzonatate 200 mg capsule 200 mg PO TID PRN (Reason: cough) Qty: 20 0RF Afrin (oxymetazoline) 0.05 % mist 2 spray intranasal Q12H PRN (Reason: nasal congestion) 3 Days Qty: 15 0RF codeine-guaifenesin 10-100 mg/5 mL liquid 5 ml PO Q6H PRN (Reason: cold symptoms) Qty: 118 0RF melatonin 5 mg capsule 10 mg PO QHS Cortisporin-TC 3.3-3-10-0.5 mg/mL drops,suspension 4 drp RIGHT EAR TID Qty: 10 0RF levothyroxine 50 mcg tablet 50 mcg PO DAILY Qty: 90 0RF Primary Care Provider: Brock Negron [facility] Referrals: Brock Negron [facility], [employer] INSPECTOR-[employer] [Primary Care Provider] - 1 Week if not improving Activity Restrictions/Additional Instructions: Alternate Motrin and Tylenol for pain in your shoulder. It appears you have a strained muscle. Ice to decrease pain and inflammation. No signs of any dislocated or broken. Otherwise exam is normal. Print Language: Urdu Disposition Disposition: Home, Self Care
== END 2024-04-14 14:08 | disposition home or self-care (01) ==
LOC: ED 14:07
PROVIDERS: Emergency Provider Emergency Medicine; PCP Nurse Practitioner Family; Visit Provider Emergency Medicine
DX: S46.911A Strain of unspecified muscle, fascia and tendon at shoulder and upper arm level, right arm, initial encounter (principal); F25.9 Schizoaffective disorder, unspecified; E11.9 Type 2 diabetes mellitus without complications; F17.210 Nicotine dependence, cigarettes, uncomplicated; G47.33 Obstructive sleep apnea (adult) (pediatric); X58.XXXA Exposure to other specified factors, initial encounter; Z86.16 Personal history of COVID-19
CPT/HCPCS: 99282

== ENCOUNTER → 2024-04-28 | Outpatient (CLI) | payer MEDICARE, MEDICAID, SELFPAY ==
[2024-04-28 12:58] LABS: Absolute Lymphocyte Count 2.07 X10^3/uL (0.83-4.51); Basophil# 0.06 X10^3/uL; Basophil% 0.7 % (0-1); Eosinophils% 5.4 % (0-5); Hematocrit 43.4 % (37-47); Lymphocyte # 2.07 X10^3/ul (0.83-4.51); Lymphocyte % 22.5 % (19-41); Mean Corp Hgb Conc 32.3 g/dL (32-36); Mean Corpuscular Hgb 30.8 pg (27.0-32.0); Mean Corpuscular Volume 95.6 fL (81-99); Mean Platelet Vol. 9.9 fl (6.2-12.0); Monocyte# 0.54 X10^3/uL; Monocyte% 5.9 % (0-10); NRBC Flagged by Analyzer 0 % (0-5); Neutrophil # 6.01 X10^3/uL (2.7-7.7); Neutrophil % 65.1 % (47-70); Platelet Count 336 K/mm3 (150-450); RBC Distribution Width CV 13.8 % (11.6-14.6); RBC Distribution Width SD 48.2 fl (35.1-43.9); Red Blood Count 4.54 M/mm3 (4.2-5.4); White Blood Count 9.2 K/mm3 (4.4-11.0)
[2024-04-28 13:17] LABS: Vitamin B12 416 pg/mL (211-911); Vitamin D,25 Hydroxy 28.5 ng/mL
[2024-04-28 13:47] LABS: ALB/GLOB Ratio 0.9 RATIO (0.9-2.4); AST(SGOT) 17 U/L (15-37); Alanine Aminotransfer ALT/SGPT 24 U/L (13-56); Albumin, Serum 3.7 g/dL (3.2-5.0); Alkaline Phosphatase 101 U/L (45-117); Anion Gap 8 (5-15); BUN 10 mg/dL (7-18); BUN/Creat Ratio 12.4 RATIO (10-20); Calcium,Total 8.9 mg/dL (8.5-10.1); Chloride 108 mmol/L (98-107); Cholesterol 186 mg/dL (200); Creatinine, Serum 0.81 mg/dL (0.55-1.02); EST Glomerular Filtration Rate 89 mL/min (>60); Est Glom Filt Rate - Afr Amer 108 mL/min (>60); Glucose 93 mg/dL (74-106); High Density Lipoprotein 29 mg/dL; Potassium 3.9 mmol/L (3.5-5.1); Protein, Total 7.7 g/dL (6.4-8.2); Sodium Level 138 mmol/L (136-145); Triglycerides 127 mg/dL; Very Low Density Lipoprotein 25 mg/dL (5-40)
== END | disposition home or self-care (01) ==
LOC: VSLAB 09:38
PROVIDERS: PCP Nurse Practitioner Family; Visit Provider Nurse Practitioner Family
DX: E55.9 Vitamin D deficiency, unspecified (principal); E66.9 Obesity, unspecified
CPT/HCPCS: 36415; 80053; 80061; 82306; 82607; 84443; 85025

== ENCOUNTER 2024-08-05 10:23 | Emergency (ER) | payer MEDICARE, MEDICAID, SELFPAY ==
[2024-08-05 10:23] VITALS: BP 151/74; PULSE 110; RESP 18; TEMP 36.9; O2SAT 93; BMI 57.4
--- NOTE | 2024-08-05 10:46 | EX.ED.DYSGE1 ---
HPI History of Present Illness Chief Complaint: Cold Sx Detail of Chief Complaint: Systemic viral symptoms Informant: patient Onset/Context/Timing Onset: Days (2 days ago) Context: Sudden Onset Timing: Continuous Quality: Upper respiratory tract infectious systems now GI Location: Respiratory and GI Current Severity: Mild Maximum Severity: Moderate Worsened by: Nothing specific Relieved by: Nothing Associated Symptoms Associated Symptoms: Congestion, nonproductive cough, nausea vomiting diarrhea Narrative Narrative: Patient is a 29-year-old woman. She has history of hypertension, type 2 diabetes on Ozempic who presents with upper respiratory tract infectious symptoms started 2 days ago with congestion, sore throat and nonproductive cough. She states she cannot stop coughing. She does vape. She denies headache, visual, ocular auditory symptoms. Last evening she developed nausea and vomiting. She vomited times twice 2. She denied hematemesis or coffee-ground emesis. She has had 4 loose watery stools without blood or mucus. She has no history of inflammatory bowel disorder. She denies increased urination. She has not checked her blood sugar this morning. She has had contact with other people who are ill. She has not noted a rash. She denies myalgias arthralgias or joint swelling. Prior similar symptoms: Yes Recent Illness/Hospitalization: No PFSH PFS Medical History Hypertension Diabetes Vitamin D insufficiency Hypothyroidism Abscess of right lower extremity excluding foot Weight gain, abnormal Morbid obesity COVID-19 Vaginal candidiasis Arrhythmia Obstructive sleep apnea Tachycardia Right hip pain Morbid obesity with BMI of 50.0-59.9, adult Hyperlipidemia Macromastia Dysfunctional uterine bleeding GERD (gastroesophageal reflux disease) Tachycardia GERD (gastroesophageal reflux disease) Chronic bronchitis Schizoaffective disorder Seasonal allergies Rash and nonspecific skin eruption Home Medications ?Medication ?Instructions ?Recorded ?Last Taken ?Type lamotrigine 200 mg tablet 200 mg PO DAILY seizures 09/28/16 04/22/23 History olanzapine 15 mg tablet 30 mg PO DAILY 07/31/21 04/22/23 History benztropine 0.5 mg tablet 0.5 mg PO DAILY PRN PRN TARDIVE 10/02/21 Unknown History DYKENISA levonorgestrel 20.4 mcg/24 hr (up 1 device intrauterine ONCE 03/11/22 04/22/23 History to 8 yrs) 52 mg intrauterine device (Liletta) metoprolol tartrate 25 mg tablet 25 mg PO BID #180 tabs 11/19/22 04/22/23 Rx venlafaxine 75 mg capsule,extended 75 mg PO DAILY 11/19/22 Unknown History release 24 hr lorazepam 1 mg tablet 1 mg PO QHS PRN anxiety 01/23/23 Unknown History risperidone 1 mg tablet See Rx Instructions PO BID 01/23/23 04/22/23 History melatonin 5 mg capsule 10 mg PO QHS 04/22/23 04/21/23 History hydrocodone-homatropine 5 mg-1.5 5 ml PO Q6H PRN cough 4 days #80 mL 08/05/24 Unknown Rx mg/5 mL (5 mL) oral syrup (Hycodan) semaglutide 1 mg/dose (4 mg/3 mL) 1 mg subcut QWEEK 08/05/24 Unknown History subcutaneous pen injector (Ozempic) Allergy/AdvReac Type Severity Reaction Status Date / Time amoxicillin trihydrate (From Allergy Hives Verified 08/05/24 10:26 Augmentin) Penicillins Allergy Hives Verified 08/05/24 10:26 potassium clavulanate (From Allergy Hives Verified 08/05/24 10:26 Augmentin) Sulfa (Sulfonamide Allergy Hives Verified 08/05/24 10:26 Antibiotics) Family History Grandfather Alcoholism Depression CVA (cerebral vascular accident) Hypertension Mother Anxiety Hypertension Father Psychiatric care Grandmother Thyroid disorder Graves disease Surgical History H/O dilation and curettage History of tonsillectomy History of cholecystectomy Social History household members: other details: Hyacinth, and her mother housing: house current occupational status: disabled Smoking Status: Current every day smoker tobacco type: cigarettes Tobacco: How many years used: 10 how long ago did patient quit smokin06/01/2021 alcohol intake: never substance use type: does not use what type of physical activity do you participate in: none do you feel safe at home: Yes ROS ROS ED Constitutional Constitutional ED: Denies chills, fever(s), subjective or sweats Eyes Eyes: Denies blurry vision or change in vision ENT ENT ED: Reports rhinorrhea; Denies ear pain or sore throat Cardiovascular Cardiovascular: Denies chest pain, orthopnea, palpitations or paroxysmal nocturnal dyspnea Respiratory/Chest Respiratory/Chest: Reports cough and dyspnea; Denies dyspnea on exertion, orthopnea, paroxysmal nocturnal dyspnea or sputum Gastrointestinal Gastrointestinal: Reports abdominal pain, diarrhea, nausea and vomiting; Denies constipation or melena Genitourinary Genitourinary ED: Denies dysuria, hematuria or urinary frequency Musculoskeletal Musculoskeletal: Denies arthralgias, myalgias or neck pain Integumentary Denies rash Neurologic Neurologic: Reports weakness; Denies headache(s) or paresthesias Hematologic/Lymphatic Hematologic/Lymphatic: Reports systems reviewed and no addt'l complaints, except as documented EXAM Physical Exam Const Vital Signs: 08/05/24 10:23 08/05/24 10:35 Temperature 98.4 F Temperature Source Oral Pulse Rate 110 H Respiratory Rate 18 Respiratory Effort Normal Respiratory Pattern Normal Blood Pressure 151/74 H Blood Pressure Mean 99 Pulse Ox 93 Oxygen Delivery Method Room Air Positive well nourished and well developed Constitutional Narrative: Blood pressure is elevated. BMI is greater than 50. She appears ill but not toxic. There is no clubbing or cyanosis noted. General Appearance ED: well developed and pallor; Negative for cyanotic, diaphoretic or NAD HEENT Reports dry mucous membranes HEENT Narrative: Head is atraumatic no cephalic. Ears normal. TMs normal. External auditory canal is normal. Posterior pharynx is normal. Mouth ED: Yes dry mucous membranes Mouth: dry mucous membranes Eyes PERRL and EOMs intact bilaterally General Eye ED: Negative for pale conjunctiva or scleral icterus Neck no lymphadenopathy, supple and no JVD Chest Wall inspection of chest normal and palpation of chest normal Resp normal respiratory effort and clear to auscultation bilaterally Cardio regular rhythm, S1 normal heart sound, S2 normal heart sound and no murmurs Rate: tachycardic GI normal to inspection, nondistended, normoactive bowel sounds, non-tender, non-distended and no masses; Negative for hepatosplenomegaly Back/Spine no CVA tenderness Extremity normal to inspection General Extremety ED: Negative for edema or tenderness General Extremity: Negative for edema Neuro oriented x3 and CN's II-XII intact bilaterally Sensorium / Orientation: alert Psych Mood & Affect: depressed Skin no rashes or lesions noted, no wounds and skin turgor normal General Skin Exam: pallor; Negative for jaundice MDM MDM MDM Narrative Medical decision making narrative: Patient with systemic viral symptoms. Clinically she is dehydrated. Since she has history of hypertension, diabetes will obtain BMP to assess glucose, anion gap and renal function as well as to evaluate for hypokalemia. CBC was obtained to assess white count differential. 1 L of normal saline was ordered. Zofran was ordered for her nausea and vomiting. Hydrocodone syrup was ordered for her cough. Since patient is not tachypneic, febrile or hypoxic and auscultation of the lungs were clear x-ray was not obtained specially since her symptoms started 48 hours ago. History & Record Review Additional record(s) reviewed:: Prior outpatient record (Office visit with Dr. Violet Davison for dysfunctional uterine bleeding), Prior ED visit (April 2024 for shoulder pain, upper respiratory issues July 2023. Seen by me April 2023 for otitis externa.) and Prior labs Lab Data Labs: Laboratory Results - last 24 hr 08/05/24 10:55 Sodium 136 Potassium 3.8 Chloride 105 Carbon Dioxide 26.0 Anion Gap 6 BUN 14 Creatinine 1.08 H Estim Creat Clear Calc 101.72 Est GFR (MDRD) Af Amer 77 Est GFR (MDRD) Non-Af 64 BUN/Creatinine Ratio 13.0 Glucose 121 H Lactic Acid 1.3 Calcium 8.8 Electrolyte panel is unremarkable. Creatinine slightly elevated 1.08. This is elevated at baseline. Estimated GFR is 64. Patient was discharged with prescription for cough suppressant. Discharge Plan Triage Chief Complaint: Cold Sx ED Provider: Felipe Estrada Dx/Rx/DC Orders Clinical Impression: Upper respiratory infection with cough and congestion, Systemic viral illness, Nausea, vomiting and diarrhea, Type 2 diabetes mellitus with hyperglycemia, Elevated serum creatinine, Acute dehydration, Body mass index (BMI) greater than 50 Instructions: ED Viral Syndrome (Adult) Prescriptions: New hydrocodone-homatropine [Hycodan] 5-1.5 mg/5 mL (5 mL) syrup 5 ml PO Q6H PRN (Reason: cough) 4 Days Qty: 80 0RF No Action olanzapine 15 mg tablet 30 mg PO DAILY benztropine 0.5 mg tablet 0.5 mg PO DAILY PRN PRN (Reason: TARDIVE DYKENISA ) Liletta 20.1 mcg/24 hrs (6 yrs) 52 mg intrauterine device 1 device intrauterine ONCE Rx Instructions: as a single dose metoprolol tartrate 25 mg tablet 25 mg PO BID Qty: 180 2RF venlafaxine 75 mg capsule,extended release 24hr 75 mg PO DAILY lorazepam 1 mg tablet 1 mg PO QHS PRN (Reason: anxiety) risperidone 1 mg tablet See Rx Instructions PO BID Rx Instructions: 0.5 AM, 1 mg QHS orally twice a day; lamotrigine 200 MG tablet 200 mg PO DAILY melatonin 5 mg capsule 10 mg PO QHS Ozempic 1 mg/dose (4 mg/3 mL) pen injector 1 mg subcut QWEEK Primary Care Provider: Brock Negron Referrals: Brock Negron, [facility] [Primary Care Provider] - Print Language: Ghanaian Disposition Disposition: Home, Self Care
[2024-08-05] MEDS: Ondansetron 4 MG/2 ML Vial IV (10:51)
[2024-08-05] MEDS: 0.9% Normal Saline (1000mL) 1,000 ML 1000 ML IV (10:51)
[2024-08-05] MEDS: HYDROCODONE/APAP 7.5-325/15ML 15 ML UDC 5 ML PO (10:51)
[2024-08-05 11:30] LABS: Anion Gap 6 (5-15); BUN 14 mg/dL (7-18); Calcium,Total 8.8 mg/dL (8.5-10.1); Chloride 105 mmol/L (98-107); Creatinine, Serum 1.08 mg/dL (0.55-1.02); EST Glomerular Filtration Rate 64 mL/min (>60); Est Glom Filt Rate - Afr Amer 77 mL/min (>60); Estimated Creatinine Clearance 101.72 ml/min; Glucose 121 mg/dL (74-106); Potassium 3.8 mmol/L (3.5-5.1); Sodium Level 136 mmol/L (136-145)
[2024-08-05 11:34] LABS: Lactic Acid 1.3 mmol/L (0.4-1.9)
[2024-08-05 13:47] VITALS: BP 129/88; PULSE 73; RESP 15; TEMP 36.8; O2SAT 100
== END 2024-08-05 13:48 | disposition home or self-care (01) ==
PROVIDERS: Emergency Provider Emergency Medicine; PCP Nurse Practitioner Family; Visit Provider Emergency Medicine
DX: J06.9 Acute upper respiratory infection, unspecified (principal); E66.01 Morbid (severe) obesity due to excess calories; Z68.43 Body mass index [BMI] 50.0-59.9, adult; E11.65 Type 2 diabetes mellitus with hyperglycemia; E86.0 Dehydration; I10 Essential (primary) hypertension; F17.210 Nicotine dependence, cigarettes, uncomplicated; R19.7 Diarrhea, unspecified; E78.5 Hyperlipidemia, unspecified; B34.9 Viral infection, unspecified; R11.2 Nausea with vomiting, unspecified; R79.89 Other specified abnormal findings of blood chemistry; Z79.85 Long-term (current) use of injectable non-insulin antidiabetic drugs; K21.9 Gastro-esophageal reflux disease without esophagitis
CPT/HCPCS: 80048; 83605; 96361; 96374; 99283; J2405

== ENCOUNTER → 2024-08-06 | Outpatient (CLI) | payer MEDICARE, MEDICAID, SELFPAY ==
--- NOTE | 2024-08-06 11:16 | RAD_ITS ---
INDICATION: WHEEZING EXAMINATION/TECHNIQUE: X-RAY - XR Chest 2 Views COMPARISON: July 10, 2021 FINDINGS: LINES/DEVICES: None. LUNGS: There is a patchy opacity within the expected region of the right middle lobe. There are less pronounced ill-defined opacities within the left lower lung as well. No pneumothorax. MEDIASTINUM AND CARDIOVASCULAR STRUCTURES: Cardiac silhouette not enlarged. Central airways and mediastinal contour are unremarkable. BONES AND SOFT TISSUES: Unremarkable. RAD/Chest PA and Lateral IMPRESSION: Patchy opacities within the right middle lobe and the left lower lung concerning for multifocal pneumonia. Recommend follow-up chest radiograph 6-8 weeks to assess for resolution. Electronically Signed: Elenita Sears MD at 8:22 EST ,
== END | disposition home or self-care (01) ==
LOC: RAD 11:13
PROVIDERS: PCP Nurse Practitioner Family; Referring Provider Nurse Practitioner Family; Visit Provider Nurse Practitioner Family
DX: R06.2 Wheezing (principal)
CPT/HCPCS: 71046

== ENCOUNTER → 2025-02-09 | Outpatient (CLI) | payer MEDICARE, MEDICAID, SELFPAY ==
[2025-02-09 17:10] LABS: Absolute Lymphocyte Count 2.42 X10^3/uL (0.83-4.51); Absolute Neutrophil Count 6.7 X10^3/uL (2.0-7.7); Basophil# 0.05 X10^3/uL; Basophil% 0.5 % (0-1); Eosinophil# 0.54 X10^3/uL; Eosinophils% 5.2 % (0-5); Hematocrit 40.7 % (37-47); Hemoglobin 13.3 g/dL (12.0-15.0); Lymphocyte # 2.42 X10^3/ul (0.83-4.51); Lymphocyte % 23.5 % (19-41); Mean Corp Hgb Conc 32.7 g/dL (32-36); Mean Corpuscular Hgb 31.3 pg (27.0-32.0); Mean Corpuscular Volume 95.8 fL (81-99); Mean Platelet Vol. 9.6 fl (6.2-12.0); Monocyte% 5.8 % (0-10); NRBC Flagged by Analyzer 0 % (0-5); Neutrophil # 6.65 X10^3/uL (2.7-7.7); Neutrophil % 64.5 % (47-70); Platelet Count 330 K/mm3 (150-450); RBC Distribution Width CV 13.2 % (11.6-14.6); RBC Distribution Width SD 46.3 fl (35.1-43.9); Red Blood Count 4.25 M/mm3 (4.2-5.4); White Blood Count 10.3 K/mm3 (4.4-11.0)
[2025-02-09 17:41] LABS: Microalbumin,Random Urine < 12.0 mg/L (NO RANGE EST.)
[2025-02-09 17:52] LABS: ALB/GLOB Ratio 1.3 RATIO (0.9-2.4); AST(SGOT) 20 U/L (<=31); Alanine Aminotransfer ALT/SGPT 17 U/L (<=34); Albumin, Serum 4.3 g/dL (3.5-5.0); Alkaline Phosphatase 104 U/L (35-104); Anion Gap 13 (5-15); BUN 16 mg/dL (4-19); BUN/Creat Ratio 15.8 RATIO (10-20); Calcium,Total 9.5 mg/dL (7.6-11.0); Carbon Dioxide 21.5 mmol/L (21.0-32.0); Chloride 103 mmol/L (98-108); Cholesterol 169 mg/dL (<=200); Creatinine, Serum 0.98 mg/dL (0.70-1.20); EST Glomerular Filtration Rate 80 (>60); Globulin 3.4 g/dL (2.2-4.2); Glucose 134 mg/dL (70-99); High Density Lipoprotein 31 mg/dL; Low Density Lipoprotein Calc. 98 mg/dL; Potassium 3.9 mmol/L (3.3-5.1); Protein, Total 7.7 g/dL (5.9-8.4); Sodium Level 137 mmol/L (133-145); Triglycerides 202 mg/dL; Very Low Density Lipoprotein 40 mg/dL (5-40); cholesterol:hdl ratio screen 5.52
[2025-02-11 04:07] LABS: Thyroid Peroxidase AB 106 IU/mL (0-34)
== END | disposition home or self-care (01) ==
LOC: VSLAB 14:12
PROVIDERS: PCP Nurse Practitioner Family; Visit Provider Nurse Practitioner Family
DX: Z13.228 Encounter for screening for other metabolic disorders (principal); E11.9 Type 2 diabetes mellitus without complications
CPT/HCPCS: 36415; 80053; 80061; 82043; 84439; 84443; 85025; 86376

== ENCOUNTER → 2025-06-17 | Outpatient (CLI) | payer MEDICARE, MEDICAID, SELFPAY ==
--- NOTE | 2025-06-17 14:35 | RAD_ITS ---
PROCEDURE: CHEST PA AND LATERAL 06/17/2025 REASON FOR EXAM: BRONCHITIS TECHNIQUE: Procedure Code: RADCXR Modality: DX Procedure: CHEST PA AND LATERAL COMPARISON: None. FINDINGS: LUNGS AND PLEURA: Diffuse peribronchiolar thickening bilaterally. No focal airspace consolidation. No pleural effusion or pneumothorax. HEART AND MEDIASTINUM: The cardiac silhouette is mildly enlarged. The mediastinal contour is normal. BONES: No acute osseous abnormality. RAD/Chest PA and Lateral IMPRESSION: Mild bilateral peribronchiolar thickening, can be seen with bronchitis or inter stitial edema. Reading Location: [id number]
--- OUTSIDE RECORDS SUMMARY | 2025-06-17 15:04 | XMS RPT_ITS | CCD ---
Author Organization [facility] Care Team Providers Care Geophysics Teacher Name Role Phone Argenis Plummer NP Unavailable [phone] Annamarie Tovar MD Unavailable [phone] Roma Clifford Unavailable Unavailable Roma Clifford Unavailable Unavailable Annamarie Tovar MD Unavailable [phone] Annamarie Tovar MD Unavailable [phone] Margo Rios Unavailable Unavailable Argenis Plummer NP Unavailable [phone] Mike Hugo Primary Care Provider Mike Hugo MD Primary Care Provider MIKE HUGO Primary Care Unavailable Negron VSC, Brock Referring Unavailable Negron VSC, Brock Attending Unavailable Negron VSC, Brock Primary Care Unavailable Negron VSC, Brock Attending Unavailable Negron VSC, Brock Primary Care Unavailable Negron VSC, Brock Primary Care Unavailable Dean Rowan Attending Unavailable Felipe Estrada Attending Unavailable Negron VSC, Brock Primary Care Unavailable Negron VSC, Brock Primary Care Unavailable Provider, Ed Physician Attending Unavailab le Negron VSC, Brock Primary Care Unavailable Negron VSC, Brock Attending Unavailable Allergies Allergy Classification Reported Allergen(s) Allergy Type Date of Onset Reaction(s) Facility (17 sources) amoxicillin / clavulanate drug allergy 03-18-2017 [facility] (17 sources) penicillin drug allergy 03-18-2017 [facility] (17 sources) Sulfonamides (Antibiotic) drug allergy 03-18-2017 [facility] (3 sources) Amoxicillin / Clavulanate; Translations: [AMOXICILLIN-POT CLAVULANATE] Drug Allergy 12-25-2007 [facility] (3 sources) Penicillin G; Translations: [PENICILLIN G] Drug Allergy 12-25-2007 [facility] (3 sources) Sulfonamides (Antibiotic); Translations: [SULFA (SULFONAMIDE ANTIBIOTICS)] Drug Allergy 12-25-2007 [facility] (1 source) Amoxicillin Drug Allergy 08-05-2024 [facility] (1 source) Penicillins Drug allergy (disorder) 08-05-2024 [facility] (1 source) Potassium Drug Allergy 08-05-2024 [facility] (1 source) Sulfonamides (Antibiotic) Drug allergy (disorder) 08-05-2024 [facility] Medications Current Medications Medication Drug Class(es) Dates Sig (Normalized) Sig (Original) [id number] actuat albuterol 0.09 mg/actuat metered dose inhaler (2 sources) beta2-Adrenergic Agonist Start: 09-13-2016 take 2 puff(s) by inhalation every six hours as needed for wheezing albuterol HFA (PROAIR HFA) 90 mcg/actuation inhaler Indications: Acute bronchitis, unspecified organism Inhale 2 Puffs as instructed every 6 hours as needed for Wheezing/Shortnes s of Breath. 1 Inhaler 2 09/13/2016 Active Comment on above: Inhale 2 Puffs as in structed every 6 hours as needed for Wheezing/Shortness of Breath. asenapine 5 mg sublingual tablet (2 sources) Atypical Antipsychotic take 5 mg under the tongue twice daily asenapine sublingual (SAPHRIS) 5 mg subl Dissolve under the tongue twice daily. 0 Active Comment on above: Dissolve under the t ongue twice daily. famotidine 20 mg oral tablet (2 sources) Histamine-2 Receptor Antagonist Start: 11-21-2015 take 1 tablet by mouth twice daily famotidine (PEPCID) 20 mg tablet Take 1 tablet by mouth twice daily. 14 tablet 0 11/21/2015 Active Comment on above: Take 1 tablet by junaid th twice daily. LORazepam 1 mg oral tablet (1 source) Benzodiazepine Start: 03-18-2024 take 1 tablet by mouth once daily as needed LORazepam (ATIVAN) 1 mg tablet Take 1 mg by mouth once daily as needed. 0 03/18/2024 Active metoprolol tartrate 25 mg oral tablet (1 source) beta-Adrenergic Ginette Start: 03-16-2024 take 1 tablet by mouth every twelve hours metoprolol tartrate, short acting, (LOPRESSOR) 25 mg tablet Take 1 tablet by mouth every 12 hours. 0 03/16/2024 Active OLANZapine 15 mg oral tablet (2 sources) Atypical Antipsychotic Start: 03-23-2024 take 2 tablets by mouth once OLANZapine (ZYPREXA) 15 mg tablet Take 2 tablets by mouth every afternoon. 0 03/23/2024 Active olanzapine (ZYPR EXA ORAL) ZyPREXA 0 Active OZEMPIC 1 mg/dose (4 mg/3 mL) pen (1 source) Start: 03-31-2024 OZEMPIC 1 mg/d ose (4 mg/3 mL) pen inject 1 mg weekly 0 03/31/2024 Active risperiDONE 1 mg oral tablet (3 sources) Atypical Antipsychotic Start: 03-28-2024 take 1 tablet by mouth once daily at bedtime risperiDONE (RISPERDAL) 1 mg tablet Take 1 mg by mouth daily at bedtime. 0 03/28/2024 Active take 1 tablet by mouth twice dustin ly risperiDONE (RISPERDAL) 0.5 mg tablet Take 0.5 mg by mouth twice daily. 0 Active Comment on above: Take 0.5 mg by mouth twice daily. 24 hr venlafaxine 75 mg extended release oral capsule (1 source) Serotonin and Norepinephrine Reuptake Inhibitor Start: 03-23-20 take 1 capsule by mouth every twenty-four hours venlafaxine ER (EFFEXOR XR) 75 mg 24 hr capsule Take 75 mg by mouth. 0 03/23/2024 Active zolpidem (2 sources) gamma-Aminobutyric Acid-ergic Agonist ZOLPIDEM TARTRATE (AMBIEN ORAL) Take by mouth. 0 Active Comment on above: Take by mouth. Completed/Discontinued Medications Medication Drug Class(es) Dates Sig (Normalized) Sig (Original) clonazePAM 0.5 mg oral tablet (12 sources) Benzodiazepine Start: 05-12-2017 take 1 tablet by mouth twice daily as needed CLONAZEPAM 0.5 MG TABS One tablet by mouth twice daily as needed CLONAZEPAM [id number] Roma Clifford diphenhydrAMINE hydrochloride 25 mg oral capsule (19 sources) Histamine-1 Receptor Antagonist Start: 03-18-2017 BENADRYL ALLERGY CAPS 1 hs DIPHENHYDRAMINE HCL CAPS [id number] Annamarie Tovar MD Start: 03-18-2017 BENADRYL ALLER GY CAPS 1 hs DIPHENHYDRAMINE HCL CAPS [id number] Annamarie Tovar MD Start: 03-18-2017 BENADRYL ALLER GY CAPS 1 hs DIPHENHYDRAMINE HCL CAPS [id number] Annamarie Tovar MD Start: 11-21-2015 take 2 tablets by mo uth every six hours as needed diphenhydrAMINE (ALLERGY) 25 mg tablet Take 2 tablets by mouth every 6 hours as needed (prn hives). 60 tablet 0 11/21/2015 Active Comment on above: Take 2 tablets by mo uth every 6 hours as needed (prn hives). FLUoxetine 20 mg oral capsule (17 sources) Serotonin Reuptake Inhibitor Start: 03-18-2017 PROZAC 20 MG CAPS 1 hs FLUOXETINE HCL [id number] Annamarie Tovar MD Start: 03-18-2017 PROZAC 20 MG C APS 1 hs FLUOXETINE HCL [id number] Annamarie Tovar MD 60 actuat fluticasone propionate 0.25 mg/actuat dry powder inhaler (17 sources) Corticosteroid Start: 03-18-2017 take 1 puff(s) by inhalation twice daily FLOVENT DISKUS 250 MCG/BLIST AEPB 1 puff BID FLUTICASONE PROPIONATE (INHAL) [id number] Annamarie Tovar MD Start: 03-18-2017 take 1 puff(s) by in halation twice daily FLOVENT DISKUS 250 MCG/BLIST AEPB 1 puff BID FLUTICASONE PROPIONATE (INHAL) [id number] Annamarie Tovar MD lamoTRIgine 200 mg oral tablet (19 sources) Mood Stabilizer, Anti-epileptic Agent Start: 03-18-2017 LAMICTAL 200 MG TAB S 1 hs LAMOTRIGINE [id number] Annamarie Tovar MD Start: 06-08-2010 lamotrigine 10 0 mg ORAL tablet medroxyPROGESTERone acetate 10 mg oral tablet (8 sources) Progestin Start: 05-27-2017 take 1 tablet by mouth once daily MEDROXYPROGESTERONE ACETATE 10 MG TABS One tablet by mouth daily MEDROXYPROGESTERONE ACETATE [id number] Argenis Plummer VENDING MACHINE [employer]IN COLLECTOR METHYLPREDNISOLONE (20 sources) Corticosteroid Start: 03-18-2017 MEDROL 4 MG TBPK As directed METHYLPREDNISOLONE [id number] Annamarie Tovar MD Start: 03-18-2017 End: 05-12-2017 MEDROL 4 MG TBPK As directed METHYLPREDNISOLONE [id number] Roma Clifford Start: 03-18-2017 End: 05-12-2017 MEDROL 4 MG TBPK As directed METHYLPREDNISOLONE [id number] Roma Clifford Start: 03-18-2017 End: 05-12-2017 MEDROL 4 MG TBPK As directed METHYLPREDNISOLONE [id number] Annamarie Tovar MD Start: 03-18-2017 MEDROL 4 MG TB PK As directed METHYLPREDNISOLONE [id number] Annamarie Tovar MD 1.5 ml paliperidone palmitate 156 mg/ml prefilled syringe (19 sources) Atypical Antipsychotic Start: 03-18-2017 INVEGA SUSTENNA 234 MG/1.5ML SUSP 1x every 3 weeks PALIPERIDONE PALMITATE [id number] Annamarie Tovar MD Start: 03-18-2017 INVEGA SUSTENN A 234 MG/1.5ML SUSP 1x every 3 weeks PALIPERIDONE PALMITATE [id number] Annamarie Tovar MD PALIPERIDONE PAL MITATE (INVEGA TRINZA INTRAMUSC.) Inject intramuscularly. 0 Active Comment on above: Inject intramuscular ly. pantoprazole 40 mg delayed release oral tablet (12 sources) Proton Pump Inhibitor Start: 05-12-2017 PANTOPRAZOLE SODIUM 40 MG TBEC 1 tablet daily 30 minutes before breakfast PANTOPRAZOLE SODIUM [id number] Annamarie Tovar MD Problems Active Problems Problem Classification Problem Date Documented Date Episodic/Chronic Allergic reactions (17 sources) Atopic dermatitis; Translations: [Allergic contact dermatitis, unspecified cause] Onset: 03-18-2017 03-18-2017 Chronic Anxiety disorders (2 sources) Posttraumatic stress disorder; Translations: [Post-traumatic stress disorder, unspecified] Onset: 07-05-2008 Chronic Asthma (17 sources) Asthma; Translations: [Unspecified asthma, uncomplicated] Onset: 03-18-2017 03-18-2017 Chronic Esophageal disorders (12 sources) Gastroesophageal reflux disease; Translations: [Gastro-esophageal reflux disease without esophagitis] Onset: 05-12-2017 05-12-2017 Chronic Gastroduodenal ulcer (12 sources) Gastric ulcer; Translations: [Gastric ulcer, unspecified as acute or chronic, without hemorrhage or perforation] Onset: 05-12-2017 05-12-2017 Chronic Menstrual disorders (12 sources) Secondary physiologic amenorrhea; Translations: [Secondary amenorrhea] Onset: 05-12-2017 05-12-2017 Chronic Mood disorders (2 sources) Moderate mixed bipolar I disorder; Translations: [Bipolar disorder, current episode mixed, moderate] Onset: 07-05-2008 Chronic Nutritional deficiencies (1 source) Vitamin D deficiency, unspecified; Translations: [Vitamin D deficiency, unspecified] Onset: 05-10-2024 Chronic Other nutritional; endocrine; and metabolic disorders (20 sources) Body mass index (BMI) 45.0-49.9, adult; Translations: [Obesity] Onset: 03-18-2017 03-18-2017 Chronic Other nutritional; endocrine; and metabolic disorders (7 sources) Obesity; Translations: [Obesity, unspecified] Onset: 03-18-2017 03-18-2017 Chronic Other screening for suspected conditions (not mental disorders or infectious disease) (1 source) Encounter for screening for other metabolic disorders; Translations: [Encounter for screening for other metabolic disorders] Onset: 02-16-2025 Episodic Other skin disorders (1 source) Facial swelling ; Translations: [Localized swelling, mass and lump, head] 04-12-2024 Episodic Schizophrenia and other psychotic disorders (17 sources) Schizoaffective disorder; Translations: [Schizoaffective disorder, unspecified] Onset: 03-18-2017 03-18-2017 Chronic Unclassified (3 sources) Venereal disease screening ; Translations: [Encounter for screening for infections with a predominantly sexual mode of transmission] Onset: 05-27-2017 05-27-2017 Unclassified (8 sources) Long-term drug therapy; Translations: [Other tank terminal gauger (current) drug therapy] Onset: 03-18-2017 03-18-2017 Past or Other Problems Problem Classification Problem Date Documented Date Episodic/Chronic Biliary tract disease (6 sources) Common bile duct calculus; Translations: [Calculus of bile duct without cholangitis or cholecystitis without obstruction] Onset: 06-30-2013 06-30-2013 Episodic Conduction disorders (17 sources) Prolonged QT interval; Translations: [Long QT syndrome] Onset: 03-18-2017 03-18-2017 Episodic Nonmalignant breast conditions (8 sources) Galactorrhea not associated with childbirth; Translations: [Galactorrhea] Onset: 05-27-2017 05-27-2017 Episodic Other aftercare (9 sources) Other tank terminal gauger (current) drug therapy; Translations: [Other tank terminal gauger (current) drug therapy] Onset: 03-18-2017 03-18-2017 Episodic Other lower respiratory disease (1 source) Wheezing; Translations: [Wheezing] Onset: 09-07-2024 Episodic Other non-traumatic joint disorders (1 source) Pain in right shoulder; Translations: [Pain in right shoulder] Onset: 04-22-2024 Episodic Other upper respiratory infections (1 source) Acute nasopharyngitis [common cold]; Translations: [Acute nasopharyngitis [common cold]] Onset: 08-31-2024 Episodic Residual codes; unclassified (17 sources) Family history of alcoholism; Translations: [Family history of alcohol abuse and dependence] 03-18-2017 Episodic Residual codes; unclassified (1 source) Procedure and treatment not carried out due to patient leaving prior to being seen by health care provider; Translations: [Procedure and treatment not carried out due to patient leaving prior to being seen by health care provider] Onset: 04-29-2024 Episodic Urinary tract infections (20 sources) Urinary tract infectious disease; Translations: [Urinary tract infection, site not specified] Onset: 05-12-2017 Resolved: 05-27-2017 05-12-2017 Episodic Results Test Name Value Interpretation Reference Range Facility Thyroid Peroxidase ABon 06-1 THYR PEROX AB 106 IU/mL High 0-34 [facility] Comment on above: Result Comment: Perf ormed at: CB - [facility] [address] [id number] [employer] Worker: Srinath Erickson PhD, Phone: [phone] Performed By: #### L 100.0100, L500.4100, L501.9520, L3300.6900, L500.4050, L506.0400, L502.0500 ####[facility] [address] [place], [place], [phone] CBC W/Diff, Automatedon 06- Absolute Lymph 2.42 X10 3/uL Normal 0.83-4.51 [facility] Comment on above: Performed By: #### L 100.0100, L500.4100, L501.9520, L3300.6900, L500.4050, L506.0400, L502.0500 ####[facility] [address] [place], [place], [phone] Absolute Neut 6.7 X10 3/uL Normal 2.0-7.7 [facility] Comment on above: Performed By: #### L 100.0100, L500.4100, L501.9520, L3300.6900, L500.4050, L506.0400, L502.0500 ####[facility] [address] [place], [address] Basophils/100 WBC (Bld) 0.5 % Normal 0-1 [facility] Comment on above: Performed By: #### L 100.0100, L500.4100, L501.9520, L3300.6900, L500.4050, L506.0400, L502.0500 ####[facility] [address] [place], [address] Eosinophils/100 WBC (Bld) 5.2 % High 0-5 [facility] Comment on above: Performed By: #### L 100.0100, L500.4100, L501.9520, L3300.6900, L500.4050, L506.0400, L502.0500 ####[facility] [address] [place], [address] Erythrocyte distribution width (RBC) [Ratio] 13.2 % Normal 11.6-14.6 [facility] Comment on above: Performed By: #### L 100.0100, L500.4100, L501.9520, L3300.6900, L500.4050, L506.0400, L502.0500 ####[facility] [address] [place], [address]( Hematocrit (Bld) [Volume fraction] 40.7 % Normal 37-47 [facility] Comment on above: Performed By: #### L 100.0100, L500.4100, L501.9520, L3300.6900, L500.4050, L506.0400, L502.0500 ####[facility] [address] [place], [address]( Hemoglobin (Bld) [Mass/Vol] 13.3 g/dL Normal 12.0-15.0 [facility] Comment on above: Performed By: #### L 100.0100, L500.4100, L501.9520, L3300.6900, L500.4050, L506.0400, L502.0500 ####[facility] [address] [place], [address] IG% 0.500 Normal 0.0-0.9 [facility] Comment on above: Result Comment: IG% - Immature Granulocytes (promyelocytes, myelocytes and metamyelocytes) > 1% indicates that a LEFT SHIFT is Present. Performed By: #### L 100.0100, L500.4100, L501.9520, L3300.6900, L500.4050, L506.0400, L502.0500 ####[facility] [address] [place], [address] Lymphocytes/100 WBC (Bld) 23.5 % Normal 19-41 [facility] Comment on above: Performed By: #### L 100.0100, L500.4100, L501.9520, L3300.6900, L500.4050, L506.0400, L502.0500 ####[facility] [address] [place], [address] MCH (RBC) [Entitic mass] 31.3 pg Normal 27.0-32.0 [facility] Comment on above: Performed By: #### L 100.0100, L500.4100, L501.9520, L3300.6900, L500.4050, L506.0400, L502.0500 ####[facility] [address] [place], [address] MCHC (RBC) [Mass/Vol] 32.7 g/dL Normal 32-36 [facility] Comment on above: Performed By: #### L 100.0100, L500.4100, L501.9520, L3300.6900, L500.4050, L506.0400, L502.0500 ####[facility] [address] [place], [address] MCV (RBC) [Entitic vol] 95.8 fL Normal 81-99 [facility] Comment on above: Performed By: #### L 100.0100, L500.4100, L501.9520, L3300.6900, L500.4050, L506.0400, L502.0500 ####[facility] [address] [place], [address] Monocytes/100 WBC (Bld) 5.8 % Normal 0-10 [facility] Comment on above: Performed By: #### L 100.0100, L500.4100, L501.9520, L3300.6900, L500.4050, L506.0400, L502.0500 ####[facility] [address] [place], [address] Neutrophils/100 WBC (Bld) 64.5 % Normal 47-70 [facility] Comment on above: Performed By: #### L 100.0100, L500.4100, L501.9520, L3300.6900, L500.4050, L506.0400, L502.0500 ####[facility] [address] [place], [address] Nucleated RBC (Bld) [#/Vol] 0 10*3/uL Normal 0-5 [facility] Comment on above: Performed By: #### L 100.0100, L500.4100, L501.9520, L3300.6900, L500.4050, L506.0400, L502.0500 ####[facility] [address] [place], [address] Platelet mean volume (Bld) [Entitic vol] 9.6 fL Normal 6.2-12.0 [facility] Comment on above: Performed By: #### L 100.0100, L500.4100, L501.9520, L3300.6900, L500.4050, L506.0400, L502.0500 ####[facility] [address] [place], [address] Platelets (Bld) [#/Vol] 330 10*3/uL Normal 150-450 [facility] Comment on above: Performed By: #### L 100.0100, L500.4100, L501.9520, L3300.6900, L500.4050, L506.0400, L502.0500 ####[facility] [address] [place], [address] RBC (Bld) [#/Vol] 4.25 10*6/uL Normal 4.2-5.4 [facility] Comment on above: Performed By: #### L 100.0100, L500.4100, L501.9520, L3300.6900, L500.4050, L506.0400, L502.0500 ####[facility] [address] [place], [place], [phone](370) RDW SD 46.3 fl High 35.1-43.9 [facility] Comment on above: Performed By: #### L 100.0100, L500.4100, L501.9520, L3300.6900, L500.4050, L506.0400, L502.0500 ####[facility] [address] [place], [place], [phone] WBC (Bld) [#/Vol] 10.3 10*3/uL Normal 4.4-11.0 [facility] Comment on above: Performed By: #### L 100.0100, L500.4100, L501.9520, L3300.6900, L500.4050, L506.0400, L502.0500 ####[facility] [address] [place], [place], [phone] Comprehensive Metabolic Prof [facility] 02-09-2025 Albumin [Mass/Vol] 4.3 g/dL Normal 3.5-5.0 [facility] Comment on above: Performed By: #### L 100.0100, L500.4100, L501.9520, L3300.6900, L500.4050, L506.0400, L502.0500 ####[facility] [address] [place], [place], [phone] Albumin/Globulin [Mass ratio] 1.3 {ratio} Normal 0.9-2.4 [facility] Comment on above: Performed By: #### L 100.0100, L500.4100, L501.9520, L3300.6900, L500.4050, L506.0400, L502.0500 ####[facility] [address] [place], [address] ALK PHOS 104 U/L Normal 35-104 [facility] Comment on above: Performed By: #### L 100.0100, L500.4100, L501.9520, L3300.6900, L500.4050, L506.0400, L502.0500 ####[facility] [address] [place], [address] ALT [Catalytic activity/Vol] 17 U/L Normal <=34 [facility] Comment on above: Performed By: #### L 100.0100, L500.4100, L501.9520, L3300.6900, L500.4050, L506.0400, L502.0500 ####[facility] [address] [place], [place], [phone](511) AST [Catalytic activity/Vol] 20 U/L Normal <=31 [facility] Comment on above: Performed By: #### L 100.0100, L500.4100, L501.9520, L3300.6900, L500.4050, L506.0400, L502.0500 ####[facility] [address] [place], [place], [phone](303) Bilirubin [Mass/Vol] 0.50 mg/dL Normal 0.00-1.30 [facility] Comment on above: Performed By: #### L 100.0100, L500.4100, L501.9520, L3300.6900, L500.4050, L506.0400, L502.0500 ####[facility] [address] [place], [address] BUN/CRE 15.8 RATIO Normal 10-20 [facility] Comment on above: Performed By: #### L 100.0100, L500.4100, L501.9520, L3300.6900, L500.4050, L506.0400, L502.0500 ####[facility] [address] [place], [address] Calcium [Mass/Vol] 9.5 mg/dL Normal 7.6-11.0 [facility] Comment on above: Performed By: #### L 100.0100, L500.4100, L501.9520, L3300.6900, L500.4050, L506.0400, L502.0500 ####[facility] [address] [place], [address] Chloride [Moles/Vol] 103 mmol/L Normal 98-108 [facility] Comment on above: Performed By: #### L 100.0100, L500.4100, L501.9520, L3300.6900, L500.4050, L506.0400, L502.0500 ####[facility] [address] [place], [address] CO2 [Moles/Vol] 21.5 mmol/L Normal 21.0-32.0 [facility] Comment on above: Performed By: #### L 100.0100, L500.4100, L501.9520, L3300.6900, L500.4050, L506.0400, L502.0500 ####[facility] [address] [place], [address] Creatinine [Mass/Vol] 0.98 mg/dL Normal 0.70-1.20 [facility] Comment on above: Performed By: #### L 100.0100, L500.4100, L501.9520, L3300.6900, L500.4050, L506.0400, L502.0500 ####[facility] [address] [place], [address] GAP 13 Normal 5-15 [facility] Comment on above: Performed By: #### L 100.0100, L500.4100, L501.9520, L3300.6900, L500.4050, L506.0400, L502.0500 ####[facility] [address] [place], [address] GFR/1.73 sq M.predicted among non-blacks MDRD (S/P/Bld) [Vol rate/Area] 80 mL/min/{1.73_m2} Normal >60 [facility] Comment on above: Result Comment: mL/m in/1.73m2 CKD-EPI Creatinine Equation (2020) Performed By: #### L 100.0100, L500.4100, L501.9520, L3300.6900, L500.4050, L506.0400, L502.0500 ####[facility] [address] [place], [address] Globulin (S) [Mass/Vol] 3.4 g/dL Normal 2.2-4.2 [facility] Comment on above: Performed By: #### L 100.0100, L500.4100, L501.9520, L3300.6900, L500.4050, L506.0400, L502.0500 ####[facility] [address] [place], [address] Glucose [Mass/Vol] 134 mg/dL High 70-99 [facility] Comment on above: Performed By: #### L 100.0100, L500.4100, L501.9520, L3300.6900, L500.4050, L506.0400, L502.0500 ####[facility] [address] [place], [address] Potassium [Moles/Vol] 3.9 mmol/L Normal 3.3-5.1 [facility] Comment on above: Performed By: #### L 100.0100, L500.4100, L501.9520, L3300.6900, L500.4050, L506.0400, L502.0500 ####[facility] [address] [place], [address] Sodium [Moles/Vol] 137 mmol/L Normal 133-145 [facility] Comment on above: Performed By: #### L 100.0100, L500.4100, L501.9520, L3300.6900, L500.4050, L506.0400, L502.0500 ####[facility] [address] [place], [address] T PROT 7.7 g/dL Normal 5.9-8.4 [facility] Comment on above: Performed By: #### L 100.0100, L500.4100, L501.9520, L3300.6900, L500.4050, L506.0400, L502.0500 ####[facility] [address] [place], [place], [phone] Urea nitrogen [Mass/Vol] 16 mg/dL Normal 4-19 [facility] Comment on above: Performed By: #### L 100.0100, L500.4100, L501.9520, L3300.6900, L500.4050, L506.0400, L502.0500 ####[facility] [address] [place], [place], [phone] Lipid Profileon 02-09-2025 CHOL:HDL 5.52 Normal [facility] Comment on above: Performed By: #### L 100.0100, L500.4100, L501.9520, L3300.6900, L500.4050, L506.0400, L502.0500 ####[facility] [address] [place], [place], [id number] Cholesterol [Mass/Vol] 169 mg/dL Normal <=200 [facility] Comment on above: Result Comment: Chol esterol level, Desirable <200 mg/dL Borderline high cholesterol 200-239 mg/dL High cholesterol >=240 mg/dL Recommendations of the NCEP Adult Treatment Panel for the following risk-cutoff thresholds for the [place] population. Performed By: #### L 100.0100, L500.4100, L501.9520, L3300.6900, L500.4050, L506.0400, L502.0500 ####[facility] [address] [place], [address] Cholesterol in HDL [Mass/Vol] 31 mg/dL Low [facility] Comment on above: Result Comment: Mae onal Cholesterol Education Program (NCEP) guidelines: <40 mg/dL: Low HDL-cholesterol (major risk factor for CHD) >= 60 mg/dL: High HDL-cholesterol (negative risk factor for CHD) HDL-cholesterol is affected by a number of factors, e.g. smoking, exercise, hormones, sex and age. Performed By: #### L 100.0100, L500.4100, L501.9520, L3300.6900, L500.4050, L506.0400, L502.0500 ####[facility] [address] [place], [address] Cholesterol in LDL [Mass/Vol] 98 mg/dL Normal [facility] Comment on above: Result Comment: Bord bkyqfk=415-827 mg/dL Higher Dhip=773 mg/dL or greater Performed By: #### L 100.0100, L500.4100, L501.9520, L3300.6900, L500.4050, L506.0400, L502.0500 ####[facility] [address] [place], [address] Cholesterol in VLDL [Mass/Vol] 40 mg/dL Normal 5-40 [facility] Comment on above: Performed By: #### L 100.0100, L500.4100, L501.9520, L3300.6900, L500.4050, L506.0400, L502.0500 ####[facility] [address] [place], [address] Triglyceride [Mass/Vol] 202 mg/dL High [facility] Comment on above: Result Comment: The drugs N-Acetylcysteine and Metamizole may falsely depress this assay. Normal range: <150 mg/dL Borderline High: 150-199 mg/dL High: 200-499 mg/dL Very High: >500 mg/dL Performed By: #### L 100.0100, L500.4100, L501.9520, L3300.6900, L500.4050, L506.0400, L502.0500 ####[facility] [address] [place], [address] Microalbumin,Random Urineon 02-09-2025 MICROALBUMIN,UR < 12.0 Normal NO RANGE EST. [facility] Comment on above: Performed By: #### L 100.0100, L500.4100, L501.9520, L3300.6900, L500.4050, L506.0400, L502.0500 ####[facility] [address] [place], [address] T4 Free Directon 02-09-2025 T4 FREE DIRECT 0.90 ng/dL Normal 0.76-1.46 [facility] Comment on above: Performed By: #### L 100.0100, L500.4100, L501.9520, L3300.6900, L500.4050, L506.0400, L502.0500 ####[facility] [address] [place], [address] Thyroid Stim Hormone (TSH)on 02-09-2025 TSH 4.660 uIU/mL High 0.300-4.200 [facility] Comment on above: Performed By: #### L 100.0100, L500.4100, L501.9520, L3300.6900, L500.4050, L506.0400, L502.0500 ####[facility] [address] 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 LUNGS: There is a patchy opacity within the expected region of the right middle lobe. There are less pronounced ill-defined opacities within the left lower lung as well. No pneumothorax. MEDIASTINUM AND CARDIOVASCULAR STRUCTURES: Cardiac silhouette not enlarged. Central airways and mediastinal contour are unremarkable. BONES AND SOFT TISSUES: Unremarkable. RAD/Chest PA and Lateral IMPRESSION: Patchy opacities within the right middle lobe and the left lower lung concerning for multifocal pneumonia. Recommend follow-up chest radiograph 6-8 weeks to assess for resolution. Electronically Signed: Elenita Sears MD at 8:22 EST , CC: MICAELA Negron Car Rider: Signed Normal [facility] Basic Metabolic Profile (BMP )on 08-05-2024 BUN/CRE 13.0 RATIO Normal 10-20 [facility] Comment on above: Performed By: #### L 500.2500 #### [facility] [address] [place], [place], [id number] CA,Total 8.8 mg/dL Normal 8.5-10.1 [facility] Comment on above: Performed By: #### L 500.2500 #### [facility] [address] [place], [address] Chloride [Moles/Vol] 105 mmol/L Normal 98-107 [facility] Comment on above: Performed By: #### L 500.2500 #### [facility] [address] [place], [address] CO2 [Moles/Vol] 26.0 mmol/L Normal 21.0-32.0 [facility] Comment on above: Performed By: #### L 500.2500 #### [facility] [address] [place], [address] Creatinine [Mass/Vol] 1.08 mg/dL High 0.55-1.02 [facility] Comment on above: Result Comment: The validity of the calculated GFR GFRAA in patients over 70 years has not been determined. Clinical correlation is essential. Performed By: #### L 500.2500 #### [facility] [address] [place], [address] ECRCL 101.72 ml/min Normal [facility] Comment on above: Performed By: #### L 500.2500 #### [facility] [address] [place], [address] EST GFR - AA 77 mL/min Normal >60 [facility] Comment on above: Result Comment: Afri can [place] GFR Calc Performed By: #### L 500.2500 #### [facility] [address] [place], [address] GAP 6 Normal 5-15 [facility] Comment on above: Performed By: #### L 500.2500 #### [facility] [address] [place], [address] GFR/1.73 sq M.predicted among non-blacks MDRD (S/P/Bld) [Vol rate/Area] 64 mL/min/{1.73_m2} Normal >60 [facility] Comment on above: Result Comment: Non- GFR Calc Performed By: #### L 500.2500 #### [facility] [address] [place], [address] Glucose [Mass/Vol] 121 mg/dL High 74-106 [facility] Comment on above: Result Comment: Fast ing Glucose result from 100 to 125 mg/dL suggests IMPAIRED HOMEOSTASIS per A.D.A. criteria. Performed By: #### L 500.2500 #### [facility] [address] [place], [address] Potassium [Moles/Vol] 3.8 mmol/L Normal 3.5-5.1 [facility] Comment on above: Performed By: #### L 500.2500 #### [facility] [address] [place], [address] Sodium [Moles/Vol] 136 mmol/L Normal 136-145 [facility] Comment on above: Performed By: #### L 500.2500 #### [facility] [address] [place], [address] Urea nitrogen [Mass/Vol] 14 mg/dL Normal 7-18 [facility] Comment on above: Performed By: #### L 500.2500 #### [facility] [address] [place], [address] Emergency Department Summary on 08-05-2024 Emergency Department Summary [facility] Medical Records Department [address] [place] [address] Emergency Department Summary 08/05/24 MR#: [id number] Acct: [id number] Name: EDGARDO HENRY Rep #: [id number] : 1995 29 From: Felipe Estrada MD PCP: MICAELA Vences Status:REG ER Location: ED HPI History of Present Illness Chief Complaint: Cold Sx Detail of Chief Complaint: Systemic viral symptoms Informant: patient Onset/Context/Timin g Onset: Days (2 days ago) Context: Sudden Onset Timing: Continuous Quality: Upper respiratory tract infectious systems now GI Location: Respiratory and GI Current Severity: Mild Maximum Severity: Moderate Worsened by: Nothing specific Relieved by: Nothing Associated Symptoms Associated Symptoms: Congestion, nonproductive cough, nausea vomiting diarrhea Narrative Narrative: Patient is a 29-year-old woman. She has history of hypertension, type 2 diabetes on Ozempic who presents with upper respiratory tract infectious symptoms started 2 days ago with congestion, sore throat and nonproductive cough. She states she cannot stop coughing. She does vape. She denies headache, visual, ocular auditory symptoms. Last evening she developed nausea and vomiting. She vomited times twice 2. She denied hematemesis or coffee-ground emesis. She has had 4 loose watery stools without blood or mucus. She has no history of inflammatory bowel disorder. She denies increased urination. She has not checked her blood sugar this morning. She has had contact with other people who are ill. She has not noted a rash. She denies myalgias arthralgias or joint swelling. Prior similar symptoms: Yes Recent Illness/Hospitaliza tion: No PFSH PFSH Medical History Hypertension Diabetes Vitamin D insufficiency Hypothyroidism Abscess of right lower extremity excluding foot Weight gain, abnormal Morbid obesity COVID-19 Vaginal candidiasis Arrhythmia Obstructive sleep apnea Tachycardia Right hip pain Morbid obesity with BMI of 50.0-59.9, adult Hyperlipidemia Macromastia Dysfunctional uterine bleeding GERD (gastroesophageal reflux disease) Tachycardia GERD (gastroesophageal reflux disease) Chronic bronchitis Schizoaffective disorder Seasonal allergies Rash and nonspecific skin eruption Home Medications ???Medication ???Instructions ???Recorded ???Last Taken ???Type lamotrigine 200 mg tablet 200 mg PO DAILY seizures 09/28/16 04/22/23 History olanzapine 15 mg tablet 30 mg PO DAILY 07/31/21 04/22/23 History benztropine 0.5 mg tablet 0.5 mg PO DAILY PRN PRN TARDIVE 10/02/21 Unknown History DYKENISA levonorgestrel 20.4 mcg/24 hr (up 1 device intrauterine ONCE 03/11/22 04/22/23 History to 8 yrs) 52 mg intrauterine device (Liletta) metoprolol tartrate 25 mg tablet 25 mg PO BID #180 tabs 11/19/22 04/22/23 Rx venlafaxine 75 mg capsule,extended 75 mg PO DAILY 11/19/22 Unknown History release 24 hr lorazepam 1 mg tablet 1 mg PO QHS PRN anxiety 01/23/23 Unknown History risperidone 1 mg tablet See Rx Instructions PO BID 01/23/23 04/22/23 History melatonin 5 mg capsule 10 mg PO QHS 04/22/23 04/21/23 History hydrocodone-homatro pine 5 mg-1.5 5 ml PO Q6H PRN cough 4 days #80 mL 08/05/24 Unknown Rx mg/5 mL (5 mL) oral syrup (Hycodan) semaglutide 1 mg/dose (4 mg/3 mL) 1 mg subcut QWEEK 08/05/24 Unknown History subcutaneous pen injector (Ozempic) Allergy/AdvReac Type Severity Reaction Status Date / Time amoxicillin trihydrate (From Allergy Hives Verified 08/05/24 10:26 Augmentin) Penicillins Allergy Hives Verified 08/05/24 10:26 potassium clavulanate (From Allergy Hives Verified 08/05/24 10:26 Augmentin) Sulfa (Sulfonamide Allergy Hives Verified 08/05/24 10:26 Antibiotics) Family History Grandfather Alcoholism Depression CVA (cerebral vascular accident) Hypertension Mother Anxiety Hypertension Father Psychiatric care Grandmother Thyroid disorder Graves disease Surgical History H/O dilation and curettage History of tonsillectomy History of cholecystectomy Social History household members: other details: Hyacinth, and her mother housing: house current occupational status: disabled Smoking Status: Current every day smoker tobacco type: cigarettes Tobacco: How many years used: 10 how long ago did patient quit smokin06/01/2021 alcohol intake: never substance use type: does not use what type of physical activity do you participate in: none do you feel safe at home: Yes ROS ROS ED Constitutional Constitutional ED: Denies chills, fever(s), subjective or sweats Eyes Eyes: Denies blurry vision or sarah (more content not included)... Normal [facility] Lactic Acidon 08-05-2024 Lactate [Moles/Vol] 1.3 mmol/L Normal 0.4-1.9 [facility] Comment on above: Order Comment: Y Performed By: #### L 503.6005 ####[facility] [address] [place], [address] CBC W/Diff, Automatedon 04-02 Absolute Lymph 2.07 X10 3/uL Normal 0.83-4.51 [facility] Comment on above: Performed By: #### L 501.9520, L100.0100, L506.1000, L500.4100, L500.4050, L503.0105 #### [facility] [address] [place], [address] Absolute Neut 6.0 X10 3/uL Normal 2.0-7.7 [facility] Comment on above: Performed By: #### L 501.9520, L100.0100, L506.1000, L500.4100, L500.4050, L503.0105 #### [facility] [address] [place], [address] Basophils/100 WBC (Bld) 0.7 % Normal 0-1 [facility] Comment on above: Performed By: #### L 501.9520, L100.0100, L506.1000, L500.4100, L500.4050, L503.0105 #### [facility] [address] [place], [address] Eosinophils/100 WBC (Bld) 5.4 % High 0-5 [facility] Comment on above: Performed By: #### L 501.9520, L100.0100, L506.1000, L500.4100, L500.4050, L503.0105 #### [facility] [address] [place], [address] Erythrocyte distribution width (RBC) [Ratio] 13.8 % Normal 11.6-14.6 [facility] Comment on above: Performed By: #### L 501.9520, L100.0100, L506.1000, L500.4100, L500.4050, L503.0105 #### [facility] [address] [place], [address] Hematocrit (Bld) [Volume fraction] 43.4 % Normal 37-47 [facility] Comment on above: Performed By: #### L 501.9520, L100.0100, L506.1000, L500.4100, L500.4050, L503.0105 #### [facility] [address] [facility] [place], [address] Hemoglobin (Bld) [Mass/Vol] 14.0 g/dL Normal 12.0-15.0 [facility] Comment on above: Performed By: #### L 501.9520, L100.0100, L506.1000, L500.4100, L500.4050, L503.0105 #### [facility] [address] [place], [address] IG% 0.400 Normal 0.0-0.9 [facility] Comment on above: Result Comment: IG% - Immature Granulocytes (promyelocytes, myelocytes and metamyelocytes) > 1% indicates that a LEFT SHIFT is Present. Performed By: #### L 501.9520, L100.0100, L506.1000, L500.4100, L500.4050, L503.0105 #### [facility] [address] [place], [address] Lymphocytes/100 WBC (Bld) 22.5 % Normal 19-41 [facility] Comment on above: Performed By: #### L 501.9520, L100.0100, L506.1000, L500.4100, L500.4050, L503.0105 #### [facility] [address] [place], [address] MCH (RBC) [Entitic mass] 30.8 pg Normal 27.0-32.0 [facility] Comment on above: Performed By: #### L 501.9520, L100.0100, L506.1000, L500.4100, L500.4050, L503.0105 #### [facility] [address] [place], [address] MCHC (RBC) [Mass/Vol] 32.3 g/dL Normal 32-36 [facility] Comment on above: Performed By: #### L 501.9520, L100.0100, L506.1000, L500.4100, L500.4050, L503.0105 #### [facility] [address] [place], [address] MCV (RBC) [Entitic vol] 95.6 fL Normal 81-99 [facility] Comment on above: Performed By: #### L 501.9520, L100.0100, L506.1000, L500.4100, L500.4050, L503.0105 #### [facility] [address] [place], [address] Monocytes/100 WBC (Bld) 5.9 % Normal 0-10 [facility] Comment on above: Performed By: #### L 501.9520, L100.0100, L506.1000, L500.4100, L500.4050, L503.0105 #### [facility] [address] [place], [address] Neutrophils/100 WBC (Bld) 65.1 % Normal 47-70 [facility] Comment on above: Performed By: #### L 501.9520, L100.0100, L506.1000, L500.4100, L500.4050, L503.0105 #### [facility] [address] [place], [address] Nucleated RBC (Bld) [#/Vol] 0 10*3/uL Normal 0-5 [facility] Comment on above: Performed By: #### L 501.9520, L100.0100, L506.1000, L500.4100, L500.4050, L503.0105 #### [facility] [address] [place], [address] Platelet mean volume (Bld) [Entitic vol] 9.9 fL Normal 6.2-12.0 [facility] Comment on above: Performed By: #### L 501.9520, L100.0100, L506.1000, L500.4100, L500.4050, L503.0105 #### [facility] [address] [place], [address] Platelets (Bld) [#/Vol] 336 10*3/uL Normal 150-450 [facility] Comment on above: Performed By: #### L 501.9520, L100.0100, L506.1000, L500.4100, L500.4050, L503.0105 #### [facility] [address] [place], [address] RBC (Bld) [#/Vol] 4.54 10*6/uL Normal 4.2-5.4 [facility] Comment on above: Performed By: #### L 501.9520, L100.0100, L506.1000, L500.4100, L500.4050, L503.0105 #### [facility] [address] [place], [address] RDW SD 48.2 fl High 35.1-43.9 [facility] Comment on above: Performed By: #### L 501.9520, L100.0100, L506.1000, L500.4100, L500.4050, L503.0105 #### [facility] [address] [place], [address] WBC (Bld) [#/Vol] 9.2 10*3/uL Normal 4.4-11.0 [facility] Comment on above: Performed By: #### L 501.9520, L100.0100, L506.1000, L500.4100, L500.4050, L503.0105 #### [facility] [address] [place], [address] Comprehensive Metabolic Prof [facility] 04-28-2024 Albumin [Mass/Vol] 3.7 g/dL Normal 3.2-5.0 [facility] Comment on above: Performed By: #### L 501.9520, L100.0100, L506.1000, L500.4100, L500.4050, L503.0105 #### [facility] [address] [place], [address] Albumin/Globulin [Mass ratio] 0.9 {ratio} Normal 0.9-2.4 [facility] Comment on above: Performed By: #### L 501.9520, L100.0100, L506.1000, L500.4100, L500.4050, L503.0105 #### [facility] [address] [place], [address] ALK P 101 U/L Normal 45-117 [facility] Comment on above: Performed By: #### L 501.9520, L100.0100, L506.1000, L500.4100, L500.4050, L503.0105 #### [facility] [address] [place], [address] ALT [Catalytic activity/Vol] 24 U/L Normal 13-56 [facility] Comment on above: Performed By: #### L 501.9520, L100.0100, L506.1000, L500.4100, L500.4050, L503.0105 #### [facility] [address] [place], [address] AST [Catalytic activity/Vol] 17 U/L Normal 15-37 [facility] Comment on above: Performed By: #### L 501.9520, L100.0100, L506.1000, L500.4100, L500.4050, L503.0105 #### [facility] [address] [place], [address] Bilirubin [Mass/Vol] 0.70 mg/dL Normal 0.20-1.00 [facility] Comment on above: Result Comment: For patients on eltrombopag therapy, use of Dimension [place] TBIL is not recommended. Performed By: #### L 501.9520, L100.0100, L506.1000, L500.4100, L500.4050, L503.0105 #### [facility] [address] [place], [address] BUN/CRE 12.4 RATIO Normal 10-20 [facility] Comment on above: Performed By: #### L 501.9520, L100.0100, L506.1000, L500.4100, L500.4050, L503.0105 #### [facility] [address] [place], [address] CA,Total 8.9 mg/dL Normal 8.5-10.1 [facility] Comment on above: Performed By: #### L 501.9520, L100.0100, L506.1000, L500.4100, L500.4050, L503.0105 #### [facility] [address] [place], [address] Chloride [Moles/Vol] 108 mmol/L High 98-107 [facility] Comment on above: Performed By: #### L 501.9520, L100.0100, L506.1000, L500.4100, L500.4050, L503.0105 #### [facility] [address] [place], [address] CO2 [Moles/Vol] 22.0 mmol/L Normal 21.0-32.0 [facility] Comment on above: Performed By: #### L 501.9520, L100.0100, L506.1000, L500.4100, L500.4050, L503.0105 #### [facility] [address] [place], [address] Creatinine [Mass/Vol] 0.81 mg/dL Normal 0.55-1.02 [facility] Comment on above: Result Comment: The validity of the calculated GFR GFRAA in patients over 70 years has not been determined. Clinical correlation is essential. Performed By: #### L 501.9520, L100.0100, L506.1000, L500.4100, L500.4050, L503.0105 #### [facility] [address] [place], [address] EST GFR - AA 108 mL/min Normal >60 [facility] Comment on above: Result Comment: Afri can [place] GFR Calc Performed By: #### L 501.9520, L100.0100, L506.1000, L500.4100, L500.4050, L503.0105 #### [facility] [address] [place], [address] GAP 8 Normal 5-15 [facility] Comment on above: Performed By: #### L 501.9520, L100.0100, L506.1000, L500.4100, L500.4050, L503.0105 #### [facility] [address] [place], [address] GFR/1.73 sq M.predicted among non-blacks MDRD (S/P/Bld) [Vol rate/Area] 89 mL/min/{1.73_m2} Normal >60 [facility] Comment on above: Result Comment: Non- GFR Calc Performed By: #### L 501.9520, L100.0100, L506.1000, L500.4100, L500.4050, L503.0105 #### [facility] [address] [place], [address] Globulin (S) [Mass/Vol] 4.0 g/dL Normal 2.2-4.2 [facility] Comment on above: Performed By: #### L 501.9520, L100.0100, L506.1000, L500.4100, L500.4050, L503.0105 #### [facility] [address] [place], [address] Glucose [Mass/Vol] 93 mg/dL Normal 74-106 [facility] Comment on above: Performed By: #### L 501.9520, L100.0100, L506.1000, L500.4100, L500.4050, L503.0105 #### [facility] [address] [place], [address] Potassium [Moles/Vol] 3.9 mmol/L Normal 3.5-5.1 [facility] Comment on above: Performed By: #### L 501.9520, L100.0100, L506.1000, L500.4100, L500.4050, L503.0105 #### [facility] [address] [place], [address] Sodium [Moles/Vol] 138 mmol/L Normal 136-145 [facility] Comment on above: Performed By: #### L 501.9520, L100.0100, L506.1000, L500.4100, L500.4050, L503.0105 #### [facility] [address] [place], [address] T PROT 7.7 g/dL Normal 6.4-8.2 [facility] Comment on above: Performed By: #### L 501.9520, L100.0100, L506.1000, L500.4100, L500.4050, L503.0105 #### [facility] [address] [place], [address] Urea nitrogen [Mass/Vol] 10 mg/dL Normal 7-18 [facility] Comment on above: Performed By: #### L 501.9520, L100.0100, L506.1000, L500.4100, L500.4050, L503.0105 #### [facility] [address] [place], [address] Lipid Profileon 04-28-2024 Cholesterol [Mass/Vol] 186 mg/dL Normal 200 [facility] Comment on above: Result Comment: <200 mg/dL Desirable 200-240 mg/dL Borderline >240 mg/dL High Risk Performed By: #### L 501.9520, L100.0100, L506.1000, L500.4100, L500.4050, L503.0105 #### [facility] [address] [place], [address] Cholesterol in HDL [Mass/Vol] 29 mg/dL Low [facility] Comment on above: Result Comment: The drugs N-Acetylcysteine and Metamizole may falsely depress this assay. Reference Range HDL <40 mg/dL Low HDL Cholesterol HDL >or= 60 mg/dL High HDL Cholesterol Performed By: #### L 501.9520, L100.0100, L506.1000, L500.4100, L500.4050, L503.0105 #### [facility] [address] [place], [address] Cholesterol in LDL [Mass/Vol] 132 mg/dL High 0-130 [facility] Comment on above: Performed By: #### L 501.9520, L100.0100, L506.1000, L500.4100, L500.4050, L503.0105 #### [facility] [address] [place], [address] Cholesterol in VLDL [Mass/Vol] 25 mg/dL Normal 5-40 [facility] Comment on above: Performed By: #### L 501.9520, L100.0100, L506.1000, L500.4100, L500.4050, L503.0105 #### [facility] Laboratory [address] [place], [address] Triglyceride [Mass/Vol] 127 mg/dL Normal [facility] Comment on above: Result Comment: The drugs N-Acetylcysteine and Metamizole may falsely depress this assay. Serum Triglycerides Reference Interval Normal <150 mg/dL Borderline high 150 - 199 mg/dL High 200 - 499 mg/dL Very High > or = 500 mg/dL Performed By: #### L [id number], L100.0100, L506.1000, L500.4100, L500.4050, L503.0105 #### [facility] [address] [place], [address] Thyroid Stim Hormone (TSH)on 04-28-2024 TSH 3.460 uIU/mL Normal 0.358-3.740 [facility] Comment on above: Performed By: #### L [id number], L100.0100, L506.1000, L500.4100, L500.4050, L503.0105 #### [facility] [address] [place], [address] Vitamin B12on 04-28-2024 Cobalamin (Vitamin B12) [Mass/Vol] 416 pg/mL Normal 211-911 [facility] Comment on above: Performed By: #### L [id number], L100.0100, L506.1000, L500.4100, L500.4050, L503.0105 #### [facility] [address] [place], [address] Vitamin D,25 Hydroxyon 04-28 Vitamin D 25-OH 28.5 ng/mL Normal [facility] Comment on above: Result Comment: Emily min D 25(OH) Status Range Deficiency <20 ng/mL (50nmol/L) Insufficiency 20 - 30 ng/mL (50 - 75 nmol/L) Sufficiency 30 - 100 ng/mL (75 - 250 nmol/L) Toxicity >100 ng/mL (>250 nmol/L) Performed By: #### L [id number], L100.0100, L506.1000, L500.4100, L500.4050, L503.0105 #### [facility] [address] [place], [address] Emergency Department Summary on 04-14-2024 Emergency Department Summary [facility] Medical Records Department [address] [place] [address] Emergency Department Summary 04/14/24 MR#: [id number] Acct: [id number] Name: EDGARDO HENRY Rep #: [id number] : 1995 29 From: Dean Rowan MD PCP: MICAELA Vences Status:PRE ER Location: ED HPI History of Present Illness HPI Narrative: Try 9-year-old female history of diabetes and schizoaffective disorder. Complaining of right atraumatic shoulder pain since last . Denies any fall injury or trauma. No fever. Patient is right-hand dominant. No prior surgeries to the shoulder. Saw her primary care provider last week started the patient on meloxicam plus a muscle relaxant without any significant relief. Chief Complaint: Edema Informant: patient Occured/Mechanism Mechanism/Context: No injury and No blunt trauma Onset/Context/Timin g Onset: Days Context: Gradual Onset Timing: Continuous Quality of Pain: Dull and Aching Current Severity: Mild Maximum Severity: Mild Associated Symptoms Associated Symptoms: Negative for Parasthesia, Weakness or Loss of Funtion Narrative Narrative: 9-year-old female atraumatic right shoulder pain. Prior similar symptoms: No Recent Illness/Hospitaliza tion: No PFSH PFSH Medical History Vitamin D insufficiency Hypothyroidism Abscess of right lower extremity excluding foot Weight gain, abnormal Morbid obesity COVID-19 Vaginal candidiasis Arrhythmia Obstructive sleep apnea Tachycardia Right hip pain Morbid obesity with BMI of 50.0-59.9, adult Hyperlipidemia Macromastia Dysfunctional uterine bleeding GERD (gastroesophageal reflux disease) Tachycardia GERD (gastroesophageal reflux disease) Chronic bronchitis Schizoaffective disorder Seasonal allergies Rash and nonspecific skin eruption Home Medications ???Medication ???Instructions ???Recorded ???Last Taken ???Type lamotrigine 200 mg tablet 200 mg PO DAILY seizures 09/28/16 04/22/23 History olanzapine 15 mg tablet 30 mg PO DAILY 07/31/21 04/22/23 History benztropine 0.5 mg tablet 0.5 mg PO DAILY PRN PRN TARDIVE 10/02/21 Unknown History DYKENISA levonorgestrel 20.4 mcg/24 hr (up 1 device intrauterine ONCE 03/11/22 04/22/23 History to 8 yrs) 52 mg intrauterine device (Liletta) metoprolol tartrate 25 mg tablet 25 mg PO BID #180 tabs 11/19/22 04/22/23 Rx venlafaxine 75 mg capsule,extended 75 mg PO DAILY 11/19/22 Unknown History release 24 hr cholecalciferol (vitamin D3) 50 50 mcg PO DAILY #90 caps 01/23/23 04/22/23 Rx mcg (2,000 unit) capsule fluticasone propionate 50 2 spray intranasal DAILY #15.8 01/23/23 04/22/23 Rx mcg/actuation nasal grams spray,suspension (Flonase Allergy Relief) lorazepam 1 mg tablet 1 mg PO QHS PRN anxiety 01/23/23 Unknown History risperidone 1 mg tablet See Rx Instructions PO BID 01/23/23 04/22/23 History levothyroxine 50 mcg tablet 50 mcg PO DAILY #90 tabs 04/16/23 04/22/23 Rx melatonin 5 mg capsule 10 mg PO QHS 04/22/23 04/21/23 History mqseuxwh-pbugwz-OE- thonzonm 3.3 4 drp RIGHT EAR TID #10 mL 04/22/23 Unknown Rx mg-3 mg-10 mg-0.5 mg/mL ear drops,susp (Cortisporin-TC) benzonatate 200 mg capsule 200 mg PO TID PRN cough #20 caps 07/21/23 Unknown Rx codeine 10 mg-guaifenesin 100 mg/5 5 ml PO Q6H PRN cold symptoms #118 07/21/23 Unknown Rx mL oral liquid mL oxymetazoline 0.05 % nasal mist 2 spray intranasal Q12H PRN nasal 07/21/23 Unknown Rx (Afrin (oxymetazoline)) congestion 3 days #15 mL Allergy/AdvReac Type Severity Reaction Status Date / Time amoxicillin trihydrate (From Allergy Hives Verified 04/14/24 13:22 Augmentin) Penicillins Allergy Hives Verified 04/14/24 13:22 potassium clavulanate (From Allergy Hives Verified 04/14/24 13:22 Augmentin) Sulfa (Sulfonamide Allergy Hives Verified 04/14/24 13:22 Antibiotics) Family History Grandfather Alcoholism Depression CVA (cerebral vascular accident) Hypertension Mother Anxiety Hypertension Father Psychiatric care Grandmother Thyroid disorder Graves disease Surgical History H/O dilation and curettage History of tonsillectomy History of cholecystectomy Social History household members: other details: Hyacinth, and her mother housing: house current occupational status: disabled Smoking Status: Current every day smoker tobacco type: cigarettes Tobacco: How many years used: 10 how long ago did patient quit smokin06/01/2021 alcohol intake: never substance use type: does not use what type of physical activity do you participate in: none do you feel safe at home: Yes [facility] ED ISAC Richardson (more content not included)... Normal [facility] CNOVon 04-12-2024 CNOV Office Visit ([facility]) ---- EDGARDO HENRY ([id number]) 1995 F Date Time Provider Department 04/12/24 7:30 PM COMFORT PINEDA [facility] During your visit today, we recorded the following information about you: Temperature Pulse Respiration Blood pressure 98.2 degrees 89/minute 22/minute 124/82 Weight 145.1 kg Comfort Pineda APRN.CNP 04/12/2024 7:53 PM Signed Triage Note: Patient was seen by Brock Negron and placed on meloxicam and flexeril for right shoulder pain. Today when she woke up she is having right sided facial, neck and arm swelling and pain. She denies any throat swelling or difficulty breathing. States she is in a lot of pain.05/11. Due to degree of pain and swelling, advised patient be seen in ER for further evaluation and treatment. Patient was in [place] ED and left without being seen. Comfort Pineda APRN.GLASS RIBBON MACHINE OPERATOR ASSISTANT Allergies As of Date: 04/12/2024 Noted Allergy Reaction AUGMENTIN (AMOXICILLIN-POT CLAVUL*12/25/2007 4 - Hives PENICILLIN G 12/25/2007 4 - Hives SULFA (SULFONAMIDE ANTIBIOTICS) 12/25/2007 4 - Hives Date Reviewed: 04/12/2024 Reviewed by: Lina Maher MA - Fully Assessed Reason for Visit: Pain [78] Cmt: Right side pain x 2 weeks right side starting to swell and painful started today Primary Visit Diagnosis:Facial swelling [R22.0] Prescriptions as of 04/12/2024 - OLANZapine (ZYPREXA) 15 mg tablet Take 2 tablets by mouth every afternoon. - OZEMPIC 1 mg/dose (4 mg/3 mL) pen inject 1 mg weekly - metoprolol tartrate, short acting, (LOPRESSOR) 25 mg tablet Take 1 tablet by mouth every 12 hours. - venlafaxine ER (EFFEXOR XR) 75 mg 24 hr capsule Take 75 mg by mouth. - LORazepam (ATIVAN) 1 mg tablet Take 1 mg by mouth once daily as needed. - olanzapine (ZYPREXA ORAL) ZyPREXA - risperiDONE (RISPERDAL) 1 mg tablet Take 1 mg by mouth daily at bedtime. - PALIPERIDONE PALMITATE (INVEGA TRINZA INTRAMUSC.) Inject intramuscularly. - albuterol HFA (PROAIR HFA) 90 mcg/actuation inhaler Inhale 2 Puffs as instructed every 6 hours as needed for Wheezing/Shortness of Breath. - risperiDONE (RISPERDAL) 0.5 mg tablet Take 0.5 mg by mouth twice daily. - diphenhydrAMINE (ALLERGY) 25 mg tablet Take 2 tablets by mouth every 6 hours as needed (prn hives). - famotidine (PEPCID) 20 mg tablet Take 1 tablet by mouth twice daily. - ZOLPIDEM TARTRATE (AMBIEN ORAL) Take by mouth. - asenapine sublingual (SAPHRIS) 5 mg subl Dissolve under the tongue twice daily. - lamotrigine 100 mg ORAL tablet Problem List As Of Date 04/12/2024 Noted Resolved BIPOLAR - MOST RECENTLY MIXED MODERATE [F31.62] 07/05/2008 POSTTRAUMATIC STRESS DISORDER [F43.10] 07/05/2008 Choledocholithiasis [K80.50] 06/30/2013 Calculus of gallbladder without mention of chol*06/30/2013 Acute cholecystitis [K81.0] 06/30/2013 Encounter Status:Closed by COMFORT PINEDA on 04/12/24 [facility] Lab Report: Rapid Plasmin Re agin (RPR)on 06-06-2017 Reagin Ab VDRL Qn (S) NONREACTIVE Invalid Interpretation Code NONREACTIVE [facility] Replaced Document: (P) HSV 1 AND 2 IgGon 06-04-2017 HSV 2 IgG 3.55 index High 0.00-0.90 [facility] Replaced Document: (P) Hepat itis C Antibodieson 06-04-2017 HCV Ab IB Ql (S) <0.1 Invalid Interpretation Code 0.0-0.9 [facility] Lab Report: CT/NG [facility] BY PCR on 06-02-2017 Chlamydia trachomatis DNA [Presence] in Urine by Probe and target amplification method Negative Invalid Interpretation Code Negative [facility] Neisseria gonorrhoeae presence Negative Invalid Interpretation Code Negative [facility] Microbiology: Culture, Genit al Comprehensiveon 05-31-2017 CUV Neisseria or beta-hemolytic Streptococcus isolated. Invalid Interpretation Code [facility] Lab Report: CT/NG [facility] BY PCR on 05-28-2017 Chlamydia trachomatis DNA [Presence] in Urine by Probe and target amplification method Negative Negative [facility] Neisseria gonorrhoeae presence Negative Negative [facility] Microbiology: (P) Culture, G enital Comprehensiveon 05-28-2017 CUV . [facility] Office Visiton 05-27-2017 Dietary management education, guidance, and counseling (procedure) yes Invalid Interpretation Code [facility] Tobacco smoking status MAIS Never Invalid Interpretation Code [facility] Tobacco smoking status MAIS Never smoker Invalid Interpretation Code [facility] Tobacco use HS Never smoker Invalid Interpretation Code [facility] Lab Report: Urinalysis, Comp leteon 05-12-2017 Albumin Ql (U) Negative Invalid Interpretation Code Negative [facility] Bilirubin Ql (U) Negative Invalid Interpretation Code Negative [facility] Ketones mass conc (U) Negative Invalid Interpretation Code Negative [facility] NITRITE UR Negative Invalid Interpretation Code Negative [facility] Nitrite Urine Negative Invalid Interpretation Code Negative [employer] Work Phone: Occult Blood, urine Negative Invalid Interpretation Code Negative [facility] Work Phone: OCCULT BLOOD-UR Negative Invalid Interpretation Code Negative [facility] pH (U) 6.0 [pH] 5.0 - 8.0 [facility] specific gravity, urine 1.010 Invalid Interpretation Code 1.002-1.030 [facility] Work Phone: Urine, bilirubin presence Negative Invalid Interpretation Code Negative [facility] Work Phone: Urine, clarity Sl. Cloudy Invalid Interpretation Code [facility] Work Phone: Urine, color Yellow Invalid Interpretation Code Yellow [facility] Work Phone: Urine, glucose presence Normal mg/dl Invalid Interpretation Code Normal [facility] Work Phone: Urine, ketones presence Negative Invalid Interpretation Code Negative [facility] Work Phone: Urine, leukocyte esterase presence Negative Invalid Interpretation Code Negative [facility] Work Phone: Urine, pH 6.0 [pH] Invalid Interpretation Code 5.0 - 8.0 [facility] Work Phone: Urine, protein Negative Invalid Interpretation Code Negative [facility] Work Phone: UROBILI Normal mg/dl Invalid Interpretation Code Normal [facility] urobilinogen, urine, by dipstick Normal mg/dl Invalid Interpretation Code Normal [facility] Work Phone: Office Visit: follow upon Documentation of current medications (procedure) Done Invalid Interpretation Code [facility] Work Phone: Fall risk assessment No Invalid Interpretation Code [facility] Work Phone: Protein mass conc Done Invalid Interpretation Code [facility] Protein mass conc yes Invalid Interpretation Code [facility] Smoking cessation education (procedure) yes Invalid Interpretation Code [facility] Work Phone: Tobacco use CPHS Current every day smoker Invalid Interpretation Code [facility] Work Phone: Replaced Document: (P) Pregn aimee,Urineon 05-12-2017 HCG.beta subunit ( test) Ql (U) Negative Invalid Interpretation Code [facility] Urine, test (choriogonadotropin presence) Negative Invalid Interpretation Code [facility] Work Phone: Replaced Document: (P) Urina lysis, Completeon 05-12-2017 Bacteria LM.HPF #/area (Urine sed) 0 SEEN /hpf None Seen [facility] Mucus Ql (Urine sed) 0 SEEN [facility] [place] Urine, bacteria in sediment 0 /[HPF] Invalid Interpretation Code None Seen [facility] Work Phone: Urine, epithelial cells in sediment 0 SEEN Invalid Interpretation Code 5-10 [facility] Work Phone: Urine, erythrocytes in sediment by volume 0 SEEN Invalid Interpretation Code 0-5 [facility] Work Phone: Urine, mucus presence in sediment 0 SEEN Invalid Interpretation Code [facility] Work Phone: WBC 0 SEEN Invalid Interpretation Code 0-5 [facility] WBC #/vol (Bld) 0 SEEN 0-5 [facility] Department WBC (Leukocytes) 0 SEEN Invalid Interpretation Code 0-5 [facility] Work Phone: Lab Report: Comprehensive Me tabolic Profil 04-15-2017 Alanine aminotransferase (ALT) 21 U/L Invalid Interpretation Code 12-78 [facility] Work Phone: Albumin 3.9 g/dL Invalid Interpretation Code 3.4-5.0 [facility] Work Phone: Albumin/Globulin Ratio 1 {ratio} Invalid Interpretation Code 0.9-2.4 [facility] Work Phone: Alkaline phosphatase (ALP) 118 U/L High 45-117 [facility] Work Phone: ALP enzyme act/vol (Bld) 118 U/L High 45-117 [facility] Emergency Department Anion gap 5 mmol/L Invalid Interpretation Code 5-15 [facility] Work Phone: Anion gap 4 molar conc 5 Invalid Interpretation Code 5-15 [facility] Anion gap molar conc 5 mmol/L 5-15 [facility] Aspartate aminotransferase (AST) 9 U/L Low 15-37 [facility] Work Phone: Bilirubin (total) 0.60 mg/dL Invalid Interpretation Code 0.20-1.00 [facility] Work Phone: BUN/Creatinine Ratio 14.6 RATIO Invalid Interpretation Code 10-20 [facility] Work Phone: Calcium 8.6 mg/dL Invalid Interpretation Code 8.5-10.1 [facility] Work Phone: Chloride 104 mmol/L Invalid Interpretation Code 98-107 [facility] Work Phone: CO2 26.0 mmol/L Invalid Interpretation Code 21.0-32.0 [facility] Work Phone: CO2 ppres (BldV) 26.0 mmol/L Invalid Interpretation Code 21.0-32.0 [facility] Emergency Department Creatinine 0.82 mg/dL Invalid Interpretation Code 0.55-1.02 [facility] Work Phone: eGFR (non-black) 112 mL/min/{1.73_m2} Invalid Interpretation Code >60 [facility] Work Phone: eGFR (non-black) 92 mL/min/{1.73_m2} Invalid Interpretation Code >60 [facility] Work Phone: EST GFR - AA 112 mL/min Invalid Interpretation Code >60 [facility] Globulin 4.1 g/dL High 2.3-3.5 [facility] Work Phone: Globulin mass conc (S) 4.1 g/dL High 2.3-3.5 [facility] Emergency Department Glucose 77 mg/dL Invalid Interpretation Code 70-110 [facility] Work Phone: Glucose mass conc 77 mg/dL Invalid Interpretation Code 70-110 [facility] Department Potassium 3.9 mmol/L Invalid Interpretation Code 3.5-5.1 [facility] Work Phone: Protein 8.0 g/dL Invalid Interpretation Code 6.4-8.2 [facility] Work Phone: Sodium 135 mmol/L Low 136-145 [facility] Work Phone: Urea nitrogen 12 mg/dL Invalid Interpretation Code 7-18 [facility] Work Phone: Lab Report: Hemoglobin A1con 04-15-2017 HbA1c 5.1 % Invalid Interpretation Code 4.2-6.3 [facility] Work Phone: Lab Report: Lipid Profileon 04-15-2017 Cholesterol 201 mg/dL High 200 [facility] Work Phone: HDL Cholesterol 42 mg/dL Invalid Interpretation Code [facility] Work Phone: LDL Cholesterol 135 mg/dL High 0-130 [facility] Work Phone: Triglyceride 120 mg/dL Invalid Interpretation Code [facility] Work Phone: very low density lipoproteins 24 mg/dL Invalid Interpretation Code 5-40 [facility] Work Phone: Lab Report: T4 Free Directon 04-15-2017 Thyroxine (T4) free 0.91 ng/dL Invalid Interpretation Code 0.76-1.46 [facility] Work Phone: Lab Report: Thyroid Stim Hor kirk (TSH)on 04-15-2017 Thyroid stimulating hormone (TSH) 1.36 u[iU]/mL Invalid Interpretation Code 0.358-3.74 [facility] Work Phone: Office Visit: New Pt. Visito n 03-18-2017 Documentation of current medications (procedure) Done Invalid Interpretation Code [facility] Fall risk assessment No Invalid Interpretation Code [facility] Protein mass conc yes [facility] Protein mass conc Done [facility] Smoking cessation education (procedure) yes Invalid Interpretation Code [facility] Tobacco smoking status NHIS Current every day smoker [facility] Tobacco use CPHS Current every day smoker Invalid Interpretation Code [facility] Vital Signs Date Time Vital Sign Value Performing Clinician Facility 04-12-2024 19:44-0400 Body temperature 98.2 [degF] Comfort Loy BOWLING FLOOR MANAGER.[employer]ASS RIBBON MACHINE OPERATOR ASSISTANT Work Phone: [facility] 04-12-2024 19:44-0400 Body weight 145.1 kg Comfort Loy BOWLING FLOOR MANAGER.GLASS RIBBON MACHINE OPERATOR ASSISTANT Work Phone: [facility] 04-12-2024 19:44-0400 Diastolic blood pressure 82 mm[Hg] Comfort Loy BOWLING FLOOR MANAGER.GLASS RIBBON MACHINE OPERATOR ASSISTANT Work Phone: [facility] 04-12-2024 19:44-0400 Heart rate 89 /min Comfort Loy BOWLING FLOOR MANAGER.GLASS RIBBON MACHINE OPERATOR ASSISTANT Work Phone: [facility] 04-12-2024 19:44-0400 Respiratory rate 22 /min Comfort Loy BOWLING FLOOR MANAGER.GLASS RIBBON MACHINE OPERATOR ASSISTANT Work Phone: [facility] 04-12-2024 19:44-0400 SaO2% (BldA) [Mass fraction] 94 % Comfort Loy BOWLING FLOOR MANAGER.GLASS RIBBON MACHINE OPERATOR ASSISTANT Work Phone: [facility] 04-12-2024 19:44-0400 Systolic blood pressure 124 mm[Hg] Comfort Loy BOWLING FLOOR MANAGER.GLASS RIBBON MACHINE OPERATOR ASSISTANT Work Phone: [facility] 05-27-2017 15:00-0400 BMI (Body Mass Index) 42.9 kg/m2 Argenis Plummer NP [facility] Department 05-27-2017 15:00-0400 Body Temperature 96 [degF] Argeins Plummer VENDING MACHINE COIN COLLECTOR [facility] 05-27-2017 15:00-0400 BP Diastolic 81 mm[Hg] Argenis Kavitha VENDING MACHINE COIN COLLECTOR [facility] 05-27-2017 15:00-0400 BP Systolic 123 mm[Hg] Argenis Rodriguezs VENDING MACHINE COIN COLLECTOR [facility] 05-27-2017 15:00-0400 Height 165.1 cm Argenis Plummer VENDING MACHINE COIN COLLECTOR [facility] 05-27-2017 15:00-0400 Pulse (Heart Rate) 106 /min Argenis Plummer VENDING MACHINE COIN COLLECTOR [facility] 05-27-2017 15:00-0400 Weight 116.94 kg Argenis Plummer VENDING MACHINE COIN COLLECTOR [facility] 05-12-2017 13:43-0400 BMI (Body Mass Index) 48.44 kg/m2 Annamarie Tovar MD [facility] Work Phone: 05-12-2017 13:43-0400 Body Temperature 97.5 [degF] Annamarie Tovar MD [facility] Work Phone: 05-12-2017 13:43-0400 BP Diastolic 81 mm[Hg] Annamarie Tovar MD [facility] Work Phone: 05-12-2017 13:43-0400 BP Systolic 124 mm[Hg] Annamarie Tovar MD [facility] Work Phone: 05-12-2017 13:43-0400 Height 154.94 cm Annamarie Tovar MD [facility] Work Phone: 05-12-2017 13:43-0400 Pulse (Heart Rate) 102 /min Annamarie Tovar MD [facility] Work Phone: 05-12-2017 13:43-0400 Respiratory Rate 20 /min Annamarie Tovar MD [facility] Work Phone: 05-12-2017 13:43-0400 Weight 116.3 kg Annamarie Tovar MD [facility] Work Phone: 03-18-2017 13:0400 BMI (Body Mass Index) 46.48 kg/m2 Annamarie Tovar MD [facility] 03-18-2017 13:0400 BP Diastolic 72 mm[Hg] Annamarie Tovar MD [facility] 03-18-2017 13:0400 BP Systolic 122 mm[Hg] Annamarie Tovar MD [facility] 03-18-2017 13:0400 Height 154.94 cm Annamarie Tovar MD [facility] 03-18-2017 13:0400 Pulse (Heart Rate) 70 /min Annamarie Tovar MD [facility] 03-18-2017 13:040 Weight 111.59 kg Annamarie Tovar MD [facility] Encounters Encounter Date Encounter Type Care Provider Facility Start: 02-09-2025 End: 02-09-2025 ambulatory [facility] Facility:[facility] Start: 08-06-2024 End: 08-06-2024 ambulatory [facility] Facility:[facility] Start: 08-05-2024 End: 08-05-2024 Emergency department patient visit Felipe Estrada Facility:[facility] Start: 04-28-2024 End: 04-28-2024 ambulatory [facility] Facility:[facility] Start: 04-14-2024 End: 04-14-2024 Emergency department patient visit [facility] Facility:[facility] Start: 04-12-2024 End: 04-12-2024 ambulatory MIKE PADILLA [place]LANTA Facility:[facility] Start: 04-12-2024 End: 04-12-2024 Patient encounter procedure Comfort Pineda APRN.GLASS RIBBON MACHINE OPERATOR ASSISTANT Work Phone: [facility] Comment on above: Facial swelling (Jimena lina Dx) Start: 04-12-2024 End: 04-12-2024 Emergency department patient visit [facility] Facility:[facility] Start: 11-12-2021 Telephone encounter Oli Marroquin MD Work Phone: Neurology Comment on above: consult faxed from [facility] Procedures Date Procedure Procedure Detail Performing Clinician Start: 05-27-2017 End: 05-27-2017 Dietary management education, guidance, and counseling Argenis Plummer VENDING MACHINE COIN COLLECTOR Start: 05-27-2017 End: 06-05-2017 *HECAB Hepatitis C Antibody Argenis rosas VENDING MACHINE COIN COLLECTOR Work Phone: Start: 05-27-2017 End: 06-05-2017 *HIV antibody Argenis Plummer VENDING MACHINE COIN COLLECTOR Work Phone: Start: 05-27-2017 End: 06-05-2017 Herpes simplex virus 1+2 IgG Ab [Units/volume] in Serum Argenis Plummer VENDING MACHINE COIN COLLECTOR Work Phone: Start: 05-27-2017 End: 06-10-2017 Reagin Ab [Presence] in Serum by RPR Argenis Plummer VENDING MACHINE COIN COLLECTOR Work Phone: Start: 05-27-2017 End: 05-28-2017 Us pelvic nonobstetric real-time image complete Argenis Plummer VENDING MACHINE COIN COLLECTOR Work Phone: Start: 05-27-2017 End: 05-28-2017 Us transvaginal Argenis Plummer VENDING MACHINE COIN COLLECTOR Work Phone: Start: 05-27-2017 Venereal disease screening Std scree melanie Plummer VENDING MACHINE COIN COLLECTOR Start: 05-27-2017 End: 05-28-2017 *HECAB Hepatitis C Antibody Argenis rosas VENDING MACHINE COIN COLLECTOR Work Phone: Start: 05-27-2017 End: 05-28-2017 *HIV antibody Argenis Plummer VENDING MACHINE COIN COLLECTOR Work Phone: Start: 05-27-2017 End: 05-28-2017 Herpes simplex virus 1+2 IgG Ab [Units/volume] in Serum Argenis Plummer VENDING MACHINE COIN COLLECTOR Work Phone: Start: 05-27-2017 End: 05-28-2017 Reagin antibody presence Argenis Rodriguez s VENDING MACHINE COIN COLLECTOR Work Phone: Start: 05-27-2017 End: 05-28-2017 Transvaginal us, non-ob Argenis Plummer VENDING MACHINE COIN COLLECTOR Work Phone: Start: 05-27-2017 End: 05-28-2017 Us exam, pelvic, complete Argenis Rock gs VENDING MACHINE COIN COLLECTOR Work Phone: Start: 05-27-2017 Venereal disease screening Std scree melanie Plummer VENDING MACHINE COIN COLLECTOR Start: 05-12-2017 End: 05-12-2017 Urinalysis Argenis Plummer VENDING MACHINE COIN COLLECTOR Start: 05-12-2017 End: 05-14-2017 Follow Up Appt 6 weeks Annamarie stone MD Work Phone: Start: 05-12-2017 End: 05-14-2017 Gonadotropin chorionic quantitative Annamarie Tovar MD Work Phone: Start: 05-12-2017 End: 05-14-2017 Hemoglobin.gastrointestinal [Presence] in Stool by Immunologic method Annamarie Tovar MD Work Phone: Start: 05-12-2017 End: 05-13-2017 Urinalysis complete panel - Urine Annamarie Tovar MD Work Phone: Start: 05-12-2017 End: 05-14-2017 Chorionic gonadotropin test Annamarie Tovar MD Work Phone: Start: 05-12-2017 End: 05-14-2017 Follow Up Appt 6 weeks Annamarie stone MD Work Phone: Start: 05-12-2017 End: 05-14-2017 Hemoglobin by Imm presence in stool Annamarie Tovar MD Work Phone: Start: 05-12-2017 End: 05-13-2017 Urinalysis complete panel - Urine Annamarie Tovar MD Work Phone: Start: 03-18-2017 End: 04-15-2017 *CMP Complete Metabolic Panel Annamarie Tovar MD Work Phone: Start: 03-18-2017 End: 05-14-2017 Electrocardiogram Annamarie Franks Work Phone: Start: 03-18-2017 End: 03-18-2017 Follow Up Appt 3 months Annamarie travis MD Work Phone: Start: 03-18-2017 End: 04-15-2017 Hemoglobin A1c/Hemoglobin.total in Blood Annamarie Tovar MD Work Phone: Start: 03-18-2017 End: 04-15-2017 Lipid 1996 panel - Serum or Plasma Annamarie Tovar MD Work Phone: Start: 03-18-2017 End: 04-15-2017 Thyrotropin [Units/volume] in Serum or Plasma Annamarie Tovar MD Work Phone: Start: 03-18-2017 End: 04-15-2017 Thyroxine (T4) free [Mass/volume] in Serum or Plasma Annamarie Tovar MD Work Phone: Start: 03-18-2017 End: 04-15-2017 *CMP Complete Metabolic Panel Annamarie Tovar MD Work Phone: Start: 03-18-2017 End: 05-14-2017 Electrocardiogram Annamarie Franks Work Phone: Start: 03-18-2017 End: 03-18-2017 Follow Up Appt 3 months Annamarie travis MD Work Phone: Start: 03-18-2017 End: 04-15-2017 HbA1c Annamarie Franks Work Phone: Start: 03-18-2017 End: 04-15-2017 Lipid panel [AGGREGATE] Annamarie travis MD Work Phone: Start: 03-18-2017 End: 04-15-2017 Thyroid stimulating hormone (TSH) Annamarie Tovar MD Work Phone: Start: 03-18-2017 End: 04-15-2017 Thyroxine (T4) free Annamarie Franks Work Phone: Plan of Treatment Date Care Activity Detail Author Start: 05-02-2024 Influenza vaccination Influenza Vaccine (#1) [facility] Start: 05-02-2023 Covid-19 Vaccine ( season) Covid-19 Vaccine () [facility] Start: 05-02-2021 Influenza vaccination INFLUENZA (#1) [facility] Start: 10-02-2019 Urine microalbumin profile DTaP,Tdap,Td Vaccine (8 - Td or Tdap) [facility] Start: 12-24-2017 Urine microalbumin profile DTAP,TDAP,TD (2 - Td or Tdap) [facility] Start: 06-23-2017 End: 06-23-2017 Appointment Appointment [facility] Phone: Start: 06-17-2017 End: 06-17-2017 Appointment Appointment [facility] Start: 05-27-2017 End: 05-27-2017 Appointment Appointment [facility] Start: 05-27-2017 End: 05-28-2017 *GC/Chlamydia *GC/Chlamydia [facility] Start: 05-27-2017 End: 05-28-2017 *HECAB Hepatitis C Antibody *HECAB Hepatitis C Antibody [facility] Start: 05-27-2017 End: 05-28-2017 *HIV antibody *HIV antibody [facility] Start: 05-27-2017 End: 05-28-2017 Bacteria genital culture *CUV - Culture, VAG/CX [facility] Start: 05-27-2017 End: 05-28-2017 Herpes simplex virus 1+2 IgG Ab [Units/volume] in Serum *HS12G Herpes Simplex Antibody [facility] Start: 05-27-2017 End: 05-28-2017 Reagin antibody presence *RPR [facility] Start: 05-27-2017 End: 05-28-2017 Us pelvic nonobstetric real-time image complete US Pelvis [facility] Start: 05-27-2017 End: 05-28-2017 Us transvaginal US Transvaginal [facility] Start: 05-27-2017 End: 05-28-2017 *GC/Chlamydia *GC/Chlamydia [facility] Start: 05-27-2017 End: 05-28-2017 *HECAB Hepatitis C Antibody *HECAB Hepatitis C Antibody [facility] Start: 05-27-2017 End: 05-28-2017 *HIV antibody *HIV antibody [facility] Start: 05-27-2017 End: 05-28-2017 Bacteria genital culture *CUV - Culture, VAG/CX Comprehensive [facility] Start: 05-27-2017 End: 05-28-2017 Herpes simplex virus 1+2 IgG Ab [Units/volume] in Serum *HS12G Herpes Simplex Antibody [facility] Start: 05-27-2017 End: 05-28-2017 Reagin antibody presence *RPR [facility] Start: 05-27-2017 End: 05-28-2017 Transvaginal us, non-ob US Transvaginal [facility] Start: 05-27-2017 End: 05-28-2017 Us exam, pelvic, complete US Pelvis [facility] Start: 05-23-2017 End: 05-23-2017 Appointment Appointment [facility] Work Phone: Start: 05-13-2017 End: 05-14-2017 Gynecology & Obstetrics Gynecology & Obstetrics Violet Davison, [facility], [address], [address], [place], [address] [facility] Start: 05-13-2017 End: 05-14-2017 Gynecology & Obstetrics Gynecology & Obstetrics Violet Davison, [facility], [address], [address], [place], [address] [facility] Work Phone: Start: 05-12-2017 End: 05-14-2017 Follow Up Appt 6 weeks Follow Up Appt 6 weeks [facility] Start: 05-12-2017 End: 05-14-2017 Gonadotropin chorionic quantitative BhCG; quantitative [facility] Start: 05-12-2017 End: 05-14-2017 Hemoglobin by Imm presence in stool *Occult Blood, Stool [facility] Start: 05-12-2017 End: 05-13-2017 Urinalysis complete panel - Urine *UAC- Urinalysis, Complete w/ Micro [facility] Start: 05-12-2017 End: 05-14-2017 Chorionic gonadotropin test BhCG; quantitative [facility] Work Phone: Start: 05-12-2017 End: 05-14-2017 Follow Up Appt 6 weeks Follow Up Appt 6 weeks [facility] Work Phone: Start: 05-12-2017 End: 05-14-2017 Hemoglobin by Imm presence in stool *Occult Blood, Stool [facility] Work Phone: Start: 05-12-2017 End: 05-13-2017 Urinalysis complete panel - Urine *UAC- Urinalysis, Complete w/ Micro [facility] Work Phone: Start: 03-18-2017 End: 04-15-2017 *CMP Complete Metabolic Panel *CMP Complete Metabolic Panel [facility] Start: 03-18-2017 End: 05-14-2017 *EKG (Done in Hospital) *EKG (Done in Hospital) [facility] Start: 03-18-2017 End: 03-18-2017 Appointment Appointment [facility] Start: 03-18-2017 End: 03-18-2017 Follow Up Appt 3 months Follow Up Appt 3 months [facility] Start: 03-18-2017 End: 04-15-2017 Hemoglobin A1c/Hemoglobin.total mass fraction (Bld) *HgA1C [facility] Start: 03-18-2017 End: 04-15-2017 Lipid panel [AGGREGATE] *Lipid Profile [facility] Start: 03-18-2017 End: 04-15-2017 Thyroid stimulating hormone (TSH) *TSH [facility] Start: 03-18-2017 End: 04-15-2017 Thyroxine (T4) free *T4 free [facility] Start: 03-18-2017 End: 04-15-2017 *CMP Complete Metabolic Panel *CMP Complete Metabolic Panel [facility] Start: 03-18-2017 End: 05-14-2017 *EKG (Done in Hospital) *EKG (Done in Hospital) [facility] Start: 03-18-2017 End: 03-18-2017 Follow Up Appt 3 months Follow Up Appt 3 months [facility] Start: 03-18-2017 End: 04-15-2017 HbA1c *HgA1C [facility] Start: 03-18-2017 End: 04-15-2017 Lipid panel [AGGREGATE] *[facility] Start: 03-18-2017 End: 04-15-2017 Thyroid stimulating hormone (TSH) *TSH [facility] Start: 03-18-2017 End: 04-15-2017 Thyroxine (T4) free *T4 free [facility] Start: 2016 PAP TESTING PAP TESTING [facility] Start: 2016 Screening for malignant neoplasm of cervix Cervical Cancer Screening [facility] Start: 2013 Depression Screening Depression Screening [facility] Start: 2013 HEPATITIS C SCREENING HEPATITIS C SCREENING [facility] Start: 2013 Hepatitis C screening Hepatitis C Screening [facility] Start: 2013 HIV SCREENING HIV SCREENING [facility] Start: 2013 HIV screening HIV Screening [facility] Start: 2009 PEDS TO ADULT TRANSITION ANNUAL ASSESSMENT PEDS TO ADULT TRANSITION ANNUAL ASSESSMENT [facility] Start: 06-25-2008 HPV VACCINE (2 - 2-dose series) HPV VACCINE (2 - 2-dose series) [facility] Start: 2007 Adult depression screening assessment DEPRESSION SCREENING [facility] Start: 2007 PEDS TO ADULT TRANSITION INITIAL DISCUSSION PEDS TO ADULT TRANSITION INITIAL DISCUSSION [facility] Start: 2001 Pneumococcal vaccination Pneumococcal Vaccine (1 of 2 - PCV) [facility] Start: 2000 COVID-19 VACCINE (1) COVID-19 VACCINE (1) [facility] Immunizations Immunization Date Immunization Notes Care Provider Babs noriega 06-02-2012 influenza virus vacc ine, unspecified formulation Comfort Pineda BOWLING FLOOR MANAGER.GLASS RIBBON MACHINE OPERATOR ASSISTANT Work Phone: [facility] 12-25-2007 human papilloma viru s vaccine, quadrivalent Oli Marroquin Jr., MD Work Phone: [facility] 12-25-2007 Meningococcal, MCV4, unspecified conjugate formulation(groups A, C, Y and W-135) Oli Marroquin Jr., MD Work Phone: [facility] 12-25-2007 tetanus toxoid, redu magdalena diphtheria toxoid, and acellular pertussis vaccine, adsorbed Oli Marorquin Jr., MD Work Phone: [facility] Payers Date Payer Category Payer Self-pay 2024 Unknown [id number] 2024 Unknown [id number] 2016 Medicare [id number] Unknown [id number] [id number] Unknown [id number] [id number] [id number] Unknown [id number] [id number] [id number] Unknown [id number] [id number] [id number] Unknown [id number] [id number] [id number] Unknown [id number] [id number] [id number] Social History Date Type Detail Facility Start: 04-12-2024 Tobacco smoking stat us MAIS Smokes tobacco daily [facility] Work Phone: Start: 10-03-2016 End: 04-12-2024 Alcohol intake Not Asked [facility] Start: 06-08-2010 End: 04-12-2024 Tobacco Comment mother smokes [facility] Start: 1995 Sex Assigned At Not on file [facility] Start: 04-12-2024 Tobacco use and exposure Smokeless tobacco non-user [facility] Start: 04-12-2024 History of Social function [facility] Start: 04-12-2024 Tobacco use panel [facility] Progress note 04-12-2024 Note Date & Type Note Facility 04-12-2024 Note HNO ID: [id number] Author: COMFORT PINEDA APRN.GLASS RIBBON MACHINE OPERATOR ASSISTANT Service: ? Author Type: Nurse Practitioner Type: Progress Notes Filed: 04/12/2024 19:53 Note Text: Triage Note: Patient was seen by Brock Negron and placed on meloxicam and flexeril for right shoulder pain. Today when she woke up she is having right sided facial, neck and arm swelling and pain. She denies any throat swelling or difficulty breathing. States she is in a lot of pain.9/10. Due to degree of pain and swelling, advised patient be seen in ER for further evaluation and treatment. Patient was in [place] ED and left without being seen. Comfort Pineda APRN.CNP [facility] History of Present illness Narrative 04-12-2024 Comfort Pineda APRN.CNP - 04/12/2024 7:49 PM EDT Note Date & Type Note Facility 04-12-2024 History of Presen t illness Narrative Triage Note: Patient was seen by Brock Negron and placed on meloxicam and flexeril for right shoulder pain. Today when she woke up she is having right sided facial, neck and arm swelling and pain. She denies any throat swelling or difficulty breathing. States she is in a lot of pain.9/10. Due to degree of pain and swelling, advised patient be seen in ER for further evaluation and treatment. Patient was in [place] ED and left without being seen. Comfort Pineda APRN.CNP documented in this encounter [facility] Note 11-19-2021 Telephone Encounter - Millicent Lopez - 11/19/2021 12:11 PM EDTTelephone Encounter - Joyce Mccarthy LPN - 11/12/2021 12:55 PM EDT Note Date & Type Note Facility 11-19-2021 Miscellaneous Notes Per the provider, the patient would need to have consulted with the sleep provider before a sleep study can be ordered. Erin from [facility] Sleep [facility] calling she faxed consult from Brock Negron VENDING MACHINE COIN COLLECTOR for in lab sleep study for this patient. Would like nurse to call Erin please. documented in this encounter [facility] Evaluation note Note Date & Type Note Facility Evaluation note Diagnosis Facial swelling- Primary Swelling, mass, or lump in head and neck documented in this encounter [facility] Summary Purpose Family History No Family History Records FoundNo Family History Records Found Advance Directives No Advanced Directives Records FoundNo Advanced Directives Records Found Additional Source Comments Source Comments (unrecognize d section and content) In the event this informatio n is protected by the Federal Confidentiality of Alcohol and Drug Abuse Patient Records regulations: The Federal rules restrict any use of the information to criminally investigate or prosecute any alcohol or drug abuse patient.[facility] the event this information is protected by the Federal Confidentiality of Alcohol and Drug Abuse Patient Records regulations: The Federal rules restrict any use of the information to criminally investigate or prosecute any alcohol or drug abuse patient.[facility] Reason for Visit (unrecogniz ed section and content) Reason Comments consult faxed from [facility] Sleep [facility] Reason Comments Pain Right side pain x 2 weeks right side starting to swell and painful started today Care Teams (unrecognized sec tion and content) Geophysics Teacher Relationship Specialty Start Date End Date Mike Hugo PCP - General Pediatrics 06/12/10 Geophysics Teacher Relationship Specialty Start Date End Date Mike Hugo MD PCP - General Pediatrics 06/12/10 INFORMATION SOURCE (unrecogn ized section and content) DATE CREATED AUTHOR 04/14/2024 [facility] DATE CREATED AUTHOR AUTHOR'S ALEC AZUL 02/19/2025 [facility] FOR RECORDS PERTAINING TO PATIENTS WHO ARE OR HAVE BEEN ENROLLED IN A CHEMICAL DEPENDENCY/SUBSTANCEABUSE PROGRAM, SOME INFORMATION MAY BE OMITTED. This clinical summary was aggregated from multiple sources. Caution should be exercised in using it in the provision of clinical care. This summary normalizes information from multiple sources, and as a consequence, information in this document may materially change the coding, format and clinical context of patient data. In addition, data may be omitted in some cases. CLINICAL DECISIONS SHOULD BE BASED ON THE PRIMARY CLINICAL RECORDS. [employer] [facility]. provides no warranty or guarantee of the accuracy or completeness of information in this document.
== END | disposition home or self-care (01) ==
LOC: MTRAD 14:33
PROVIDERS: PCP Nurse Practitioner Family; Referring Provider Family Medicine; Visit Provider Family Medicine
DX: J20.9 Acute bronchitis, unspecified (principal)
CPT/HCPCS: 71046